=== PATIENT | male | born 1940 | race Caucasian/White ===

== ENCOUNTER 2017-06-11 07:03 | Inpatient (IN) | payer BC ==
[~2017-06-11] VITALS: Ht 175.3 cm; Wt 101.8 kg
[2017-06-11] VITALS (20 sets, daily range): BP systolic 123–190; BP diastolic 66–94; PULSE 62–84; RESP 14–31; Ht 175.3 cm; Wt 101.8 kg
--- NOTE | 2017-06-11 07:51 | RADRPT ---
PROCEDURE: XR Chest. CLINICAL INDICATION: Preoperative cardiovascular screening TECHNIQUE: AP Portable chest. COMPARISON: None available FINDINGS: The soft tissues and bones are normal. No focal infiltrates, masses, or effusions are noted. The m ediastinum and heart are remarkable for mild vascular calcifications of the thoracic aorta and yohannes l size heart.. No pneumothorax is present. IMPRESSION: 1. No radiographic evidence for acute cardiopulmonary disease 2. Mild atherosclerotic vascular disease RPTAT: HDC .Vilma Gregory MD, Date Time Electronically viewed and signed by .Vilma Gregory MD, MD on 06/11/2017 07:51 .C/
[2017-06-11] MEDS ORDERED: SAXA1TBM3 PO (08:11)
[2017-06-11] MEDS ORDERED: DICL50TA11 PO (08:12)
[2017-06-11] MEDS ORDERED: ATOR40TA68 PO (08:12)
[2017-06-11] MEDS ORDERED: ISOS120T15 PO (08:13)
[2017-06-11] MEDS ORDERED: FOLI-49 PO (08:13)
[2017-06-11] MEDS ORDERED: DOXA2TAB PO (08:15)
[2017-06-11] MEDS ORDERED: GLIM4TAB PO (08:16)
[2017-06-11] MEDS ORDERED: ASPI-664 PO (08:17)
[2017-06-11] MEDS ORDERED: CARV6.2579 PO (08:17)
[2017-06-11] MEDS ORDERED: DOCU100C26 PO (08:18)
[2017-06-11 08:27] LABS: BASOPHIL # 0.1 10^3/ul (0.0-0.1); BASOPHILS % 0.8 % (0.0-2.0); EOSINOPHILS # 0.3 10^3/ul (0.0-0.5); EOSINOPHILS % 3.4 % (0.0-7.0); HEMATOCRIT 37.1 % (42.0-52.0); HEMOGLOBIN 11.9 g/dl (14.0-18.0); LYMPHOCYTES # 2.1 10^3/ul (0.8-2.9); LYMPHOCYTES % 28.7 % (15.0-51.0); MEAN CORPUSCULAR HEMOGLOBIN 28.9 pg (29.0-33.0); MEAN CORPUSCULAR HGB CONC 32.1 g/dl (32.0-37.0); MEAN PLATELET VOLUME 11.9 fl (7.4-10.4); MONOCYTE # 0.5 10^3/ul (0.3-0.9); MONOCYTES % 6.6 % (0.0-11.0); NEUTROPHIL # 4.5 10^3/ul (1.6-7.5); NEUTROPHILS % 59.8 % (39.0-77.0); PLATELET COUNT 197 10^3/UL (140-415); RED BLOOD COUNT 4.12 10^6/ul (4.70-6.10); RED CELL DISTRIBUTION WIDTH 13.8 % (11.5-14.5); WHITE BLOOD COUNT 7.4 10^3/ul (4.8-10.8)
[2017-06-11 08:45] LABS: CHOL/HDL RATIO 3.4 RATIO
[2017-06-11 08:47] LABS: INR 0.95; PROTIME 12.7 Sec (12.2-14.2)
[2017-06-11 08:48] LABS: PARTIAL THROMBOPLASTIN TIME 26.3 Sec (25.0-35.0)
[2017-06-11 08:49] LABS: CALCIUM 10.4 mg/dl (8.4-10.2); CREATININE 0.84 mg/dl (0.61-1.24); POTASSIUM 4.6 mmol/L (3.5-5.1)
[2017-06-11] MEDS ORDERED: IODIXANOL LOCM 100 ML BTL ONE (08:57)
[2017-06-11] MEDS ORDERED: LIDOCAINE 1% (MDV) 20 ML INJ ONE (08:57)
[2017-06-11] MEDS ORDERED: HEPARIN 1000 UNITS/ML 10 ML INJ ONE (08:57)
[2017-06-11] MEDS ORDERED: NITROGLYCERIN (IC) 100 MCG/ML INJ ONE (08:58)
[2017-06-11] MEDS ORDERED: FENTAnyl 50 MCG/ML VIAL ONE (08:58)
[2017-06-11] MEDS ORDERED: VERAPAMIL 5 MG INJ ONE (08:58)
[2017-06-11] MEDS ORDERED: MIDAZOLAM 1 MG/ML 2 ML INJ ONE (08:58)
[2017-06-11] MEDS ORDERED: DIPHENHYDRAMINE 50 MG CAP PO PRN (09:00)
[2017-06-11] MEDS ORDERED: FAMOTIDINE 20 MG TAB PO PRN (09:00)
[2017-06-11] MEDS ORDERED: SOD CHLORIDE 0.45% 1,000 ML IV SCH (09:00)
[2017-06-11] MEDS ORDERED: DIAZEPAM 5 MG TAB PO PRN (09:00)
[2017-06-11] MEDS ORDERED: SOD CHLORIDE 0.9% 1,000 ML IV SCH (10:12)
--- NOTE | 2017-06-11 10:16 | SIPON ---
Date/Time of Note Date/Time of Note DATE: 06/11/17 TIME: 10:15 Operative Report Preoperative Diagnosis 1.abnl mpi 2.chest pain Postoperative Diagnosis 1.Obstructive cad Operation/Procedure Performed 1.[facility] Surgeon see signature line librarian assistant Deisy Anesthesia: moderate sedation Estimated blood loss: minimal Transfusion Required none Specimen NA Grafts/Implants none Complications none BETY MEADOWS Jun 11, 2017 10:16
[2017-06-11] MEDS ORDERED: ONDANSETRON 4 MG INJ IV PRN (10:30)
[2017-06-11] MEDS ORDERED: AL HYDROX/MG HYDROX/SIMETH 30 ML CUP PO PRN (10:30)
[2017-06-11] MEDS: HOLD all METFORMIN and METFORMIN CONTAINING medications for 48 hours post procedure. Chec XX SCH (10:30)
[2017-06-11] MEDS ORDERED: morphine 2 MG INJ IV PRN (10:30)
--- NOTE | 2017-06-11 12:13 | CARRPT ---
DATE OF PROCEDURE: 06/11/2017 TYPE OF PROCEDURE: 1. Left heart catheterization. 2. Coronary angiography. 3. Left ventriculogram. ATTENDING PHYSICIAN: Bety Riley MD REFERRING PHYSICIAN: Dr. Hitesh Alcocer. INDICATION: Chest pain, positive stress test findings for ischemia. TYPE OF ANESTHESIA: Conscious and local. BRIEF HISTORY: Mr. Alicea is a 76-year-old male with history of hypertension, dyslipidemia, diab etes mellitus, ongoing tobacco usage, who presented with complaints of substernal chest pain. The p atient subsequently had a cardiac stress test revealing positive ischemia and was referred for left heart catheterization. Patient now presents for left heart catheterization to assess for the possib ility of significant obstructive coronary artery disease lending to symptoms of chest pain and posit brandon stress test findings. PROCEDURE: After informed consent was obtained, the patient was brought to the [facility] cardiac catheterization lab where his right radial area was prepped and draped in usual clayton rile fashion. Lidocaine 2% to the right radial area in order to achieve adequate anesthesia. Using the modified Seldinger technique, the right radial artery was cannulated and a 6-Egyptian JL3.[address] was used to cannulate the left main coronary ostium. With contrast injection, multiple views of the left coronary system were obtained. A JL3.5 ____ over a guidewire and a FR4 was used to cannul ate the right coronary arterial ostium. With contrast injection, multiple views of the right wang ry arterial system obtained. JR4 was removed over a guidewire and a persistent pigtail was passed d own ____ aorta into LV, left end-diastolic pressure was measured. Using a power injector, 20 mL of contrast were injected opacifying the left ventricle and it was pulled back across the aortic valve to assess for significant gradient, which there was not. Subsequently, at this time, the guide cath eter was removed. The patient's sheath was removed. ____ was applied. This completed the procedur e. There were no noted complications. FINDINGS: 1. Coronary angiography: Left main long 4 mm, no significant stenoses. Circumflex proximally is a 2.5 mm vessel and in its midportion has a complex lesion with areas of stenosis up to approximately 90%. There is just a ramus branch ____ 2 mm. No significant focal stenoses. The patient's LAD pr oximally is a 3 mm vessel and in its midportion has an eccentric lesion up to approximately 80-90% _ ___ takeoff of diagonal. Diagonal itself is a 2 mm vessel and has diffuse disease up to approximate ly 60% in the proximal portion. The patient's right coronary artery is 100% occluded in its ostium and can be seen to be recapitulating in its mid to distal portions via left to right collateral circ ulation from the distal circumflex and distal LAD. 2. Left ventriculogram revealed a preserved left ventricular ejection fraction of 55. Left ventric ular end diastolic pressure of 21 pre- and post-LV gram, 1+ mitral regurgitation. No significant ao rtic stenosis by gradient. TOTAL FLUOROSCOPY TIME: 3 minutes. TOTAL CONTRAST: 100 mL. IMPRESSION: 1. Multivessel obstructive coronary artery disease involving high grade stenosis of the circumflex, LAD and 100% occlusion of the patient's right coronary artery with collateral circulation recapitul ating this vessel. 2. Preserved left ventricular systolic function. 3. Mildly elevated left heart filling pressures. 4. No significant aortic stenosis by gradient. 5. One to two plus mitral regurgitation. RECOMMENDATIONS: In light of procedure and findings at this time would: 1. Refer patient for possible coronary artery bypass graft surgery versus multivessel percutaneous coronary intervention. 2. Maximize medical management. 3. Aggressive risk factor reduction. 4. Patient will be admitted to the telemetry floor for post-catheterization observation and evaluat ion for possible coronary bypass graft surgery. Dictated By: BETY GREWAL/SHANKAR Conf#: [id number] DID#: [id number]
--- NOTE | 2017-06-11 13:03 | RADRPT ---
Vent Rate: 61 bpm RR Interval: 0 msec [place] Interval: 206 msec QRS Duration: 96 msec QT Interval: 382 msec QTC Interval: 384 msec P-R-T [place]: 38 - 43 - 70 degrees Normal sinus rhythm Normal ECG Electronically Signed By: Brando Tejada [id number]
[2017-06-11] MEDS ORDERED: DEXTROSE 50% 50 ML SYRINGE IV PRN ×2 (19:30)
[2017-06-11] MEDS ORDERED: GLUCOSE GEL 15 GRAM TUBE PO PRN ×2 (19:30)
[2017-06-11] MEDS ORDERED: GLUCOSE GEL 15 GRAM TUBE BUCCAL PRN (19:30)
[2017-06-11] MEDS ORDERED: GLUCAGON 1 MG INJ IM PRN (19:30)
[2017-06-11] MEDS ORDERED: DOCUSATE SODIUM 100 MG CAP PO PRN (20:30)
[2017-06-11] MEDS ORDERED: hydrALAzine 20 MG INJ IV PRN (20:30)
--- NOTE | 2017-06-11 20:48 | HP ---
Date/Time of Note Date/Time of Note DATE: 06/11/17 TIME: 20:16 Assessment/Plan VTE Prophylaxis VTE Prophylaxis Intervention: other Lines/Catheters IV Catheter Type (from Nrs): Peripheral IV Assessment/Plan Assessment/Plan 1. Chest pain- r/o acs - sp Heart Cath Multivessel obstructive coronary artery disease involving high grade stenosis of the circumflex, LAD and 100% occlusion of the patient's right coronary artery with collateral circulation recapitulating this vessel. - Admit to tele - per cardiology - per vascular- Dr Christensen 2. Preserved left ventricular systolic function. 3. Diabetes Mellitus - Glycemic control 4. Carotid Stenosis 5. Ongoing tobacco usage - Smoking cessation 6. Hyperlipidemia 7. SP DC x 20 yrs ago 8. Hypertension - Hydralazine 10 mg IVP Q6hr prn for SBP >160 9. Anemia- monitor H/H Plan - resume home meds - will hold po anti Diabetic meds - ASA Segundo Mariscal/staff HPI/ROS Admit Date/Time Admit Date/Time Jun 11, 2017 at 10:14 ROS Mr. Alicea is a 76-year-old male with history of hypertension, dyslipidemia, diabetes mellitus, ongoing tobacco usage is admitted with c/o complaints of substernal chest pain. His cardiac stress test was positive ischemia and he underwent left heart catheterization by Dr Riley to assess for the possibility of significant obstructive coronary artery disease lending to symptoms of chest pain and positive stress test findings. Patient is admitted under Dr Mariscal for further evaluation and treatment. Dr Christensen was notified as well. Plan of care dw family/ staff. Segundo Riley. Respiratory: no complaints Cardiovascular: chest pain Gastrointestinal: no complaints Genitourinary: no complaints Musculoskeletal: no complaints PMH/Family/Social Past Medical History As stated in HPI Social History Smoking Status: Former smoker Drug Use: none Exam/Review of Systems Vital Signs Vitals Vital Signs Date Time Temp Pulse Resp B/P Pulse Ox O2 Delivery O2 Flow Rate FiO2 06/11/17 20:11 82 06/11/17 19:56 97.5 18 177/81 99 06/11/17 12:32 Room Air Exam Constitutional: alert, well developed Respiratory: normal air movement Cardiovascular: nl pulses, other (S1S2) Gastrointestinal: non-tender, soft Musculoskeletal: nl extremities to inspection Extremities: normal pulses Neurological: nl mental status, nl speech Labs Result Diagram: 06/11/17 0800 06/11/17 0800 Medications Medications Current Medications Sodium Chloride (1/2 NS) 1,000 ml @ 0 mls/hr Q0M IV ; Start 06/11/17 at 09:00 Diazepam (Valium) 5 mg ONCE PRN PO PASSENGER TIRE INSPECTOR PRE OP; Start 06/11/17 at 09:00; Stop 06/11/17 at 23:00 Diphenhydramine HCl (Benadryl) 50 mg ONCE PRN PO PASSENGER TIRE INSPECTOR PREOP; Start 06/11/17 at 09:00; Stop 06/11/17 at 23:00 Famotidine (Pepcid) 20 mg ONCE PRN PO PASSENGER TIRE INSPECTOR PREOP; Start 06/11/17 at 09:00; Stop 06/11/17 at 23:00 Miscellaneous Information (* Miscellaneous Pharmacy Order) HOLD all METFORMIN ... ONCE XX ; Start 06/11/17 at 10:30; Stop 06/13/17 at 10:29 Acetaminophen (Tylenol Tab) 650 mg Q4H PRN PO NON-CARDIAC PAIN LEVEL (1-3); Start 06/11/17 at 10:30 Morphine Sulfate (morphine) 2 mg Q2H PRN IV FOR NON CARDIAC PAIN (4-10); Start 06/11/17 at 10:30 Al Hydrox/Mg Hydrox/Simethicone (Mag-Al Plus) 30 ml Q4H PRN PO GASTROINTESTINAL UPSET; Start 06/11/17 at 10:30 Ondansetron HCl (Zofran Inj) 4 mg Q4H PRN IV NAUSEA AND/OR VOMITING; Start 06/11/17 at 10:30 Diagnostic Test (Pha) (Accu-Chek) 1 ea 02 XX ; Start 06/12/17 at 02:00 Miscellaneous Information 1 ea NOTE XX ; Start 06/11/17 at 19:30 Glucose (Glutose) 15 gm Q15M PRN PO DECREASED GLUCOSE; Start 06/11/17 at 19:30 Glucose (Glutose) 22.5 gm Q15M PRN PO DECREASED GLUCOSE; Start 06/11/17 at 19: 30 Dextrose (D50w Syringe) 25 ml Q15M PRN IV DECREASED GLUCOSE; Start 06/11/17 at 19:30 Dextrose (D50w Syringe) 50 ml Q15M PRN IV DECREASED GLUCOSE; Start 06/11/17 at 19:30 Glucagon (Glucagen) 1 mg Q15M PRN IM DECREASED GLUCOSE; Start 06/11/17 at 19:30 Glucose (Glutose) 15 gm Q15M PRN BUCCAL DECREASED GLUCOSE; Start 06/11/17 at 19 :30 JJ MYERS Jun 11, 2017 20:26
[2017-06-11] MEDS: DOXAZOSIN 2 MG TAB PO SCH (21:00)
[2017-06-11] MEDS: DICLOFENAC (EC) 25 MG TAB PO SCH (21:00)
[2017-06-11] MEDS: ATORVASTATIN 40 MG TAB PO SCH (21:00)
[2017-06-11] MEDS: INSULIN ASPART [NOVOLOG] 3 ML PEN SC SCH (21:00)
[2017-06-11 21:38] LABS: BASOPHIL # 0.1 10^3/ul (0.0-0.1); BASOPHILS % 0.9 % (0.0-2.0); EOSINOPHILS # 0.2 10^3/ul (0.0-0.5); EOSINOPHILS % 2.8 % (0.0-7.0); HEMOGLOBIN 12.2 g/dl (14.0-18.0); LYMPHOCYTES # 2.7 10^3/ul (0.8-2.9); LYMPHOCYTES % 32.8 % (15.0-51.0); MEAN CORPUSCULAR VOLUME 91.1 fl (82.0-101.0); MEAN PLATELET VOLUME 11.9 fl (7.4-10.4); MONOCYTE # 0.5 10^3/ul (0.3-0.9); MONOCYTES % 6.6 % (0.0-11.0); NEUTROPHIL # 4.6 10^3/ul (1.6-7.5); NEUTROPHILS % 56.3 % (39.0-77.0); PLATELET COUNT 212 10^3/UL (140-415); RED BLOOD COUNT 4.06 10^6/ul (4.70-6.10); RED CELL DISTRIBUTION WIDTH 13.7 % (11.5-14.5); WHITE BLOOD COUNT 8.2 10^3/ul (4.8-10.8)
[2017-06-11 21:57] LABS: CHOL/HDL RATIO 3.5 RATIO
[2017-06-12] VITALS (11 sets, daily range): BP systolic 104–146; BP diastolic 55–68; PULSE 55–70; RESP 16–19
[2017-06-12] MEDS ORDERED: ACCU-CHEK XX SCH (02:00)
[2017-06-12] MEDS: ACCU-CHEK XX SCH (02:00)
[2017-06-12 07:49] LABS: CALCIUM 10.2 mg/dl (8.4-10.2); CREATININE 0.86 mg/dl (0.61-1.24); POTASSIUM 4.8 mmol/L (3.5-5.1)
[2017-06-12] MEDS: DICLOFENAC (EC) 25 MG TAB PO SCH ×3 (08:32→19:56)
[2017-06-12] MEDS: FOLIC ACID 1 MG TAB PO SCH (08:32)
[2017-06-12] MEDS: ISOSORBIDE MONONITRATE(SR)60 MG TAB PO SCH (08:32)
[2017-06-12] MEDS: ASPIRIN (EC) 81 MG TAB PO SCH (08:34)
[2017-06-12] MEDS: INSULIN ASPART [NOVOLOG] 3 ML PEN SC SCH ×4 (08:39→20:05)
[2017-06-12] MEDS: HOLD all METFORMIN and METFORMIN CONTAINING medications for 48 hours post procedure. Chec XX SCH (10:30)
--- NOTE | 2017-06-12 14:31 | PN ---
Date/Time of Note Date/Time of Note DATE: 06/12/17 TIME: 14:25 Assessment/Plan VTE Prophylaxis VTE Prophylaxis Intervention: SCD's Lines/Catheters IV [facility]from [facility]): Peripheral IV Urinary Cath still in place: No Assessment/Plan Chief Complaint/Hosp Course Pt denies SOB, denies chest pain at rest. Problems: Assessment/Plan - Multivessel obstructive coronary artery disease involving high grade stenosis of the circumflex, LAD and 100% occlusion of the patient's right coronary artery with collateral circulation recapitulating this vessel per cardiac cath by Dr. Riley on 06/11. Pending cardiac surgery evaluation for possible CABG. -Hypertension -Hyperlipidemia -Diabetes mellitus with hemoglobin A1c 6.9, start linagliptin, continue NovoLog per mild algorithm sliding scale. Further recommendations based on clinical course. Plan of care discussed with Dr. Mariscal Exam/Review of Systems Vital Signs Vitals Vital Signs Date Time Temp Pulse Resp B/P Pulse Ox O2 Delivery O2 Flow Rate FiO2 06/12/17 12:01 98.0 73 18 116/62 92 06/11/17 12:32 Room Air Intake and Output 06/11/17 06/11/17 06/12/17 15:00 23:00 07:00 Intake Total 250 ml 630 ml 300 ml Output Total 700 ml 550 ml Balance -450 ml 80 ml 300 ml Exam Constitutional: alert, oriented Head: normocephalic Neck: supple Respiratory: normal air movement Cardiovascular: nl pulses, regular rate and rhythm Gastrointestinal: non-tender, soft Extremities: normal pulses Neurological: nl mental status Results Result Diagram: 06/11/17205406/12/17 0644 Results 24 hrs Laboratory Tests Test 06/11/17 20:55 06/11/17 22:03 06/12/17 06:44 06/12/17 08:30 White Blood Count 8.2 Red Blood Count 4.06 L Hemoglobin 12.2 L Hematocrit 37.0 L Mean Corpuscular Volume 91.1 Mean Corpuscular Hemoglobin 30.0 Mean Corpuscular Hemoglobin Concent 33.0 Red Cell Distribution Width 13.7 Platelet Count 212 Mean Platelet Volume 11.9 H Neutrophils % 56.3 Lymphocytes % 32.8 Monocytes % 6.6 Eosinophils % 2.8 Basophils % 0.9 Nucleated Red Blood Cells % 0.0 Neutrophils # 4.6 Lymphocytes # 2.7 Monocytes # 0.5 Eosinophils # 0.2 Basophils # 0.1 Nucleated Red Blood Cells # 0.0 Triglycerides Level 271 H Cholesterol Level 141 LDL Cholesterol, Calculated 47 HDL Cholesterol 40 Cholesterol/HDL Ratio 3.5 Bedside Glucose 196 151 Sodium Level 142 Potassium Level 4.8 Chloride Level 105 Carbon Dioxide Level 28 Anion Gap 14 Blood Urea Nitrogen 19 Creatinine 0.86 Glucose Level 135 Hemoglobin A1c 6.9 H Calcium Level 10.2 Test 06/12/17 12:16 Bedside Glucose 202 Medications Medications Current Medications Sodium Chloride (1/2 NS) 1,000 ml @ 0 mls/hr Q0M IV ; Start 06/11/17 at 09:00 Miscellaneous Information (* Miscellaneous Pharmacy Order) HOLD all METFORMIN ... ONCE XX ; Start 06/11/17 at 10:30; Stop 06/13/17 at 10:29 Acetaminophen (Tylenol Tab) 650 mg Q4H PRN PO NON-CARDIAC PAIN LEVEL (1-3); Start 06/11/17 at 10:30 Morphine Sulfate (morphine) 2 mg Q2H PRN IV FOR NON CARDIAC PAIN (4-10); Start 06/11/17 at 10:30 Al Hydrox/Mg Hydrox/Simethicone (Mag-Al Plus) 30 ml Q4H PRN PO GASTROINTESTINAL UPSET; Start 06/11/17 at 10:30 Ondansetron HCl (Zofran Inj) 4 mg Q4H PRN IV NAUSEA AND/OR VOMITING; Start 06/11/17 at 10:30 Diagnostic Test (Pha) (Accu-Chek) 1 ea 02 XX ; Start 06/12/17 at 02:00 Miscellaneous Information 1 ea NOTE XX ; Start 06/11/17 at 19:30 Glucose (Glutose) 15 gm Q15M PRN PO DECREASED GLUCOSE; Start 06/11/17 at 19:30 Glucose (Glutose) 22.5 gm Q15M PRN PO DECREASED GLUCOSE; Start 06/11/17 at 19: 30 Dextrose (D50w Syringe) 25 ml Q15M PRN IV DECREASED GLUCOSE; Start 06/11/17 at 19:30 Dextrose (D50w Syringe) 50 ml Q15M PRN IV DECREASED GLUCOSE; Start 06/11/17 at 19:30 Glucagon (Glucagen) 1 mg Q15M PRN IM DECREASED GLUCOSE; Start 06/11/17 at 19:30 Glucose (Glutose) 15 gm Q15M PRN BUCCAL DECREASED GLUCOSE; Start 06/11/17 at 19 :30 Hydralazine HCl (Apresoline) 10 mg Q6H PRN IV ELEVATED SYSTOLIC BP; Start 06/11 at 20:30 Aspirin (Halfprin) 81 mg DAILY PO Last administered on 06/12/17 08:34; Admin Dose 81 MG; Start 06/12/17 at 09:00 Atorvastatin Calcium (Lipitor) 40 mg QHS PO ; Start 06/11/17 at 21:00 Carvedilol (Coreg) 6.25 mg BID PO Last administered on 06/12/17 08:32; Admin Dose 6.25 MG; Start 06/11/17 at 21:00 Diclofenac Sodium (Voltaren) 50 mg TID PO Last administered on 06/12/17 12:34 ; Admin Dose 50 MG; Start 06/11/17 at 21:00 Docusate Sodium (Colace) 100 mg DAILY PRN PO CONSTIPATION; Start 06/11/17 at 20 :30 Doxazosin Mesylate (Cardura) 2 mg HS PO ; Start 06/11/17 at 21:00 Folic Acid (Folic Acid) 1 mg DAILY PO Last administered on 06/12/17 08:32; Admin Dose 1 MG; Start 06/12/17 at 09:00 Isosorbide Mononitrate (Imdur) 120 mg DAILY PO Last administered on 06/12/17 08:32; Admin Dose 120 MG; Start 06/12/17 at 09:00 GIOVANNI GARCIA Jun 12, 2017 14:31
--- NOTE | 2017-06-12 15:00 | CONS ---
Date/Time of Note Date/Time of Note DATE: 06/12/17 TIME: 14:58 Assessment/Plan Assessment/Plan Additional Assessment/Plan 1. 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 Riley on 06/11. Pending cardiac surgery evaluation for possible CABG. - will await surgical input. 2. Hypertension - well Rx, con't to adjusts x as needed. 3. Hyperlipidemia - on meds 4. Diabetes mellitus with hemoglobin A1c 6.9, start linagliptin, continue NovoLog per mild algorithm sliding scale Primary team follows. 5. Abn EKG - no CP now, surgical eval pending. Consultation Date/Type/Reason Admit Date/Time Jun 11, 2017 at 10:14 Initial Consult Date 24 HR Interval Summary Free Text/Dictation NO acute events - awaiting surgical input. ROS: No fever, no chills, no nausea, no vomiting, no diarrhea/constipation No recent weight changes No chest pain, no PND, no orthopnea No dizziness, blurred vision No thirst, no heat or cold intolerance Exam/Review of Systems Vital Signs Vitals Vital Signs Date Time Temp Pulse Resp B/P Pulse Ox O2 Delivery O2 Flow Rate FiO2 06/12/17 12:01 98.0 73 18 116/62 92 06/11/17 12:32 Room Air Intake and Output 06/11/17 06/11/17 06/12/17 15:00 23:00 07:00 Intake Total 250 ml 630 ml 300 ml Output Total 700 ml 550 ml Balance -450 ml 80 ml 300 ml Exam General: WN/WD/NAD, AOx 3 HEENT: Unicetric/atraumatic/EOMI (follows commands) NECK: JVD elevated, no thyromegaly Lymph: no lymphadenopathy HEART: regular with no S3, II/ systolic murmur at apex LUNGS: Coarse sounds ABD: soft, NT, ND, +BS : Intact Neuro: non focal SKIN: chronic changes EXT: trace edema Results Result Diagram: 06/11/17205406/12/1744 Results 24 hrs Laboratory Tests Test 06/11/17 20:55 06/11/17 22:03 06/12/17 06:44 06/12/17 08:30 White Blood Count 8.2 Red Blood Count 4.06 L Hemoglobin 12.2 L Hematocrit 37.0 L Mean Corpuscular Volume 91.1 Mean Corpuscular Hemoglobin 30.0 Mean Corpuscular Hemoglobin Concent 33.0 Red Cell Distribution Width 13.7 Platelet Count 212 Mean Platelet Volume 11.9 H Neutrophils % 56.3 Lymphocytes % 32.8 Monocytes % 6.6 Eosinophils % 2.8 Basophils % 0.9 Nucleated Red Blood Cells % 0.0 Neutrophils # 4.6 Lymphocytes # 2.7 Monocytes # 0.5 Eosinophils # 0.2 Basophils # 0.1 Nucleated Red Blood Cells # 0.0 Triglycerides Level 271 H Cholesterol Level 141 LDL Cholesterol, Calculated 47 HDL Cholesterol 40 Cholesterol/HDL Ratio 3.5 Bedside Glucose 196 151 Sodium Level 142 Potassium Level 4.8 Chloride Level 105 Carbon Dioxide Level 28 Anion Gap 14 Blood Urea Nitrogen 19 Creatinine 0.86 Glucose Level 135 Hemoglobin A1c 6.9 H Calcium Level 10.2 Test 06/12/17 12:16 Bedside Glucose 202 Medications Medications Current Medications Sodium Chloride (1/2 NS) 1,000 ml @ 0 mls/hr Q0M IV ; Start 06/11/17 at 09:00 Miscellaneous Information (* Miscellaneous Pharmacy Order) HOLD all METFORMIN ... ONCE XX ; Start 06/11/17 at 10:30; Stop 06/13/17 at 10:29 Acetaminophen (Tylenol Tab) 650 mg Q4H PRN PO NON-CARDIAC PAIN LEVEL (1-3); Start 06/11/17 at 10:30 Morphine Sulfate (morphine) 2 mg Q2H PRN IV FOR NON CARDIAC PAIN (4-10); Start 06/11/17 at 10:30 Al Hydrox/Mg Hydrox/Simethicone (Mag-Al Plus) 30 ml Q4H PRN PO GASTROINTESTINAL UPSET; Start 06/11/17 at 10:30 Ondansetron HCl (Zofran Inj) 4 mg Q4H PRN IV NAUSEA AND/OR VOMITING; Start 06/11/17 at 10:30 Diagnostic Test (Pha) (Accu-Chek) 1 ea 02 XX ; Start 06/12/17 at 02:00 Miscellaneous Information 1 ea NOTE XX ; Start 06/11/17 at 19:30 Glucose (Glutose) 15 gm Q15M PRN PO DECREASED GLUCOSE; Start 06/11/17 at 19:30 Glucose (Glutose) 22.5 gm Q15M PRN PO DECREASED GLUCOSE; Start 06/11/17 at 19: 30 Dextrose (D50w Syringe) 25 ml Q15M PRN IV DECREASED GLUCOSE; Start 06/11/17 at 19:30 Dextrose (D50w Syringe) 50 ml Q15M PRN IV DECREASED GLUCOSE; Start 06/11/17 at 19:30 Glucagon (Glucagen) 1 mg Q15M PRN IM DECREASED GLUCOSE; Start 06/11/17 at 19:30 Glucose (Glutose) 15 gm Q15M PRN BUCCAL DECREASED GLUCOSE; Start 06/11/17 at 19 :30 Hydralazine HCl (Apresoline) 10 mg Q6H PRN IV ELEVATED SYSTOLIC BP; Start 06/11 at 20:30 Aspirin (Halfprin) 81 mg DAILY PO Last administered on 06/12/17 08:34; Admin Dose 81 MG; Start 06/12/17 at 09:00 Atorvastatin Calcium (Lipitor) 40 mg QHS PO ; Start 06/11/17 at 21:00 Carvedilol (Coreg) 6.25 mg BID PO Last administered on 06/12/17 08:32; Admin Dose 6.25 MG; Start 06/11/17 at 21:00 Diclofenac Sodium (Voltaren) 50 mg TID PO Last administered on 06/12/17 12:34 ; Admin Dose 50 MG; Start 06/11/17 at 21:00 Docusate Sodium (Colace) 100 mg DAILY PRN PO CONSTIPATION; Start 06/11/17 at 20 :30 Doxazosin Mesylate (Cardura) 2 mg HS PO ; Start 06/11/17 at 21:00 Folic Acid (Folic Acid) 1 mg DAILY PO Last administered on 06/12/17 08:32; Admin Dose 1 MG; Start 06/12/17 at 09:00 Isosorbide Mononitrate (Imdur) 120 mg DAILY PO Last administered on 06/12/17 08:32; Admin Dose 120 MG; Start 06/12/17 at 09:00 Linagliptin (Tradjenta) 5 mg DAILY PO ; Start 06/12/17 at 14:30 YAZ DA SILVA MD Jun 12, 2017 15:00
[2017-06-12] MEDS: LINAGLIPTIN 5 MG TABLET PO SCH (16:58)
--- NOTE | 2017-06-12 19:29 | CONS ---
DATE OF ADMISSION: 06/11/2017 DATE OF CONSULTATION: REASON FOR CONSULTATION: Evaluation for coronary artery bypass grafting. HISTORY OF PRESENT ILLNESS: This is a 76-year-old male with a history of hypertension, diabetes, ob esity, hyperlipidemia, admitted for coronary angiogram, was found to have 3-vessel coronary artery d isease, high grade stenosis in the circumflex and LAD and 100% stenosis of the right coronary artery . Patient does not have any chest pain at this time. PAST MEDICAL HISTORY: Hypertension, diabetes, hyperlipidemia. PAST SURGICAL HISTORY: None. ALLERGIES: NONE. SOCIAL HISTORY: Positive for smoking. No drinking or drug use. PHYSICAL EXAMINATION: VITAL SIGNS: Blood pressure is 104/55, pulse is 74, respirations 18, saturations 97% on room air, t emperature is 98.2. HEENT: Normocephalic, atraumatic. NECK: Supple. No JVD. CARDIOVASCULAR: Normal S1, S2. LUNGS: Clear. ABDOMEN: Soft. EXTREMITIES: Warm. IMPRESSION: Three-vessel coronary artery disease. RECOMMENDATIONS: This patient would be a candidate for coronary artery bypass grafting. Would try to arrange for elective surgery. Discussed with the referring physicians and the patient. Dictated By: SAJI NOVOA/SHANKAR Conf#: [id number] DID#: [id number]
[2017-06-12] MEDS: ATORVASTATIN 40 MG TAB PO SCH (19:56)
[2017-06-12] MEDS: DOXAZOSIN 2 MG TAB PO SCH (21:00)
[2017-06-13] VITALS (12 sets, daily range): BP systolic 107–157; BP diastolic 52–69; PULSE 54–75; RESP 18–21
[2017-06-13] MEDS: ACCU-CHEK XX SCH (02:00)
[2017-06-13] MEDS: INSULIN ASPART [NOVOLOG] 3 ML PEN SC SCH ×4 (07:56→20:36)
[2017-06-13 08:41] LABS: BASOPHIL # 0.1 10^3/ul (0.0-0.1); BASOPHILS % 0.7 % (0.0-2.0); EOSINOPHILS # 0.3 10^3/ul (0.0-0.5); EOSINOPHILS % 3.8 % (0.0-7.0); HEMATOCRIT 34.1 % (42.0-52.0); HEMOGLOBIN 11.1 g/dl (14.0-18.0); LYMPHOCYTES # 2.3 10^3/ul (0.8-2.9); LYMPHOCYTES % 31.7 % (15.0-51.0); MEAN CORPUSCULAR HEMOGLOBIN 29.4 pg (29.0-33.0); MEAN CORPUSCULAR HGB CONC 32.6 g/dl (32.0-37.0); MEAN CORPUSCULAR VOLUME 90.2 fl (82.0-101.0); MEAN PLATELET VOLUME 12.5 fl (7.4-10.4); MONOCYTE # 0.6 10^3/ul (0.3-0.9); MONOCYTES % 8.2 % (0.0-11.0); PLATELET COUNT 171 10^3/UL (140-415); RED BLOOD COUNT 3.78 10^6/ul (4.70-6.10); RED CELL DISTRIBUTION WIDTH 13.8 % (11.5-14.5); WHITE BLOOD COUNT 7.2 10^3/ul (4.8-10.8)
[2017-06-13 09:00] LABS: CALCIUM 10.4 mg/dl (8.4-10.2); CREATININE 1.14 mg/dl (0.61-1.24); POTASSIUM 4.8 mmol/L (3.5-5.1)
[2017-06-13] MEDS: ASPIRIN (EC) 81 MG TAB PO SCH (09:05)
[2017-06-13] MEDS: LINAGLIPTIN 5 MG TABLET PO SCH (09:05)
[2017-06-13] MEDS: DICLOFENAC (EC) 25 MG TAB PO SCH ×3 (09:05→20:35)
[2017-06-13] MEDS: ISOSORBIDE MONONITRATE(SR)60 MG TAB PO SCH (09:06)
[2017-06-13] MEDS: FOLIC ACID 1 MG TAB PO SCH (09:06)
--- NOTE | 2017-06-13 09:06 | PN ---
Date/Time of Note Date/Time of Note DATE: 06/13/17 TIME: 09:06 Assessment/Plan VTE Prophylaxis VTE Prophylaxis Intervention: other Lines/Catheters IV [facility] Type [facility]from [facility]): Saline Lock Urinary Cath still in place: No Assessment/Plan Chief Complaint/Hosp Course - Multivessel obstructive coronary artery disease involving high grade stenosis of the circumflex, LAD and 100% occlusion of the patient's right coronary artery with collateral circulation recapitulating this vessel per cardiac cath by Dr. Riley on 06/11. Pending cardiac surgery evaluation for possible CABG. -Hypertension -Hyperlipidemia -Diabetes mellitus with hemoglobin A1c 6.9, start linagliptin, continue NovoLog per mild algorithm sliding scale. Problems: Subjective 24 Hr Interval Summary Free Text/Dictation Patient denies any complaints Exam/Review of Systems Vital Signs Vitals Vital Signs Date Time Temp Pulse Resp B/P Pulse Ox O2 Delivery O2 Flow Rate FiO2 06/13/17 08:09 59 06/13/17 07:46 98.0 18 157/68 98 06/11/17 12:32 Room Air Intake and Output 06/12/17 06/12/17 06/13/17 15:00 23:00 07:00 Intake Total 850 ml Balance 850 ml Exam Constitutional: well developed Head: atraumatic, normocephalic Neck: supple Respiratory: diminished breath sounds Cardiovascular: regular rate and rhythm Gastrointestinal: non-tender, soft Extremities: normal pulses Results Result Diagram: 06/13/17 0707 06/13/17 0710 Results 24 hrs Laboratory Tests Test 06/12/17 12:16 06/12/17 16:59 06/12/17 19:51 06/13/17 03:54 Bedside Glucose 202 227 H 237 H 164 Test 06/13/17 07:07 06/13/17 07:10 06/13/17 07:53 White Blood Count 7.2 Red Blood Count 3.78 L Hemoglobin 11.1 L Hematocrit 34.1 L Mean Corpuscular Volume 90.2 Mean Corpuscular Hemoglobin 29.4 Mean Corpuscular Hemoglobin Concent 32.6 Red Cell Distribution Width 13.8 Platelet Count 171 Mean Platelet Volume 12.5 H Neutrophils % 55.0 Lymphocytes % 31.7 Monocytes % 8.2 Eosinophils % 3.8 Basophils % 0.7 Nucleated Red Blood Cells % 0.0 Neutrophils # 4.0 Lymphocytes # 2.3 Monocytes # 0.6 Eosinophils # 0.3 Basophils # 0.1 Nucleated Red Blood Cells # 0.0 Sodium Level 139 Potassium Level 4.8 Chloride Level 103 Carbon Dioxide Level 27 Anion Gap 14 Blood Urea Nitrogen 38 #H Creatinine 1.14 Glucose Level 175 Calcium Level 10.4 H Bedside Glucose 201 Medications Medications Current Medications Sodium Chloride (1/2 NS) 1,000 ml @ 0 mls/hr Q0M IV ; Start 06/11/17 at 09:00 Miscellaneous Information (* Miscellaneous Pharmacy Order) HOLD all METFORMIN ... ONCE XX ; Start 06/11/17 at 10:30; Stop 06/13/17 at 10:29 Acetaminophen (Tylenol Tab) 650 mg Q4H PRN PO NON-CARDIAC PAIN LEVEL (1-3); Start 06/11/17 at 10:30 Morphine Sulfate (morphine) 2 mg Q2H PRN IV FOR NON CARDIAC PAIN (4-10); Start 06/11/17 at 10:30 Al Hydrox/Mg Hydrox/Simethicone (Mag-Al Plus) 30 ml Q4H PRN PO GASTROINTESTINAL UPSET; Start 06/11/17 at 10:30 Ondansetron HCl (Zofran Inj) 4 mg Q4H PRN IV NAUSEA AND/OR VOMITING; Start 06/11/17 at 10:30 Diagnostic Test (Pha) (Accu-Chek) 1 ea 02 XX ; Start 06/12/17 at 02:00 Miscellaneous Information 1 ea NOTE XX ; Start 06/11/17 at 19:30 Glucose (Glutose) 15 gm Q15M PRN PO DECREASED GLUCOSE; Start 06/11/17 at 19:30 Glucose (Glutose) 22.5 gm Q15M PRN PO DECREASED GLUCOSE; Start 06/11/17 at 19: 30 Dextrose (D50w Syringe) 25 ml Q15M PRN IV DECREASED GLUCOSE; Start 06/11/17 at 19:30 Dextrose (D50w Syringe) 50 ml Q15M PRN IV DECREASED GLUCOSE; Start 06/11/17 at 19:30 Glucagon (Glucagen) 1 mg Q15M PRN IM DECREASED GLUCOSE; Start 06/11/17 at 19:30 Glucose (Glutose) 15 gm Q15M PRN BUCCAL DECREASED GLUCOSE; Start 06/11/17 at 19 :30 Hydralazine HCl (Apresoline) 10 mg Q6H PRN IV ELEVATED SYSTOLIC BP; Start 06/11 at 20:30 Aspirin (Halfprin) 81 mg DAILY PO Last administered on 06/12/17 08:34; Admin Dose 81 MG; Start 06/12/17 at 09:00 Atorvastatin Calcium (Lipitor) 40 mg QHS PO Last administered on 06/12/17 19: 56; Admin Dose 40 MG; Start 06/11/17 at 21:00 Carvedilol (Coreg) 6.25 mg BID PO Last administered on 06/12/17 19:56; Admin Dose 6.25 MG; Start 06/11/17 at 21:00 Diclofenac Sodium (Voltaren) 50 mg TID PO Last administered on 06/12/17 19:56 ; Admin Dose 50 MG; Start 06/11/17 at 21:00 Docusate Sodium (Colace) 100 mg DAILY PRN PO CONSTIPATION; Start 06/11/17 at 20 :30 Doxazosin Mesylate (Cardura) 2 mg HS PO ; Start 06/11/17 at 21:00 Folic Acid (Folic Acid) 1 mg DAILY PO Last administered on 06/12/17 08:32; Admin Dose 1 MG; Start 06/12/17 at 09:00 Isosorbide Mononitrate (Imdur) 120 mg DAILY PO Last administered on 06/12/17 08:32; Admin Dose 120 MG; Start 06/12/17 at 09:00 Linagliptin (Tradjenta) 5 mg DAILY PO Last administered on 06/12/17 16:58; Admin Dose 5 MG; Start 06/12/17 at 14:30 LESLEY SPAULDING Jun 13, 2017 09:06
--- NOTE | 2017-06-13 13:58 | CONS ---
Date/Time of Note Date/Time of Note DATE: 06/13/17 TIME: 13:57 Assessment/Plan Assessment/Plan Additional Assessment/Plan 1. 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 Riley on 06/11. s/p cardiac surgery evaluation for possible CABG - acceptable candidate, family agrees - will dispo with CT surgery team . 2. Hypertension - well Rx, con't to adjusts x as needed. WELL RX. 3. Hyperlipidemia - on meds 4. Diabetes mellitus with hemoglobin A1c 6.9, start linagliptin, continue NovoLog per mild algorithm sliding scale Primary team follows. 5. Abn EKG - no CP now, surgical eval pending. Consultation Date/Type/Reason Admit Date/Time Jun 11, 2017 at 10:14 24 HR Interval Summary Free Text/Dictation s/p cardiac surgery evaluation for possible CABG - acceptable candidate, family agrees - will dispo with CT surgery team . ROS: No fever, no chills, no nausea, no vomiting, no diarrhea/constipation No recent weight changes No chest pain, no PND, no orthopnea No dizziness, blurred vision No thirst, no heat or cold intolerance Exam/Review of Systems Vital Signs Vitals Vital Signs Date Time Temp Pulse Resp B/P Pulse Ox O2 Delivery O2 Flow Rate FiO2 06/13/17 12:24 68 06/13/17 11:37 98.7 18 107/52 96 06/11/17 12:32 Room Air Intake and Output 06/12/17 06/12/17 06/13/17 15:00 23:00 07:00 Intake Total 850 ml Balance 850 ml Exam General: WN/WD/NAD, AOx 3 HEENT: Unicetric/atraumatic/EOMI (follows commands) NECK: JVD elevated, no thyromegaly Lymph: no lymphadenopathy HEART: regular with no S3, II/ systolic murmur at apex LUNGS: Coarse sounds ABD: soft, NT, ND, +BS : Intact Neuro: non focal SKIN: chronic changes EXT: trace edema Results Result Diagram: 06/13/17 0707 06/13/17 0710 Results 24 hrs Laboratory Tests Test 06/12/17 16:59 06/12/17 19:51 06/13/17 03:54 06/13/17 07:07 Bedside Glucose 227 H 237 H 164 White Blood Count 7.2 Red Blood Count 3.78 L Hemoglobin 11.1 L Hematocrit 34.1 L Mean Corpuscular Volume 90.2 Mean Corpuscular Hemoglobin 29.4 Mean Corpuscular Hemoglobin Concent 32.6 Red Cell Distribution Width 13.8 Platelet Count 171 Mean Platelet Volume 12.5 H Neutrophils % 55.0 Lymphocytes % 31.7 Monocytes % 8.2 Eosinophils % 3.8 Basophils % 0.7 Nucleated Red Blood Cells % 0.0 Neutrophils # 4.0 Lymphocytes # 2.3 Monocytes # 0.6 Eosinophils # 0.3 Basophils # 0.1 Nucleated Red Blood Cells # 0.0 Test 06/13/17 07:10 06/13/17 07:53 06/13/17 11:57 06/13/17 12:46 Sodium Level 139 Potassium Level 4.8 Chloride Level 103 Carbon Dioxide Level 27 Anion Gap 14 Blood Urea Nitrogen 38 #H Creatinine 1.14 Glucose Level 175 Calcium Level 10.4 H Bedside Glucose 201 242 H 227 H Medications Medications Current Medications Sodium Chloride (1/2 NS) 1,000 ml @ 0 mls/hr Q0M IV ; Start 06/11/17 at 09:00 Acetaminophen (Tylenol Tab) 650 mg Q4H PRN PO NON-CARDIAC PAIN LEVEL (1-3); Start 06/11/17 at 10:30 Morphine Sulfate (morphine) 2 mg Q2H PRN IV FOR NON CARDIAC PAIN (4-10); Start 06/11/17 at 10:30 Al Hydrox/Mg Hydrox/Simethicone (Mag-Al Plus) 30 ml Q4H PRN PO GASTROINTESTINAL UPSET; Start 06/11/17 at 10:30 Ondansetron HCl (Zofran Inj) 4 mg Q4H PRN IV NAUSEA AND/OR VOMITING; Start 06/11/17 at 10:30 Diagnostic Test (Pha) (Accu-Chek) 1 ea 02 XX ; Start 06/12/17 at 02:00 Miscellaneous Information 1 ea NOTE XX ; Start 06/11/17 at 19:30 Glucose (Glutose) 15 gm Q15M PRN PO DECREASED GLUCOSE; Start 06/11/17 at 19:30 Glucose (Glutose) 22.5 gm Q15M PRN PO DECREASED GLUCOSE; Start 06/11/17 at 19: 30 Dextrose (D50w Syringe) 25 ml Q15M PRN IV DECREASED GLUCOSE; Start 06/11/17 at 19:30 Dextrose (D50w Syringe) 50 ml Q15M PRN IV DECREASED GLUCOSE; Start 06/11/17 at 19:30 Glucagon (Glucagen) 1 mg Q15M PRN IM DECREASED GLUCOSE; Start 06/11/17 at 19:30 Glucose (Glutose) 15 gm Q15M PRN BUCCAL DECREASED GLUCOSE; Start 06/11/17 at 19 :30 Hydralazine HCl (Apresoline) 10 mg Q6H PRN IV ELEVATED SYSTOLIC BP; Start 06/11 at 20:30 Aspirin (Halfprin) 81 mg DAILY PO Last administered on 06/13/17 09:05; Admin Dose 81 MG; Start 06/12/17 at 09:00 Atorvastatin Calcium (Lipitor) 40 mg QHS PO Last administered on 06/12/17 19: 56; Admin Dose 40 MG; Start 06/11/17 at 21:00 Carvedilol (Coreg) 6.25 mg BID PO Last administered on 06/13/17 09:51; Admin Dose 6.25 MG; Start 06/11/17 at 21:00 Diclofenac Sodium (Voltaren) 50 mg TID PO Last administered on 06/13/17 12:48 ; Admin Dose 50 MG; Start 06/11/17 at 21:00 Docusate Sodium (Colace) 100 mg DAILY PRN PO CONSTIPATION; Start 06/11/17 at 20 :30 Doxazosin Mesylate (Cardura) 2 mg HS PO ; Start 06/11/17 at 21:00 Folic Acid (Folic Acid) 1 mg DAILY PO Last administered on 06/13/17 09:06; Admin Dose 1 MG; Start 06/12/17 at 09:00 Isosorbide Mononitrate (Imdur) 120 mg DAILY PO Last administered on 06/13/17 09:06; Admin Dose 120 MG; Start 06/12/17 at 09:00 Linagliptin (Tradjenta) 5 mg DAILY PO Last administered on 06/13/17 09:05; Admin Dose 5 MG; Start 06/12/17 at 14:30 YAZ DA SILVA MD Jun 13, 2017 13:58
--- NOTE | 2017-06-13 20:18 | PN ---
Date/Time of Note Date/Time of Note DATE: 06/13/17 TIME: 20:17 Assessment/Plan Lines/Catheters IV Catheter Type (from Nrsg): Saline Lock Marlow in Place (from Nrsg): No Assessment/Plan Chief Complaint/Hosp Course IMPRESSION: Three-vessel coronary artery disease. RECOMMENDATIONS: This patient would be a candidate for coronary artery bypass grafting. Would try to arrange for elective surgery. Discussed with the referring physicians and the patient. Problems: Subjective 24 Hr Interval Summary Constitutional: improved Pain Control: mild Exam/Review of Systems Vital Signs Vitals Vital Signs Date Time Temp Pulse Resp B/P Pulse Ox O2 Delivery O2 Flow Rate FiO2 06/13/17 20:07 75 06/13/17 15:57 97.9 21 134/64 95 06/11/17 12:32 Room Air Intake and Output 06/12/17 06/12/17 06/13/17 15:00 23:00 07:00 Intake Total 850 ml Balance 850 ml Exam Neck: non-tender, supple Respiratory: clear to auscultation, normal air movement Cardiovascular: nl pulses, regular rate and rhythm Results Result Diagram: 06/13/17 0707 06/13/17 0710 SAJI RICH MD Jun 13, 2017 20:18
[2017-06-13] MEDS: ATORVASTATIN 40 MG TAB PO SCH (20:34)
[2017-06-13] MEDS: DOXAZOSIN 2 MG TAB PO SCH (20:34)
[2017-06-14] VITALS (11 sets, daily range): BP systolic 100–160; BP diastolic 49–72; PULSE 55–70; RESP 18–20
[2017-06-14] MEDS: ACCU-CHEK XX SCH (02:00)
[2017-06-14] MEDS: FOLIC ACID 1 MG TAB PO SCH (08:04)
[2017-06-14] MEDS: ISOSORBIDE MONONITRATE(SR)60 MG TAB PO SCH (08:04)
[2017-06-14] MEDS: ASPIRIN (EC) 81 MG TAB PO SCH (08:04)
[2017-06-14] MEDS: LINAGLIPTIN 5 MG TABLET PO SCH (08:04)
[2017-06-14] MEDS: DICLOFENAC (EC) 25 MG TAB PO SCH ×3 (08:04→20:09)
[2017-06-14] MEDS: INSULIN ASPART [NOVOLOG] 3 ML PEN SC SCH ×4 (08:06→20:12)
--- NOTE | 2017-06-14 10:08 | PN ---
Date/Time of Note Date/Time of Note DATE: 06/14/17 TIME: 10:07 Assessment/Plan VTE Prophylaxis VTE Prophylaxis Intervention: other Lines/Catheters IV Catheter Type (from [facility]): Saline Lock Urinary Cath still in place: No Assessment/Plan Chief Complaint/Hosp Course - Multivessel obstructive coronary artery disease involving high grade stenosis of the circumflex, LAD and 100% occlusion of the patient's right coronary artery with collateral circulation recapitulating this vessel per cardiac cath by Dr. Riley on 06/11. Pending cardiac surgery evaluation for possible CABG. -Hypertension -Hyperlipidemia -Diabetes mellitus with hemoglobin A1c 6.9, start linagliptin, continue NovoLog per mild algorithm sliding scale. Patient is to have CABG but because of scheduling it will not happen for 3 or 4 more days. Cardiology deemed the patient to be stable for discharge and to return for the CABG but the family is refusing to take the patient home based on the patient's symptomatology and condition. Problems: Subjective 24 Hr Interval Summary Free Text/Dictation Patient complains of intermittent chest pain, though there is no associated rise in heart rate that can be noted Exam/Review of Systems Vital Signs Vitals Vital Signs Date Time Temp Pulse Resp B/P Pulse Ox O2 Delivery O2 Flow Rate FiO2 06/14/17 08:00 55 06/14/17 07:59 97.9 18 135/62 99 06/11/17 12:32 Room Air Intake and Output 06/13/17 06/13/17 06/14/17 15:00 23:00 07:00 Intake Total 1020 ml 60 ml Output Total 800 ml Balance 220 ml 60 ml Exam Constitutional: well developed Head: atraumatic, normocephalic Neck: supple Respiratory: diminished breath sounds Cardiovascular: regular rate and rhythm Gastrointestinal: non-tender, soft Extremities: normal pulses Results Result Diagram: 06/13/17 0707 06/13/17 0710 Results 24 hrs Laboratory Tests Test 06/13/17 11:57 06/13/17 12:46 06/13/17 17:18 06/13/17 20:31 Bedside Glucose 242 H 227 H 210 193 Test 06/14/17 08:02 Bedside Glucose 205 Medications Medications Current Medications Sodium Chloride (1/2 NS) 1,000 ml @ 0 mls/hr Q0M IV ; Start 06/11/17 at 09:00 Acetaminophen (Tylenol Tab) 650 mg Q4H PRN PO NON-CARDIAC PAIN LEVEL (1-3); Start 06/11/17 at 10:30 Morphine Sulfate (morphine) 2 mg Q2H PRN IV FOR NON CARDIAC PAIN (4-10); Start 06/11/17 at 10:30 Al Hydrox/Mg Hydrox/Simethicone (Mag-Al Plus) 30 ml Q4H PRN PO GASTROINTESTINAL UPSET; Start 06/11/17 at 10:30 Ondansetron HCl (Zofran Inj) 4 mg Q4H PRN IV NAUSEA AND/OR VOMITING; Start 06/11/17 at 10:30 Diagnostic Test (Pha) (Accu-Chek) 1 ea 02 XX ; Start 06/12/17 at 02:00 Miscellaneous Information 1 ea NOTE XX ; Start 06/11/17 at 19:30 Glucose (Glutose) 15 gm Q15M PRN PO DECREASED GLUCOSE; Start 06/11/17 at 19:30 Glucose (Glutose) 22.5 gm Q15M PRN PO DECREASED GLUCOSE; Start 06/11/17 at 19: 30 Dextrose (D50w Syringe) 25 ml Q15M PRN IV DECREASED GLUCOSE; Start 06/11/17 at 19:30 Dextrose (D50w Syringe) 50 ml Q15M PRN IV DECREASED GLUCOSE; Start 06/11/17 at 19:30 Glucagon (Glucagen) 1 mg Q15M PRN IM DECREASED GLUCOSE; Start 06/11/17 at 19:30 Glucose (Glutose) 15 gm Q15M PRN BUCCAL DECREASED GLUCOSE; Start 06/11/17 at 19 :30 Hydralazine HCl (Apresoline) 10 mg Q6H PRN IV ELEVATED SYSTOLIC BP; Start 06/11 at 20:30 Aspirin (Halfprin) 81 mg DAILY PO Last administered on 06/14/17 08:04; Admin Dose 81 MG; Start 06/12/17 at 09:00 Atorvastatin Calcium (Lipitor) 40 mg QHS PO Last administered on 06/13/17 20: 34; Admin Dose 40 MG; Start 06/11/17 at 21:00 Carvedilol (Coreg) 6.25 mg BID PO Last administered on 06/14/17 08:04; Admin Dose 6.25 MG; Start 06/11/17 at 21:00 Diclofenac Sodium (Voltaren) 50 mg TID PO Last administered on 06/14/17 08:04 ; Admin Dose 50 MG; Start 06/11/17 at 21:00 Docusate Sodium (Colace) 100 mg DAILY PRN PO CONSTIPATION; Start 06/11/17 at 20 :30 Doxazosin Mesylate (Cardura) 2 mg HS PO Last administered on 06/13/17 20:34; Admin Dose 2 MG; Start 06/11/17 at 21:00 Folic Acid (Folic Acid) 1 mg DAILY PO Last administered on 06/14/17 08:04; Admin Dose 1 MG; Start 06/12/17 at 09:00 Isosorbide Mononitrate (Imdur) 120 mg DAILY PO Last administered on 06/14/17 08:04; Admin Dose 120 MG; Start 06/12/17 at 09:00 Linagliptin (Tradjenta) 5 mg DAILY PO Last administered on 06/14/17 08:04; Admin Dose 5 MG; Start 06/12/17 at 14:30 LESLEY SPAULDING Jun 14, 2017 10:08
[2017-06-14] MEDS ORDERED: NITROGLYCERIN (SL) 0.4 MG TAB SL ONE (12:00)
--- NOTE | 2017-06-14 12:25 | RADRPT ---
Vent Rate: 58 bpm RR Interval: 0 msec FL Interval: 210 msec QRS Duration: 100 msec QT Interval: 398 msec QTC Interval: 390 msec P-R-T [place]: 63 - 43 - 72 degrees Sinus bradycardia with 1st degree AV block Low voltage QRS Cannot rule out Anterior infarct , age undetermined Abnormal ECG No previous tracing available for comparison Electronically Signed By: Delio Mayer [id number]
--- NOTE | 2017-06-14 15:41 | CONS ---
Date/Time of Note Date/Time of Note DATE: 06/14/17 TIME: 15:30 Assessment/Plan Assessment/Plan Additional Assessment/Plan 1. 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 Riley on 06/11. s/p cardiac surgery evaluation for possible CABG - acceptable candidate, family agrees - will dispo with CT surgery team . 2. Hypertension - well Rx, con't to adjusts x as needed. WELL RX. 3. Hyperlipidemia - on meds 4. Diabetes mellitus with hemoglobin A1c 6.9, start linagliptin, continue NovoLog per mild algorithm sliding scale Primary team follows. 5. Abn EKG - no CP now, surgical eval pending. 6. Pt with episode of CP toady - first trop negative, EKG stable - chilo Rx medically for now - hold d/c till tomorrow. Consultation Date/Type/Reason Admit Date/Time Jun 11, 2017 at 10:14 24 HR Interval Summary Free Text/Dictation CP toady - first trop negative, EKG stable - chilo Rx medically for now - hold d/ c till tomorrow. Exam/Review of Systems Vital Signs Vitals Vital Signs Date Time Temp Pulse Resp B/P Pulse Ox O2 Delivery O2 Flow Rate FiO2 06/14/17 12:00 58 06/14/17 11:45 98.0 18 100/49 97 06/11/17 12:32 Room Air Intake and Output 06/13/17 06/13/17 06/14/17 15:00 23:00 07:00 Intake Total 1020 ml 60 ml Output Total 800 ml Balance 220 ml 60 ml Exam General: WN/WD/NAD, AOx 3 HEENT: Unicetric/atraumatic/EOMI (follow commands) NECK: JVD elevated, no thyromegaly Lymph: no lymphadenopathy HEART: regular with no S3, II/ systolic murmur at apex LUNGS: Coarse sounds ABD: soft, NT, ND, +BS : Intact Neuro: non focal SKIN: chronic changes EXT: trace edema Results Result Diagram: 06/13/17 0707 06/13/17 0710 Results 24 hrs Laboratory Tests Test 06/13/17 17:18 06/13/17 20:31 06/14/17 08:02 06/14/17 12:21 Bedside Glucose 210 193 205 187 Test 06/14/17 13:12 Troponin I < 0.012 Medications Medications Current Medications Sodium Chloride (1/2 NS) 1,000 ml @ 0 mls/hr Q0M IV ; Start 06/11/17 at 09:00 Acetaminophen (Tylenol Tab) 650 mg Q4H PRN PO NON-CARDIAC PAIN LEVEL (1-3); Start 06/11/17 at 10:30 Al Hydrox/Mg Hydrox/Simethicone (Mag-Al Plus) 30 ml Q4H PRN PO GASTROINTESTINAL UPSET; Start 06/11/17 at 10:30 Ondansetron HCl (Zofran Inj) 4 mg Q4H PRN IV NAUSEA AND/OR VOMITING; Start 06/11/17 at 10:30 Diagnostic Test (Pha) (Accu-Chek) 1 ea 02 XX ; Start 06/12/17 at 02:00 Miscellaneous Information 1 ea NOTE XX ; Start 06/11/17 at 19:30 Glucose (Glutose) 15 gm Q15M PRN PO DECREASED GLUCOSE; Start 06/11/17 at 19:30 Glucose (Glutose) 22.5 gm Q15M PRN PO DECREASED GLUCOSE; Start 06/11/17 at 19: 30 Dextrose (D50w Syringe) 25 ml Q15M PRN IV DECREASED GLUCOSE; Start 06/11/17 at 19:30 Dextrose (D50w Syringe) 50 ml Q15M PRN IV DECREASED GLUCOSE; Start 06/11/17 at 19:30 Glucagon (Glucagen) 1 mg Q15M PRN IM DECREASED GLUCOSE; Start 06/11/17 at 19:30 Glucose (Glutose) 15 gm Q15M PRN BUCCAL DECREASED GLUCOSE; Start 06/11/17 at 19 :30 Hydralazine HCl (Apresoline) 10 mg Q6H PRN IV ELEVATED SYSTOLIC BP; Start 06/11 at 20:30 Aspirin (Halfprin) 81 mg DAILY PO Last administered on 06/14/17 08:04; Admin Dose 81 MG; Start 06/12/17 at 09:00 Atorvastatin Calcium (Lipitor) 40 mg QHS PO Last administered on 06/13/17 20: 34; Admin Dose 40 MG; Start 06/11/17 at 21:00 Carvedilol (Coreg) 6.25 mg BID PO Last administered on 06/14/17 08:04; Admin Dose 6.25 MG; Start 06/11/17 at 21:00 Diclofenac Sodium (Voltaren) 50 mg TID PO Last administered on 06/14/17 13:03 ; Admin Dose 50 MG; Start 06/11/17 at 21:00 Docusate Sodium (Colace) 100 mg DAILY PRN PO CONSTIPATION; Start 06/11/17 at 20 :30 Doxazosin Mesylate (Cardura) 2 mg HS PO Last administered on 06/13/17 20:34; Admin Dose 2 MG; Start 06/11/17 at 21:00 Folic Acid (Folic Acid) 1 mg DAILY PO Last administered on 06/14/17 08:04; Admin Dose 1 MG; Start 06/12/17 at 09:00 Isosorbide Mononitrate (Imdur) 120 mg DAILY PO Last administered on 06/14/17 08:04; Admin Dose 120 MG; Start 06/12/17 at 09:00 Linagliptin (Tradjenta) 5 mg DAILY PO Last administered on 06/14/17 08:04; Admin Dose 5 MG; Start 06/12/17 at 14:30 Morphine Sulfate (morphine) 2 mg Q4H PRN IV pain; Start 06/14/17 at 12:00 YAZ DA SILVA MD Jun 14, 2017 15:41
[2017-06-14] MEDS: DOXAZOSIN 2 MG TAB PO SCH (20:10)
[2017-06-14] MEDS: ATORVASTATIN 40 MG TAB PO SCH (20:10)
[2017-06-15] VITALS (13 sets, daily range): BP systolic 105–156; BP diastolic 54–72; PULSE 54–68; RESP 20
[2017-06-15] MEDS: ACCU-CHEK XX SCH (02:00)
[2017-06-15] MEDS: FOLIC ACID 1 MG TAB PO SCH (08:28)
[2017-06-15] MEDS: ASPIRIN (EC) 81 MG TAB PO SCH (08:28)
[2017-06-15] MEDS: LINAGLIPTIN 5 MG TABLET PO SCH (08:29)
[2017-06-15] MEDS: DICLOFENAC (EC) 25 MG TAB PO SCH ×3 (08:29→20:29)
[2017-06-15] MEDS: ISOSORBIDE MONONITRATE(SR)60 MG TAB PO SCH (08:31)
[2017-06-15] MEDS: INSULIN ASPART [NOVOLOG] 3 ML PEN SC SCH ×4 (08:37→20:18)
--- NOTE | 2017-06-15 12:46 | PN ---
Date/Time of Note Date/Time of Note DATE: 06/15/17 TIME: 12:42 Assessment/Plan VTE Prophylaxis VTE Prophylaxis Intervention: SCD's Lines/Catheters [facility] Saline Lock Urinary Cath still in place: No Assessment/Plan Chief Complaint/Hosp Course Assessment/Plan - Multivessel obstructive coronary artery disease involving high grade stenosis of the circumflex, LAD and 100% occlusion of the patient's right coronary artery with collateral circulation recapitulating this vessel per cardiac cath by Dr. Riley on 06/11. Dr Christensen is following in cardiac surgery for possible CABG procedure. -Hypertension -Hyperlipidemia -Diabetes mellitus with hemoglobin A1c 6.9, start linagliptin, continue NovoLog per mild algorithm sliding scale. Further recommendations based on clinical course. Plan of care discussed with Dr. Mariscal Problems: Exam/Review of Systems Vital Signs Vitals Vital Signs Date Time Temp Pulse Resp B/P Pulse Ox O2 Delivery O2 Flow Rate FiO2 06/15/17 12:12 63 06/15/17 11:34 97.8 20 105/55 96 06/11/17 12:32 Room Air Intake and Output 06/14/17 06/14/17 06/15/17 14:59 22:59 06:59 Intake Total 1500 ml 120 ml Balance 1500 ml 120 ml Exam Constitutional: alert, oriented Respiratory: normal air movement Cardiovascular: nl pulses, regular rate and rhythm Gastrointestinal: non-tender, soft Extremities: normal pulses Neurological: nl mental status Results Result Diagram: 06/13/17 0707 06/13/17 0710 Results 24 hrs Laboratory Tests Test 06/14/17 13:12 06/14/17 17:05 06/14/17 18:22 06/14/17 20:01 Troponin I < 0.012 < 0.012 Bedside Glucose 232 H 283 H Test 06/15/17 04:17 06/15/17 08:13 Bedside Glucose 187 191 Medications Medications Current Medications Sodium Chloride (1/2 NS) 1,000 ml @ 0 mls/hr Q0M IV ; Start 06/11/17 at 09:00 Acetaminophen (Tylenol Tab) 650 mg Q4H PRN PO NON-CARDIAC PAIN LEVEL (1-3); Start 06/11/17 at 10:30 Al Hydrox/Mg Hydrox/Simethicone (Mag-Al Plus) 30 ml Q4H PRN PO GASTROINTESTINAL UPSET; Start 06/11/17 at 10:30 Ondansetron HCl (Zofran Inj) 4 mg Q4H PRN IV NAUSEA AND/OR VOMITING; Start 06/11/17 at 10:30 Diagnostic Test (Pha) (Accu-Chek) 1 ea 02 XX ; Start 06/12/17 at 02:00 Miscellaneous Information 1 ea NOTE XX ; Start 06/11/17 at 19:30 Glucose (Glutose) 15 gm Q15M PRN PO DECREASED GLUCOSE; Start 06/11/17 at 19:30 Glucose (Glutose) 22.5 gm Q15M PRN PO DECREASED GLUCOSE; Start 06/11/17 at 19: 30 Dextrose (D50w Syringe) 25 ml Q15M PRN IV DECREASED GLUCOSE; Start 06/11/17 at 19:30 Dextrose (D50w Syringe) 50 ml Q15M PRN IV DECREASED GLUCOSE; Start 06/11/17 at 19:30 Glucagon (Glucagen) 1 mg Q15M PRN IM DECREASED GLUCOSE; Start 06/11/17 at 19:30 Glucose (Glutose) 15 gm Q15M PRN BUCCAL DECREASED GLUCOSE; Start 06/11/17 at 19 :30 Hydralazine HCl (Apresoline) 10 mg Q6H PRN IV ELEVATED SYSTOLIC BP; Start 06/11 at 20:30 Aspirin (Halfprin) 81 mg DAILY PO Last administered on 06/15/17 08:28; Admin Dose 81 MG; Start 06/12/17 at 09:00 Atorvastatin Calcium (Lipitor) 40 mg QHS PO Last administered on 06/14/17 20: 10; Admin Dose 40 MG; Start 06/11/17 at 21:00 Carvedilol (Coreg) 6.25 mg BID PO Last administered on 06/15/17 08:31; Admin Dose 6.25 MG; Start 06/11/17 at 21:00 Diclofenac Sodium (Voltaren) 50 mg TID PO Last administered on 06/15/17 08:29 ; Admin Dose 50 MG; Start 06/11/17 at 21:00 Docusate Sodium (Colace) 100 mg DAILY PRN PO CONSTIPATION; Start 06/11/17 at 20 :30 Doxazosin Mesylate (Cardura) 2 mg HS PO Last administered on 11/12/17at 20:10; Admin Dose 2 MG; Start 06/11/17 at 21:00 Folic Acid (Folic Acid) 1 mg DAILY PO Last administered on 06/15/17 08:28; Admin Dose 1 MG; Start 06/12/17 at 09:00 Isosorbide Mononitrate (Imdur) 120 mg DAILY PO Last administered on 06/15/17 08:31; Admin Dose 120 MG; Start 06/12/17 at 09:00 Linagliptin (Tradjenta) 5 mg DAILY PO Last administered on 06/15/17 08:29; Admin Dose 5 MG; Start 06/12/17 at 14:30 Morphine Sulfate (morphine) 2 mg Q4H PRN IV pain; Start 06/14/17 at 12:00 GIOVANNI GARCIA Jun 15, 2017 12:46
--- NOTE | 2017-06-15 14:08 | CONS ---
Date/Time of Note Date/Time of Note DATE: 06/15/17 TIME: 14:05 Assessment/Plan Assessment/Plan Chief Complaint/Hosp Course IMP: 1.cad-mutivessel obstructive by cath this admission 2.HTN 3.HL 4.DM Recc; -Tele -eval by CT surgery and accepted for surgery, date pnding -Continue asa/stayin -Continue imdur/coreg Problems: Consultation Date/Type/Reason Admit Date/Time Jun 15, 2017 at 12:05 Initial Consult Date 06/11/2017 Type of Consultation: cardiology Reason for Consultation chest pain/cad Referring Provider: SOFIYA ARORA MD Exam/Review of Systems Vital Signs Vitals Vital Signs Date Time Temp Pulse Resp B/P Pulse Ox O2 Delivery O2 Flow Rate FiO2 06/15/17 12:12 63 06/15/17 11:34 97.8 20 105/55 96 06/11/17 12:32 Room Air Intake and Output 06/14/17 06/14/17 06/15/17 15:00 23:00 07:00 Intake Total 1500 ml 120 ml Balance 1500 ml 120 ml Exam Review of Systems: CONSTITUTIONAL: No fevers, chills. PULMONARY: No sob CARDIOVASCULAR: No chest pain/palpitations GASTROINTESTINAL: No nausea/vomiting. GENITOURINARY: No hematuria/dysuria. MUSCULOSKELETAL: No myagias/arthalgias. PSYCHIATRIC: The patient denies depression. NEUROLOGIC: No weakness Constitutional: alert, oriented Psych: no complaints Head: normocephalic ENMT: mucosa pink and moist Neck: jvd (9 cm water), supple Respiratory: clear to auscultation Cardiovascular: regular rate and rhythm Gastrointestinal: non-tender, soft Musculoskeletal: muscle tone (normal) Extremities: edema (none) Neurological: other (NO focal deficits) Results Result Diagram: 06/13/17 0707 06/13/17 0710 Results 24 hrs Laboratory Tests Test 06/14/17 17:05 06/14/17 18:22 06/14/17 20:01 06/15/17 04:17 Bedside Glucose 232 H 283 H 187 Troponin I < 0.012 Test 06/15/17 08:13 06/15/17 12:38 Bedside Glucose 191 216 Medications Medications Current Medications Sodium Chloride (1/2 NS) 1,000 ml @ 0 mls/hr Q0M IV ; Start 06/11/17 at 09:00 Acetaminophen (Tylenol Tab) 650 mg Q4H PRN PO NON-CARDIAC PAIN LEVEL (1-3); Start 06/11/17 at 10:30 Al Hydrox/Mg Hydrox/Simethicone (Mag-Al Plus) 30 ml Q4H PRN PO GASTROINTESTINAL UPSET; Start 06/11/17 at 10:30 Ondansetron HCl (Zofran Inj) 4 mg Q4H PRN IV NAUSEA AND/OR VOMITING; Start 06/11/17 at 10:30 Diagnostic Test (Pha) (Accu-Chek) 1 ea 02 XX ; Start 06/12/17 at 02:00 Miscellaneous Information 1 ea NOTE XX ; Start 06/11/17 at 19:30 Glucose (Glutose) 15 gm Q15M PRN PO DECREASED GLUCOSE; Start 06/11/17 at 19:30 Glucose (Glutose) 22.5 gm Q15M PRN PO DECREASED GLUCOSE; Start 06/11/17 at 19: 30 Dextrose (D50w Syringe) 25 ml Q15M PRN IV DECREASED GLUCOSE; Start 06/11/17 at 19:30 Dextrose (D50w Syringe) 50 ml Q15M PRN IV DECREASED GLUCOSE; Start 06/11/17 at 19:30 Glucagon (Glucagen) 1 mg Q15M PRN IM DECREASED GLUCOSE; Start 06/11/17 at 19:30 Glucose (Glutose) 15 gm Q15M PRN BUCCAL DECREASED GLUCOSE; Start 06/11/17 at 19 :30 Hydralazine HCl (Apresoline) 10 mg Q6H PRN IV ELEVATED SYSTOLIC BP; Start 06/11 at 20:30 Aspirin (Halfprin) 81 mg DAILY PO Last administered on 06/15/17 08:28; Admin Dose 81 MG; Start 06/12/17 at 09:00 Atorvastatin Calcium (Lipitor) 40 mg QHS PO Last administered on 06/14/17 20: 10; Admin Dose 40 MG; Start 06/11/17 at 21:00 Carvedilol (Coreg) 6.25 mg BID PO Last administered on 06/15/17 08:31; Admin Dose 6.25 MG; Start 06/11/17 at 21:00 Diclofenac Sodium (Voltaren) 50 mg TID PO Last administered on 06/15/17 12:46 ; Admin Dose 50 MG; Start 06/11/17 at 21:00 Docusate Sodium (Colace) 100 mg DAILY PRN PO CONSTIPATION; Start 06/11/17 at 20 :30 Doxazosin Mesylate (Cardura) 2 mg HS PO Last administered on 06/14/17 20:10; Admin Dose 2 MG; Start 06/11/17 at 21:00 Folic Acid (Folic Acid) 1 mg DAILY PO Last administered on 06/15/17 08:28; Admin Dose 1 MG; Start 06/12/17 at 09:00 Isosorbide Mononitrate (Imdur) 120 mg DAILY PO Last administered on 06/15/17 08:31; Admin Dose 120 MG; Start 06/12/17 at 09:00 Linagliptin (Tradjenta) 5 mg DAILY PO Last administered on 06/15/17 08:29; Admin Dose 5 MG; Start 06/12/17 at 14:30 Morphine Sulfate (morphine) 2 mg Q4H PRN IV pain; Start 06/14/17 at 12:00 BETY MEADOWS 13, 2017 14:08
[2017-06-15] MEDS: DOXAZOSIN 2 MG TAB PO SCH (20:19)
[2017-06-15] MEDS: ATORVASTATIN 40 MG TAB PO SCH (20:19)
[2017-06-16] VITALS (13 sets, daily range): BP systolic 92–188; BP diastolic 53–86; PULSE 44–66; RESP 18–20
[2017-06-16] MEDS: ACCU-CHEK XX SCH (02:00)
[2017-06-16 08:09] LABS: BASOPHIL # 0.1 10^3/ul (0.0-0.1); BASOPHILS % 0.9 % (0.0-2.0); EOSINOPHILS # 0.2 10^3/ul (0.0-0.5); EOSINOPHILS % 3.7 % (0.0-7.0); HEMATOCRIT 32.9 % (42.0-52.0); HEMOGLOBIN 10.6 g/dl (14.0-18.0); LYMPHOCYTES # 1.9 10^3/ul (0.8-2.9); MEAN CORPUSCULAR HGB CONC 32.2 g/dl (32.0-37.0); MEAN CORPUSCULAR VOLUME 90.1 fl (82.0-101.0); MEAN PLATELET VOLUME 11.8 fl (7.4-10.4); MONOCYTE # 0.5 10^3/ul (0.3-0.9); MONOCYTES % 7.8 % (0.0-11.0); NEUTROPHIL # 3.7 10^3/ul (1.6-7.5); NEUTROPHILS % 57.8 % (39.0-77.0); PLATELET COUNT 164 10^3/UL (140-415); RED BLOOD COUNT 3.65 10^6/ul (4.70-6.10); RED CELL DISTRIBUTION WIDTH 13.5 % (11.5-14.5); WHITE BLOOD COUNT 6.5 10^3/ul (4.8-10.8)
[2017-06-16] MEDS: INSULIN ASPART [NOVOLOG] 3 ML PEN SC SCH ×4 (08:17→20:55)
[2017-06-16 08:29] LABS: CREATININE 0.95 mg/dl (0.61-1.24); POTASSIUM 4.3 mmol/L (3.5-5.1)
[2017-06-16] MEDS: FOLIC ACID 1 MG TAB PO SCH (09:00)
[2017-06-16] MEDS: LINAGLIPTIN 5 MG TABLET PO SCH (09:58)
[2017-06-16] MEDS: DICLOFENAC (EC) 25 MG TAB PO SCH ×3 (09:58→20:44)
[2017-06-16] MEDS: ASPIRIN (EC) 81 MG TAB PO SCH (09:58)
[2017-06-16] MEDS: ISOSORBIDE MONONITRATE(SR)60 MG TAB PO SCH (09:58)
--- NOTE | 2017-06-16 11:47 | CONS ---
Date/Time of Note Date/Time of Note DATE: 06/16/17 TIME: 11:46 Assessment/Plan Assessment/Plan Additional Assessment/Plan 1. 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 Riley on 06/11. s/p cardiac surgery evaluation for possible CABG - acceptable candidate, family agrees - will dispo with CT surgery team . POSSIBLY THURSDAY. 2. Hypertension - well Rx, con't to adjusts x as needed. WELL RX. 3. Hyperlipidemia - on meds 4. Diabetes mellitus with hemoglobin A1c 6.9, start linagliptin, continue NovoLog per mild algorithm sliding scale Primary team follows. RX now. 5. Abn EKG - no CP now, surgical eval pending. 6. Pt with episode of CP toady - first trop negative, EKG stable - chilo Rx medically for now - hold d/c till tomorrow. Consultation Date/Type/Reason Admit Date/Time Jun 15, 2017 at 12:05 Type of Consultation: cardiology Referring Provider: SOFIYA ARORA MD 24 HR Interval Summary Free Text/Dictation NO acute events - awaiting surgery. ROS: No fever, no chills, no nausea, no vomiting, no diarrhea/constipation No recent weight changes No chest pain, no PND, no orthopnea No dizziness, blurred vision No thirst, no heat or cold intolerance Exam/Review of Systems Vital Signs Vitals Vital Signs Date Time Temp Pulse Resp B/P Pulse Ox O2 Delivery O2 Flow Rate FiO2 06/16/17 09:30 146/75 06/16/17 08:01 98.3 56 20 98 Intake and Output 06/15/17 06/15/17 06/16/17 15:00 23:00 07:00 Intake Total 1000 ml Balance 1000 ml Exam General: WN/WD/NAD, AOx 3 HEENT: Unicetric/atraumatic/EOMI (follows commands) NECK: JVD elevated, no thyromegaly Lymph: no lymphadenopathy HEART: regular with no S3, II/ systolic murmur at apex LUNGS: Coarse sounds ABD: soft, NT, ND, +BS : Intact Neuro: non focal SKIN: chronic changes EXT: trace edema Results Result Diagram: 06/16/17 0720 06/16/17 0720 Results 24 hrs Laboratory Tests Test 06/15/17 12:38 06/15/17 17:59 06/15/17 20:15 06/16/17 02:58 Bedside Glucose 216 256 H 292 H 207 Test 06/16/17 07:20 06/16/17 08:04 White Blood Count 6.5 Red Blood Count 3.65 L Hemoglobin 10.6 L Hematocrit 32.9 L Mean Corpuscular Volume 90.1 Mean Corpuscular Hemoglobin 29.0 Mean Corpuscular Hemoglobin Concent 32.2 Red Cell Distribution Width 13.5 Platelet Count 164 Mean Platelet Volume 11.8 H Neutrophils % 57.8 Lymphocytes % 29.0 Monocytes % 7.8 Eosinophils % 3.7 Basophils % 0.9 Nucleated Red Blood Cells % 0.0 Neutrophils # 3.7 Lymphocytes # 1.9 Monocytes # 0.5 Eosinophils # 0.2 Basophils # 0.1 Nucleated Red Blood Cells # 0.0 Sodium Level 139 Potassium Level 4.3 Chloride Level 105 Carbon Dioxide Level 27 Anion Gap 11 Blood Urea Nitrogen 32 H Creatinine 0.95 Glucose Level 207 Calcium Level 10.0 Bedside Glucose 232 H Medications Medications Current Medications Sodium Chloride (1/2 NS) 1,000 ml @ 0 mls/hr Q0M IV ; Start 06/11/17 at 09:00 Acetaminophen (Tylenol Tab) 650 mg Q4H PRN PO NON-CARDIAC PAIN LEVEL (1-3); Start 06/11/17 at 10:30 Al Hydrox/Mg Hydrox/Simethicone (Mag-Al Plus) 30 ml Q4H PRN PO GASTROINTESTINAL UPSET; Start 06/11/17 at 10:30 Ondansetron HCl (Zofran Inj) 4 mg Q4H PRN IV NAUSEA AND/OR VOMITING; Start 06/11/17 at 10:30 Diagnostic Test (Pha) (Accu-Chek) 1 ea 02 XX ; Start 06/12/17 at 02:00 Miscellaneous Information 1 ea NOTE XX ; Start 06/11/17 at 19:30 Glucose (Glutose) 15 gm Q15M PRN PO DECREASED GLUCOSE; Start 06/11/17 at 19:30 Glucose (Glutose) 22.5 gm Q15M PRN PO DECREASED GLUCOSE; Start 06/11/17 at 19: 30 Dextrose (D50w Syringe) 25 ml Q15M PRN IV DECREASED GLUCOSE; Start 06/11/17 at 19:30 Dextrose (D50w Syringe) 50 ml Q15M PRN IV DECREASED GLUCOSE; Start 06/11/17 at 19:30 Glucagon (Glucagen) 1 mg Q15M PRN IM DECREASED GLUCOSE; Start 06/11/17 at 19:30 Glucose (Glutose) 15 gm Q15M PRN BUCCAL DECREASED GLUCOSE; Start 06/11/17 at 19 :30 Hydralazine HCl (Apresoline) 10 mg Q6H PRN IV ELEVATED SYSTOLIC BP; Start 06/11 at 20:30 Aspirin (Halfprin) 81 mg DAILY PO Last administered on 06/16/17 09:58; Admin Dose 81 MG; Start 06/12/17 at 09:00 Atorvastatin Calcium (Lipitor) 40 mg QHS PO Last administered on 06/15/17 20: 19; Admin Dose 40 MG; Start 06/11/17 at 21:00 Carvedilol (Coreg) 6.25 mg BID PO Last administered on 06/16/17 10:00; Admin Dose 6.25 MG; Start 06/11/17 at 21:00 Diclofenac Sodium (Voltaren) 50 mg TID PO Last administered on 06/16/17 09:58 ; Admin Dose 50 MG; Start 06/11/17 at 21:00 Docusate Sodium (Colace) 100 mg DAILY PRN PO CONSTIPATION; Start 06/11/17 at 20 :30 Doxazosin Mesylate (Cardura) 2 mg HS PO Last administered on 06/15/17 20:19; Admin Dose 2 MG; Start 06/11/17 at 21:00 Folic Acid (Folic Acid) 1 mg DAILY PO Last administered on 06/16/17 09:00; Admin Dose 1 MG; Start 06/12/17 at 09:00 Isosorbide Mononitrate (Imdur) 120 mg DAILY PO Last administered on 06/16/17 09:58; Admin Dose 120 MG; Start 06/12/17 at 09:00 Linagliptin (Tradjenta) 5 mg DAILY PO Last administered on 06/16/17 09:58; Admin Dose 5 MG; Start 06/12/17 at 14:30 Morphine Sulfate (morphine) 2 mg Q4H PRN IV pain; Start 06/14/17 at 12:00 YAZ DA SILVA MD Jun 16, 2017 11:47
--- NOTE | 2017-06-16 17:53 | PN ---
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 Riley on 06/11. Dr Christensen is following in cardiac surgery, possible CABG procedure on Thursday. -Hypertension -Hyperlipidemia -Diabetes mellitus with hemoglobin A1c 6.9, start linagliptin, continue NovoLog per mild algorithm sliding scale. Further recommendations based on clinical course. Plan of care discussed with Dr. Mariscal Problems: Exam/Review of Systems Vital Signs Vitals Vital Signs Date Time Temp Pulse Resp B/P Pulse Ox O2 Delivery O2 Flow Rate FiO2 06/16/17 16:07 98.0 61 20 118/56 99 Intake and Output 06/15/17 06/15/17 06/16/17 15:00 23:00 07:00 Intake Total 1000 ml Balance 1000 ml Exam Constitutional: alert, oriented Respiratory: normal air movement Cardiovascular: nl pulses, regular rate and rhythm Gastrointestinal: non-tender, soft Extremities: normal pulses Neurological: nl mental status Results Result Diagram: 06/16/17 0720 06/16/17 0720 Results 24 hrs Laboratory Tests Test 06/15/17 17:59 06/15/17 20:15 06/16/17 02:58 06/16/17 07:20 Bedside Glucose 256 H 292 H 207 White Blood Count 6.5 Red Blood Count 3.65 L Hemoglobin 10.6 L Hematocrit 32.9 L Mean Corpuscular Volume 90.1 Mean Corpuscular Hemoglobin 29.0 Mean Corpuscular Hemoglobin Concent 32.2 Red Cell Distribution Width 13.5 Platelet Count 164 Mean Platelet Volume 11.8 H Neutrophils % 57.8 Lymphocytes % 29.0 Monocytes % 7.8 Eosinophils % 3.7 Basophils % 0.9 Nucleated Red Blood Cells % 0.0 Neutrophils # 3.7 Lymphocytes # 1.9 Monocytes # 0.5 Eosinophils # 0.2 Basophils # 0.1 Nucleated Red Blood Cells # 0.0 Sodium Level 139 Potassium Level 4.3 Chloride Level 105 Carbon Dioxide Level 27 Anion Gap 11 Blood Urea Nitrogen 32 H Creatinine 0.95 Glucose Level 207 Calcium Level 10.0 Test 06/16/17 08:04 06/16/17 12:39 06/16/17 17:42 Bedside Glucose 232 H 264 H 235 H Medications Medications Current Medications Sodium Chloride (1/2 NS) 1,000 ml @ 0 mls/hr Q0M IV ; Start 06/11/17 at 09:00 Acetaminophen (Tylenol Tab) 650 mg Q4H PRN PO NON-CARDIAC PAIN LEVEL (1-3); Start 06/11/17 at 10:30 Al Hydrox/Mg Hydrox/Simethicone (Mag-Al Plus) 30 ml Q4H PRN PO GASTROINTESTINAL UPSET; Start 06/11/17 at 10:30 Ondansetron HCl (Zofran Inj) 4 mg Q4H PRN IV NAUSEA AND/OR VOMITING; Start 06/11/17 at 10:30 Diagnostic Test (Pha) (Accu-Chek) 1 ea 02 XX ; Start 06/12/17 at 02:00 Miscellaneous Information 1 ea NOTE XX ; Start 06/11/17 at 19:30 Glucose (Glutose) 15 gm Q15M PRN PO DECREASED GLUCOSE; Start 06/11/17 at 19:30 Glucose (Glutose) 22.5 gm Q15M PRN PO DECREASED GLUCOSE; Start 06/11/17 at 19: 30 Dextrose (D50w Syringe) 25 ml Q15M PRN IV DECREASED GLUCOSE; Start 06/11/17 at 19:30 Dextrose (D50w Syringe) 50 ml Q15M PRN IV DECREASED GLUCOSE; Start 06/11/17 at 19:30 Glucagon (Glucagen) 1 mg Q15M PRN IM DECREASED GLUCOSE; Start 06/11/17 at 19:30 Glucose (Glutose) 15 gm Q15M PRN BUCCAL DECREASED GLUCOSE; Start 06/11/17 at 19 :30 Hydralazine HCl (Apresoline) 10 mg Q6H PRN IV ELEVATED SYSTOLIC BP; Start 06/11 at 20:30 Aspirin (Halfprin) 81 mg DAILY PO Last administered on 06/16/17t 09:58; Admin Dose 81 MG; Start 06/12/17 at 09:00 Atorvastatin Calcium (Lipitor) 40 mg QHS PO Last administered on 06/15/17 20: 19; Admin Dose 40 MG; Start 06/11/17 at 21:00 Carvedilol (Coreg) 6.25 mg BID PO Last administered on 06/16/17 10:00; Admin Dose 6.25 MG; Start 06/11/17 at 21:00 Diclofenac Sodium (Voltaren) 50 mg TID PO Last administered on 06/16/17 15:14 ; Admin Dose 50 MG; Start 06/11/17 at 21:00 Docusate Sodium (Colace) 100 mg DAILY PRN PO CONSTIPATION; Start 06/11/17 at 20 :30 Doxazosin Mesylate (Cardura) 2 mg HS PO Last administered on 06/15/17 20:19; Admin Dose 2 MG; Start 06/11/17 at 21:00 Folic Acid (Folic Acid) 1 mg DAILY PO Last administered on 06/16/17 09:00; Admin Dose 1 MG; Start 06/12/17 at 09:00 Isosorbide Mononitrate (Imdur) 120 mg DAILY PO Last administered on 06/16/17 09:58; Admin Dose 120 MG; Start 06/12/17 at 09:00 Linagliptin (Tradjenta) 5 mg DAILY PO Last administered on 06/16/17 09:58; Admin Dose 5 MG; Start 06/12/17 at 14:30 Morphine Sulfate (morphine) 2 mg Q4H PRN IV pain; Start 06/14/17 at 12:00 GIOVANNI GARCIA Jun 16, 2017 17:53
--- NOTE | 2017-06-16 20:10 | PN ---
Date/Time of Note Date/Time of Note DATE: 06/16/17 TIME: 20:09 Assessment/Plan Lines/Catheters IV Catheter Type (from Nrsg): Saline Lock Marlow in Place (from Nrsg): No Assessment/Plan Chief Complaint/Hosp Course IMPRESSION: Three-vessel coronary artery disease. Plan for coronary artery bypass grafting. on Discussed with the referring physicians and the patient. Problems: Subjective 24 Hr Interval Summary Constitutional: improved Pain Control: mild Exam/Review of Systems Vital Signs Vitals Vital Signs Date Time Temp Pulse Resp B/P Pulse Ox O2 Delivery O2 Flow Rate FiO2 06/16/17 20:06 98.7 62 20 100/53 97 Intake and Output 06/15/17 06/15/17 06/16/17 15:00 23:00 07:00 Intake Total 1000 ml Balance 1000 ml Exam Neck: non-tender, supple Respiratory: clear to auscultation, normal air movement Cardiovascular: nl pulses, regular rate and rhythm Gastrointestinal: nl liver, spleen, non-tender, soft Results Result Diagram: 06/16/17 0720 06/16/17 0720 SAJI RICH MD Jun 16, 2017 20:10
[2017-06-16] MEDS: ATORVASTATIN 40 MG TAB PO SCH (20:44)
[2017-06-16] MEDS: DOXAZOSIN 2 MG TAB PO SCH (20:59)
[2017-06-17] VITALS (12 sets, daily range): BP systolic 107–154; BP diastolic 51–88; PULSE 52–72; RESP 18–20
[2017-06-17] MEDS: ACCU-CHEK XX SCH (02:00)
[2017-06-17 08:16] LABS: BASOPHIL # 0.1 10^3/ul (0.0-0.1); BASOPHILS % 0.7 % (0.0-2.0); EOSINOPHILS # 0.2 10^3/ul (0.0-0.5); EOSINOPHILS % 3.5 % (0.0-7.0); HEMATOCRIT 34.2 % (42.0-52.0); HEMOGLOBIN 11.4 g/dl (14.0-18.0); LYMPHOCYTES # 1.9 10^3/ul (0.8-2.9); LYMPHOCYTES % 27.8 % (15.0-51.0); MEAN CORPUSCULAR HGB CONC 33.3 g/dl (32.0-37.0); MEAN PLATELET VOLUME 11.7 fl (7.4-10.4); MONOCYTE # 0.5 10^3/ul (0.3-0.9); MONOCYTES % 7.5 % (0.0-11.0); NEUTROPHIL # 4.1 10^3/ul (1.6-7.5); NEUTROPHILS % 59.8 % (39.0-77.0); PLATELET COUNT 186 10^3/UL (140-415); RED CELL DISTRIBUTION WIDTH 13.4 % (11.5-14.5); WHITE BLOOD COUNT 6.8 10^3/ul (4.8-10.8)
[2017-06-17] MEDS: INSULIN ASPART [NOVOLOG] 3 ML PEN SC SCH ×4 (08:34→21:32)
[2017-06-17] MEDS: LINAGLIPTIN 5 MG TABLET PO SCH (08:35)
[2017-06-17 08:36] LABS: CALCIUM 10.4 mg/dl (8.4-10.2); CREATININE 1.07 mg/dl (0.61-1.24); POTASSIUM 4.8 mmol/L (3.5-5.1)
[2017-06-17] MEDS: FOLIC ACID 1 MG TAB PO SCH (08:36)
[2017-06-17] MEDS: ISOSORBIDE MONONITRATE(SR)60 MG TAB PO SCH (08:37)
[2017-06-17] MEDS: ASPIRIN (EC) 81 MG TAB PO SCH (08:37)
[2017-06-17] MEDS: DICLOFENAC (EC) 25 MG TAB PO SCH ×3 (08:41→21:00)
--- NOTE | 2017-06-17 13:54 | PN ---
Date/Time of Note Date/Time of Note DATE: 06/17/17 TIME: 13:54 Assessment/Plan VTE Prophylaxis VTE Prophylaxis Intervention: other Lines/Catheters [facility] Urinary Cath still in place: No Assessment/Plan Chief Complaint/Hosp Course IMPRESSION: Three-vessel coronary artery disease. Plan for coronary artery bypass grafting. on Tomorrow Discussed with the referring physicians and the patient. Problems: Subjective 24 Hr Interval Summary Cardiovascular: no complaints Gastrointestinal: no complaints Genitourinary: no complaints Musculoskeletal: no complaints Skin: no complaints Exam/Review of Systems Vital Signs Vitals Vital Signs Date Time Temp Pulse Resp B/P Pulse Ox O2 Delivery O2 Flow Rate FiO2 06/17/17 12:08 64 06/17/17 12:06 97.0 20 147/67 98 Intake and Output 06/16/17 06/16/17 06/17/17 14:59 22:59 06:59 Intake Total 1400 ml 700 ml Balance 1400 ml 700 ml Exam ENMT: nl external ears & nose, nl lips & teeth, nl nasal mucosa & septum Neck: non-tender, supple Respiratory: clear to auscultation, normal air movement Cardiovascular: nl pulses, regular rate and rhythm Results Result Diagram: 06/17/17 0746 06/17/17 0746 Results 24 hrs Laboratory Tests Test 06/16/17 17:42 06/16/17 20:38 06/17/17 02:15 06/17/17 07:46 Bedside Glucose 235 H 282 H 200 White Blood Count 6.8 Red Blood Count 3.80 L Hemoglobin 11.4 L Hematocrit 34.2 L Mean Corpuscular Volume 90.0 Mean Corpuscular Hemoglobin 30.0 Mean Corpuscular Hemoglobin Concent 33.3 Red Cell Distribution Width 13.4 Platelet Count 186 Mean Platelet Volume 11.7 H Neutrophils % 59.8 Lymphocytes % 27.8 Monocytes % 7.5 Eosinophils % 3.5 Basophils % 0.7 Nucleated Red Blood Cells % 0.0 Neutrophils # 4.1 Lymphocytes # 1.9 Monocytes # 0.5 Eosinophils # 0.2 Basophils # 0.1 Nucleated Red Blood Cells # 0.0 Sodium Level 140 Potassium Level 4.8 Chloride Level 104 Carbon Dioxide Level 29 Anion Gap 12 Blood Urea Nitrogen 36 H Creatinine 1.07 Glucose Level 215 Calcium Level 10.4 H Test 06/17/17 08:07 06/17/17 12:10 Bedside Glucose 250 H 326 H Medications Medications Current Medications Sodium Chloride (1/2 NS) 1,000 ml @ 0 mls/hr Q0M IV ; Start 06/11/17 at 09:00 Acetaminophen (Tylenol Tab) 650 mg Q4H PRN PO NON-CARDIAC PAIN LEVEL (1-3); Start 06/11/17 at 10:30 Al Hydrox/Mg Hydrox/Simethicone (Mag-Al Plus) 30 ml Q4H PRN PO GASTROINTESTINAL UPSET; Start 06/11/17 at 10:30 Ondansetron HCl (Zofran Inj) 4 mg Q4H PRN IV NAUSEA AND/OR VOMITING; Start 06/11/17 at 10:30 Diagnostic Test (Pha) (Accu-Chek) 1 ea 02 XX ; Start 06/12/17 at 02:00 Miscellaneous Information 1 ea NOTE XX ; Start 06/11/17 at 19:30 Glucose (Glutose) 15 gm Q15M PRN PO DECREASED GLUCOSE; Start 06/11/17 at 19:30 Glucose (Glutose) 22.5 gm Q15M PRN PO DECREASED GLUCOSE; Start 06/11/17 at 19: 30 Dextrose (D50w Syringe) 25 ml Q15M PRN IV DECREASED GLUCOSE; Start 06/11/17 at 19:30 Dextrose (D50w Syringe) 50 ml Q15M PRN IV DECREASED GLUCOSE; Start 06/11/17 at 19:30 Glucagon (Glucagen) 1 mg Q15M PRN IM DECREASED GLUCOSE; Start 06/11/17 at 19:30 Glucose (Glutose) 15 gm Q15M PRN BUCCAL DECREASED GLUCOSE; Start 06/11/17 at 19 :30 Hydralazine HCl (Apresoline) 10 mg Q6H PRN IV ELEVATED SYSTOLIC BP; Start 06/11 at 20:30 Aspirin (Halfprin) 81 mg DAILY PO Last administered on 06/17/17 08:37; Admin Dose 81 MG; Start 06/12/17 at 09:00 Atorvastatin Calcium (Lipitor) 40 mg QHS PO Last administered on 06/16/17 20: 44; Admin Dose 40 MG; Start 06/11/17 at 21:00 Carvedilol (Coreg) 6.25 mg BID PO Last administered on 06/17/17 08:36; Admin Dose 6.25 MG; Start 06/11/17 at 21:00 Diclofenac Sodium (Voltaren) 50 mg TID PO Last administered on 06/16/17 20:44 ; Admin Dose 50 MG; Start 06/11/17 at 21:00 Docusate Sodium (Colace) 100 mg DAILY PRN PO CONSTIPATION; Start 06/11/17 at 20 :30 Doxazosin Mesylate (Cardura) 2 mg HS PO Last administered on 06/16/17 20:59; Admin Dose 2 MG; Start 06/11/17 at 21:00 Folic Acid (Folic Acid) 1 mg DAILY PO Last administered on 06/17/17 08:36; Admin Dose 1 MG; Start 06/12/17 at 09:00 Isosorbide Mononitrate (Imdur) 120 mg DAILY PO Last administered on 06/17/17 08:37; Admin Dose 120 MG; Start 06/12/17 at 09:00 Linagliptin (Tradjenta) 5 mg DAILY PO Last administered on 06/17/17 08:35; Admin Dose 5 MG; Start 06/12/17 at 14:30 Morphine Sulfate (morphine) 2 mg Q4H PRN IV pain; Start 06/14/17 at 12:00 SAJI RICH MD Jun 17, 2017 13:54
--- NOTE | 2017-06-17 15:38 | CONS ---
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 this admission 2.HTN 3.HL 4.DM Recc; -Tele -eval by CT surgery and accepted for surgery, scheduled for tomorrow -Continue asa/stayin -Continue imdur/coreg Problems: Consultation Date/Type/Reason Admit Date/Time Jun 15, 2017 at 12:05 Initial Consult Date 06/11/2017 Type of Consultation: cardiology Reason for Consultation CHEST PAIN/CAD Referring Provider: SOFIYA ARORA MD Exam/Review of Systems Vital Signs Vitals Vital Signs Date Time Temp Pulse Resp B/P Pulse Ox O2 Delivery O2 Flow Rate FiO2 06/17/17 12:08 64 06/17/17 12:06 97.0 20 147/67 98 Intake and Output 06/16/17 06/16/17 06/17/17 15:00 23:00 07:00 Intake Total 1400 ml 700 ml Balance 1400 ml 700 ml Exam Review of Systems: CONSTITUTIONAL: No fevers, chills. PULMONARY: No sob CARDIOVASCULAR: intermittent chest pain GASTROINTESTINAL: No nausea/vomiting. GENITOURINARY: No hematuria/dysuria. MUSCULOSKELETAL: No myagias/arthalgias. PSYCHIATRIC: The patient denies depression. NEUROLOGIC: No weakness Constitutional: alert Psych: no complaints Head: normocephalic ENMT: mucosa pink and moist Neck: jvd (9 cm water), supple Respiratory: diminished breath sounds Cardiovascular: regular rate and rhythm Gastrointestinal: non-tender, soft Musculoskeletal: muscle tone (normal) Extremities: edema (none) Neurological: other (No focal deficits) Results Result Diagram: 06/17/17 0746 06/17/17 0746 Results 24 hrs Laboratory Tests Test 06/16/17 17:42 06/16/17 20:38 06/17/17 02:15 06/17/17 07:46 Bedside Glucose 235 H 282 H 200 White Blood Count 6.8 Red Blood Count 3.80 L Hemoglobin 11.4 L Hematocrit 34.2 L Mean Corpuscular Volume 90.0 Mean Corpuscular Hemoglobin 30.0 Mean Corpuscular Hemoglobin Concent 33.3 Red Cell Distribution Width 13.4 Platelet Count 186 Mean Platelet Volume 11.7 H Neutrophils % 59.8 Lymphocytes % 27.8 Monocytes % 7.5 Eosinophils % 3.5 Basophils % 0.7 Nucleated Red Blood Cells % 0.0 Neutrophils # 4.1 Lymphocytes # 1.9 Monocytes # 0.5 Eosinophils # 0.2 Basophils # 0.1 Nucleated Red Blood Cells # 0.0 Sodium Level 140 Potassium Level 4.8 Chloride Level 104 Carbon Dioxide Level 29 Anion Gap 12 Blood Urea Nitrogen 36 H Creatinine 1.07 Glucose Level 215 Calcium Level 10.4 H Test 06/17/17 08:07 06/17/17 12:10 Bedside Glucose 250 H 326 H Medications Medications Current Medications Sodium Chloride (1/2 NS) 1,000 ml @ 0 mls/hr Q0M IV ; Start 06/11/17 at 09:00 Acetaminophen (Tylenol Tab) 650 mg Q4H PRN PO NON-CARDIAC PAIN LEVEL (1-3); Start 06/11/17 at 10:30 Al Hydrox/Mg Hydrox/Simethicone (Mag-Al Plus) 30 ml Q4H PRN PO GASTROINTESTINAL UPSET; Start 06/11/17 at 10:30 Ondansetron HCl (Zofran Inj) 4 mg Q4H PRN IV NAUSEA AND/OR VOMITING; Start 06/11/17 at 10:30 Diagnostic Test (Pha) (Accu-Chek) 1 ea 02 XX ; Start 06/12/17 at 02:00 Miscellaneous Information 1 ea NOTE XX ; Start 06/11/17 at 19:30 Glucose (Glutose) 15 gm Q15M PRN PO DECREASED GLUCOSE; Start 06/11/17 at 19:30 Glucose (Glutose) 22.5 gm Q15M PRN PO DECREASED GLUCOSE; Start 06/11/17 at 19: 30 Dextrose (D50w Syringe) 25 ml Q15M PRN IV DECREASED GLUCOSE; Start 06/11/17 at 19:30 Dextrose (D50w Syringe) 50 ml Q15M PRN IV DECREASED GLUCOSE; Start 06/11/17 at 19:30 Glucagon (Glucagen) 1 mg Q15M PRN IM DECREASED GLUCOSE; Start 06/11/17 at 19:30 Glucose (Glutose) 15 gm Q15M PRN BUCCAL DECREASED GLUCOSE; Start 06/11/17 at 19 :30 Hydralazine HCl (Apresoline) 10 mg Q6H PRN IV ELEVATED SYSTOLIC BP; Start 06/11 at 20:30 Aspirin (Halfprin) 81 mg DAILY PO Last administered on 06/17/17 08:37; Admin Dose 81 MG; Start 06/12/17 at 09:00 Atorvastatin Calcium (Lipitor) 40 mg QHS PO Last administered on 06/16/17 20: 44; Admin Dose 40 MG; Start 06/11/17 at 21:00 Carvedilol (Coreg) 6.25 mg BID PO Last administered on 06/17/17 08:36; Admin Dose 6.25 MG; Start 06/11/17 at 21:00 Diclofenac Sodium (Voltaren) 50 mg TID PO Last administered on 06/16/17 20:44 ; Admin Dose 50 MG; Start 06/11/17 at 21:00 Docusate Sodium (Colace) 100 mg DAILY PRN PO CONSTIPATION; Start 06/11/17 at 20 :30 Doxazosin Mesylate (Cardura) 2 mg HS PO Last administered on 06/16/17 20:59; Admin Dose 2 MG; Start 06/11/17 at 21:00 Folic Acid (Folic Acid) 1 mg DAILY PO Last administered on 06/17/17 08:36; Admin Dose 1 MG; Start 06/12/17 at 09:00 Isosorbide Mononitrate (Imdur) 120 mg DAILY PO Last administered on 06/17/17 08:37; Admin Dose 120 MG; Start 06/12/17 at 09:00 Linagliptin (Tradjenta) 5 mg DAILY PO Last administered on 06/17/17 08:35; Admin Dose 5 MG; Start 06/12/17 at 14:30 Morphine Sulfate 2 mg 2 mg Q4H PRN IV pain; Start 06/14/17 at 12:00 Epinephrine 4 mg/ Dextrose 250 ml @ 0 mls/hr INTRA-OP ONCE IV ; Start 06/18/17 at 07:00; Stop 06/18/17 at 07:01 Phenylephrine HCl 250 ml @ 0 mls/hr INTRA-OP ONCE IV ; Start 06/18/17 at 07:00 ; Stop 06/18/17 at 07:01 Insulin Human Regular/Sodium Chloride (Novolin-R/NS) 100 ml @ 0 mls/hr INTRA-OP ONCE IV ; Start 06/18/17 at 07:00; Stop 06/18/17 at 07:01 BETY MEADOWS Jun 17, 2017 15:38
--- NOTE | 2017-06-17 16:20 | RADRPT ---
PROCEDURE: US Carotids. CLINICAL INDICATION: bruit , preoperative TECHNIQUE: Multiple sonographic of the carotid bifurcation region and vertebral arteries were obta ined utilizing trimble scale, duplex and color-flow imaging. The images were reviewed on a PACS worksta tion. COMPARISON: No prior studies are available for comparison. FINDINGS: Evaluation of the right carotid bifurcation region reveals moderate calcific atherosclerotic disease . There is a 40% stenosis in the right bulb. Evaluation of the left carotid bifurcation region reveals moderate calcific atherosclerotic disease . There is a 42% stenosis in the left bulb. There is antegrade flow within the vertebral arteries bilaterally. RIGHT CAROTID MEASUREMENTS: Common Carotid [id number] (cm/sec) Internal Carotid Artery - [id number] (cm/sec) Internal Carotid Artery - [id number] (cm/sec) Internal Carotid Artery - [id number] (cm/sec) Internal Carotid/Common Carotid2.8 LEFT CAROTID MEASUREMENTS: Common Carotid Lamwma56 (cm/sec) Internal Carotid Artery - [id number] (cm/sec) Internal Carotid Artery - [id number] (cm/sec) Internal Carotid Artery - [id number] (cm/sec) Internal Carotid/Common Carotid1.8 RPTAT: AA IMPRESSION: Bilateral 50-69% stenosis in the ICAs with moderate calcific plaque. - validated velocity measuremen ts with angiographic measurements, velocity criteria are extrapolated from diameter data as defined by the Society of Radiologists in Ultrasound Consensus Conference Radiology 2003; 229;340-346. This study does indirectly reference the measurement of the distal ICA diameter as the denominator for s tenosis measurement. Normal antegrade flow in the vertebral arteries bilaterally. .Colin Paul MD, Date Time Electronically viewed and signed by .Colin Paul MD, MD on 06/17/2017 16:20 .S/
--- NOTE | 2017-06-17 17:22 | PN ---
Date/Time of Note Date/Time of Note DATE: 06/17/17 TIME: 17:17 Assessment/Plan VTE Prophylaxis VTE Prophylaxis Intervention: SCD's Lines/Catheters 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 Riley on 06/11. Dr Christensen is following in cardiac surgery, plan for CABG procedure. -Hypertension -Hyperlipidemia -Diabetes mellitus with hemoglobin A1c 6.9, continue linagliptin, continue NovoLog per mild algorithm sliding scale. Further recommendations based on clinical course. Plan of care discussed with Dr. Mariscal Problems: Exam/Review of Systems Vital Signs Vitals Vital Signs Date Time Temp Pulse Resp B/P Pulse Ox O2 Delivery O2 Flow Rate FiO2 06/17/17 16:09 63 06/17/17 16:00 98.0 20 154/88 98 Intake and Output 06/16/17 06/16/17 06/17/17 15:00 23:00 07:00 Intake Total 1400 ml 700 ml Balance 1400 ml 700 ml Exam Constitutional: alert, oriented Respiratory: normal air movement Cardiovascular: nl pulses, regular rate and rhythm Gastrointestinal: non-tender, soft Extremities: normal pulses Neurological: nl mental status Results Result Diagram: 06/17/17 0746 06/17/17 0746 Results 24 hrs Laboratory Tests Test 06/16/17 17:42 06/16/17 20:38 06/17/17 02:15 06/17/17 07:46 Bedside Glucose 235 H 282 H 200 White Blood Count 6.8 Red Blood Count 3.80 L Hemoglobin 11.4 L Hematocrit 34.2 L Mean Corpuscular Volume 90.0 Mean Corpuscular Hemoglobin 30.0 Mean Corpuscular Hemoglobin Concent 33.3 Red Cell Distribution Width 13.4 Platelet Count 186 Mean Platelet Volume 11.7 H Neutrophils % 59.8 Lymphocytes % 27.8 Monocytes % 7.5 Eosinophils % 3.5 Basophils % 0.7 Nucleated Red Blood Cells % 0.0 Neutrophils # 4.1 Lymphocytes # 1.9 Monocytes # 0.5 Eosinophils # 0.2 Basophils # 0.1 Nucleated Red Blood Cells # 0.0 Sodium Level 140 Potassium Level 4.8 Chloride Level 104 Carbon Dioxide Level 29 Anion Gap 12 Blood Urea Nitrogen 36 H Creatinine 1.07 Glucose Level 215 Calcium Level 10.4 H Test 06/17/17 08:07 06/17/17 12:10 Bedside Glucose 250 H 326 H Medications Medications Current Medications Sodium Chloride (1/2 NS) 1,000 ml @ 0 mls/hr Q0M IV ; Start 06/11/17 at 09:00 Acetaminophen (Tylenol Tab) 650 mg Q4H PRN PO NON-CARDIAC PAIN LEVEL (1-3); Start 06/11/17 at 10:30 Al Hydrox/Mg Hydrox/Simethicone (Mag-Al Plus) 30 ml Q4H PRN PO GASTROINTESTINAL UPSET; Start 06/11/17 at 10:30 Ondansetron HCl (Zofran Inj) 4 mg Q4H PRN IV NAUSEA AND/OR VOMITING; Start 06/11/17 at 10:30 Diagnostic Test (Pha) (Accu-Chek) 1 ea 02 XX ; Start 06/12/17 at 02:00 Miscellaneous Information 1 ea NOTE XX ; Start 06/11/17 at 19:30 Glucose (Glutose) 15 gm Q15M PRN PO DECREASED GLUCOSE; Start 06/11/17 at 19:30 Glucose (Glutose) 22.5 gm Q15M PRN PO DECREASED GLUCOSE; Start 06/11/17 at 19: 30 Dextrose (D50w Syringe) 25 ml Q15M PRN IV DECREASED GLUCOSE; Start 06/11/17 at 19:30 Dextrose (D50w Syringe) 50 ml Q15M PRN IV DECREASED GLUCOSE; Start 06/11/17 at 19:30 Glucagon (Glucagen) 1 mg Q15M PRN IM DECREASED GLUCOSE; Start 06/11/17 at 19:30 Glucose (Glutose) 15 gm Q15M PRN BUCCAL DECREASED GLUCOSE; Start 06/11/17 at 19 :30 Hydralazine HCl (Apresoline) 10 mg Q6H PRN IV ELEVATED SYSTOLIC BP; Start 06/11 at 20:30 Aspirin (Halfprin) 81 mg DAILY PO Last administered on 06/17/17 08:37; Admin Dose 81 MG; Start 06/12/17 at 09:00 Atorvastatin Calcium (Lipitor) 40 mg QHS PO Last administered on 06/16/17 20: 44; Admin Dose 40 MG; Start 06/11/17 at 21:00 Carvedilol (Coreg) 6.25 mg BID PO Last administered on 06/17/17 08:36; Admin Dose 6.25 MG; Start 06/11/17 at 21:00 Diclofenac Sodium (Voltaren) 50 mg TID PO Last administered on 06/16/17 20:44 ; Admin Dose 50 MG; Start 06/11/17 at 21:00 Docusate Sodium (Colace) 100 mg DAILY PRN PO CONSTIPATION; Start 06/11/17 at 20 :30 Doxazosin Mesylate (Cardura) 2 mg HS PO Last administered on 06/16/17 20:59; Admin Dose 2 MG; Start 06/11/17 at 21:00 Folic Acid (Folic Acid) 1 mg DAILY PO Last administered on 06/17/17 08:36; Admin Dose 1 MG; Start 06/12/17 at 09:00 Isosorbide Mononitrate (Imdur) 120 mg DAILY PO Last administered on 06/17/17 08:37; Admin Dose 120 MG; Start 06/12/17 at 09:00 Linagliptin (Tradjenta) 5 mg DAILY PO Last administered on 06/17/17 08:35; Admin Dose 5 MG; Start 06/12/17 at 14:30 Morphine Sulfate 2 mg 2 mg Q4H PRN IV pain; Start 06/14/17 at 12:00 Epinephrine 4 mg/ Dextrose 250 ml @ 0 mls/hr INTRA-OP ONCE IV ; Start 06/18/17 at 07:00; Stop 06/18/17 at 07:01 Phenylephrine HCl 250 ml @ 0 mls/hr INTRA-OP ONCE IV ; Start 06/18/17 at 07:00 ; Stop 06/18/17 at 07:01 Insulin Human Regular/Sodium Chloride (Novolin-R/NS) 100 ml @ 0 mls/hr INTRA-OP ONCE IV ; Start 06/18/17 at 07:00; Stop 06/18/17 at 07:01 GIOVANNI GARCIA Jun 17, 2017 17:22
[2017-06-17] MEDS: DOXAZOSIN 2 MG TAB PO SCH (21:28)
[2017-06-17] MEDS: ATORVASTATIN 40 MG TAB PO SCH (21:29)
[2017-06-17] MEDS ORDERED: PHENYLephrine 20MG IN 250 ML 250 ML IV SCH (23:00)
[2017-06-18] VITALS (48 sets, daily range): BP systolic 91–136; BP diastolic 52–69; PULSE 72–129; RESP 12–20; TEMP 97.8–101.3
[2017-06-18] MEDS ORDERED: INSULIN ASPART [NOVOLOG] 3 ML PEN SC SCH (04:00)
[2017-06-18] MEDS: Insulin NOVOLOG SS MILD Algorithm (NPO/TPN/ENTERAL FEEDS) SC SCH ×4 (05:00→21:00)
[2017-06-18] MEDS ORDERED: THROMBIN 5000 UNIT VIAL ONE ×2 (06:06→06:08)
[2017-06-18] MEDS ORDERED: VANCOMYCIN 1 GM INJ ONE (06:08)
[2017-06-18] MEDS ORDERED: PAPAVERINE 60 MG INJ ONE (06:08)
[2017-06-18] MEDS ORDERED: GELATIN SIZE 100 SPONGE ONE (06:08)
[2017-06-18] MEDS ORDERED: HEPARIN 1000 UNITS/ML 10 ML INJ ONE ×3 (06:09→09:35)
[2017-06-18] MEDS ORDERED: VANCOMYCIN 1 GM INJ IRR ONE (07:00)
[2017-06-18] MEDS ORDERED: DOPamine-D5W 1.6 MG/ML 250 ML ONE (07:00)
[2017-06-18] MEDS ORDERED: EPINEPHrine 4 MG in DEXTROSE 5% 246 ML IV ONE (07:00)
[2017-06-18] MEDS ORDERED: HEPARIN 1000 UNITS/ML 10 ML INJ IRR ONE (07:00)
[2017-06-18] MEDS ORDERED: NITROGLYCERIN 50 MG/D5W 250 ML BTL ONE (07:00)
[2017-06-18] MEDS ORDERED: PAPAVERINE 60 MG INJ IRR ONE (07:00)
[2017-06-18] MEDS ORDERED: INSULIN REGULAR, HUMAN 100 UNIT/1 ML 3ML VIAL ONE (07:00)
[2017-06-18] MEDS ORDERED: INSULIN HUMAN REGULAR 100 UNIT in SOD CHLORIDE 0.9% 99 ML IV ONE (07:00)
[2017-06-18] MEDS ORDERED: PHENYLephrine 20MG IN 250 ML 250 ML IV ONE (07:00)
[2017-06-18] MEDS ORDERED: MIDAZOLAM 5 ML ONE ×2 (07:37→09:35)
[2017-06-18] MEDS ORDERED: PHENYLephrine (100 MCG/ML) 5ML SYG ONE ×2 (07:41→11:45)
[2017-06-18] MEDS ORDERED: PHENYLephrine 10 MG INJ ONE ×3 (07:41→09:32)
--- NOTE | 2017-06-18 07:53 | HPN ---
Date/Time of Note Date/Time of Note DATE: 06/18/17 TIME: 07:53 Interval H&P Admission Note Pt. seen H&P reviewed: No system changes SAJI RICH MD Jun 18, 2017 07:53
[2017-06-18] MEDS ORDERED: NA BICARBONATE 8.4% 50 ML SYG ONE (08:12)
[2017-06-18] MEDS ORDERED: LIDOCAINE 100 MG SYRINGE ONE (08:12)
[2017-06-18] MEDS ORDERED: MANNITOL 20% 250 ML IV ONE (08:13)
[2017-06-18] MEDS ORDERED: POTASSIUM CHLORIDE 40 MEQ INJ ONE (08:15)
[2017-06-18] MEDS ORDERED: MAGNESIUM SULFATE (MG) 50% 10 ML INJ ONE (08:16)
[2017-06-18] MEDS ORDERED: ALBUMIN HUMAN 25% 200 ML ONE (08:28)
[2017-06-18] MEDS ORDERED: AMINOCAPROIC ACID 5 GM INJ ONE ×4 (08:28→11:32)
[2017-06-18] MEDS ORDERED: CEFAZOLIN 1 GM INJ ONE ×2 (08:42→11:32)
[2017-06-18] MEDS: ASPIRIN (EC) 81 MG TAB PO SCH (09:00)
[2017-06-18] MEDS ORDERED: CA CHLORIDE 10% 10 ML SYRINGE ONE (09:30)
[2017-06-18] MEDS ORDERED: PROTAMINE 250 MG INJ ONE (11:36)
[2017-06-18] MEDS ORDERED: FUROSEMIDE 20 MG INJ ONE (11:45)
[2017-06-18] MEDS ORDERED: VERAPAMIL 5 MG INJ ONE (12:01)
[2017-06-18] MEDS ORDERED: LIDOCAINE 2% (SDV) 5 ML INJ ONE (12:54)
[2017-06-18] MEDS ORDERED: ETOMIDATE 20 MG INJ ONE (12:54)
[2017-06-18] MEDS ORDERED: ROCURONIUM 50 MG INJ ONE (12:54)
--- NOTE | 2017-06-18 13:29 | OPR ---
Date/Time of Note Date/Time of Note DATE: 06/18/17 TIME: 13:27 Operative Report Procedure Date: Jun 18, 2017 Preoperative Diagnosis CAD Postoperative Diagnosis CAD Operation/Procedure Performed CABG OLIVARES to LAD SVG to R1 SVG to PDA Surgeon see signature line [employer] Bar Attendant DR Nicolas Bunch Anesthesia Type: general Estimated Blood Loss: none Transfusion FFP Specimen no Grafts/Implants none Tubes/Drains CT Complications none Pt Condition Post Procedure: critical Procedure Description Dictated SAJI RICH MD Jun 18, 2017 13:29
--- NOTE | 2017-06-18 13:44 | RADRPT ---
PROCEDURE: XR Chest. CLINICAL INDICATION: Shortness of breath. Postop CABG. TECHNIQUE: Single frontal view. COMPARISON: 06/11/2017. FINDINGS: There has been interval surgery with sternal wires, mediastinal clips, mediastinal drains in satisfa ctory position. The endotracheal tube tip is 5.8 cm above the jose raul. The right internal jugular vei n [place] catheter tip is in the main pulmonary artery. There is mild left basilar atelectasis. Th e lungs are otherwise clear. The heart size is normal. There is calcification in the aorta consistent with atherosclerosis. There is no pleural effusion. There is no pneumothorax. IMPRESSION: 1. Satisfactory postoperative appearance of the chest. 2. Mild left basilar atelectasis. 3. Tubes and lines in satisfactory position area RPTAT: QQ .Jeffrey Dorantes MD, MD Date Time Electronically viewed and signed by .Jeffrey Dorantes MD, MD on 06/18/2017 13:44 .R/
[2017-06-18] MEDS: DOPamine-D5W 1.6 MG/ML 250 ML IV SCH (13:55)
[2017-06-18] MEDS ORDERED: MEPERIDINE 25 MG INJ IV PRN (14:00)
[2017-06-18] MEDS ORDERED: DIPHENHYDRAMINE 50 MG INJ IV PRN (14:00)
[2017-06-18] MEDS ORDERED: morphine (1 MG/ML) 10ML SYRINGE IV PRN ×3 (14:00)
[2017-06-18] MEDS ORDERED: ONDANSETRON 4 MG INJ IV PRN (14:00)
[2017-06-18] MEDS ORDERED: NITROGLYCERIN 50 MG/D5W (PMX) 250 ML IV SCH (14:00)
[2017-06-18 14:17] LABS: BASOPHILS % 0.3 % (0.0-2.0); EOSINOPHILS # 0.1 10^3/ul (0.0-0.5); EOSINOPHILS % 1.1 % (0.0-7.0); HEMATOCRIT 27.4 % (42.0-52.0); HEMOGLOBIN 9.2 g/dl (14.0-18.0); LYMPHOCYTES # 1.2 10^3/ul (0.8-2.9); LYMPHOCYTES % 14.6 % (15.0-51.0); MEAN CORPUSCULAR HEMOGLOBIN 29.7 pg (29.0-33.0); MEAN CORPUSCULAR HGB CONC 33.6 g/dl (32.0-37.0); MEAN CORPUSCULAR VOLUME 88.4 fl (82.0-101.0); MEAN PLATELET VOLUME 11.2 fl (7.4-10.4); MONOCYTE # 0.3 10^3/ul (0.3-0.9); MONOCYTES % 3.9 % (0.0-11.0); NEUTROPHIL # 6.3 10^3/ul (1.6-7.5); NEUTROPHILS % 79.1 % (39.0-77.0); PLATELET COUNT 143 10^3/UL (140-415)
[2017-06-18 14:18] LABS: AADO2 Arterial 295.9 mmHg (7.0-24.0); Arterial Base Excess 1.6 mmol/L (-3.0-3); Arterial COHb 0.3 % (0.0-3.0); Arterial Fraction of Oxyhgb 93.4 % (93.0-99.0); Arterial HCO3 27.5 mmol/L (22.0-26.0); Arterial MetHb 0.3 % (0.0-1.5); Arterial Total Hemglobin 10.2 g/dl (12.0-18.0); MODE VENT - AC
[2017-06-18 14:21] LABS: MODE VENT - AC; MetHgb Mixed Venous 0.5 %; Mixed Venous Base Excess -0.9 mmol/L; Mixed Venous COHb 0.3 %; Mixed Venous Fraction OxyHgb 64.5 %; Mixed Venous Total Hemglobin 9.5 g/dl; Sample Type BLMV
[2017-06-18 14:30] LABS: INR 1.26; PROTIME 15.9 Sec (12.2-14.2); PT RATIO 1.2
[2017-06-18 14:31] LABS: INR 1.3; PARTIAL THROMBOPLASTIN TIME 29.1 Sec (25.0-35.0); PROTIME 16.3 Sec (12.2-14.2); PT RATIO 1.3
[2017-06-18 14:32] LABS: ALBUMIN 3.7 g/dl (3.3-4.9); ALBUMIN/GLOBULIN RATIO 1.32; BILIRUBIN,INDIRECT 0.6 mg/dl (0-1.1); BILIRUBIN,TOTAL 0.6 mg/dl (0.2-1.3); CALCIUM 10.1 mg/dl (8.4-10.2); CREATININE 0.91 mg/dl (0.61-1.24); MAGNESIUM 2.7 mg/dl (1.7-2.5); PARTIAL THROMBOPLASTIN TIME 28.6 Sec (25.0-35.0); POTASSIUM 3.5 mmol/L (3.5-5.1); THROMBIN TIME 14.3 SEC (13.8-19.1); TOTAL PROTEIN 6.5 g/dl (6.1-8.1)
--- NOTE | 2017-06-18 15:01 | PN ---
Date/Time of Note Date/Time of Note DATE: 06/18/17 TIME: 14:49 Assessment/Plan VTE Prophylaxis VTE Prophylaxis Intervention: SCD's Lines/Catheters IV [facility]from [facility] [place] Urinary Cath still in place: No Assessment/Plan Chief Complaint/Hosp Course S/p CABG, on dopamine drip, orally intubated, sedated after surgery, with adequate urine output. 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 Riley on 06/11. Dr Christensen is following in cardiac surgery, S/p CABG with OLIVARES to LAD, SVG to R1, SVG to PDA. Continue ICU care. -Hypertension -Hyperlipidemia -Diabetes mellitus with hemoglobin A1c 6.9, continue linagliptin, continue NovoLog per mild algorithm sliding scale. Further recommendations based on clinical course. Plan of care discussed with Dr. Mariscal Problems: Exam/Review of Systems Vital Signs Vitals Vital Signs Date Time Temp Pulse Resp B/P Pulse Ox O2 Delivery O2 Flow Rate FiO2 06/18/17 14:30 94 16 120/60 100 06/18/17 14:02 98.4 06/18/17 13:45 60 Intake and Output 06/17/17 06/17/17 06/18/17 15:00 23:00 07:00 Intake Total 1400 ml 240 ml Balance 1400 ml 240 ml Exam Constitutional: other (Sedated) Head: normocephalic Neck: supple Cardiovascular: nl pulses, other (s/p surgery), regular rate and rhythm Gastrointestinal: non-tender, soft Extremities: normal pulses, other (Left lower extremity status post surgery) Results Result Diagram: 06/18/17 1355 06/18/17 1355 Results 24 hrs Laboratory Tests Test 06/17/17 17:31 06/17/17 21:27 06/18/17 04:53 06/18/17 06:21 Bedside Glucose 240 H 226 H 226 H 194 Test 06/18/17 13:49 06/18/17 13:55 06/18/17 14:10 06/18/17 14:15 Bedside Glucose 101 White Blood Count 8.0 Red Blood Count 3.10 L Hemoglobin 9.2 L Hematocrit 27.4 L Mean Corpuscular Volume 88.4 Mean Corpuscular Hemoglobin 29.7 Mean Corpuscular Hemoglobin Concent 33.6 Red Cell Distribution Width 14.0 Platelet Count 141 Mean Platelet Volume 11.2 H Neutrophils % 79.1 H Lymphocytes % 14.6 L Monocytes % 3.9 Eosinophils % 1.1 Basophils % 0.3 Nucleated Red Blood Cells % 0.0 Neutrophils # 6.3 Lymphocytes # 1.2 Monocytes # 0.3 Eosinophils # 0.1 Basophils # 0.0 Nucleated Red Blood Cells # 0.0 Prothrombin Time 15.9 H Prothrombin Time Ratio 1.2 INR International Normalized Ratio 1.26 Activated Partial Thromboplast Time 29.1 Thrombin Time 14.3 Sodium Level 144 Potassium Level 3.5 Chloride Level 107 Carbon Dioxide Level 28 Anion Gap 13 Blood Urea Nitrogen 23 #H Creatinine 0.91 Glucose Level 87 # Calcium Level 10.1 Magnesium Level 2.7 H Total Bilirubin 0.6 Direct Bilirubin 0.00 Indirect Bilirubin 0.6 Aspartate Amino Transf (AST/SGOT) 35 Alanine Aminotransferase (ALT/SGPT) 31 Alkaline Phosphatase 50 Total Protein 6.5 Albumin 3.7 Globulin 2.80 Albumin/Globulin Ratio 1.32 Blood Gas Specimen Source Blood arterial BLMV Arterial Blood Date Drawn 06/18/2017 2:00:11 PM 06/18/2017 2:05:29 PM Arterial Blood pH (Temp corrected) 7.359 Arterial Blood pCO2 (Temp correct) 50.0 H Arterial Blood pO2 (Temp corrected) 76.9 L Arterial Blood HCO3 27.5 H Arterial Blood Base Excess 1.6 Arterial Blood Oxygen Saturation 94.0 L Edward Test N/A N/A Arterial Blood Gas Puncture Site A-Line PUL ART LINE Arterial Blood Carboxyhemoglobin 0.3 Arterial Blood Methemoglobin 0.3 Blood Gas A-a O2 Differential 295.9 H 335.9 Oxyhemoglobin Percent 93.4 Total Hemoglobin 10.2 L Blood Gas Temperature 37.0 37.0 Blood Gas Respiration Rate 14.0 14.0 Blood Gas Actual Respiration Rate 14 14 Blood Gas Modality VENT - AC VENT - AC FiO2 60.0 60.0 Blood Gas Tidal Volume 550.0 550.0 Blood Gas Low PEEP Setting 5.0 5.0 Blood Gas Notified Whom KATTY ALANIZ Blood Gas Notified Time 06/18/2017 2:18:23 PM 06/18/2017 2:21:20 PM Mixed Venous Blood pH 7.318 L Mixed Venous Blood PCO2 50.8 Mixed Venous Blood PO2 36.0 Mixed Venous Blood HCO3 25.5 Mixed Venous Blood Base Excess -0.9 Mixed Venous Blood O2 Saturation 65.0 Mixed Venous Blood Total Hemoglobin 9.5 Mixed Venous Blood Oxyhemoglobin 64.5 Mixed Venous Bld Carboxyhemoglobin 0.3 Mixed Venous Blood Methemoglobin 0.5 Medications Medications Current Medications Sodium Chloride (1/2 NS) 1,000 ml @ 0 mls/hr Q0M IV ; Start 06/11/17 at 09:00 Acetaminophen (Tylenol Tab) 650 mg Q4H PRN PO NON-CARDIAC PAIN LEVEL (1-3); Start 06/11/17 at 10:30 Al Hydrox/Mg Hydrox/Simethicone (Mag-Al Plus) 30 ml Q4H PRN PO GASTROINTESTINAL UPSET; Start 06/11/17 at 10:30 Ondansetron HCl (Zofran Inj) 4 mg Q4H PRN IV NAUSEA AND/OR VOMITING; Start 06/11/17 at 10:30 Miscellaneous Information 1 ea NOTE XX ; Start 06/11/17 at 19:30 Glucose (Glutose) 15 gm Q15M PRN PO DECREASED GLUCOSE; Start 06/11/17 at 19:30 Glucose (Glutose) 22.5 gm Q15M PRN PO DECREASED GLUCOSE; Start 06/11/17 at 19: 30 Dextrose (D50w Syringe) 25 ml Q15M PRN IV DECREASED GLUCOSE; Start 06/11/17 at 19:30 Dextrose (D50w Syringe) 50 ml Q15M PRN IV DECREASED GLUCOSE; Start 06/11/17 at 19:30 Glucagon (Glucagen) 1 mg Q15M PRN IM DECREASED GLUCOSE; Start 06/11/17 at 19:30 Glucose (Glutose) 15 gm Q15M PRN BUCCAL DECREASED GLUCOSE; Start 06/11/17 at 19 :30 Hydralazine HCl (Apresoline) 10 mg Q6H PRN IV ELEVATED SYSTOLIC BP; Start 06/11 at 20:30 Aspirin (Halfprin) 81 mg DAILY PO Last administered on 06/17/17 08:37; Admin Dose 81 MG; Start 06/12/17 at 09:00 Atorvastatin Calcium (Lipitor) 40 mg QHS PO Last administered on 06/17/17 21: 29; Admin Dose 40 MG; Start 06/11/17 at 21:00 Carvedilol (Coreg) 6.25 mg BID PO Last administered on 06/17/17 21:29; Admin Dose 6.25 MG; Start 06/11/17 at 21:00 Diclofenac Sodium (Voltaren) 50 mg TID PO Last administered on 06/16/17 20:44 ; Admin Dose 50 MG; Start 06/11/17 at 21:00 Docusate Sodium (Colace) 100 mg DAILY PRN PO CONSTIPATION; Start 06/11/17 at 20 :30 Doxazosin Mesylate (Cardura) 2 mg HS PO Last administered on 06/17/17 21:28; Admin Dose 2 MG; Start 06/11/17 at 21:00 Folic Acid (Folic Acid) 1 mg DAILY PO Last administered on 06/17/17 08:36; Admin Dose 1 MG; Start 06/12/17 at 09:00 Isosorbide Mononitrate (Imdur) 120 mg DAILY PO Last administered on 06/17/17 08:37; Admin Dose 120 MG; Start 06/12/17 at 09:00 Linagliptin (Tradjenta) 5 mg DAILY PO Last administered on 06/17/17 08:35; Admin Dose 5 MG; Start 06/12/17 at 14:30 Morphine Sulfate 2 mg 2 mg Q4H PRN IV pain; Start 06/14/17 at 12:00 Phenylephrine HCl (Christopher-Syneph) 250 ml @ 0 mls/hr INTRA-OP IV ; Start 06/17/17 at 23:00 Insulin Aspart (Novolog Insulin Pen) (Adult SC Insulin - Mild Algorithm)... Q4 SC Last administered on 06/18/17 05:00; Admin Dose 3 UNIT; Start 06/18/17 at 05:00 GIOVANNI GARCIA Jun 18, 2017 15:00
[2017-06-18] MEDS ORDERED: MAGNESIUM SULFATE 1 GM/D5W 100 ML IVPB PRN (15:30)
[2017-06-18] MEDS ORDERED: SOD CHLORIDE 0.9% 500 ML IV ONE (16:00)
[2017-06-18] MEDS: morphine 2 MG INJ IV PRN (16:04)
[2017-06-18] MEDS: POTASSIUM CHLORIDE 50 ML IVPB PRN ×2 (16:23→17:32)
[2017-06-18 16:34] LABS: CALCIUM 9.8 mg/dl (8.4-10.2); CREATININE 0.97 mg/dl (0.61-1.24); POTASSIUM 3.7 mmol/L (3.5-5.1)
[2017-06-18] MEDS ORDERED: PHENYLephrine 20MG IN 250 ML 250 ML IV SCH (17:30)
[2017-06-18] MEDS: POTASSIUM CHLORIDE 40 MEQ, CALCIUM CHLORIDE 10% 1 GM in DEXTROSE 5%-0.225% NACL 1,000 ML IV SCH (17:58)
[2017-06-18] MEDS: PHENYLephrine 20MG IN 250 ML 250 ML IV SCH (18:29)
[2017-06-18] MEDS ORDERED: DEXTROSE 50% 50 ML SYRINGE IV PRN ×2 (19:00)
[2017-06-18] MEDS: ACCU-CHEK XX SCH (19:00)
[2017-06-18] MEDS ORDERED: ALBUMIN HUMAN 5% 250 ML IV PRN (20:00)
--- NOTE | 2017-06-18 20:20 | CONS ---
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 anemie 6.Hypernatremia Recc; -ICU mointoring -follow drain output -Follow volume status closely -Wean dopmaine as tolerated -Wean vent as possible Problems: Consultation Date/Type/Reason Admit Date/Time Jun 15, 2017 at 12:05 Initial Consult Date 06/11/2017 Type of Consultation: cardiology Reason for Consultation cad Referring Provider: SOFIYA ARORA MD Exam/Review of Systems Vital Signs Vitals Vital Signs Date Time Temp Pulse Resp B/P Pulse Ox O2 Delivery O2 Flow Rate FiO2 06/18/17 19:00 100 16 121/64 100 06/18/17 17:11 60 06/18/17 16:00 99.0 Intake and Output 06/17/17 06/17/17 06/18/17 15:00 23:00 07:00 Intake Total 1400 ml 240 ml Balance 1400 ml 240 ml Exam Review of Systems: CONSTITUTIONAL: No fevers, chills. PULMONARY: intubated CARDIOVASCULAR: s/p sternotomy GASTROINTESTINAL: No nausea/vomiting. GENITOURINARY: No hematuria/dysuria. MUSCULOSKELETAL: No myagias/arthalgias. PSYCHIATRIC: The patient denies depression. NEUROLOGIC: No weakness Constitutional: other (mildly sedated) Psych: no complaints Head: normocephalic ENMT: mucosa pink and moist Neck: jvd (9 cm water), supple Respiratory: other (intubated) Cardiovascular: other (tachycardic, regular rhythm) Gastrointestinal: non-tender, soft Musculoskeletal: muscle tone (normal) Extremities: other (legs wrapped) Neurological: other (No focal deficits) Results Result Diagram: 06/18/17 1355 06/18/17 1555 Results 24 hrs Laboratory Tests Test 06/17/17 21:27 06/18/17 04:53 06/18/17 06:21 06/18/17 13:49 Bedside Glucose 226 H 226 H 194 101 Test 06/18/17 13:55 06/18/17 14:10 06/18/17 14:15 06/18/17 15:55 White Blood Count 8.0 Red Blood Count 3.10 L Hemoglobin 9.2 L Hematocrit 27.4 L Mean Corpuscular Volume 88.4 Mean Corpuscular Hemoglobin 29.7 Mean Corpuscular Hemoglobin Concent 33.6 Red Cell Distribution Width 14.0 Platelet Count 141 Mean Platelet Volume 11.2 H Neutrophils % 79.1 H Lymphocytes % 14.6 L Monocytes % 3.9 Eosinophils % 1.1 Basophils % 0.3 Nucleated Red Blood Cells % 0.0 Neutrophils # 6.3 Lymphocytes # 1.2 Monocytes # 0.3 Eosinophils # 0.1 Basophils # 0.0 Nucleated Red Blood Cells # 0.0 Prothrombin Time 15.9 H Prothrombin Time Ratio 1.2 INR International Normalized Ratio 1.26 Activated Partial Thromboplast Time 29.1 Thrombin Time 14.3 Sodium Level 144 145 H Potassium Level 3.5 3.7 Chloride Level 107 107 Carbon Dioxide Level 28 30 Anion Gap 13 12 Blood Urea Nitrogen 23 #H 23 H Creatinine 0.91 0.97 Glucose Level 87 # 113 Calcium Level 10.1 9.8 Magnesium Level 2.7 H Total Bilirubin 0.6 Direct Bilirubin 0.00 Indirect Bilirubin 0.6 Aspartate Amino Transf (AST/SGOT) 35 Alanine Aminotransferase (ALT/SGPT) 31 Alkaline Phosphatase 50 Total Protein 6.5 Albumin 3.7 Globulin 2.80 Albumin/Globulin Ratio 1.32 Blood Gas Specimen Source Blood arterial BLMV Arterial Blood Date Drawn 06/18/2017 2:00:11 PM 06/18/2017 2:05:29 PM Arterial Blood pH (Temp corrected) 7.359 Arterial Blood pCO2 (Temp correct) 50.0 H Arterial Blood pO2 (Temp corrected) 76.9 L Arterial Blood HCO3 27.5 H Arterial Blood Base Excess 1.6 Arterial Blood Oxygen Saturation 94.0 L Edward Test N/A N/A Arterial Blood Gas Puncture Site A-Line PUL ART LINE Arterial Blood Carboxyhemoglobin 0.3 Arterial Blood Methemoglobin 0.3 Blood Gas A-a O2 Differential 295.9 H 335.9 Oxyhemoglobin Percent 93.4 Total Hemoglobin 10.2 L Blood Gas Temperature 37.0 37.0 Blood Gas Respiration Rate 14.0 14.0 Blood Gas Actual Respiration Rate 14 14 Blood Gas Modality VENT - AC VENT - AC FiO2 60.0 60.0 Blood Gas Tidal Volume 550.0 550.0 Blood Gas Low PEEP Setting 5.0 5.0 Blood Gas Notified Whom JLD JLD Blood Gas Notified Time 06/18/2017 2:18:23 PM 06/18/2017 2:21:20 PM Mixed Venous Blood pH 7.318 L Mixed Venous Blood PCO2 50.8 Mixed Venous Blood PO2 36.0 Mixed Venous Blood HCO3 25.5 Mixed Venous Blood Base Excess -0.9 Mixed Venous Blood O2 Saturation 65.0 Mixed Venous Blood Total Hemoglobin 9.5 Mixed Venous Blood Oxyhemoglobin 64.5 Mixed Venous Bld Carboxyhemoglobin 0.3 Mixed Venous Blood Methemoglobin 0.5 Test 06/18/17 15:59 06/18/17 18:51 Bedside Glucose 106 227 H Medications Medications Current Medications Sodium Chloride (1/2 NS) 1,000 ml @ 0 mls/hr Q0M IV ; Start 06/11/17 at 09:00 Acetaminophen (Tylenol Tab) 650 mg Q4H PRN PO NON-CARDIAC PAIN LEVEL (1-3); Start 06/11/17 at 10:30 Al Hydrox/Mg Hydrox/Simethicone (Mag-Al Plus) 30 ml Q4H PRN PO GASTROINTESTINAL UPSET; Start 06/11/17 at 10:30 Ondansetron HCl (Zofran Inj) 4 mg Q4H PRN IV NAUSEA AND/OR VOMITING; Start 06/11/17 at 10:30 Miscellaneous Information 1 ea NOTE XX ; Start 06/11/17 at 19:30 Glucose (Glutose) 15 gm Q15M PRN PO DECREASED GLUCOSE; Start 06/11/17 at 19:30 Glucose (Glutose) 22.5 gm Q15M PRN PO DECREASED GLUCOSE; Start 06/11/17 at 19: 30 Dextrose (D50w Syringe) 25 ml Q15M PRN IV DECREASED GLUCOSE; Start 06/11/17 at 19:30 Dextrose (D50w Syringe) 50 ml Q15M PRN IV DECREASED GLUCOSE; Start 06/11/17 at 19:30 Glucagon (Glucagen) 1 mg Q15M PRN IM DECREASED GLUCOSE; Start 06/11/17 at 19:30 Glucose (Glutose) 15 gm Q15M PRN BUCCAL DECREASED GLUCOSE; Start 06/11/17 at 19 :30 Hydralazine HCl (Apresoline) 10 mg Q6H PRN IV ELEVATED SYSTOLIC BP; Start 06/11 at 20:30 Aspirin (Halfprin) 81 mg DAILY PO Last administered on 06/17/17 08:37; Admin Dose 81 MG; Start 06/12/17 at 09:00 Atorvastatin Calcium (Lipitor) 40 mg QHS PO Last administered on 06/17/17 21: 29; Admin Dose 40 MG; Start 06/11/17 at 21:00; Status Future Hold Carvedilol (Coreg) 6.25 mg BID PO Last administered on 06/17/17 21:29; Admin Dose 6.25 MG; Start 06/11/17 at 21:00; Status Future Hold Diclofenac Sodium (Voltaren) 50 mg TID PO Last administered on 06/16/17 20:44 ; Admin Dose 50 MG; Start 06/11/17 at 21:00; Status Future Hold Docusate Sodium (Colace) 100 mg DAILY PRN PO CONSTIPATION; Start 06/11/17 at 20 :30 Doxazosin Mesylate (Cardura) 2 mg HS PO Last administered on 06/17/17 21:28; Admin Dose 2 MG; Start 06/11/17 at 21:00; Status Future Hold Folic Acid (Folic Acid) 1 mg DAILY PO Last administered on 06/17/17 08:36; Admin Dose 1 MG; Start 06/12/17 at 09:00; Status Future Hold Isosorbide Mononitrate (Imdur) 120 mg DAILY PO Last administered on 06/17/17 08:37; Admin Dose 120 MG; Start 06/12/17 at 09:00; Status Future Hold Linagliptin (Tradjenta) 5 mg DAILY PO Last administered on 06/17/17 08:35; Admin Dose 5 MG; Start 06/12/17 at 14:30; Status Future Hold Morphine Sulfate (morphine) 2 mg Q4H PRN IV pain Last administered on 16:04; Admin Dose 2 MG; Start 06/14/17 at 12:00 Insulin Aspart (Adult SC Insulin - Mild Algorithm)... Q4 SC Last administered on 06/18/17 05:00; Admin Dose 3 UNIT; Start 06/18/17 at 05:00 Potassium Chloride 40 meq/ Calcium Chloride 1 gm/Dextrose/ Sodium Chloride 1, 030 ml @ 60 mls/hr [id number] IV Last administered on 06/18/17 17:58; Admin Dose 60 MLS/HR; Start 06/18/17 at 15:09 Magnesium Sulfate/ Dextrose 100 ml @ 100 mls/hr PRN PRN IVPB PENDING LAB VALUE ; Start 06/18/17 at 15:30 Phenylephrine HCl (Christopher-Syneph) 250 ml @ 75 mls/hr TITRATE IV Last administered on 06/18/17 18:29; Admin Dose 15 MLS/HR; Start 06/18/17 at 18:00 Diagnostic Test (Pha) (Accu-Chek) 1 ea Q1H XX ; Start 06/18/17 at 19:00 Dextrose (D50w Syringe) 25 ml Q15M PRN IV Till BS 80 mg/dL or above x2; Start 06/18/17 at 19:00 Dextrose (D50w Syringe) 50 ml Q15M PRN IV Till BS 80 mg/dL or above x2; Start 06/18/17 at 19:00 Hydromorphone HCl (Dilaudid) 0.5 mg Q1HWA PRN IV PAIN; Start 06/18/17 at 20:00 ; Status UNV Hydromorphone HCl 1 mg 1 mg Q4H PRN IV PAIN LEVEL 6-10; Start 06/18/17 at 20: 00; Status UNV Albumin Human 250 ml @ 250 mls/hr ONCE PRN IV IV PROTOCOL; Start 06/18/17 at 20:00; Status UNV BTEY MEADOWS Jun 18, 2017 20:20
[2017-06-18] MEDS: INSULIN HUMAN REGULAR 100 UNIT in SOD CHLORIDE 0.9% 99 ML IV SCH ×3 (20:27→22:13)
[2017-06-18 20:52] LABS: BASOPHILS % 0.3 % (0.0-2.0); EOSINOPHILS % 0.1 % (0.0-7.0); HEMATOCRIT 27.2 % (42.0-52.0); HEMOGLOBIN 8.8 g/dl (14.0-18.0); LYMPHOCYTES # 0.7 10^3/ul (0.8-2.9); LYMPHOCYTES % 7.4 % (15.0-51.0); MEAN CORPUSCULAR HGB CONC 32.4 g/dl (32.0-37.0); MEAN CORPUSCULAR VOLUME 89.8 fl (82.0-101.0); MEAN PLATELET VOLUME 12.2 fl (7.4-10.4); MONOCYTE # 0.8 10^3/ul (0.3-0.9); MONOCYTES % 8.6 % (0.0-11.0); NEUTROPHIL # 7.7 10^3/ul (1.6-7.5); PLATELET COUNT 163 10^3/UL (140-415); RED BLOOD COUNT 3.03 10^6/ul (4.70-6.10); RED CELL DISTRIBUTION WIDTH 14.5 % (11.5-14.5); WHITE BLOOD COUNT 9.3 10^3/ul (4.8-10.8)
[2017-06-18 21:07] LABS: CALCIUM 9.2 mg/dl (8.4-10.2); CREATININE 0.96 mg/dl (0.61-1.24); MAGNESIUM 2.1 mg/dl (1.7-2.5)
[2017-06-18 21:12] LABS: INR 1.14; PROTIME 14.6 Sec (12.2-14.2); PT RATIO 1.1
[2017-06-18 21:13] LABS: PARTIAL THROMBOPLASTIN TIME 28.9 Sec (25.0-35.0)
[2017-06-18] MEDS ORDERED: CEFAZOLIN 1 GM/50 ML (PMX) 50 ML IVPB ONE (21:56)
[2017-06-18] MEDS: CEFAZOLIN 1 GM/50 ML (PMX) 50 ML IVPB SCH (23:10)
[2017-06-19] VITALS (96 sets, daily range): BP systolic 88–151; BP diastolic 48–69; PULSE 84–113; RESP 6–25; TEMP 99.9–101.3
[2017-06-19] MEDS: INSULIN HUMAN REGULAR 100 UNIT in SOD CHLORIDE 0.9% 99 ML IV SCH ×6 (00:09→07:07)
[2017-06-19] MEDS: HYDROmorphONE 0.5 MG/0.5 ML SYG IV PRN ×4 (00:14→21:53)
[2017-06-19] MEDS: DOPamine-D5W 1.6 MG/ML 250 ML IV SCH (01:09)
[2017-06-19] MEDS: ALBUTEROL/IPRATROPIUM (NEB) 3 ML AMP HHN SCH ×4 (01:53→19:56)
[2017-06-19 03:29] LABS: BASOPHILS % 0.4 % (0.0-2.0); HEMATOCRIT 24.4 % (42.0-52.0); LYMPHOCYTES # 0.8 10^3/ul (0.8-2.9); LYMPHOCYTES % 9.3 % (15.0-51.0); MEAN CORPUSCULAR HEMOGLOBIN 29.6 pg (29.0-33.0); MEAN CORPUSCULAR HGB CONC 32.8 g/dl (32.0-37.0); MEAN CORPUSCULAR VOLUME 90.4 fl (82.0-101.0); MEAN PLATELET VOLUME 11.9 fl (7.4-10.4); MONOCYTE # 0.7 10^3/ul (0.3-0.9); MONOCYTES % 8.6 % (0.0-11.0); NEUTROPHIL # 6.8 10^3/ul (1.6-7.5); PLATELET COUNT 150 10^3/UL (140-415); RED CELL DISTRIBUTION WIDTH 14.6 % (11.5-14.5); WHITE BLOOD COUNT 8.4 10^3/ul (4.8-10.8)
[2017-06-19 03:37] LABS: AADO2 Arterial 137.3 mmHg (7.0-24.0); Arterial Base Excess -1.7 mmol/L (-3.0-3); Arterial COHb 0.3 % (0.0-3.0); Arterial Fraction of Oxyhgb 96.7 % (93.0-99.0); Arterial HCO3 22.7 mmol/L (22.0-26.0); Arterial MetHb 0.2 % (0.0-1.5); Arterial Total Hemglobin 9.4 g/dl (12.0-18.0); MODE VENT - CPAP
[2017-06-19 03:47] LABS: INR 1.16; PROTIME 14.8 Sec (12.2-14.2); PT RATIO 1.2
[2017-06-19 03:48] LABS: CALCIUM 9.2 mg/dl (8.4-10.2); CREATININE 0.93 mg/dl (0.61-1.24); POTASSIUM 4.7 mmol/L (3.5-5.1)
[2017-06-19 04:01] LABS: PARTIAL THROMBOPLASTIN TIME 31.3 Sec (25.0-35.0)
[2017-06-19] MEDS: PHENYLephrine 20MG IN 250 ML 250 ML IV SCH ×3 (04:33→13:58)
[2017-06-19] MEDS ORDERED: PANTOPRAZOLE 40 MG INJ IV SCH (06:00)
[2017-06-19] MEDS: CEFAZOLIN 1 GM/50 ML (PMX) 50 ML IVPB SCH ×2 (06:15→14:12)
[2017-06-19] MEDS: ACCU-CHEK XX SCH ×18 (07:00→23:45)
[2017-06-19] MEDS: morphine 2 MG INJ IV PRN ×2 (08:02→19:13)
--- NOTE | 2017-06-19 08:12 | RADRPT ---
PROCEDURE: XR Chest. CLINICAL INDICATION: Postop CABG TECHNIQUE: Single frontal view of the chest. COMPARISON: 06/18/2017 and 06/11/2017 FINDINGS: Support lines and tubes: Interval extubation. Stable position of right IJ [place] catheter tip ov er the main pulmonary artery. Stable position of mediastinal drains. Cardiac/vascular structures: Stable enlarged cardiomediastinal silhouette. Aortic calcifications. Pulmonary: Similar bilateral perihilar interstitial opacities and left basilar airspace opacity. Sm all left pleural effusion. No evidence of pneumothorax. Osseous structures: Sternotomy wires. Soft tissues: Normal IMPRESSION: 1. Stable position of [place] catheter and mediastinal drains. 2. Similar bilateral interstitial opacities likely representing pulmonary edema. 3. Left basilar airspace opacity representing combination of small pleural effusion with underlying atelectasis or pneumonia. RPTAT:AAJJ Physician Tiffanie Date Time Electronically viewed and signed by Physician Tiffanie on 06/19/2017 08:11 /
[2017-06-19] MEDS: ASPIRIN (EC) 81 MG TAB PO SCH (09:00)
--- NOTE | 2017-06-19 09:07 | CONS ---
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 anemia 6.Hypernatremia Recc; -ICU mointoring -follow drain output -Follow volume status closely -Wean dopamine/christopher as tolerated -OOB to chair Problems: Consultation Date/Type/Reason Admit Date/Time Jun 15, 2017 at 12:05 Initial Consult Date 06/11/2017 Type of Consultation: cardiology Reason for Consultation cad Referring Provider: SOFIYA ARORA MD Exam/Review of Systems Vital Signs Vitals Vital Signs Date Time Temp Pulse Resp B/P Pulse Ox O2 Delivery O2 Flow Rate FiO2 06/19/17 08:41 93 16 98 Nasal Cannula 4.0 06/19/17 08:00 100.4 131/59 06/19/17 02:05 27 Intake and Output 06/18/17 06/18/17 06/19/17 14:59 22:59 06:59 Intake Total 2774.5 ml 926.3 ml 881.0 ml Output Total 2170 ml 2234 ml 823 ml Balance 604.5 ml -1307.7 ml 58.0 ml Exam Review of Systems: CONSTITUTIONAL: No fevers, chills. PULMONARY: No sob CARDIOVASCULAR: No chest pain/palpitations GASTROINTESTINAL: No nausea/vomiting. GENITOURINARY: No hematuria/dysuria. MUSCULOSKELETAL: No myagias/arthalgias. PSYCHIATRIC: The patient denies depression. NEUROLOGIC: No weakness Constitutional: alert Psych: no complaints ENMT: other (s/p extubation) Neck: jvd, supple Respiratory: diminished breath sounds Cardiovascular: regular rate and rhythm Gastrointestinal: non-tender, soft Musculoskeletal: muscle tone Extremities: edema Neurological: other (No focal deficits) Results Result Diagram: 06/19/17 0320 06/19/17 0320 Results 24 hrs Laboratory Tests Test 06/18/17 13:49 06/18/17 13:55 06/18/17 14:10 06/18/17 14:15 Bedside Glucose 101 White Blood Count 8.0 Red Blood Count 3.10 L Hemoglobin 9.2 L Hematocrit 27.4 L Mean Corpuscular Volume 88.4 Mean Corpuscular Hemoglobin 29.7 Mean Corpuscular Hemoglobin Concent 33.6 Red Cell Distribution Width 14.0 Platelet Count 141 Mean Platelet Volume 11.2 H Neutrophils % 79.1 H Lymphocytes % 14.6 L Monocytes % 3.9 Eosinophils % 1.1 Basophils % 0.3 Nucleated Red Blood Cells % 0.0 Neutrophils # 6.3 Lymphocytes # 1.2 Monocytes # 0.3 Eosinophils # 0.1 Basophils # 0.0 Nucleated Red Blood Cells # 0.0 Prothrombin Time 15.9 H Prothrombin Time Ratio 1.2 INR International Normalized Ratio 1.26 Activated Partial Thromboplast Time 29.1 Thrombin Time 14.3 Sodium Level 144 Potassium Level 3.5 Chloride Level 107 Carbon Dioxide Level 28 Anion Gap 13 Blood Urea Nitrogen 23 #H Creatinine 0.91 Glucose Level 87 # Calcium Level 10.1 Magnesium Level 2.7 H Total Bilirubin 0.6 Direct Bilirubin 0.00 Indirect Bilirubin 0.6 Aspartate Amino Transf (AST/SGOT) 35 Alanine Aminotransferase (ALT/SGPT) 31 Alkaline Phosphatase 50 Total Protein 6.5 Albumin 3.7 Globulin 2.80 Albumin/Globulin Ratio 1.32 Blood Gas Specimen Source Blood arterial BLMV Arterial Blood Date Drawn 06/18/2017 2:00:11 PM 06/18/2017 2:05:29 PM Arterial Blood pH (Temp corrected) 7.359 Arterial Blood pCO2 (Temp correct) 50.0 H Arterial Blood pO2 (Temp corrected) 76.9 L Arterial Blood HCO3 27.5 H Arterial Blood Base Excess 1.6 Arterial Blood Oxygen Saturation 94.0 L Edward Test N/A N/A Arterial Blood Gas Puncture Site A-Line PUL ART LINE Arterial Blood Carboxyhemoglobin 0.3 Arterial Blood Methemoglobin 0.3 Blood Gas A-a O2 Differential 295.9 H 335.9 Oxyhemoglobin Percent 93.4 Total Hemoglobin 10.2 L Blood Gas Temperature 37.0 37.0 Blood Gas Respiration Rate 14.0 14.0 Blood Gas Actual Respiration Rate 14 14 Blood Gas Modality VENT - AC VENT - AC FiO2 60.0 60.0 Blood Gas Tidal Volume 550.0 550.0 Blood Gas Low PEEP Setting 5.0 5.0 Blood Gas Notified Whom KATTY ALANIZ Blood Gas Notified Time 06/18/2017 2:18:23 PM 06/18/2017 2:21:20 PM Mixed Venous Blood pH 7.318 L Mixed Venous Blood PCO2 50.8 Mixed Venous Blood PO2 36.0 Mixed Venous Blood HCO3 25.5 Mixed Venous Blood Base Excess -0.9 Mixed Venous Blood O2 Saturation 65.0 Mixed Venous Blood Total Hemoglobin 9.5 Mixed Venous Blood Oxyhemoglobin 64.5 Mixed Venous Bld Carboxyhemoglobin 0.3 Mixed Venous Blood Methemoglobin 0.5 Test 06/18/17 15:55 06/18/17 15:59 06/18/17 18:51 06/18/17 20:05 Sodium Level 145 H Potassium Level 3.7 Chloride Level 107 Carbon Dioxide Level 30 Anion Gap 12 Blood Urea Nitrogen 23 H Creatinine 0.97 Glucose Level 113 Calcium Level 9.8 Bedside Glucose 106 227 H 247 H Test 06/18/17 20:19 06/18/17 21:05 06/18/17 22:01 06/18/17 23:13 White Blood Count 9.3 Red Blood Count 3.03 L Hemoglobin 8.8 L Hematocrit 27.2 L Mean Corpuscular Volume 89.8 Mean Corpuscular Hemoglobin 29.0 Mean Corpuscular Hemoglobin Concent 32.4 Red Cell Distribution Width 14.5 Platelet Count 163 Mean Platelet Volume 12.2 H Neutrophils % 83.0 H Lymphocytes % 7.4 L Monocytes % 8.6 Eosinophils % 0.1 Basophils % 0.3 Nucleated Red Blood Cells % 0.0 Neutrophils # 7.7 H Lymphocytes # 0.7 L Monocytes # 0.8 Eosinophils # 0.0 Basophils # 0.0 Nucleated Red Blood Cells # 0.0 Prothrombin Time 14.6 H Prothrombin Time Ratio 1.1 INR International Normalized Ratio 1.14 Activated Partial Thromboplast Time 28.9 Sodium Level 141 Potassium Level 5.0 Chloride Level 108 Carbon Dioxide Level 24 Anion Gap 14 Blood Urea Nitrogen 24 H Creatinine 0.96 Glucose Level 253 #H Calcium Level 9.2 Magnesium Level 2.1 Bedside Glucose 256 H 231 H 224 H Test 06/18/17 23:45 06/19/17 00:00 06/19/17 01:18 06/19/17 02:32 Blood Gas Specimen Source Blood arterial Arterial Blood Date Drawn 06/19/2017 12:06:06 AM Arterial Blood pH (Temp corrected) 7.410 Arterial Blood pCO2 (Temp correct) 36.6 Arterial Blood pO2 (Temp corrected) 105.8 H Arterial Blood HCO3 22.7 Arterial Blood Base Excess -1.7 Arterial Blood Oxygen Saturation 97.2 Edward Test N/A Arterial Blood Gas Puncture Site A-Line Arterial Blood Carboxyhemoglobin 0.3 Arterial Blood Methemoglobin 0.2 Blood Gas A-a O2 Differential 137.3 H Oxyhemoglobin Percent 96.7 Total Hemoglobin 9.4 L Blood Gas Temperature 37.0 Blood Gas Actual Respiration Rate 20 Blood Gas Modality VENT - CPAP FiO2 40.0 Blood Gas Low PEEP Setting 3.0 Blood Gas Notified Whom [facility] Blood Gas Notified Time 06/19/2017 12:16:01 AM Bedside Glucose 211 142 128 Test 06/19/17 03:20 06/19/17 03:56 06/19/17 04:43 06/19/17 05:50 White Blood Count 8.4 Red Blood Count 2.70 L Hemoglobin 8.0 L Hematocrit 24.4 L Mean Corpuscular Volume 90.4 Mean Corpuscular Hemoglobin 29.6 Mean Corpuscular Hemoglobin Concent 32.8 Red Cell Distribution Width 14.6 H Platelet Count 150 Mean Platelet Volume 11.9 H Neutrophils % 81.0 H Lymphocytes % 9.3 L Monocytes % 8.6 Eosinophils % 0.0 Basophils % 0.4 Nucleated Red Blood Cells % 0.0 Neutrophils # 6.8 Lymphocytes # 0.8 Monocytes # 0.7 Eosinophils # 0.0 Basophils # 0.0 Nucleated Red Blood Cells # 0.0 Prothrombin Time 14.8 H Prothrombin Time Ratio 1.2 INR International Normalized Ratio 1.16 Activated Partial Thromboplast Time 31.3 Sodium Level 144 Potassium Level 4.7 Chloride Level 112 H Carbon Dioxide Level 24 Anion Gap 13 Blood Urea Nitrogen 20 Creatinine 0.93 Glucose Level 149 # Calcium Level 9.2 Magnesium Level 2.0 Bedside Glucose 166 203 Lab Scanned Report BLOOD TRANSFUSION Test 06/19/17 07:04 06/19/17 07:15 06/19/17 08:05 Bedside Glucose 174 171 176 Medications Medications Current Medications Acetaminophen (Tylenol Tab) 650 mg Q4H PRN PO NON-CARDIAC PAIN LEVEL (1-3); Start 06/11/17 at 10:30 Al Hydrox/Mg Hydrox/Simethicone (Mag-Al Plus) 30 ml Q4H PRN PO GASTROINTESTINAL UPSET; Start 06/11/17 at 10:30 Ondansetron HCl (Zofran Inj) 4 mg Q4H PRN IV NAUSEA AND/OR VOMITING; Start 06/11/17 at 10:30 Miscellaneous Information 1 ea NOTE XX ; Start 06/11/17 at 19:30 Glucose (Glutose) 15 gm Q15M PRN PO DECREASED GLUCOSE; Start 06/11/17 at 19:30 Glucose (Glutose) 22.5 gm Q15M PRN PO DECREASED GLUCOSE; Start 06/11/17 at 19: 30 Dextrose (D50w Syringe) 25 ml Q15M PRN IV DECREASED GLUCOSE; Start 06/11/17 at 19:30 Dextrose (D50w Syringe) 50 ml Q15M PRN IV DECREASED GLUCOSE; Start 06/11/17 at 19:30 Glucagon (Glucagen) 1 mg Q15M PRN IM DECREASED GLUCOSE; Start 06/11/17 at 19:30 Glucose (Glutose) 15 gm Q15M PRN BUCCAL DECREASED GLUCOSE; Start 06/11/17 at 19 :30 Hydralazine HCl (Apresoline) 10 mg Q6H PRN IV ELEVATED SYSTOLIC BP; Start 06/11 at 20:30 Aspirin (Halfprin) 81 mg DAILY PO Last administered on 06/17/17 08:37; Admin Dose 81 MG; Start 06/12/17 at 09:00 Atorvastatin Calcium (Lipitor) 40 mg QHS PO Last administered on 06/17/17 21: 29; Admin Dose 40 MG; Start 06/11/17 at 21:00; Status Future Hold Carvedilol (Coreg) 6.25 mg BID PO Last administered on 06/17/17 21:29; Admin Dose 6.25 MG; Start 06/11/17 at 21:00; Status Future Hold Diclofenac Sodium (Voltaren) 50 mg TID PO Last administered on 06/16/17 20:44 ; Admin Dose 50 MG; Start 06/11/17 at 21:00; Status Future Hold Docusate Sodium (Colace) 100 mg DAILY PRN PO CONSTIPATION; Start 06/11/17 at 20 :30 Doxazosin Mesylate (Cardura) 2 mg HS PO Last administered on 06/17/17 21:28; Admin Dose 2 MG; Start 06/11/17 at 21:00; Status Future Hold Folic Acid (Folic Acid) 1 mg DAILY PO Last administered on 06/17/17 08:36; Admin Dose 1 MG; Start 06/12/17 at 09:00; Status Future Hold Isosorbide Mononitrate (Imdur) 120 mg DAILY PO Last administered on 06/17/17 08:37; Admin Dose 120 MG; Start 06/12/17 at 09:00; Status Future Hold Linagliptin (Tradjenta) 5 mg DAILY PO Last administered on 06/17/17 08:35; Admin Dose 5 MG; Start 06/12/17 at 14:30; Status Future Hold Morphine Sulfate 2 mg 2 mg Q4H PRN IV pain Last administered on 06/19/17 08: 02; Admin Dose 2 MG; Start 06/14/17 at 12:00 Potassium Chloride 40 meq/ Calcium Chloride 1 gm/Dextrose/ Sodium Chloride 1, 030 ml @ 60 mls/hr [id number] IV Last administered on 06/18/17 17:58; Admin Dose 60 MLS/HR; Start 06/18/17 at 15:09 Magnesium Sulfate/ Dextrose 100 ml @ 100 mls/hr PRN PRN IVPB PENDING LAB VALUE ; Start 06/18/17 at 15:30 Phenylephrine HCl (Christopher-Syneph) 250 ml @ 75 mls/hr TITRATE IV Last administered on 06/19/17 04:33; Admin Dose 40 MLS/HR; Start 06/18/17 at 18:00 Diagnostic Test (Pha) (Accu-Chek) 1 ea Q1H XX Last administered on 06/19/17 09:00; Admin Dose 1 EA; Start 06/18/17 at 19:00 Dextrose (D50w Syringe) 25 ml Q15M PRN IV Till BS 80 mg/dL or above x2; Start 06/18/17 at 19:00 Dextrose (D50w Syringe) 50 ml Q15M PRN IV Till BS 80 mg/dL or above x2; Start 06/18/17 at 19:00 Hydromorphone HCl (Dilaudid) 0.5 mg Q1HWA PRN IV PAIN Last administered on 00:14; Admin Dose 0.5 MG; Start 06/18/17 at 20:00 Hydromorphone HCl 1 mg 1 mg Q4H PRN IV PAIN LEVEL 6-10; Start 06/18/17 at 20: 00 Albumin Human 250 ml @ 250 mls/hr ONCE PRN IV IV PROTOCOL Last administered on 06/18/17 21:46; Admin Dose 250 MLS/HR; Start 06/18/17 at 20:00; Stop at 19:59 Cefazolin Sodium (Ancef 1 Gm/50 ml (Pmx)) 50 ml @ 100 mls/hr Q8 IVPB Last administered on 06/19/17 06:15; Admin Dose 100 MLS/HR; Start 06/18/17 at 22: 00; Stop 06/19/17 at 14:00 Pantoprazole (Protonix Iv) 40 mg DAILY@06 IV Last administered on 06/19/17 06 :14; Admin Dose 40 MG; Start 06/19/17 at 06:00 BETY MEADOWS Jun 19, 2017 09:07
[2017-06-19] MEDS: HYDROmorphONE 1 MG/ML SYG IV PRN ×2 (10:06→17:11)
[2017-06-19] MEDS: POTASSIUM CHLORIDE 40 MEQ, CALCIUM CHLORIDE 10% 1 GM in DEXTROSE 5%-0.225% NACL 1,000 ML IV SCH (11:42)
--- NOTE | 2017-06-19 13:15 | RADRPT ---
Vent Rate: 94 bpm RR Interval: 0 msec [place] Interval: 120 msec QRS Duration: 90 msec QT Interval: 372 msec QTC Interval: 465 msec P-R-T [place]: 0 - 56 - 43 degrees Normal sinus rhythm Low voltage QRS Borderline ECG Electronically Signed By: Padilla Bermeo [id number]
--- NOTE | 2017-06-19 13:15 | RADRPT ---
Vent Rate: 104 bpm RR Interval: 0 msec MA Interval: 144 msec QRS Duration: 88 msec QT Interval: 358 msec QTC Interval: 470 msec P-R-T [place]: -40 - 97 - 39 degrees Unusual P axis, possible ectopic atrial tachycardia with occasional premature ventricular complexes Rightward axis Low voltage QRS Nonspecific ST and T wave abnormality Abnormal ECG Electronically Signed By: Padilla Bermeo [id number]
--- NOTE | 2017-06-19 13:26 | PN ---
Date/Time of Note Date/Time of Note DATE: 06/19/17 TIME: 13:21 Assessment/Plan VTE Prophylaxis VTE Prophylaxis Intervention: SCD's Lines/Catheters IV Catheter Type (from [facility]): Central Line Central line still needed: Yes Urinary Cath still in place: Yes Reason Cath still needed: urinary retention Assessment/Plan Chief Complaint/Hosp Course Patient is extubated, awake alert, continues on dopamine Christopher-Synephrine and insulin drip. Undergoing blood transfusion. 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 Riley on 06/11. Dr Christensen is following in cardiac surgery, S/p CABG with OLIVARES to LAD, SVG to R1, SVG to PDA. Continue ICU care, thoracic surgery recommendations. -Hypertension -Hyperlipidemia -Diabetes mellitus with hemoglobin A1c 6.9, continue insulin drip. -Bilateral carotid stenosis 50-69% Further recommendations based on clinical course. Plan of care discussed with Dr. Mariscal Problems: Exam/Review of Systems Vital Signs Vitals Vital Signs Date Time Temp Pulse Resp B/P Pulse Ox O2 Delivery O2 Flow Rate FiO2 06/19/17 12:30 86 14 118/55 97 06/19/17 12:00 99.9 06/19/17 08:41 Nasal Cannula 4.0 06/19/17 02:05 27 Intake and Output 06/18/17 06/18/17 06/19/17 14:59 22:59 06:59 Intake Total 2774.5 ml 926.3 ml 881.0 ml Output Total 2170 ml 2234 ml 823 ml Balance 604.5 ml -1307.7 ml 58.0 ml Exam Constitutional: alert, oriented Head: normocephalic Neck: supple Respiratory: diminished breath sounds Cardiovascular: nl pulses, other (Status post CABG, chest tubes), regular rate and rhythm Gastrointestinal: non-tender, soft Genitourinary - Male: other (Marlow) Extremities: normal pulses, other (Left lower extremity status post surgery) Neurological: nl mental status Results Result Diagram: 06/19/17 0320 06/19/17 0320 Results 24 hrs Laboratory Tests Test 06/18/17 13:49 06/18/17 13:55 06/18/17 14:10 06/18/17 14:15 Bedside Glucose 101 White Blood Count 8.0 Red Blood Count 3.10 L Hemoglobin 9.2 L Hematocrit 27.4 L Mean Corpuscular Volume 88.4 Mean Corpuscular Hemoglobin 29.7 Mean Corpuscular Hemoglobin Concent 33.6 Red Cell Distribution Width 14.0 Platelet Count 141 Mean Platelet Volume 11.2 H Neutrophils % 79.1 H Lymphocytes % 14.6 L Monocytes % 3.9 Eosinophils % 1.1 Basophils % 0.3 Nucleated Red Blood Cells % 0.0 Neutrophils # 6.3 Lymphocytes # 1.2 Monocytes # 0.3 Eosinophils # 0.1 Basophils # 0.0 Nucleated Red Blood Cells # 0.0 Prothrombin Time 15.9 H Prothrombin Time Ratio 1.2 INR International Normalized Ratio 1.26 Activated Partial Thromboplast Time 29.1 Thrombin Time 14.3 Sodium Level 144 Potassium Level 3.5 Chloride Level 107 Carbon Dioxide Level 28 Anion Gap 13 Blood Urea Nitrogen 23 #H Creatinine 0.91 Glucose Level 87 # Calcium Level 10.1 Magnesium Level 2.7 H Total Bilirubin 0.6 Direct Bilirubin 0.00 Indirect Bilirubin 0.6 Aspartate Amino Transf (AST/SGOT) 35 Alanine Aminotransferase (ALT/SGPT) 31 Alkaline Phosphatase 50 Total Protein 6.5 Albumin 3.7 Globulin 2.80 Albumin/Globulin Ratio 1.32 Blood Gas Specimen Source Blood arterial BLMV Arterial Blood Date Drawn 06/18/2017 2:00:11 PM 06/18/2017 2:05:29 PM Arterial Blood pH (Temp corrected) 7.359 Arterial Blood pCO2 (Temp correct) 50.0 H Arterial Blood pO2 (Temp corrected) 76.9 L Arterial Blood HCO3 27.5 H Arterial Blood Base Excess 1.6 Arterial Blood Oxygen Saturation 94.0 L Edward Test N/A N/A Arterial Blood Gas Puncture Site A-Line PUL ART LINE Arterial Blood Carboxyhemoglobin 0.3 Arterial Blood Methemoglobin 0.3 Blood Gas A-a O2 Differential 295.9 H 335.9 Oxyhemoglobin Percent 93.4 Total Hemoglobin 10.2 L Blood Gas Temperature 37.0 37.0 Blood Gas Respiration Rate 14.0 14.0 Blood Gas Actual Respiration Rate 14 14 Blood Gas Modality VENT - AC VENT - AC FiO2 60.0 60.0 Blood Gas Tidal Volume 550.0 550.0 Blood Gas Low PEEP Setting 5.0 5.0 Blood Gas Notified Whom JLD JLD Blood Gas Notified Time 06/18/2017 2:18:23 PM 06/18/2017 2:21:20 PM Mixed Venous Blood pH 7.318 L Mixed Venous Blood PCO2 50.8 Mixed Venous Blood PO2 36.0 Mixed Venous Blood HCO3 25.5 Mixed Venous Blood Base Excess -0.9 Mixed Venous Blood O2 Saturation 65.0 Mixed Venous Blood Total Hemoglobin 9.5 Mixed Venous Blood Oxyhemoglobin 64.5 Mixed Venous Bld Carboxyhemoglobin 0.3 Mixed Venous Blood Methemoglobin 0.5 Test 06/18/17 15:55 06/18/17 15:59 06/18/17 18:51 06/18/17 20:05 Sodium Level 145 H Potassium Level 3.7 Chloride Level 107 Carbon Dioxide Level 30 Anion Gap 12 Blood Urea Nitrogen 23 H Creatinine 0.97 Glucose Level 113 Calcium Level 9.8 Bedside Glucose 106 227 H 247 H Test 06/18/17 20:19 06/18/17 21:05 06/18/17 22:01 06/18/17 23:13 White Blood Count 9.3 Red Blood Count 3.03 L Hemoglobin 8.8 L Hematocrit 27.2 L Mean Corpuscular Volume 89.8 Mean Corpuscular Hemoglobin 29.0 Mean Corpuscular Hemoglobin Concent 32.4 Red Cell Distribution Width 14.5 Platelet Count 163 Mean Platelet Volume 12.2 H Neutrophils % 83.0 H Lymphocytes % 7.4 L Monocytes % 8.6 Eosinophils % 0.1 Basophils % 0.3 Nucleated Red Blood Cells % 0.0 Neutrophils # 7.7 H Lymphocytes # 0.7 L Monocytes # 0.8 Eosinophils # 0.0 Basophils # 0.0 Nucleated Red Blood Cells # 0.0 Prothrombin Time 14.6 H Prothrombin Time Ratio 1.1 INR International Normalized Ratio 1.14 Activated Partial Thromboplast Time 28.9 Sodium Level 141 Potassium Level 5.0 Chloride Level 108 Carbon Dioxide Level 24 Anion Gap 14 Blood Urea Nitrogen 24 H Creatinine 0.96 Glucose Level 253 #H Calcium Level 9.2 Magnesium Level 2.1 Bedside Glucose 256 H 231 H 224 H Test 06/18/17 23:45 06/19/17 00:00 06/19/17 01:18 06/19/17 02:32 Blood Gas Specimen Source Blood arterial Arterial Blood Date Drawn 06/19/2017 12:06:06 AM Arterial Blood pH (Temp corrected) 7.410 Arterial Blood pCO2 (Temp correct) 36.6 Arterial Blood pO2 (Temp corrected) 105.8 H Arterial Blood HCO3 22.7 Arterial Blood Base Excess -1.7 Arterial Blood Oxygen Saturation 97.2 Edward Test N/A Arterial Blood Gas Puncture Site A-Line Arterial Blood Carboxyhemoglobin 0.3 Arterial Blood Methemoglobin 0.2 Blood Gas A-a O2 Differential 137.3 H Oxyhemoglobin Percent 96.7 Total Hemoglobin 9.4 L Blood Gas Temperature 37.0 Blood Gas Actual Respiration Rate 20 Blood Gas Modality VENT - CPAP FiO2 40.0 Blood Gas Low PEEP Setting 3.0 Blood Gas Notified Whom [facility] Blood Gas Notified Time 06/19/2017 12:16:01 AM Bedside Glucose 211 142 128 Test 06/19/17 03:20 06/19/17 03:56 06/19/17 04:43 06/19/17 05:50 White Blood Count 8.4 Red Blood Count 2.70 L Hemoglobin 8.0 L Hematocrit 24.4 L Mean Corpuscular Volume 90.4 Mean Corpuscular Hemoglobin 29.6 Mean Corpuscular Hemoglobin Concent 32.8 Red Cell Distribution Width 14.6 H Platelet Count 150 Mean Platelet Volume 11.9 H Neutrophils % 81.0 H Lymphocytes % 9.3 L Monocytes % 8.6 Eosinophils % 0.0 Basophils % 0.4 Nucleated Red Blood Cells % 0.0 Neutrophils # 6.8 Lymphocytes # 0.8 Monocytes # 0.7 Eosinophils # 0.0 Basophils # 0.0 Nucleated Red Blood Cells # 0.0 Prothrombin Time 14.8 H Prothrombin Time Ratio 1.2 INR International Normalized Ratio 1.16 Activated Partial Thromboplast Time 31.3 Sodium Level 144 Potassium Level 4.7 Chloride Level 112 H Carbon Dioxide Level 24 Anion Gap 13 Blood Urea Nitrogen 20 Creatinine 0.93 Glucose Level 149 # Calcium Level 9.2 Magnesium Level 2.0 Bedside Glucose 166 203 Lab Scanned Report BLOOD TRANSFUSION Test 06/19/17 07:04 06/19/17 07:15 06/19/17 08:05 06/19/17 09:00 Bedside Glucose 174 171 176 159 Test 06/19/17 10:11 06/19/17 11:01 06/19/17 12:23 Bedside Glucose 150 138 136 Medications Medications Current Medications Acetaminophen (Tylenol Tab) 650 mg Q4H PRN PO NON-CARDIAC PAIN LEVEL (1-3); Start 06/11/17 at 10:30 Al Hydrox/Mg Hydrox/Simethicone (Mag-Al Plus) 30 ml Q4H PRN PO GASTROINTESTINAL UPSET; Start 06/11/17 at 10:30 Ondansetron HCl (Zofran Inj) 4 mg Q4H PRN IV NAUSEA AND/OR VOMITING; Start 06/11/17 at 10:30 Miscellaneous Information 1 ea NOTE XX ; Start 06/11/17 at 19:30 Glucose (Glutose) 15 gm Q15M PRN PO DECREASED GLUCOSE; Start 06/11/17 at 19:30 Glucose (Glutose) 22.5 gm Q15M PRN PO DECREASED GLUCOSE; Start 06/11/17 at 19: 30 Dextrose (D50w Syringe) 25 ml Q15M PRN IV DECREASED GLUCOSE; Start 06/11/17 at 19:30 Dextrose (D50w Syringe) 50 ml Q15M PRN IV DECREASED GLUCOSE; Start 06/11/17 at 19:30 Glucagon (Glucagen) 1 mg Q15M PRN IM DECREASED GLUCOSE; Start 06/11/17 at 19:30 Glucose (Glutose) 15 gm Q15M PRN BUCCAL DECREASED GLUCOSE; Start 06/11/17 at 19 :30 Hydralazine HCl (Apresoline) 10 mg Q6H PRN IV ELEVATED SYSTOLIC BP; Start 06/11 at 20:30 Aspirin (Halfprin) 81 mg DAILY PO Last administered on 06/17/17 08:37; Admin Dose 81 MG; Start 06/12/17 at 09:00 Atorvastatin Calcium (Lipitor) 40 mg QHS PO Last administered on 06/17/17 21: 29; Admin Dose 40 MG; Start 06/11/17 at 21:00; Status Future Hold Carvedilol (Coreg) 6.25 mg BID PO Last administered on 06/17/17 21:29; Admin Dose 6.25 MG; Start 06/11/17 at 21:00; Status Future Hold Diclofenac Sodium (Voltaren) 50 mg TID PO Last administered on 06/16/17 20:44 ; Admin Dose 50 MG; Start 06/11/17 at 21:00; Status Future Hold Docusate Sodium (Colace) 100 mg DAILY PRN PO CONSTIPATION; Start 06/11/17 at 20 :30 Doxazosin Mesylate (Cardura) 2 mg HS PO Last administered on 06/17/17 21:28; Admin Dose 2 MG; Start 06/11/17 at 21:00; Status Future Hold Folic Acid (Folic Acid) 1 mg DAILY PO Last administered on 06/17/17 08:36; Admin Dose 1 MG; Start 06/12/17 at 09:00; Status Future Hold Isosorbide Mononitrate (Imdur) 120 mg DAILY PO Last administered on 06/17/17 08:37; Admin Dose 120 MG; Start 06/12/17 at 09:00; Status Future Hold Linagliptin (Tradjenta) 5 mg DAILY PO Last administered on 06/17/17 08:35; Admin Dose 5 MG; Start 06/12/17 at 14:30; Status Future Hold Morphine Sulfate 2 mg 2 mg Q4H PRN IV pain Last administered on 06/19/17 08: 02; Admin Dose 2 MG; Start 06/14/17 at 12:00 Potassium Chloride 40 meq/ Calcium Chloride 1 gm/Dextrose/ Sodium Chloride 1, 030 ml @ 60 mls/hr [id number] IV Last administered on 06/19/17 11:42; Admin Dose 60 MLS/HR; Start 06/18/17 at 15:09 Magnesium Sulfate/ Dextrose 100 ml @ 100 mls/hr PRN PRN IVPB PENDING LAB VALUE ; Start 06/18/17 at 15:30 Phenylephrine HCl (Christopher-Syneph) 250 ml @ 75 mls/hr TITRATE IV Last administered on 06/19/17 10:40; Admin Dose 52.5 MLS/HR; Start 06/18/17 at 18: 00 Diagnostic Test (Pha) (Accu-Chek) 1 ea Q1H XX Last administered on 06/19/17 12:26; Admin Dose 1 EA; Start 06/18/17 at 19:00 Dextrose (D50w Syringe) 25 ml Q15M PRN IV Till BS 80 mg/dL or above x2; Start 06/18/17 at 19:00 Dextrose (D50w Syringe) 50 ml Q15M PRN IV Till BS 80 mg/dL or above x2; Start 06/18/17 at 19:00 Hydromorphone HCl (Dilaudid) 0.5 mg Q1HWA PRN IV PAIN Last administered on 09:21; Admin Dose 0.5 MG; Start 06/18/17 at 20:00 Hydromorphone HCl 1 mg 1 mg Q4H PRN IV PAIN LEVEL 6-10 Last administered on 10:06; Admin Dose 1 MG; Start 06/18/17 at 20:00 Albumin Human 250 ml @ 250 mls/hr ONCE PRN IV IV PROTOCOL Last administered on 06/18/17 21:46; Admin Dose 250 MLS/HR; Start 06/18/17 at 20:00; Stop at 19:59 Cefazolin Sodium (Ancef 1 Gm/50 ml (Pmx)) 50 ml @ 100 mls/hr Q8 IVPB Last administered on 06/19/17 06:15; Admin Dose 100 MLS/HR; Start 06/18/17 at 22: 00; Stop 06/19/17 at 14:00 Pantoprazole (Protonix Iv) 40 mg DAILY@06 IV Last administered on 06/19/17 06 :14; Admin Dose 40 MG; Start 06/19/17 at 06:00 GIOVANNI GARCIA Jun 19, 2017 13:25
[2017-06-19] MEDS ORDERED: PHENYLEPHRINE IV SCH (17:00)
[2017-06-19] MEDS ORDERED: DEXTROSE 5% IV SCH (17:00)
[2017-06-19] MEDS: PHENYLephrine 40 MG in DEXTROSE 5% 496 ML IV SCH (19:22)
--- NOTE | 2017-06-19 19:55 | PN ---
Date/Time of Note Date/Time of Note DATE: 06/19/17 TIME: 19:54 Assessment/Plan Lines/Catheters IV Catheter Type (from Nrsg): Central Line Mar[place] in Place (from Nrsg): Yes Assessment/Plan Chief Complaint/Hosp Course IMPRESSION: Three-vessel coronary artery disease. SP coronary artery bypass grafting. on Tomorrow Stable post OP Extubated will continue CT sxn Discussed with the referring physicians and the patient. Problems: Subjective 24 Hr Interval Summary Constitutional: improved Pain Control: mild Exam/Review of Systems Vital Signs Vitals Vital Signs Date Time Temp Pulse Resp B/P Pulse Ox O2 Delivery O2 Flow Rate FiO2 06/19/17 18:45 93 21 144/66 98 06/19/17 18:00 Nasal Cannula 2.0 06/19/17 16:00 100.5 06/19/17 02:05 27 Intake and Output 06/18/17 06/18/17 06/19/17 15:00 23:00 07:00 Intake Total 2775.5 ml 1235.3 ml 683.8 ml Output Total 3110 ml 1395 ml 863 ml Balance -334.5 ml -159.7 ml -179.2 ml Exam Neck: non-tender, supple Respiratory: clear to auscultation, normal air movement Cardiovascular: nl pulses, regular rate and rhythm Gastrointestinal: nl liver, spleen, non-tender, soft Results Result Diagram: 06/19/17 0320 06/19/17319 SAJI RICH MD Jun 19, 2017 19:55
[2017-06-19 20:08] LABS: BASOPHIL # 0.1 10^3/ul (0.0-0.1); BASOPHILS % 0.5 % (0.0-2.0); EOSINOPHILS % 0.3 % (0.0-7.0); HEMATOCRIT 27.3 % (42.0-52.0); LYMPHOCYTES # 1.5 10^3/ul (0.8-2.9); LYMPHOCYTES % 15.4 % (15.0-51.0); MEAN PLATELET VOLUME 12.1 fl (7.4-10.4); MONOCYTE # 0.9 10^3/ul (0.3-0.9); MONOCYTES % 8.8 % (0.0-11.0); NEUTROPHIL # 7.3 10^3/ul (1.6-7.5); NEUTROPHILS % 74.5 % (39.0-77.0); PLATELET COUNT 153 10^3/UL (140-415); RED CELL DISTRIBUTION WIDTH 14.7 % (11.5-14.5); WHITE BLOOD COUNT 9.9 10^3/ul (4.8-10.8)
[2017-06-19 20:29] LABS: ALBUMIN 3.5 g/dl (3.3-4.9); ALBUMIN/GLOBULIN RATIO 1.34; BILIRUBIN,DIRECT 0.2 mg/dl (0.00-0.20); BILIRUBIN,INDIRECT 1.2 mg/dl (0-1.1); BILIRUBIN,TOTAL 1.4 mg/dl (0.2-1.3); CALCIUM 9.4 mg/dl (8.4-10.2); CREATININE 0.8 mg/dl (0.61-1.24); PHOSPHORUS 2.5 mg/dl (2.5-4.9); POTASSIUM 4.3 mmol/L (3.5-5.1); TOTAL PROTEIN 6.1 g/dl (6.1-8.1)
--- NOTE | 2017-06-19 20:56 | OPR ---
DATE OF OPERATION: 06/18/2017 PREOPERATIVE DIAGNOSIS: Coronary artery disease. POSTOPERATIVE DIAGNOSIS: Coronary artery disease. OPERATION PERFORMED: 1. Coronary artery bypass grafting, left internal mammary artery to LAD. 2. Saphenous vein graft to heart R1. 3. Saphenous vein graft to the PDA. 4. Endoscopic saphenous harvest from the left lower extremity. SURGEON: Saji Christensen MD [employer]: Joe Rothman MD ANESTHESIA: General. INFORMED CONSENT: Risks, benefits, complications, alternative therapies, high-risk nature of the op eration fully explained to the patient and the family, consent obtained. OPERATIVE TECHNIQUE: The patient was placed in supine position, prepped and draped in usual sterile fashion. Time-out was called, antibiotics were given. Sternotomy incision was made from the guzman al notch down to the xiphoid process. Sternum was opened. Left internal mammary artery was harvest ed using electrocautery and titanium clips. Saphenous vein was harvested from the left thigh using endoscopic technique. to 4 endoscopic saphenous harvest from the left lower extremity. The sternum was opened, pericardium opened. Cannulation sutures of 3-0 Prolene with pledgets were a pplied to the distal ascending aorta and mid ascending aorta, body of the right atrium, and right at rial appendage. After adequate documentation of ACT, the aorta was cannulated followed by 2-stage v enous cannula, anterior and retrograde cardioplegia cannula. Heart was placed on cardiopulmonary by pass after adequate documentation of bypass, crossclamp applied. Heart was arrested using antegrade and retrograde cardioplegia given every 15 to 20 minutes, supplemented by topical slush to the surf jacqueline of the heart. We proceeded with the above bypasses, saphenous vein was used to bypass the PDA a nd ramus intermedius and mammary was anastomosed to the LAD. All distal anastomoses were done to th e 8 mm longitudinal arteriotomies, 7-0 Prolene in continuous suture technique. The proximal anastom osis cross clamp 4.5 mm punch, 6-0 Prolene in continuous suture technique, end-to-side manner. The cross clamp removed, grafts deaired. Heart was weaned off cardiopulmonary bypass. Protamine given, cannulas removed, sutures tied. Two ventricular pacing wires, 2 mediastinal chest tubes were placed, brought out through a lower stab wound, secured to skin using 2-0 silk sutures. No evidenc e of any bleeding was noted. The sternum was closed using a cable system x4. The linea alba and th e deep tissues were irrigated and closed in 2 layers of #1 Vicryl suture for linea alba, 2-0 Vicryl suture for the deep, 4-0 Monocryl suture for running subcuticular skin closure. Patient tolerated p rocedure well. Dictated By: SAJI CHRISTENSEN MD FM/NTS Conf#: [id number] DID#: [id number] CC: JOE ROTHMAN MD; BETY MEADOWS MD; SOFIYA ARORA MD;*EndCC*
[2017-06-19] MEDS: FAMOTIDINE 20 MG INJ IV SCH (21:08)
[2017-06-19] MEDS: ACETAMINOPHEN 325 MG TAB PO PRN (21:08)
[2017-06-20] VITALS (63 sets, daily range): BP systolic 98–180; BP diastolic 57–133; PULSE 70–152; RESP 11–26
[2017-06-20] MEDS: HYDROmorphONE 0.5 MG/0.5 ML SYG IV PRN (00:35)
[2017-06-20] MEDS: ACCU-CHEK XX SCH ×14 (01:00→14:00)
[2017-06-20] MEDS: PHENYLephrine 40 MG in DEXTROSE 5% 496 ML IV SCH ×2 (01:07→13:13)
[2017-06-20] MEDS: INSULIN HUMAN REGULAR 100 UNIT in SOD CHLORIDE 0.9% 99 ML IV SCH (01:07)
[2017-06-20] MEDS: ALBUTEROL/IPRATROPIUM (NEB) 3 ML AMP HHN SCH ×2 (02:10→19:57)
[2017-06-20] MEDS: morphine 2 MG INJ IV PRN (03:09)
[2017-06-20] MEDS ORDERED: VERAPAMIL 5 MG INJ ONE (03:14)
[2017-06-20] MEDS ORDERED: MAGNESIUM SULFATE 2 GM/50 ML 50 ML ONE (03:15)
[2017-06-20] MEDS ORDERED: AMIODARONE 150MG/D5W BOLUS 100 ML IV ONE (03:30)
[2017-06-20] MEDS ORDERED: MAGNESIUM SULFATE 2 GM/50 ML 50 ML IVPB ONE (03:30)
[2017-06-20] MEDS ORDERED: VERAPAMIL 5 MG INJ IV ONE (03:30)
[2017-06-20] MEDS ORDERED: AMIODARONE 900 MG in DEXTROSE 5% 482 ML IV SCH (03:40)
[2017-06-20] MEDS: POTASSIUM CHLORIDE 40 MEQ, CALCIUM CHLORIDE 10% 1 GM in DEXTROSE 5%-0.225% NACL 1,000 ML IV SCH (03:41)
[2017-06-20] MEDS: ACETAMINOPHEN 325 MG TAB PO PRN ×2 (04:24→04:25)
[2017-06-20 06:25] LABS: BASOPHIL # 0.1 10^3/ul (0.0-0.1); BASOPHILS % 0.4 % (0.0-2.0); EOSINOPHILS % 0.3 % (0.0-7.0); HEMATOCRIT 27.5 % (42.0-52.0); LYMPHOCYTES # 1.5 10^3/ul (0.8-2.9); LYMPHOCYTES % 13.8 % (15.0-51.0); MEAN CORPUSCULAR HEMOGLOBIN 30.1 pg (29.0-33.0); MEAN CORPUSCULAR HGB CONC 32.7 g/dl (32.0-37.0); MEAN PLATELET VOLUME 12.4 fl (7.4-10.4); MONOCYTES % 8.5 % (0.0-11.0); NEUTROPHIL # 8.5 10^3/ul (1.6-7.5); NEUTROPHILS % 76.2 % (39.0-77.0); PLATELET COUNT 154 10^3/UL (140-415); RED BLOOD COUNT 2.99 10^6/ul (4.70-6.10); RED CELL DISTRIBUTION WIDTH 14.8 % (11.5-14.5); WHITE BLOOD COUNT 11.1 10^3/ul (4.8-10.8)
[2017-06-20 07:42] LABS: CALCIUM 9.5 mg/dl (8.4-10.2); CREATININE 0.77 mg/dl (0.61-1.24); POTASSIUM 4.5 mmol/L (3.5-5.1)
[2017-06-20] MEDS: FAMOTIDINE 20 MG INJ IV SCH (08:00)
[2017-06-20] MEDS: ASPIRIN (EC) 81 MG TAB PO SCH (08:00)
[2017-06-20] MEDS: HYDROmorphONE 1 MG/ML SYG IV PRN (08:09)
[2017-06-20] MEDS ORDERED: Discontinue current oral sulfonylureas (glyburide, glipizide, and/or glimepiride) prior to XX ONE (11:00)
[2017-06-20] MEDS ORDERED: HYPOGLYCEMIA PROTOCOL when Glucose is <70 mg/dL or symptomatic <90 mg/dL. XX ONE (11:00)
--- NOTE | 2017-06-20 11:31 | PN ---
DATE: 06/20/2017 LOCATION: ICU. SUBJECTIVE: The patient is status post CABG. Also history of diabetes, hypertension. The patient is breathing comfortably after extubation, still requiring supplemental oxygen via nasal cannula to maintain adequate oxygenation. The patient has a low-grade fever of 99.4. No reported vomiting, no reported hematuria. The patient does not appear to be in any distress and is awake and responsive. PHYSICAL EXAMINATION: GENERAL: The patient is conscious, awake, alert. VITAL SIGNS: Temperature 99.4, pulse 72, respirations 14, blood pressure 131/73, O2 saturation 99% on 4 liters. HEENT: No eye discharge or redness. Nose and ears normal. Oropharynx grossly negative. NECK: Central line in place. CHEST: Diminished air entry at bases. CARDIOVASCULAR: Regular rate and rhythm. S1, S2 normal. ABDOMEN: Soft, nondistended. EXTREMITIES: Trace edema. NEUROLOGIC: The patient is awake, alert, and follows simple commands. LABORATORY DATA: Sodium 139, potassium 4.5, BUN 15, creatinine 0.7, glucose 169, calcium 9.5, magne sium 1.9. IMPRESSION: 1. Coronary artery disease, status post coronary artery bypass graft. 2. Hypertension. 3. Diabetes mellitus. 4. Dyslipidemia. PLAN: Continue IV amiodarone, IV Pepcid and . Continue DuoNeb. The patient will be started on p.o. diet. We will switch him to sliding scale and long-acting insulin in addition to premeal. We will continue to monitor him in ICU. Total critical care time spent 30 minutes. Dictated By: SOFIYA CASTANEDA/SHANKAR Conf#: [id number] DID#: [id number]
[2017-06-20] MEDS: HYDROCODONE/APAP (5/325) TAB PO PRN ×4 (12:02→20:39)
[2017-06-20] MEDS: INSULIN ASPART [NOVOLOG] 3 ML PEN SC SCH ×5 (13:16→20:38)
[2017-06-20] MEDS: INSULIN GLARGINE [LANtus] 3 ML PEN SC SCH (13:16)
--- NOTE | 2017-06-20 13:24 | PN ---
Date/Time of Note Date/Time of Note DATE: 06/20/17 TIME: 13:21 Assessment/Plan Lines/Catheters IV Catheter Type (from Nrs): Peripheral IV [place] in Place (from Nrs): Yes Assessment/Plan Chief Complaint/Hosp Course IMPRESSION: Three-vessel coronary artery disease. SP coronary artery bypass grafting. on Tomorrow Stable post OP Extubated CT [address] sxn Discussed with the referring physicians and the patient. Problems: Subjective 24 Hr Interval Summary Constitutional: improved Pain Control: mild Exam/Review of Systems Vital Signs Vitals Vital Signs Date Time Temp Pulse Resp B/P Pulse Ox O2 Delivery O2 Flow Rate FiO2 06/20/17 12:00 78 06/20/17 11:00 14 99/76 95 Nasal Cannula 06/20/17 08:30 4.0 06/20/17 08:00 99.4 06/19/17 02:05 27 Intake and Output 06/19/17 06/19/17 06/20/17 15:00 23:00 07:00 Intake Total 1113.676 ml 1005.474 ml 1202.490 ml Output Total 817 ml 562 ml 395 ml Balance 296.676 ml 443.474 ml 807.490 ml Exam Eyes: EOMI, nl conjunctiva, nl lids, nl sclera ENMT: mucosa pink and moist, nl external ears & nose, nl lips & teeth, nl nasal mucosa & septum Neck: non-tender, supple Results Result Diagram: 06/20/17 0600 06/20/17 0600 MALESAJI HOANG MD Jun 20, 2017 13:24
--- NOTE | 2017-06-20 13:47 | CONS ---
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 POD#2 s/p cabg x 3 2.otn-on dopamine 3.HL 4.DM 5. anemia 6.Hypernatremia 7. PAF with RVR overnight now in SR on IV amiodarone Recc; -ICU mointoring -follow drain output -Follow volume status closely -OOB to chair -Follow volume status closely -continue asa -low dose BB Problems: Consultation Date/Type/Reason Admit Date/Time Jun 15, 2017 at 12:05 Initial Consult Date 06/11/2017 Type of Consultation: cardiology Reason for Consultation cad Referring Provider: SOFIYA ARORA MD Exam/Review of Systems Vital Signs Vitals Vital Signs Date Time Temp Pulse Resp B/P Pulse Ox O2 Delivery O2 Flow Rate FiO2 06/20/17 12:00 78 06/20/17 11:00 14 99/76 95 Nasal Cannula 06/20/17 08:30 4.0 06/20/17 08:00 99.4 06/19/17 02:05 27 Intake and Output 06/19/17 06/19/17 06/20/17 15:00 23:00 07:00 Intake Total 1113.676 ml 1005.474 ml 1202.490 ml Output Total 817 ml 562 ml 395 ml Balance 296.676 ml 443.474 ml 807.490 ml Exam Review of Systems: CONSTITUTIONAL: No fevers, chills. PULMONARY: No sob CARDIOVASCULAR: No chest pain/palpitations GASTROINTESTINAL: No nausea/vomiting. GENITOURINARY: No hematuria/dysuria. MUSCULOSKELETAL: No myagias/arthalgias. PSYCHIATRIC: The patient denies depression. NEUROLOGIC: No weakness Constitutional: alert, oriented Psych: no complaints Head: normocephalic ENMT: mucosa pink and moist Neck: jvd (9 cm water), supple Respiratory: diminished breath sounds (at bases/B) Cardiovascular: regular rate and rhythm Gastrointestinal: non-tender, soft Musculoskeletal: muscle tone (normal;) Extremities: pitting pedal edema (LLE) Neurological: other Results Result Diagram: 06/20/17 0600 06/20/17 0600 Results 24 hrs Laboratory Tests Test 06/19/17 14:46 06/19/17 15:39 06/19/17 16:35 06/19/17 17:15 Bedside Glucose 137 119 110 129 Test 06/19/17 18:06 06/19/17 19:09 06/19/17 19:38 06/19/17 20:18 Bedside Glucose 141 130 140 White Blood Count 9.9 Red Blood Count 3.00 L Hemoglobin 9.0 L Hematocrit 27.3 L Mean Corpuscular Volume 91.0 Mean Corpuscular Hemoglobin 30.0 Mean Corpuscular Hemoglobin Concent 33.0 Red Cell Distribution Width 14.7 H Platelet Count 153 Mean Platelet Volume 12.1 H Neutrophils % 74.5 Lymphocytes % 15.4 Monocytes % 8.8 Eosinophils % 0.3 Basophils % 0.5 Nucleated Red Blood Cells % 0.0 Neutrophils # 7.3 Lymphocytes # 1.5 Monocytes # 0.9 Eosinophils # 0.0 Basophils # 0.1 Nucleated Red Blood Cells # 0.0 Sodium Level 143 Potassium Level 4.3 Chloride Level 108 Carbon Dioxide Level 24 Anion Gap 15 Blood Urea Nitrogen 16 Creatinine 0.80 Glucose Level 125 Calcium Level 9.4 Phosphorus Level 2.5 Magnesium Level 1.9 Total Bilirubin 1.4 H Direct Bilirubin 0.20 # Indirect Bilirubin 1.2 H Aspartate Amino Transf (AST/SGOT) 30 Alanine Aminotransferase (ALT/SGPT) 26 Alkaline Phosphatase 42 Total Protein 6.1 Albumin 3.5 Globulin 2.60 Albumin/Globulin Ratio 1.34 Test 06/19/17 21:19 06/19/17 22:27 06/19/17 23:45 06/20/17 02:35 Bedside Glucose 131 139 151 147 Test 06/20/17 04:06 06/20/17 04:53 06/20/17 06:00 06/20/17 06:30 Bedside Glucose 169 170 Lab Scanned Report BLOOD TRANSFUSION White Blood Count 11.1 H Red Blood Count 2.99 L Hemoglobin 9.0 L Hematocrit 27.5 L Mean Corpuscular Volume 92.0 Mean Corpuscular Hemoglobin 30.1 Mean Corpuscular Hemoglobin Concent 32.7 Red Cell Distribution Width 14.8 H Platelet Count 154 Mean Platelet Volume 12.4 H Neutrophils % 76.2 Lymphocytes % 13.8 L Monocytes % 8.5 Eosinophils % 0.3 Basophils % 0.4 Nucleated Red Blood Cells % 0.0 Neutrophils # 8.5 H Lymphocytes # 1.5 Monocytes # 1.0 H Eosinophils # 0.0 Basophils # 0.1 Nucleated Red Blood Cells # 0.0 Sodium Level 139 Potassium Level 4.5 Chloride Level 106 Carbon Dioxide Level 22 Anion Gap 16 Blood Urea Nitrogen 15 Creatinine 0.77 Glucose Level 169 Calcium Level 9.5 Test 06/20/17 07:59 06/20/17 10:51 06/20/17 13:10 Bedside Glucose 169 154 129 Medications Medications Current Medications Acetaminophen (Tylenol Tab) 650 mg Q4H PRN PO NON-CARDIAC PAIN LEVEL (1-3) Last administered on 06/20/17 04:24; Admin Dose 650 MG; Start 06/11/17 at 10: 30 Al Hydrox/Mg Hydrox/Simethicone (Mag-Al Plus) 30 ml Q4H PRN PO GASTROINTESTINAL UPSET; Start 06/11/17 at 10:30 Ondansetron HCl (Zofran Inj) 4 mg Q4H PRN IV NAUSEA AND/OR VOMITING; Start 06/11/17 at 10:30 Miscellaneous Information 1 ea NOTE XX ; Start 06/11/17 at 19:30 Glucose (Glutose) 15 gm Q15M PRN PO DECREASED GLUCOSE; Start 06/11/17 at 19:30 Glucose (Glutose) 22.5 gm Q15M PRN PO DECREASED GLUCOSE; Start 06/11/17 at 19: 30 Dextrose (D50w Syringe) 25 ml Q15M PRN IV DECREASED GLUCOSE; Start 06/11/17 at 19:30 Dextrose (D50w Syringe) 50 ml Q15M PRN IV DECREASED GLUCOSE; Start 06/11/17 at 19:30 Glucagon (Glucagen) 1 mg Q15M PRN IM DECREASED GLUCOSE; Start 06/11/17 at 19:30 Glucose (Glutose) 15 gm Q15M PRN BUCCAL DECREASED GLUCOSE; Start 06/11/17 at 19 :30 Hydralazine HCl (Apresoline) 10 mg Q6H PRN IV ELEVATED SYSTOLIC BP; Start 06/11 at 20:30 Aspirin (Halfprin) 81 mg DAILY PO Last administered on 06/20/17 08:00; Admin Dose 81 MG; Start 06/12/17 at 09:00 Atorvastatin Calcium (Lipitor) 40 mg QHS PO Last administered on 06/17/17 21: 29; Admin Dose 40 MG; Start 06/11/17 at 21:00; Status Future Hold Carvedilol (Coreg) 6.25 mg BID PO Last administered on 06/17/17 21:29; Admin Dose 6.25 MG; Start 06/11/17 at 21:00; Status Future Hold Diclofenac Sodium (Voltaren) 50 mg TID PO Last administered on 06/16/17 20:44 ; Admin Dose 50 MG; Start 06/11/17 at 21:00; Status Future Hold Docusate Sodium (Colace) 100 mg DAILY PRN PO CONSTIPATION Last administered on 06/20/17 08:00; Admin Dose 100 MG; Start 06/11/17 at 20:30 Doxazosin Mesylate (Cardura) 2 mg HS PO Last administered on 06/17/17 21:28; Admin Dose 2 MG; Start 06/11/17 at 21:00; Status Future Hold Folic Acid (Folic Acid) 1 mg DAILY PO Last administered on 06/17/17 08:36; Admin Dose 1 MG; Start 06/12/17 at 09:00; Status Future Hold Isosorbide Mononitrate (Imdur) 120 mg DAILY PO Last administered on 06/17/17 08:37; Admin Dose 120 MG; Start 06/12/17 at 09:00; Status Future Hold Linagliptin (Tradjenta) 5 mg DAILY PO Last administered on 06/17/17 08:35; Admin Dose 5 MG; Start 06/12/17 at 14:30; Status Future Hold Morphine Sulfate 2 mg 2 mg Q4H PRN IV pain Last administered on 06/20/17 03: 09; Admin Dose 2 MG; Start 06/14/17 at 12:00 Potassium Chloride 40 meq/ Calcium Chloride 1 gm/Dextrose/ Sodium Chloride 1, 030 ml @ 60 mls/hr [id number] IV Last administered on 06/20/17 03:41; Admin Dose 60 MLS/HR; Start 06/18/17 at 15:09 Magnesium Sulfate/ Dextrose (Magnesium Sulfate 1 Gm/D5W) 100 ml @ 100 mls/hr PRN PRN IVPB PENDING LAB VALUE; Start 06/18/17 at 15:30 Diagnostic Test (Pha) (Accu-Chek) 1 ea Q1H XX Last administered on 06/20/17 13:13; Admin Dose 1 EA; Start 06/18/17 at 19:00 Dextrose (D50w Syringe) 25 ml Q15M PRN IV Till BS 80 mg/dL or above x2; Start 06/18/17 at 19:00 Dextrose (D50w Syringe) 50 ml Q15M PRN IV Till BS 80 mg/dL or above x2; Start 06/18/17 at 19:00 Hydromorphone HCl (Dilaudid) 0.5 mg Q1HWA PRN IV PAIN Last administered on 00:35; Admin Dose 0.5 MG; Start 06/18/17 at 20:00 Hydromorphone HCl (Dilaudid) 1 mg Q4H PRN IV PAIN LEVEL 6-10 Last administered on 06/20/17 08:09; Admin Dose 1 MG; Start 06/18/17 at 20:00 Famotidine 20 mg 20 mg BID IV Last administered on 06/20/17 08:00; Admin Dose 20 MG; Start 06/19/17 at 21:00 Phenylephrine HCl 40 mg/Dextrose 500 ml @ 75 mls/hr TITRATE IV Last administered on 06/20/17 13:13; Admin Dose 18.75 MLS/HR; Start 06/19/17 at 17 :48 Amiodarone HCl/ Dextrose (Cordarone Iv/ D5W) 500 ml @ 0 mls/hr Q0M IV Last administered on 06/20/17 03:37; Admin Dose 1 MLS/HR; Start 06/20/17 at 03:40 Diagnostic Test (Pha) (Accu-Chek) 1 ea 02 XX ; Start 06/21/17 at 02:00 Diagnostic Test (Pha) (Accu-Chek) 1 ea 02 XX ; Start 06/21/17 at 02:00 Acetaminophen/ Hydrocodone Bitart ([place] (5/325)) 1 tab Q4H PRN PO PAIN LEVEL 4 -6 Last administered on 06/20/17 12:02; Admin Dose 1 TAB; Start 06/20/17 at 11:30 Insulin Glargine (Lantus) 15 unit DAILY@08 SC Last administered on 06/20/17 13:16; Admin Dose 15 UNIT; Start 06/20/17 at 11:30 BETY MEADOWS Jun 20, 2017 13:47
[2017-06-20] MEDS ORDERED: FUROSEMIDE 20 MG INJ IV ONE (14:00)
[2017-06-20] MEDS ORDERED: METOPROLOL 5 MG INJ IV PRN (14:00)
[2017-06-20] MEDS ORDERED: PHENYLephrine 40 MG in DEXTROSE 5% 496 ML IV SCH (14:30)
[2017-06-20] MEDS: AMIODARONE 200 MG TAB PO SCH ×2 (16:30→20:40)
[2017-06-20] MEDS ORDERED: INSULIN GLARGINE [LANtus] 3 ML PEN SC ONE (19:00)
[2017-06-20] MEDS: FAMOTIDINE 20 MG TAB PO SCH (20:39)
[2017-06-20] MEDS: METOPROLOL 25 MG TAB PO SCH (20:39)
[2017-06-21] VITALS (19 sets, daily range): BP systolic 83–163; BP diastolic 53–91; PULSE 70–119; RESP 14–25
[2017-06-21] MEDS: morphine 2 MG INJ IV PRN (00:58)
[2017-06-21] MEDS ORDERED: CIPROFLOXACIN 0.3% 2.5 ML OPH BOTH EYES SCH (02:00)
[2017-06-21] MEDS: ACCU-CHEK XX SCH ×2 (02:02→02:03)
[2017-06-21] MEDS: ALBUTEROL/IPRATROPIUM (NEB) 3 ML AMP HHN SCH ×4 (02:03→19:39)
[2017-06-21 06:51] LABS: BASOPHIL # 0.1 10^3/ul (0.0-0.1); BASOPHILS % 0.5 % (0.0-2.0); EOSINOPHILS % 0.1 % (0.0-7.0); HEMATOCRIT 29.1 % (42.0-52.0); HEMOGLOBIN 9.6 g/dl (14.0-18.0); LYMPHOCYTES # 1.1 10^3/ul (0.8-2.9); LYMPHOCYTES % 11.2 % (15.0-51.0); MEAN CORPUSCULAR HEMOGLOBIN 29.9 pg (29.0-33.0); MEAN CORPUSCULAR VOLUME 90.7 fl (82.0-101.0); MEAN PLATELET VOLUME 12.4 fl (7.4-10.4); MONOCYTE # 0.8 10^3/ul (0.3-0.9); MONOCYTES % 8.1 % (0.0-11.0); NEUTROPHIL # 7.8 10^3/ul (1.6-7.5); NEUTROPHILS % 79.4 % (39.0-77.0); PLATELET COUNT 138 10^3/UL (140-415); RED BLOOD COUNT 3.21 10^6/ul (4.70-6.10); RED CELL DISTRIBUTION WIDTH 14.2 % (11.5-14.5); WHITE BLOOD COUNT 9.9 10^3/ul (4.8-10.8)
[2017-06-21 07:18] LABS: CALCIUM 9.8 mg/dl (8.4-10.2); CREATININE 0.86 mg/dl (0.61-1.24); POTASSIUM 4.1 mmol/L (3.5-5.1)
[2017-06-21] MEDS ORDERED: INSULIN GLARGINE [LANtus] 3 ML PEN SC SCH (08:00)
[2017-06-21] MEDS: AMIODARONE 200 MG TAB PO SCH ×3 (08:36→21:23)
[2017-06-21] MEDS: METOPROLOL 25 MG TAB PO SCH ×2 (08:36→21:23)
[2017-06-21] MEDS: ASPIRIN (EC) 81 MG TAB PO SCH (08:36)
[2017-06-21] MEDS: FAMOTIDINE 20 MG TAB PO SCH ×2 (08:36→21:24)
[2017-06-21] MEDS: INSULIN GLARGINE [LANtus] 3 ML PEN SC SCH (08:39)
[2017-06-21] MEDS: INSULIN ASPART [NOVOLOG] 3 ML PEN SC SCH ×7 (08:40→21:33)
[2017-06-21] MEDS: HYDROCODONE/APAP (5/325) TAB PO PRN ×2 (08:55→19:44)
--- NOTE | 2017-06-21 12:16 | CONS ---
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 POD#3 s/p cabg x 3 2.Hypotension-borderline 3.HL 4.DM 5. anemia 6.Hypernatremia 7. PAF with RVR-recurrent this am Recc; -ICU mointoring -follow drain output -Follow volume status closely but will hold on lasix currently given marginal BP -continue asa -Continue low dose BB as tolerated -Continue po amiodarone and will give additional IVP bolus now Problems: Consultation Date/Type/Reason Admit Date/Time Jun 15, 2017 at 12:05 Initial Consult Date 06/11/2017 Type of Consultation: cardiology Reason for Consultation cad Referring Provider: SOFIYA ARORA MD Exam/Review of Systems Vital Signs Vitals Vital Signs Date Time Temp Pulse Resp B/P Pulse Ox O2 Delivery O2 Flow Rate FiO2 06/21/17 10:00 110 25 06/21/17 09:49 121/80 99 06/21/17 09:05 Nasal Cannula 3.0 06/21/17 04:00 98.4 06/19/17 02:05 27 Intake and Output 06/20/17 06/20/17 06/21/17 15:00 23:00 07:00 Intake Total 472.22 ml 523.28 ml 399.98 ml Output Total 305 ml 770 ml 250 ml Balance 167.22 ml -246.72 ml 149.98 ml Exam Review of Systems: CONSTITUTIONAL: No fevers, chills. PULMONARY: No sob CARDIOVASCULAR: No chest pain/palpitations GASTROINTESTINAL: No nausea/vomiting. GENITOURINARY: No hematuria/dysuria. MUSCULOSKELETAL: No myagias/arthalgias. PSYCHIATRIC: The patient denies depression. NEUROLOGIC: No weakness Constitutional: alert, oriented Psych: no complaints Head: normocephalic ENMT: mucosa pink and moist Neck: jvd (9 cm water), supple Respiratory: diminished breath sounds (at bases/B) Cardiovascular: irregular rhythm (tachycardic) Gastrointestinal: non-tender, soft Musculoskeletal: muscle tone (normal) Extremities: pitting pedal edema (trace/B) Neurological: other (No focal deficits) Results Result Diagram: 06/21/17 0635 06/21/17 0635 Results 24 hrs Laboratory Tests Test 06/20/17 13:10 06/20/17 17:56 06/20/17 20:34 06/21/17 01:03 Bedside Glucose 129 220 295 H 291 H Test 06/21/17 05:22 06/21/17 06:35 06/21/17 08:26 Lab Scanned Report BLOOD TRANSFUSION White Blood Count 9.9 Red Blood Count 3.21 L Hemoglobin 9.6 L Hematocrit 29.1 L Mean Corpuscular Volume 90.7 Mean Corpuscular Hemoglobin 29.9 Mean Corpuscular Hemoglobin Concent 33.0 Red Cell Distribution Width 14.2 Platelet Count 138 L Mean Platelet Volume 12.4 H Neutrophils % 79.4 H Lymphocytes % 11.2 L Monocytes % 8.1 Eosinophils % 0.1 Basophils % 0.5 Nucleated Red Blood Cells % 0.0 Neutrophils # 7.8 H Lymphocytes # 1.1 Monocytes # 0.8 Eosinophils # 0.0 Basophils # 0.1 Nucleated Red Blood Cells # 0.0 Sodium Level 136 Potassium Level 4.1 Chloride Level 100 Carbon Dioxide Level 27 Anion Gap 13 Blood Urea Nitrogen 18 Creatinine 0.86 Glucose Level 272 #H Calcium Level 9.8 Bedside Glucose 286 H Medications Medications Current Medications Acetaminophen (Tylenol Tab) 650 mg Q4H PRN PO NON-CARDIAC PAIN LEVEL (1-3) Last administered on 06/20/17t 04:24; Admin Dose 650 MG; Start 06/11/17 at 10: 30 Al Hydrox/Mg Hydrox/Simethicone (Mag-Al Plus) 30 ml Q4H PRN PO GASTROINTESTINAL UPSET; Start 06/11/17 at 10:30 Ondansetron HCl (Zofran Inj) 4 mg Q4H PRN IV NAUSEA AND/OR VOMITING; Start 06/11/17 at 10:30 Miscellaneous Information 1 ea NOTE XX ; Start 06/11/17 at 19:30 Glucose (Glutose) 15 gm Q15M PRN PO DECREASED GLUCOSE; Start 06/11/17 at 19:30 Glucose (Glutose) 22.5 gm Q15M PRN PO DECREASED GLUCOSE; Start 06/11/17 at 19: 30 Dextrose (D50w Syringe) 25 ml Q15M PRN IV DECREASED GLUCOSE; Start 06/11/17 at 19:30 Dextrose (D50w Syringe) 50 ml Q15M PRN IV DECREASED GLUCOSE; Start 06/11/17 at 19:30 Glucagon (Glucagen) 1 mg Q15M PRN IM DECREASED GLUCOSE; Start 06/11/17 at 19:30 Glucose (Glutose) 15 gm Q15M PRN BUCCAL DECREASED GLUCOSE; Start 06/11/17 at 19 :30 Hydralazine HCl (Apresoline) 10 mg Q6H PRN IV ELEVATED SYSTOLIC BP; Start 06/11 at 20:30 Aspirin (Halfprin) 81 mg DAILY PO Last administered on 06/21/17 08:36; Admin Dose 81 MG; Start 06/12/17 at 09:00 Atorvastatin Calcium (Lipitor) 40 mg QHS PO Last administered on 06/17/17 21: 29; Admin Dose 40 MG; Start 06/11/17 at 21:00; Status Future Hold Carvedilol (Coreg) 6.25 mg BID PO Last administered on 06/17/17 21:29; Admin Dose 6.25 MG; Start 06/11/17 at 21:00; Status Future Hold Diclofenac Sodium (Voltaren) 50 mg TID PO Last administered on 06/16/17 20:44 ; Admin Dose 50 MG; Start 06/11/17 at 21:00; Status Future Hold Docusate Sodium (Colace) 100 mg DAILY PRN PO CONSTIPATION Last administered on 06/20/17 08:00; Admin Dose 100 MG; Start 06/11/17 at 20:30 Doxazosin Mesylate (Cardura) 2 mg HS PO Last administered on 06/17/17 21:28; Admin Dose 2 MG; Start 06/11/17 at 21:00; Status Future Hold Folic Acid (Folic Acid) 1 mg DAILY PO Last administered on 06/17/17 08:36; Admin Dose 1 MG; Start 06/12/17 at 09:00; Status Future Hold Isosorbide Mononitrate (Imdur) 120 mg DAILY PO Last administered on 06/17/17 08:37; Admin Dose 120 MG; Start 06/12/17 at 09:00; Status Future Hold Linagliptin (Tradjenta) 5 mg DAILY PO Last administered on 06/17/17 08:35; Admin Dose 5 MG; Start 06/12/17 at 14:30; Status Future Hold Morphine Sulfate 2 mg 2 mg Q4H PRN IV pain Last administered on 06/21/17 00: 58; Admin Dose 2 MG; Start 06/14/17 at 12:00 Magnesium Sulfate/ Dextrose (Magnesium Sulfate 1 Gm/D5W) 100 ml @ 100 mls/hr PRN PRN IVPB PENDING LAB VALUE; Start 06/18/17 at 15:30 Dextrose (D50w Syringe) 25 ml Q15M PRN IV Till BS 80 mg/dL or above x2; Start 06/18/17 at 19:00 Dextrose (D50w Syringe) 50 ml Q15M PRN IV Till BS 80 mg/dL or above x2; Start 06/18/17 at 19:00 Hydromorphone HCl (Dilaudid) 0.5 mg Q1HWA PRN IV PAIN Last administered on 00:35; Admin Dose 0.5 MG; Start 06/18/17 at 20:00 Hydromorphone HCl (Dilaudid) 1 mg Q4H PRN IV PAIN LEVEL 6-10 Last administered on 06/20/17 08:09; Admin Dose 1 MG; Start 06/18/17 at 20:00 Diagnostic Test (Pha) (Accu-Chek) 1 ea 02 XX Last administered on 06/21/17 02 :02; Admin Dose 1 EA; Start 06/21/17 at 02:00 Diagnostic Test (Pha) (Accu-Chek) 1 ea 02 XX Last administered on 06/21/17 02 :03; Admin Dose 1 EA; Start 06/21/17 at 02:00 Acetaminophen/ Hydrocodone Bitart ([place] (5/325)) 1 tab Q4H PRN PO PAIN LEVEL 4 -6 Last administered on 06/21/17 08:55; Admin Dose 1 TAB; Start 06/20/17 at 11:30 Insulin Glargine (Lantus) 15 unit DAILY@08 SC Last administered on 06/21/17 08:39; Admin Dose 15 UNIT; Start 06/20/17 at 11:30 Metoprolol Tartrate (Lopressor) 25 mg BID PO Last administered on 06/21/17 08 :36; Admin Dose 25 MG; Start 06/20/17 at 21:00 Amiodarone HCl (Cordarone) 200 mg BID PO Last administered on 06/21/17 08:36 ; Admin Dose 200 MG; Start 06/20/17 at 09:00 Metoprolol Tartrate (Lopressor) 5 mg Q4H PRN IV HR>110 Hold SBP<100; Start at 14:00 Famotidine (Pepcid) 20 mg BID PO Last administered on 06/21/17 08:36; Admin Dose 20 MG; Start 06/20/17 at 21:00 BETY MEADOWS Jun 21, 2017 12:16
[2017-06-21] MEDS ORDERED: AMIODARONE 150MG/D5W BOLUS 100 ML IV ONE (12:30)
--- NOTE | 2017-06-21 13:03 | PN ---
Date/Time of Note Date/Time of Note DATE: 06/21/17 TIME: 13:02 Assessment/Plan Lines/Catheters IV Catheter Type (from Nrsg): Peripheral IV Mar[place] in Place (from Nrsg): Yes Assessment/Plan Chief Complaint/Hosp Course IMPRESSION: Three-vessel coronary artery disease. SP coronary artery bypass grafting. on Tomorrow Stable post OP Extubated CT [address] sxn Discussed with the referring physicians and the patient. Problems: Subjective 24 Hr Interval Summary Constitutional: improved Pain Control: mild Exam/Review of Systems Vital Signs Vitals Vital Signs Date Time Temp Pulse Resp B/P Pulse Ox O2 Delivery O2 Flow Rate FiO2 06/21/17 12:00 108 06/21/17 10:00 25 06/21/17 09:49 121/80 99 06/21/17 09:05 Nasal Cannula 3.0 06/21/17 04:00 98.4 06/19/17 02:05 27 Intake and Output 06/20/17 06/20/17 06/21/17 15:00 23:00 07:00 Intake Total 472.22 ml 523.28 ml 399.98 ml Output Total 305 ml 770 ml 250 ml Balance 167.22 ml -246.72 ml 149.98 ml Exam ENMT: mucosa pink and moist, nl external ears & nose, nl lips & teeth, nl nasal mucosa & septum Neck: non-tender, supple Respiratory: clear to auscultation, normal air movement Cardiovascular: nl pulses, regular rate and rhythm Gastrointestinal: nl liver, spleen, non-tender, soft Results Result Diagram: 06/21/17 0635 06/21/17 0635 SAJI RICH MD Jun 21, 2017 13:03
[2017-06-21] MEDS: HYDROmorphONE 1 MG/ML SYG IV PRN (13:11)
--- NOTE | 2017-06-21 14:53 | RADRPT ---
PROCEDURE: XR, Chest. CLINICAL INDICATION: Follow up for respiratory distress/postop follow-up for CABG. TECHNIQUE: AP chest. COMPARISON: Chest, 06/19/2017. FINDINGS: The heart remains enlarged. There is atelectasis of the left lower lobe, unchanged. There is mild le ft pleural effusion. There is no acute infiltrate in the lungs. There has been interval removal of the right [place] catheter. The mediastinal drain remains in go od position. IMPRESSION: 1. Cardiomegaly. 2. Collapse of left lower lobe, unchanged. 3. Mild left pleural effusion. RPTAT: GG .Thad Hauser MD, MD Date Time Electronically viewed and signed by .Thad Hauser MD, MD on 06/21/2017 14:53 .Y/
--- NOTE | 2017-06-21 18:42 | PN ---
Date/Time of Note Date/Time of Note DATE: 06/21/17 TIME: 18:39 Assessment/Plan VTE Prophylaxis VTE Prophylaxis Intervention: other Lines/Catheters IV [facility] (from [facility]): Peripheral IV Urinary Cath still in place: Yes Reason Cath still needed: urinary retention Assessment/Plan Assessment/Plan - Multivessel obstructive coronary artery disease involving high grade stenosis of the circumflex, LAD and 100% occlusion of the patient's right coronary artery with collateral circulation recapitulating this vessel per cardiac cath by Dr. Riley on 06/11. - per Dr Christensen in cardiac surgery, S/p CABG with OLIVARES to LAD, SVG to R1, SVG to PDA. - Continue ICU care, thoracic surgery recommendations. - Anemia- patient looks pale and yellowish- will do stat CBC/ LFT- fu -Hypertension -Hyperlipidemia -Diabetes mellitus with hemoglobin A1c 6.9 - glycemic control -Bilateral carotid stenosis 50-69% Further recommendations based on clinical course. Total critical care time spent 45 mins. Plan of care discussed with Dr. Mariscal Subjective 24 Hr Interval Summary Free Text/Dictation nad, resting, afebrile - LLE- swollen, inscion dry, intact, diminshed pulses d/t swelling - BS elevated- will change Lantus, with meals insulin -had BM X1 - family at bed side- all qs answered- dw staff Constitutional: requiring IVF, requiring O2 Respiratory: no complaints Cardiovascular: no complaints Gastrointestinal: no complaints Genitourinary: no complaints Exam/Review of Systems Vital Signs Vitals Vital Signs Date Time Temp Pulse Resp B/P Pulse Ox O2 Delivery O2 Flow Rate FiO2 06/21/17 16:00 112 06/21/17 10:00 25 06/21/17 09:49 121/80 99 06/21/17 09:05 Nasal Cannula 3.0 06/21/17 04:00 98.4 06/19/17 02:05 27 Intake and Output 06/20/17 06/20/17 06/21/17 15:00 23:00 07:00 Intake Total 472.22 ml 523.28 ml 399.98 ml Output Total 305 ml 770 ml 250 ml Balance 167.22 ml -246.72 ml 149.98 ml Exam Constitutional: alert, obese Respiratory: diminished breath sounds Cardiovascular: nl pulses, other (s1s2. Mid chest surgical inscion- dry/intact , drains pulled by Dr Christensen) Gastrointestinal: non-tender, soft Musculoskeletal: swelling (LLE- harvested site- inscion - dry// intact/ no redness) Extremities: edema Results Result Diagram: 06/21/17 0635 06/21/17 0635 Results 24 hrs Laboratory Tests Test 06/20/17 20:34 06/21/17 01:03 06/21/17 05:22 06/21/17 06:35 Bedside Glucose 295 H 291 H Lab Scanned Report BLOOD TRANSFUSION White Blood Count 9.9 Red Blood Count 3.21 L Hemoglobin 9.6 L Hematocrit 29.1 L Mean Corpuscular Volume 90.7 Mean Corpuscular Hemoglobin 29.9 Mean Corpuscular Hemoglobin Concent 33.0 Red Cell Distribution Width 14.2 Platelet Count 138 L Mean Platelet Volume 12.4 H Neutrophils % 79.4 H Lymphocytes % 11.2 L Monocytes % 8.1 Eosinophils % 0.1 Basophils % 0.5 Nucleated Red Blood Cells % 0.0 Neutrophils # 7.8 H Lymphocytes # 1.1 Monocytes # 0.8 Eosinophils # 0.0 Basophils # 0.1 Nucleated Red Blood Cells # 0.0 Sodium Level 136 Potassium Level 4.1 Chloride Level 100 Carbon Dioxide Level 27 Anion Gap 13 Blood Urea Nitrogen 18 Creatinine 0.86 Glucose Level 272 #H Calcium Level 9.8 Test 06/21/17 08:26 06/21/17 12:24 06/21/17 17:14 Bedside Glucose 286 H 309 H 266 H Medications Medications Current Medications Acetaminophen (Tylenol Tab) 650 mg Q4H PRN PO NON-CARDIAC PAIN LEVEL (1-3) Last administered on 06/20/17t 04:24; Admin Dose 650 MG; Start 06/11/17 at 10: 30 Al Hydrox/Mg Hydrox/Simethicone (Mag-Al Plus) 30 ml Q4H PRN PO GASTROINTESTINAL UPSET; Start 06/11/17 at 10:30 Ondansetron HCl (Zofran Inj) 4 mg Q4H PRN IV NAUSEA AND/OR VOMITING; Start 06/11/17 at 10:30 Miscellaneous Information 1 ea NOTE XX ; Start 06/11/17 at 19:30 Glucose (Glutose) 15 gm Q15M PRN PO DECREASED GLUCOSE; Start 06/11/17 at 19:30 Glucose (Glutose) 22.5 gm Q15M PRN PO DECREASED GLUCOSE; Start 06/11/17 at 19: 30 Dextrose (D50w Syringe) 25 ml Q15M PRN IV DECREASED GLUCOSE; Start 06/11/17 at 19:30 Dextrose (D50w Syringe) 50 ml Q15M PRN IV DECREASED GLUCOSE; Start 06/11/17 at 19:30 Glucagon (Glucagen) 1 mg Q15M PRN IM DECREASED GLUCOSE; Start 06/11/17 at 19:30 Glucose (Glutose) 15 gm Q15M PRN BUCCAL DECREASED GLUCOSE; Start 06/11/17 at 19 :30 Hydralazine HCl (Apresoline) 10 mg Q6H PRN IV ELEVATED SYSTOLIC BP; Start 06/11 at 20:30 Aspirin (Halfprin) 81 mg DAILY PO Last administered on 06/21/17 08:36; Admin Dose 81 MG; Start 06/12/17 at 09:00 Atorvastatin Calcium (Lipitor) 40 mg QHS PO Last administered on 06/17/17 21: 29; Admin Dose 40 MG; Start 06/11/17 at 21:00; Status Future Hold Carvedilol (Coreg) 6.25 mg BID PO Last administered on 06/17/17 21:29; Admin Dose 6.25 MG; Start 06/11/17 at 21:00; Status Future Hold Diclofenac Sodium (Voltaren) 50 mg TID PO Last administered on 06/16/17 20:44 ; Admin Dose 50 MG; Start 06/11/17 at 21:00; Status Future Hold Docusate Sodium (Colace) 100 mg DAILY PRN PO CONSTIPATION Last administered on 06/20/17 08:00; Admin Dose 100 MG; Start 06/11/17 at 20:30 Doxazosin Mesylate (Cardura) 2 mg HS PO Last administered on 06/17/17 21:28; Admin Dose 2 MG; Start 06/11/17 at 21:00; Status Future Hold Folic Acid (Folic Acid) 1 mg DAILY PO Last administered on 06/17/17 08:36; Admin Dose 1 MG; Start 06/12/17 at 09:00; Status Future Hold Isosorbide Mononitrate (Imdur) 120 mg DAILY PO Last administered on 06/17/17 08:37; Admin Dose 120 MG; Start 06/12/17 at 09:00; Status Future Hold Linagliptin (Tradjenta) 5 mg DAILY PO Last administered on 06/17/17 08:35; Admin Dose 5 MG; Start 06/12/17 at 14:30; Status Future Hold Morphine Sulfate 2 mg 2 mg Q4H PRN IV pain Last administered on 06/21/17 00: 58; Admin Dose 2 MG; Start 06/14/17 at 12:00 Magnesium Sulfate/ Dextrose (Magnesium Sulfate 1 Gm/D5W) 100 ml @ 100 mls/hr PRN PRN IVPB PENDING LAB VALUE; Start 06/18/17 at 15:30 Dextrose (D50w Syringe) 25 ml Q15M PRN IV Till BS 80 mg/dL or above x2; Start 06/18/17 at 19:00 Dextrose (D50w Syringe) 50 ml Q15M PRN IV Till BS 80 mg/dL or above x2; Start 06/18/17 at 19:00 Hydromorphone HCl (Dilaudid) 0.5 mg Q1HWA PRN IV PAIN Last administered on 00:35; Admin Dose 0.5 MG; Start 06/18/17 at 20:00 Hydromorphone HCl (Dilaudid) 1 mg Q4H PRN IV PAIN LEVEL 6-10 Last administered on 06/21/17 13:11; Admin Dose 1 MG; Start 06/18/17 at 20:00 Diagnostic Test (Pha) (Accu-Chek) 1 ea 02 XX Last administered on 06/21/17 02 :02; Admin Dose 1 EA; Start 06/21/17 at 02:00 Diagnostic Test (Pha) (Accu-Chek) 1 ea 02 XX Last administered on 06/21/17 02 :03; Admin Dose 1 EA; Start 06/21/17 at 02:00 Acetaminophen/ Hydrocodone Bitart ([place] (5/325)) 1 tab Q4H PRN PO PAIN LEVEL 4 -6 Last administered on 06/21/17 08:55; Admin Dose 1 TAB; Start 06/20/17 at 11:30 Metoprolol Tartrate (Lopressor) 25 mg BID PO Last administered on 06/21/17 08 :36; Admin Dose 25 MG; Start 06/20/17 at 21:00 Metoprolol Tartrate (Lopressor) 5 mg Q4H PRN IV HR>110 Hold SBP<100; Start at 14:00 Famotidine (Pepcid) 20 mg BID PO Last administered on 06/21/17 08:36; Admin Dose 20 MG; Start 06/20/17 at 21:00 Amiodarone HCl (Cordarone) 200 mg Q8 PO Last administered on 06/21/17 15:51; Admin Dose 200 MG; Start 06/21/17 at 14:00 Insulin Glargine (Lantus) 20 unit DAILY@08 SC ; Start 06/22/17 at 08:00; Status JJ KAUFFMAN Jun 21, 2017 18:42
[2017-06-21 20:07] LABS: BASOPHIL # 0.1 10^3/ul (0.0-0.1); BASOPHILS % 0.4 % (0.0-2.0); EOSINOPHILS # 0.1 10^3/ul (0.0-0.5); EOSINOPHILS % 0.4 % (0.0-7.0); HEMATOCRIT 31.2 % (42.0-52.0); HEMOGLOBIN 10.3 g/dl (14.0-18.0); LYMPHOCYTES # 1.6 10^3/ul (0.8-2.9); LYMPHOCYTES % 14.5 % (15.0-51.0); MEAN CORPUSCULAR HEMOGLOBIN 29.8 pg (29.0-33.0); MEAN CORPUSCULAR VOLUME 90.2 fl (82.0-101.0); MEAN PLATELET VOLUME 12.1 fl (7.4-10.4); MONOCYTES % 8.8 % (0.0-11.0); NEUTROPHIL # 8.3 10^3/ul (1.6-7.5); NEUTROPHILS % 74.9 % (39.0-77.0); PLATELET COUNT 189 10^3/UL (140-415); RED BLOOD COUNT 3.46 10^6/ul (4.70-6.10); WHITE BLOOD COUNT 11.1 10^3/ul (4.8-10.8)
[2017-06-21 20:27] LABS: ALBUMIN 3.5 g/dl (3.3-4.9); BILIRUBIN,DIRECT 2.4 mg/dl (0.00-0.20); BILIRUBIN,INDIRECT 1.9 mg/dl (0-1.1); BILIRUBIN,TOTAL 4.3 mg/dl (0.2-1.3); TOTAL PROTEIN 6.5 g/dl (6.1-8.1)
[2017-06-22] VITALS (23 sets, daily range): BP systolic 108–149; BP diastolic 59–105; PULSE 73–97; RESP 16–29
[2017-06-22] MEDS: ACCU-CHEK XX SCH ×2 (02:00)
[2017-06-22] MEDS: ALBUTEROL/IPRATROPIUM (NEB) 3 ML AMP HHN SCH ×4 (02:13→19:54)
[2017-06-22] MEDS: AMIODARONE 200 MG TAB PO SCH ×3 (06:28→21:09)
[2017-06-22 06:54] LABS: HEMATOCRIT 32.8 % (42.0-52.0); HEMOGLOBIN 10.4 g/dl (14.0-18.0); MEAN CORPUSCULAR HEMOGLOBIN 29.5 pg (29.0-33.0); MEAN CORPUSCULAR HGB CONC 31.7 g/dl (32.0-37.0); MEAN CORPUSCULAR VOLUME 93.2 fl (82.0-101.0); MEAN PLATELET VOLUME 12.4 fl (7.4-10.4); POSITIVE DIFF @See below; RED BLOOD COUNT 3.52 10^6/ul (4.70-6.10)
[2017-06-22 07:05] LABS: PLATELET COUNT 127 10^3/UL (140-415)
[2017-06-22] MEDS ORDERED: INSULIN GLARGINE [LANtus] 3 ML PEN SC SCH (08:00)
[2017-06-22 08:14] LABS: CALCIUM 9.5 mg/dl (8.4-10.2); CREATININE 0.82 mg/dl (0.61-1.24); POTASSIUM 4.1 mmol/L (3.5-5.1)
[2017-06-22] MEDS: INSULIN ASPART [NOVOLOG] 3 ML PEN SC SCH ×7 (08:36→21:00)
[2017-06-22] MEDS: ASPIRIN (EC) 81 MG TAB PO SCH (08:57)
[2017-06-22] MEDS: FAMOTIDINE 20 MG TAB PO SCH ×2 (08:57→21:09)
[2017-06-22] MEDS: METOPROLOL 25 MG TAB PO SCH ×2 (08:58→21:09)
[2017-06-22 10:00] LABS: ANISOCYTOSIS 2+ (0-0); BASOPHILS % (M) 1 % (0-2); EOSINOPHILS % (M) 1 % (0-7); ERYTHROBLAST% (NRBC) (M) 1 % (0-0); GIANT THROMBO% (M) 1 % (0-0); MICROCYTOSIS 2+ (0-0); MONOCYTES % (M) 8 % (0-11); PLATELET ESTIMATE NORMAL; POIKILOCYTOSIS 3+ (0-0); POLYCHROMASIA 3+ (0-0); REACTIVE LYMPHOCYTES% (M) 1 % (0-0)
--- NOTE | 2017-06-22 10:20 | CONS ---
Date/Time of Note Date/Time of Note DATE: 06/22/17 TIME: 10:18 Assessment/Plan Assessment/Plan Chief Complaint/Hosp Course IMP: 1.cad-mutivessel obstructive by cath this admission. POD#4 s/p cabg x 3 2.Hypotension-borderline 3.HL 4.DM 5. anemia 6.Hypernatremia 7. PAF with RVR-Now back IN [facility]; -ICU monitoring -follow drain output -Follow volume status closely but will hold on lasix currently given marginal BP -continue asa -Incresae4 dose of BB to improve BP/HR control -Continue po amiodarone q8 for now -Dose lasix and follow volume status Problems: Consultation Date/Type/Reason Admit Date/Time Jun 15, 2017 at 12:05 Initial Consult Date 06/11/2017 Type of Consultation: cardiology Reason for Consultation cad/AF Referring Provider: SOFIYA ARORA MD Exam/Review of Systems Vital Signs Vitals Vital Signs Date Time Temp Pulse Resp B/P Pulse Ox O2 Delivery O2 Flow Rate FiO2 06/22/17 09:00 92 20 97 06/22/17 08:00 149/59 Room Air 06/22/17 07:04 2.0 06/22/17 07:00 100.0 06/19/17 02:05 27 Intake and Output 06/21/17 06/21/17 06/22/17 14:59 22:59 06:59 Intake Total 100 ml Output Total 120 ml 520 ml Balance -20 ml -520 ml Exam Review of Systems: CONSTITUTIONAL: No fevers, chills. PULMONARY: No sob CARDIOVASCULAR:mild chest pain at sternotomy site GASTROINTESTINAL: No nausea/vomiting. GENITOURINARY: No hematuria/dysuria. MUSCULOSKELETAL: No myagias/arthalgias. PSYCHIATRIC: The patient denies depression. NEUROLOGIC: No weakness Constitutional: alert Psych: no complaints Head: normocephalic ENMT: mucosa pink and moist Neck: jvd (9 cm water), supple Respiratory: diminished breath sounds (at bases/B) Cardiovascular: regular rate and rhythm Gastrointestinal: non-tender, soft Musculoskeletal: muscle tone (normal) Extremities: edema (L>R) Neurological: other (No focal deficits) Results Result Diagram: 06/22/17 0638 06/22/17 0638 Results 24 hrs Laboratory Tests Test 06/21/17 12:24 06/21/17 17:14 06/21/17 20:01 06/21/17 20:02 Bedside Glucose 309 H 266 H Total Bilirubin 4.3 H Direct Bilirubin 2.40 H Indirect Bilirubin 1.9 H Aspartate Amino Transf (AST/SGOT) 47 H Alanine Aminotransferase (ALT/SGPT) 41 Alkaline Phosphatase 71 Total Protein 6.5 Albumin 3.5 White Blood Count 11.1 H Red Blood Count 3.46 L Hemoglobin 10.3 L Hematocrit 31.2 L Mean Corpuscular Volume 90.2 Mean Corpuscular Hemoglobin 29.8 Mean Corpuscular Hemoglobin Concent 33.0 Red Cell Distribution Width 14.0 Platelet Count 189 # Mean Platelet Volume 12.1 H Neutrophils % 74.9 Lymphocytes % 14.5 L Monocytes % 8.8 Eosinophils % 0.4 Basophils % 0.4 Nucleated Red Blood Cells % 0.0 Neutrophils # 8.3 H Lymphocytes # 1.6 Monocytes # 1.0 H Eosinophils # 0.1 Basophils # 0.1 Nucleated Red Blood Cells # 0.0 Test 06/21/17 21:27 06/22/17 04:33 06/22/17 06:38 06/22/17 08:32 Bedside Glucose 212 222 H 210 White Blood Count 8.0 # Red Blood Count 3.52 L Hemoglobin 10.4 L Hematocrit 32.8 L Mean Corpuscular Volume 93.2 Mean Corpuscular Hemoglobin 29.5 Mean Corpuscular Hemoglobin Concent 31.7 L Red Cell Distribution Width 14.0 Platelet Count 127 #L Mean Platelet Volume 12.4 H Neutrophils % Segmented Neutrophils % (Manual) 70 Band Neutrophils % (Manual) 2 Lymphocytes % Lymphocytes % (Manual) 18 Reactive Lymphocytes % (Manual) 1 H Monocytes % Monocytes % (Manual) 8 Eosinophils % Eosinophils % (Manual) 1 Basophils % Basophils % (Manual) 1 Nucleated Red Blood Cells % 1 H Neutrophils # Neutrophils # (Manual) 5.6 Band Neutrophils # 0.1 Absolute Lymphocytes (Manual) 1.4 Lymphocytes # Reactive Lymphocytes # 0.0 Monocytes # Absolute Monocytes (Manual) 0.6 Eosinophils # Basophils # Basophils # (Manual) 0.0 Nucleated Red Blood Cells # Platelet Estimate NORMAL Giant Platelets 1 H Polychromasia 3+ Poikilocytosis 3+ Anisocytosis 2+ Microcytosis 2+ Sodium Level 138 Potassium Level 4.1 Chloride Level 103 Carbon Dioxide Level 22 Anion Gap 17 H Blood Urea Nitrogen 23 H Creatinine 0.82 Glucose Level 209 Calcium Level 9.5 Medications Medications Current Medications Acetaminophen (Tylenol Tab) 650 mg Q4H PRN PO NON-CARDIAC PAIN LEVEL (1-3) Last administered on 06/20/17 04:24; Admin Dose 650 MG; Start 06/11/17 at 10: 30 Al Hydrox/Mg Hydrox/Simethicone (Mag-Al Plus) 30 ml Q4H PRN PO GASTROINTESTINAL UPSET; Start 06/11/17 at 10:30 Ondansetron HCl (Zofran Inj) 4 mg Q4H PRN IV NAUSEA AND/OR VOMITING; Start 06/11/17 at 10:30 Miscellaneous Information 1 ea NOTE XX ; Start 06/11/17 at 19:30 Glucose (Glutose) 15 gm Q15M PRN PO DECREASED GLUCOSE; Start 06/11/17 at 19:30 Glucose (Glutose) 22.5 gm Q15M PRN PO DECREASED GLUCOSE; Start 06/11/17 at 19: 30 Dextrose (D50w Syringe) 25 ml Q15M PRN IV DECREASED GLUCOSE; Start 06/11/17 at 19:30 Dextrose (D50w Syringe) 50 ml Q15M PRN IV DECREASED GLUCOSE; Start 06/11/17 at 19:30 Glucagon (Glucagen) 1 mg Q15M PRN IM DECREASED GLUCOSE; Start 06/11/17 at 19:30 Glucose (Glutose) 15 gm Q15M PRN BUCCAL DECREASED GLUCOSE; Start 06/11/17 at 19 :30 Hydralazine HCl (Apresoline) 10 mg Q6H PRN IV ELEVATED SYSTOLIC BP; Start 06/11 at 20:30 Aspirin (Halfprin) 81 mg DAILY PO Last administered on 06/22/17 08:57; Admin Dose 81 MG; Start 06/12/17 at 09:00 Atorvastatin Calcium (Lipitor) 40 mg QHS PO Last administered on 06/17/17 21: 29; Admin Dose 40 MG; Start 06/11/17 at 21:00; Status Future Hold Carvedilol (Coreg) 6.25 mg BID PO Last administered on 06/17/17 21:29; Admin Dose 6.25 MG; Start 06/11/17 at 21:00; Status Future Hold Diclofenac Sodium (Voltaren) 50 mg TID PO Last administered on 06/16/17 20:44 ; Admin Dose 50 MG; Start 06/11/17 at 21:00; Status Future Hold Docusate Sodium (Colace) 100 mg DAILY PRN PO CONSTIPATION Last administered on 06/20/17 08:00; Admin Dose 100 MG; Start 06/11/17 at 20:30 Doxazosin Mesylate (Cardura) 2 mg HS PO Last administered on 06/17/17 21:28; Admin Dose 2 MG; Start 06/11/17 at 21:00; Status Future Hold Folic Acid (Folic Acid) 1 mg DAILY PO Last administered on 06/17/17 08:36; Admin Dose 1 MG; Start 06/12/17 at 09:00; Status Future Hold Isosorbide Mononitrate (Imdur) 120 mg DAILY PO Last administered on 06/17/17 08:37; Admin Dose 120 MG; Start 06/12/17 at 09:00; Status Future Hold Linagliptin (Tradjenta) 5 mg DAILY PO Last administered on 06/17/17 08:35; Admin Dose 5 MG; Start 06/12/17 at 14:30; Status Future Hold Morphine Sulfate 2 mg 2 mg Q4H PRN IV pain Last administered on 06/21/17 00: 58; Admin Dose 2 MG; Start 06/14/17 at 12:00 Magnesium Sulfate/ Dextrose (Magnesium Sulfate 1 Gm/D5W) 100 ml @ 100 mls/hr PRN PRN IVPB PENDING LAB VALUE; Start 06/18/17 at 15:30 Dextrose (D50w Syringe) 25 ml Q15M PRN IV Till BS 80 mg/dL or above x2; Start 06/18/17 at 19:00 Dextrose (D50w Syringe) 50 ml Q15M PRN IV Till BS 80 mg/dL or above x2; Start 06/18/17 at 19:00 Hydromorphone HCl (Dilaudid) 0.5 mg Q1HWA PRN IV PAIN Last administered on 00:35; Admin Dose 0.5 MG; Start 06/18/17 at 20:00 Hydromorphone HCl (Dilaudid) 1 mg Q4H PRN IV PAIN LEVEL 6-10 Last administered on 06/21/17 13:11; Admin Dose 1 MG; Start 06/18/17 at 20:00 Diagnostic Test (Pha) (Accu-Chek) 1 ea 02 XX Last administered on 06/22/17 02 :00; Admin Dose 1 EA; Start 06/21/17 at 02:00 Diagnostic Test (Pha) (Accu-Chek) 1 ea 02 XX Last administered on 06/22/17 02 :00; Admin Dose 1 EA; Start 06/21/17 at 02:00 Acetaminophen/ Hydrocodone Bitart ([place] (5/325)) 1 tab Q4H PRN PO PAIN LEVEL 4 -6 Last administered on 06/21/17 19:44; Admin Dose 1 TAB; Start 06/20/17 at 11:30 Metoprolol Tartrate (Lopressor) 25 mg BID PO Last administered on 06/22/17 08 :58; Admin Dose 25 MG; Start 06/20/17 at 21:00 Metoprolol Tartrate (Lopressor) 5 mg Q4H PRN IV HR>110 Hold SBP<100 Last administered on 06/21/17 21:49; Admin Dose 5 MG; Start 06/20/17 at 14:00 Famotidine (Pepcid) 20 mg BID PO Last administered on 06/22/17 08:57; Admin Dose 20 MG; Start 06/20/17 at 21:00 Amiodarone HCl (Cordarone) 200 mg Q8 PO Last administered on 06/22/17 06:28; Admin Dose 200 MG; Start 06/21/17 at 14:00 Insulin Glargine (Lantus) 20 unit DAILY@08 SC Last administered on 06/22/17 08:38; Admin Dose 20 UNIT; Start 06/22/17 at 08:00 BETY MEADOWS Jun 22, 2017 10:20
[2017-06-22] MEDS ORDERED: FUROSEMIDE 20 MG INJ IV ONE (10:30)
--- NOTE | 2017-06-22 11:04 | PN ---
Date/Time of Note Date/Time of Note DATE: 06/22/17 TIME: 11:04 Assessment/Plan Lines/Catheters IV Catheter Type (from Nrsg): Saline Lock Marlow in Place (from Nrsg): Yes Assessment/Plan Chief Complaint/Hosp Course IMPRESSION: Three-vessel coronary artery disease. SP coronary artery bypass grafting. on Tomorrow Stable post OP CT DCed DC planning Discussed with the referring physicians and the patient. Problems: Subjective 24 Hr Interval Summary Constitutional: improved Pain Control: mild Exam/Review of Systems Vital Signs Vitals Vital Signs Date Time Temp Pulse Resp B/P Pulse Ox O2 Delivery O2 Flow Rate FiO2 06/22/17 09:00 92 20 97 06/22/17 08:00 149/59 Room Air 06/22/17 07:04 2.0 06/22/17 07:00 100.0 06/19/17 02:05 27 Intake and Output 06/21/17 06/21/17 06/22/17 14:59 22:59 06:59 Intake Total 100 ml Output Total 120 ml 520 ml Balance -20 ml -520 ml Exam ENMT: mucosa pink and moist, nl external ears & nose, nl lips & teeth, nl nasal mucosa & septum Neck: non-tender, supple Respiratory: clear to auscultation, normal air movement Cardiovascular: nl pulses, regular rate and rhythm Gastrointestinal: nl liver, spleen, non-tender, soft Results Result Diagram: 06/22/17 0638 06/22/17 0638 SAJI RICH MD Jun 22, 2017 11:04
[2017-06-22] MEDS ORDERED: INSULIN GLARGINE [LANtus] 3 ML PEN SC ONE (12:30)
[2017-06-22] MEDS ORDERED: INSULIN ASPART [NOVOLOG] 3 ML PEN SC ONE (12:30)
--- NOTE | 2017-06-22 17:40 | PN ---
Date/Time of Note Date/Time of Note DATE: 06/22/17 TIME: 17:39 Assessment/Plan Lines/Catheters IV Catheter Type (from [facility]): Saline Lock Urinary Cath still in place: No Assessment/Plan Assessment/Plan - Multivessel obstructive coronary artery disease involving high grade stenosis of the circumflex, LAD and 100% occlusion of the patient's right coronary artery with collateral circulation recapitulating this vessel per cardiac cath by Dr. Riley on 06/11. - per Dr Christensen in cardiac surgery, S/p CABG with OLIVARES to LAD, SVG to R1, SVG to PDA. - Continue ICU care, thoracic surgery recommendations. - Anemia- patient looks pale and yellowish- will do stat CBC/ LFT- fu -Hypertension -Hyperlipidemia -Diabetes mellitus with hemoglobin A1c 6.9 - glycemic control -Bilateral carotid stenosis 50-69% Further recommendations based on clinical course. Total critical care time spent 45 mins. Plan of care discussed with Dr. Mariscal Exam/Review of Systems Vital Signs Vitals Vital Signs Date Time Temp Pulse Resp B/P Pulse Ox O2 Delivery O2 Flow Rate FiO2 06/22/17 16:00 92 23 108/76 95 Room Air 06/22/17 13:12 21 06/22/17 12:00 98.0 06/22/17 07:04 2.0 Intake and Output 06/21/17 06/21/17 06/22/17 15:00 23:00 07:00 Intake Total 100 ml 0 ml Output Total 240 ml 400 ml Balance -140 ml -400 ml Results Result Diagram: 06/22/17 0638 06/22/17 0638 Results 24 hrs Laboratory Tests Test 06/21/17 20:01 06/21/17 20:02 06/21/17 21:27 06/22/17 04:33 Total Bilirubin 4.3 H Direct Bilirubin 2.40 H Indirect Bilirubin 1.9 H Aspartate Amino Transf (AST/SGOT) 47 H Alanine Aminotransferase (ALT/SGPT) 41 Alkaline Phosphatase 71 Total Protein 6.5 Albumin 3.5 White Blood Count 11.1 H Red Blood Count 3.46 L Hemoglobin 10.3 L Hematocrit 31.2 L Mean Corpuscular Volume 90.2 Mean Corpuscular Hemoglobin 29.8 Mean Corpuscular Hemoglobin Concent 33.0 Red Cell Distribution Width 14.0 Platelet Count 189 # Mean Platelet Volume 12.1 H Neutrophils % 74.9 Lymphocytes % 14.5 L Monocytes % 8.8 Eosinophils % 0.4 Basophils % 0.4 Nucleated Red Blood Cells % 0.0 Neutrophils # 8.3 H Lymphocytes # 1.6 Monocytes # 1.0 H Eosinophils # 0.1 Basophils # 0.1 Nucleated Red Blood Cells # 0.0 Bedside Glucose 212 222 H Test 06/22/17 06:38 06/22/17 08:32 06/22/17 11:38 06/22/17 12:59 White Blood Count 8.0 # Red Blood Count 3.52 L Hemoglobin 10.4 L Hematocrit 32.8 L Mean Corpuscular Volume 93.2 Mean Corpuscular Hemoglobin 29.5 Mean Corpuscular Hemoglobin Concent 31.7 L Red Cell Distribution Width 14.0 Platelet Count 127 #L Mean Platelet Volume 12.4 H Neutrophils % Segmented Neutrophils % (Manual) 70 Band Neutrophils % (Manual) 2 Lymphocytes % Lymphocytes % (Manual) 18 Reactive Lymphocytes % (Manual) 1 H Monocytes % Monocytes % (Manual) 8 Eosinophils % Eosinophils % (Manual) 1 Basophils % Basophils % (Manual) 1 Nucleated Red Blood Cells % 1 H Neutrophils # Neutrophils # (Manual) 5.6 Band Neutrophils # 0.1 Absolute Lymphocytes (Manual) 1.4 Lymphocytes # Reactive Lymphocytes # 0.0 Monocytes # Absolute Monocytes (Manual) 0.6 Eosinophils # Basophils # Basophils # (Manual) 0.0 Nucleated Red Blood Cells # Platelet Estimate NORMAL Giant Platelets 1 H Polychromasia 3+ Poikilocytosis 3+ Anisocytosis 2+ Microcytosis 2+ Sodium Level 138 Potassium Level 4.1 Chloride Level 103 Carbon Dioxide Level 22 Anion Gap 17 H Blood Urea Nitrogen 23 H Creatinine 0.82 Glucose Level 209 Calcium Level 9.5 Bedside Glucose 210 333 H 275 H Test 06/22/17 17:30 Bedside Glucose 273 H Medications Medications Current Medications Acetaminophen (Tylenol Tab) 650 mg Q4H PRN PO NON-CARDIAC PAIN LEVEL (1-3) Last administered on 06/20/17t 04:24; Admin Dose 650 MG; Start 06/11/17 at 10: 30 Al Hydrox/Mg Hydrox/Simethicone (Mag-Al Plus) 30 ml Q4H PRN PO GASTROINTESTINAL UPSET; Start 06/11/17 at 10:30 Ondansetron HCl (Zofran Inj) 4 mg Q4H PRN IV NAUSEA AND/OR VOMITING; Start 06/11/17 at 10:30 Miscellaneous Information 1 ea NOTE XX ; Start 06/11/17 at 19:30 Glucose (Glutose) 15 gm Q15M PRN PO DECREASED GLUCOSE; Start 06/11/17 at 19:30 Glucose (Glutose) 22.5 gm Q15M PRN PO DECREASED GLUCOSE; Start 06/11/17 at 19: 30 Dextrose (D50w Syringe) 25 ml Q15M PRN IV DECREASED GLUCOSE; Start 06/11/17 at 19:30 Dextrose (D50w Syringe) 50 ml Q15M PRN IV DECREASED GLUCOSE; Start 06/11/17 at 19:30 Glucagon (Glucagen) 1 mg Q15M PRN IM DECREASED GLUCOSE; Start 06/11/17 at 19:30 Glucose (Glutose) 15 gm Q15M PRN BUCCAL DECREASED GLUCOSE; Start 06/11/17 at 19 :30 Hydralazine HCl (Apresoline) 10 mg Q6H PRN IV ELEVATED SYSTOLIC BP; Start 06/11 at 20:30 Aspirin (Halfprin) 81 mg DAILY PO Last administered on 06/22/17 08:57; Admin Dose 81 MG; Start 06/12/17 at 09:00 Atorvastatin Calcium (Lipitor) 40 mg QHS PO Last administered on 06/17/17 21: 29; Admin Dose 40 MG; Start 06/11/17 at 21:00; Status Future Hold Diclofenac Sodium (Voltaren) 50 mg TID PO Last administered on 06/16/17 20:44 ; Admin Dose 50 MG; Start 06/11/17 at 21:00; Status Future Hold Docusate Sodium (Colace) 100 mg DAILY PRN PO CONSTIPATION Last administered on 06/20/17 08:00; Admin Dose 100 MG; Start 06/11/17 at 20:30 Doxazosin Mesylate (Cardura) 2 mg HS PO Last administered on 06/17/17 21:28; Admin Dose 2 MG; Start 06/11/17 at 21:00; Status Future Hold Folic Acid (Folic Acid) 1 mg DAILY PO Last administered on 06/17/17 08:36; Admin Dose 1 MG; Start 06/12/17 at 09:00; Status Future Hold Isosorbide Mononitrate (Imdur) 120 mg DAILY PO Last administered on 06/17/17 08:37; Admin Dose 120 MG; Start 06/12/17 at 09:00; Status Future Hold Linagliptin (Tradjenta) 5 mg DAILY PO Last administered on 06/17/17 08:35; Admin Dose 5 MG; Start 06/12/17 at 14:30; Status Future Hold Morphine Sulfate 2 mg 2 mg Q4H PRN IV pain Last administered on 06/21/17 00: 58; Admin Dose 2 MG; Start 06/14/17 at 12:00 Magnesium Sulfate/ Dextrose (Magnesium Sulfate 1 Gm/D5W) 100 ml @ 100 mls/hr PRN PRN IVPB PENDING LAB VALUE; Start 06/18/17 at 15:30 Dextrose (D50w Syringe) 25 ml Q15M PRN IV Till BS 80 mg/dL or above x2; Start 06/18/17 at 19:00 Dextrose (D50w Syringe) 50 ml Q15M PRN IV Till BS 80 mg/dL or above x2; Start 06/18/17 at 19:00 Hydromorphone HCl (Dilaudid) 0.5 mg Q1HWA PRN IV PAIN Last administered on 00:35; Admin Dose 0.5 MG; Start 06/18/17 at 20:00 Hydromorphone HCl (Dilaudid) 1 mg Q4H PRN IV PAIN LEVEL 6-10 Last administered on 06/21/17 13:11; Admin Dose 1 MG; Start 06/18/17 at 20:00 Diagnostic Test (Pha) (Accu-Chek) 1 ea 02 XX Last administered on 06/22/17 02 :00; Admin Dose 1 EA; Start 06/21/17 at 02:00 Diagnostic Test (Pha) (Accu-Chek) 1 ea 02 XX Last administered on 06/22/17 02 :00; Admin Dose 1 EA; Start 06/21/17 at 02:00 Acetaminophen/ Hydrocodone Bitart ([place] (5/325)) 1 tab Q4H PRN PO PAIN LEVEL 4 -6 Last administered on 06/21/17 19:44; Admin Dose 1 TAB; Start 06/20/17 at 11:30 Metoprolol Tartrate (Lopressor) 5 mg Q4H PRN IV HR>110 Hold SBP<100 Last administered on 06/21/17 21:49; Admin Dose 5 MG; Start 06/20/17 at 14:00 Famotidine (Pepcid) 20 mg BID PO Last administered on 06/22/17 08:57; Admin Dose 20 MG; Start 06/20/17 at 21:00 Amiodarone HCl (Cordarone) 200 mg Q8 PO Last administered on 06/22/17 14:40; Admin Dose 200 MG; Start 06/21/17 at 14:00 Metoprolol Tartrate (Lopressor) 50 mg BID PO ; Start 06/22/17 at 21:00 Insulin Glargine (Lantus) 25 unit DAILY@08 SC ; Start 06/23/17 at 08:00 JJ MYERS Jun 22, 2017 17:40
[2017-06-23] VITALS (12 sets, daily range): BP systolic 109–141; BP diastolic 58–97; PULSE 71–90; RESP 18–20
[2017-06-23] MEDS: ACCU-CHEK XX SCH ×2 (02:00)
[2017-06-23] MEDS: ALBUTEROL/IPRATROPIUM (NEB) 3 ML AMP HHN SCH ×4 (02:52→20:16)
[2017-06-23] MEDS: AMIODARONE 200 MG TAB PO SCH ×3 (06:08→21:13)
[2017-06-23 07:27] LABS: BASOPHIL # 0.1 10^3/ul (0.0-0.1); BASOPHILS % 0.7 % (0.0-2.0); EOSINOPHILS # 0.2 10^3/ul (0.0-0.5); EOSINOPHILS % 1.9 % (0.0-7.0); HEMOGLOBIN 9.9 g/dl (14.0-18.0); LYMPHOCYTES # 1.8 10^3/ul (0.8-2.9); LYMPHOCYTES % 20.5 % (15.0-51.0); MEAN CORPUSCULAR HEMOGLOBIN 29.6 pg (29.0-33.0); MEAN CORPUSCULAR VOLUME 89.6 fl (82.0-101.0); MEAN PLATELET VOLUME 11.5 fl (7.4-10.4); MONOCYTE # 1.1 10^3/ul (0.3-0.9); MONOCYTES % 11.9 % (0.0-11.0); NEUTROPHIL # 5.6 10^3/ul (1.6-7.5); NEUTROPHILS % 63.5 % (39.0-77.0); PLATELET COUNT 231 10^3/UL (140-415); RED BLOOD COUNT 3.35 10^6/ul (4.70-6.10); RED CELL DISTRIBUTION WIDTH 14.3 % (11.5-14.5); WHITE BLOOD COUNT 8.8 10^3/ul (4.8-10.8)
--- NOTE | 2017-06-23 07:48 | PN ---
Date/Time of Note Date/Time of Note DATE: 06/23/17 TIME: 07:48 Assessment/Plan Lines/Catheters IV Catheter Type (from Nrsg): Saline Lock Marlow in Place (from Nrsg): No Assessment/Plan Chief Complaint/Hosp Course IMPRESSION: Three-vessel coronary artery disease. SP coronary artery bypass grafting. on Tomorrow Stable post OP CT DCed DC planning Discussed with the referring physicians and the patient. Problems: Subjective 24 Hr Interval Summary Constitutional: improved Pain Control: mild Exam/Review of Systems Vital Signs Vitals Vital Signs Date Time Temp Pulse Resp B/P Pulse Ox O2 Delivery O2 Flow Rate FiO2 06/23/17 07:26 98.0 76 20 139/74 98 06/23/17 05:00 Room Air 06/23/17 02:53 21 06/22/17 07:04 2.0 Intake and Output 06/22/17 06/22/17 06/23/17 15:00 23:00 07:00 Intake Total 1510 ml 520 ml 200 ml Output Total 1385 ml 465 ml Balance 125 ml 55 ml 200 ml Exam Neck: non-tender, supple Respiratory: clear to auscultation, normal air movement Cardiovascular: nl pulses, regular rate and rhythm Gastrointestinal: nl liver, spleen, non-tender, soft Results Result Diagram: 06/23/17 0650 06/22/17 0638 SAJI RICH MD Jun 23, 2017 07:48
[2017-06-23 08:08] LABS: ALBUMIN 2.8 g/dl (3.3-4.9); BILIRUBIN,DIRECT 0.3 mg/dl (0.00-0.20); BILIRUBIN,INDIRECT 1.8 mg/dl (0-1.1); BILIRUBIN,TOTAL 2.1 mg/dl (0.2-1.3); TOTAL PROTEIN 5.7 g/dl (6.1-8.1)
[2017-06-23 09:10] LABS: CALCIUM 9.4 mg/dl (8.4-10.2); CREATININE 0.92 mg/dl (0.61-1.24); POTASSIUM 3.3 mmol/L (3.5-5.1)
[2017-06-23] MEDS: METOPROLOL 25 MG TAB PO SCH ×2 (09:17→20:26)
[2017-06-23] MEDS: ASPIRIN (EC) 81 MG TAB PO SCH (09:17)
[2017-06-23] MEDS: FAMOTIDINE 20 MG TAB PO SCH ×2 (09:17→20:25)
[2017-06-23] MEDS: INSULIN GLARGINE [LANtus] 3 ML PEN SC SCH (09:40)
[2017-06-23] MEDS: INSULIN ASPART [NOVOLOG] 3 ML PEN SC SCH ×7 (09:40→20:21)
--- NOTE | 2017-06-23 10:07 | CONS ---
Date/Time of Note Date/Time of Note DATE: 06/23/17 TIME: 10:05 Assessment/Plan Assessment/Plan Additional Assessment/Plan 1.cad-mutivessel obstructive by cath this admission. s/p cabg x 3 last week - doing well - ambulating now, no CP - pain controlled. 2.Hypotension-borderline - stable on tele 3.HL 4.DM - on meds, keep euglycemic 5. anemia - h/h stable, no bleeding now 6.Hypernatremia 7. PAF with RVR-Now back IN SR - in sinus on tele now Consultation Date/Type/Reason Admit Date/Time Jun 15, 2017 at 12:05 Type of Consultation: cardiology Referring Provider: SOFIYA ARORA MD 24 HR Interval Summary Free Text/Dictation s/p cabg x 3 last week - doing well - ambulating now, no CP - pain controlled. ROS: No fever, no chills, no nausea, no vomiting, no diarrhea/constipation No recent weight changes No chest pain, no PND, no orthopnea - pain controlled No dizziness, blurred vision No thirst, no heat or cold intolerance Exam/Review of Systems Vital Signs Vitals Vital Signs Date Time Temp Pulse Resp B/P Pulse Ox O2 Delivery O2 Flow Rate FiO2 06/23/17 08:24 78 20 96 21 06/23/17 07:26 98.0 139/74 06/23/17 05:00 Room Air 06/22/17 07:04 2.0 Intake and Output 06/22/17 06/22/17 06/23/17 15:00 23:00 07:00 Intake Total 1510 ml 520 ml 200 ml Output Total 1385 ml 465 ml Balance 125 ml 55 ml 200 ml Exam General: WN/WD/NAD, AOx 3 HEENT: Unicetric/atraumatic/EOMI ( follows commands) NECK: JVD elevated, no thyromegaly Lymph: no lymphadenopathy HEART: regular with no S3, II/ systolic murmur at apex, scar, no RUB LUNGS: Coarse sounds ABD: soft, NT, ND, +BS : Intact Neuro: non focal SKIN: chronic changes EXT: trace edema Results Result Diagram: 06/23/17 0650 06/23/17 0650 Results 24 hrs Laboratory Tests Test 06/22/17 11:38 06/22/17 12:59 06/22/17 17:30 06/22/17 21:11 Bedside Glucose 333 H 275 H 273 H 161 Test 06/23/17 06:50 06/23/17 07:58 06/23/17 09:34 White Blood Count 8.8 Red Blood Count 3.35 L Hemoglobin 9.9 L Hematocrit 30.0 L Mean Corpuscular Volume 89.6 Mean Corpuscular Hemoglobin 29.6 Mean Corpuscular Hemoglobin Concent 33.0 Red Cell Distribution Width 14.3 Platelet Count 231 # Mean Platelet Volume 11.5 H Neutrophils % 63.5 Lymphocytes % 20.5 Monocytes % 11.9 H Eosinophils % 1.9 Basophils % 0.7 Nucleated Red Blood Cells % 0.0 Neutrophils # 5.6 Lymphocytes # 1.8 Monocytes # 1.1 H Eosinophils # 0.2 Basophils # 0.1 Nucleated Red Blood Cells # 0.0 Sodium Level 140 Potassium Level 3.3 L Chloride Level 102 Carbon Dioxide Level 30 Anion Gap 11 Blood Urea Nitrogen 23 H Creatinine 0.92 Glucose Level 183 Calcium Level 9.4 Total Bilirubin 2.1 #H Direct Bilirubin 0.30 #H Indirect Bilirubin 1.8 H Aspartate Amino Transf (AST/SGOT) 31 Alanine Aminotransferase (ALT/SGPT) 48 Alkaline Phosphatase 163 #H Total Protein 5.7 L Albumin 2.8 L Bedside Glucose 189 265 H Medications Medications Current Medications Acetaminophen (Tylenol Tab) 650 mg Q4H PRN PO NON-CARDIAC PAIN LEVEL (1-3) Last administered on 06/20/17t 04:24; Admin Dose 650 MG; Start 06/11/17 at 10: 30 Al Hydrox/Mg Hydrox/Simethicone (Mag-Al Plus) 30 ml Q4H PRN PO GASTROINTESTINAL UPSET; Start 06/11/17 at 10:30 Ondansetron HCl (Zofran Inj) 4 mg Q4H PRN IV NAUSEA AND/OR VOMITING; Start 06/11/17 at 10:30 Miscellaneous Information 1 ea NOTE XX ; Start 06/11/17 at 19:30 Glucose (Glutose) 15 gm Q15M PRN PO DECREASED GLUCOSE; Start 06/11/17 at 19:30 Glucose (Glutose) 22.5 gm Q15M PRN PO DECREASED GLUCOSE; Start 06/11/17 at 19: 30 Dextrose (D50w Syringe) 25 ml Q15M PRN IV DECREASED GLUCOSE; Start 06/11/17 at 19:30 Dextrose (D50w Syringe) 50 ml Q15M PRN IV DECREASED GLUCOSE; Start 06/11/17 at 19:30 Glucagon (Glucagen) 1 mg Q15M PRN IM DECREASED GLUCOSE; Start 06/11/17 at 19:30 Glucose (Glutose) 15 gm Q15M PRN BUCCAL DECREASED GLUCOSE; Start 06/11/17 at 19 :30 Hydralazine HCl (Apresoline) 10 mg Q6H PRN IV ELEVATED SYSTOLIC BP; Start 06/11 at 20:30 Aspirin (Halfprin) 81 mg DAILY PO Last administered on 06/23/17 09:17; Admin Dose 81 MG; Start 06/12/17 at 09:00 Atorvastatin Calcium (Lipitor) 40 mg QHS PO Last administered on 06/17/17 21: 29; Admin Dose 40 MG; Start 06/11/17 at 21:00; Status Future Hold Diclofenac Sodium (Voltaren) 50 mg TID PO Last administered on 06/16/17 20:44 ; Admin Dose 50 MG; Start 06/11/17 at 21:00; Status Future Hold Docusate Sodium (Colace) 100 mg DAILY PRN PO CONSTIPATION Last administered on 06/20/17 08:00; Admin Dose 100 MG; Start 06/11/17 at 20:30 Doxazosin Mesylate (Cardura) 2 mg HS PO Last administered on 06/17/17 21:28; Admin Dose 2 MG; Start 06/11/17 at 21:00; Status Future Hold Folic Acid (Folic Acid) 1 mg DAILY PO Last administered on 06/17/17 08:36; Admin Dose 1 MG; Start 06/12/17 at 09:00; Status Future Hold Isosorbide Mononitrate (Imdur) 120 mg DAILY PO Last administered on 06/17/17 08:37; Admin Dose 120 MG; Start 06/12/17 at 09:00; Status Future Hold Linagliptin (Tradjenta) 5 mg DAILY PO Last administered on 06/17/17 08:35; Admin Dose 5 MG; Start 06/12/17 at 14:30; Status Future Hold Morphine Sulfate 2 mg 2 mg Q4H PRN IV pain Last administered on 06/21/17 00: 58; Admin Dose 2 MG; Start 06/14/17 at 12:00 Magnesium Sulfate/ Dextrose (Magnesium Sulfate 1 Gm/D5W) 100 ml @ 100 mls/hr PRN PRN IVPB PENDING LAB VALUE; Start 06/18/17 at 15:30 Dextrose (D50w Syringe) 25 ml Q15M PRN IV Till BS 80 mg/dL or above x2; Start 06/18/17 at 19:00 Dextrose (D50w Syringe) 50 ml Q15M PRN IV Till BS 80 mg/dL or above x2; Start 06/18/17 at 19:00 Hydromorphone HCl (Dilaudid) 0.5 mg Q1HWA PRN IV PAIN Last administered on 00:35; Admin Dose 0.5 MG; Start 06/18/17 at 20:00 Hydromorphone HCl (Dilaudid) 1 mg Q4H PRN IV PAIN LEVEL 6-10 Last administered on 06/21/17 13:11; Admin Dose 1 MG; Start 06/18/17 at 20:00 Diagnostic Test (Pha) (Accu-Chek) 1 ea 02 XX Last administered on 06/22/17 02 :00; Admin Dose 1 EA; Start 06/21/17 at 02:00 Diagnostic Test (Pha) (Accu-Chek) 1 ea 02 XX Last administered on 06/22/17 02 :00; Admin Dose 1 EA; Start 06/21/17 at 02:00 Acetaminophen/ Hydrocodone Bitart ([place] (5/325)) 1 tab Q4H PRN PO PAIN LEVEL 4 -6 Last administered on 06/21/17 19:44; Admin Dose 1 TAB; Start 06/20/17 at 11:30 Metoprolol Tartrate (Lopressor) 5 mg Q4H PRN IV HR>110 Hold SBP<100 Last administered on 06/21/17 21:49; Admin Dose 5 MG; Start 06/20/17 at 14:00 Famotidine (Pepcid) 20 mg BID PO Last administered on 06/23/17 09:17; Admin Dose 20 MG; Start 06/20/17 at 21:00 Amiodarone HCl (Cordarone) 200 mg Q8 PO Last administered on 06/23/17 06:08; Admin Dose 200 MG; Start 06/21/17 at 14:00 Metoprolol Tartrate (Lopressor) 50 mg BID PO Last administered on 06/23/17 09 :17; Admin Dose 50 MG; Start 06/22/17 at 21:00 Insulin Glargine (Lantus) 25 unit DAILY@08 SC Last administered on 06/23/17 09:40; Admin Dose 25 UNIT; Start 06/23/17 at 08:00 YAZ DA SILVA MD Jun 23, 2017 10:07
--- NOTE | 2017-06-23 14:35 | RADRPT ---
Vent Rate: 101 bpm RR Interval: 0 msec MA Interval: 0 msec QRS Duration: 128 msec QT Interval: 362 msec QTC Interval: 469 msec P-R-T [place]: 0 - 82 - 36 degrees Atrial fibrillation with rapid ventricular response with premature ventricular or aberrantly conducted complexes Right bundle branch block Abnormal ECG Electronically Signed By: Nils Vásquez [id number]
--- NOTE | 2017-06-23 17:03 | PN ---
Date/Time of Note Date/Time of Note DATE: 06/23/17 TIME: 17:00 Assessment/Plan VTE Prophylaxis VTE Prophylaxis Intervention: SCD's Lines/Catheters IV [facility] Type (from [facility] Saline Lock Urinary Cath still in place: No Assessment/Plan Chief Complaint/Hosp Course Patient is awake alert, and is well controlled, continue getting out of bed, ambulation, IS. Elevated blood sugar continue Lantus and pre-meal NovoLog. Encourage adherence to 1800 ADA diet. 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 Riley on 06/11. Dr Christensen is following in cardiac surgery, S/p CABG with OLIVARES to LAD, SVG to R1, SVG to PDA. Continue cardiology and thoracic surgery recommendations. -Hypertension, continue metoprolol -Hyperlipidemia -Diabetes mellitus with hemoglobin A1c 6.9, continue Lantus and NovoLog -Bilateral carotid stenosis 50-69% Further recommendations based on clinical course. Plan of care discussed with Dr. Mariscal Problems: Exam/Review of Systems Vital Signs Vitals Vital Signs Date Time Temp Pulse Resp B/P Pulse Ox O2 Delivery O2 Flow Rate FiO2 06/23/17 16:12 97.5 76 20 141/67 94 06/23/17 13:32 21 06/23/17 11:30 2.0 06/23/17 05:00 Room Air Intake and Output 06/22/17 06/22/17 06/23/17 15:00 23:00 07:00 Intake Total 1510 ml 520 ml 200 ml Output Total 1385 ml 465 ml Balance 125 ml 55 ml 200 ml Exam Constitutional: alert, oriented Head: normocephalic Neck: supple Respiratory: normal air movement Cardiovascular: nl pulses, other (Status post CABG), regular rate and rhythm Gastrointestinal: non-tender, soft Extremities: normal pulses, other (Left lower extremity status post surgery) Neurological: nl mental status Results Result Diagram: 06/23/17 0650 06/23/17 0650 Results 24 hrs Laboratory Tests Test 06/22/17 17:30 06/22/17 21:11 06/23/17 06:50 06/23/17 07:58 Bedside Glucose 273 H 161 189 White Blood Count 8.8 Red Blood Count 3.35 L Hemoglobin 9.9 L Hematocrit 30.0 L Mean Corpuscular Volume 89.6 Mean Corpuscular Hemoglobin 29.6 Mean Corpuscular Hemoglobin Concent 33.0 Red Cell Distribution Width 14.3 Platelet Count 231 # Mean Platelet Volume 11.5 H Neutrophils % 63.5 Lymphocytes % 20.5 Monocytes % 11.9 H Eosinophils % 1.9 Basophils % 0.7 Nucleated Red Blood Cells % 0.0 Neutrophils # 5.6 Lymphocytes # 1.8 Monocytes # 1.1 H Eosinophils # 0.2 Basophils # 0.1 Nucleated Red Blood Cells # 0.0 Sodium Level 140 Potassium Level 3.3 L Chloride Level 102 Carbon Dioxide Level 30 Anion Gap 11 Blood Urea Nitrogen 23 H Creatinine 0.92 Glucose Level 183 Calcium Level 9.4 Total Bilirubin 2.1 #H Direct Bilirubin 0.30 #H Indirect Bilirubin 1.8 H Aspartate Amino Transf (AST/SGOT) 31 Alanine Aminotransferase (ALT/SGPT) 48 Alkaline Phosphatase 163 #H Total Protein 5.7 L Albumin 2.8 L Test 06/23/17 09:34 06/23/17 12:24 Bedside Glucose 265 H 285 H Medications Medications Current Medications Acetaminophen (Tylenol Tab) 650 mg Q4H PRN PO NON-CARDIAC PAIN LEVEL (1-3) Last administered on 06/20/17t 04:24; Admin Dose 650 MG; Start 06/11/17 at 10: 30 Al Hydrox/Mg Hydrox/Simethicone (Mag-Al Plus) 30 ml Q4H PRN PO GASTROINTESTINAL UPSET; Start 06/11/17 at 10:30 Ondansetron HCl (Zofran Inj) 4 mg Q4H PRN IV NAUSEA AND/OR VOMITING; Start 06/11/17 at 10:30 Miscellaneous Information 1 ea NOTE XX ; Start 06/11/17 at 19:30 Glucose (Glutose) 15 gm Q15M PRN PO DECREASED GLUCOSE; Start 06/11/17 at 19:30 Glucose (Glutose) 22.5 gm Q15M PRN PO DECREASED GLUCOSE; Start 06/11/17 at 19: 30 Dextrose (D50w Syringe) 25 ml Q15M PRN IV DECREASED GLUCOSE; Start 06/11/17 at 19:30 Dextrose (D50w Syringe) 50 ml Q15M PRN IV DECREASED GLUCOSE; Start 06/11/17 at 19:30 Glucagon (Glucagen) 1 mg Q15M PRN IM DECREASED GLUCOSE; Start 06/11/17 at 19:30 Glucose (Glutose) 15 gm Q15M PRN BUCCAL DECREASED GLUCOSE; Start 06/11/17 at 19 :30 Hydralazine HCl (Apresoline) 10 mg Q6H PRN IV ELEVATED SYSTOLIC BP; Start 06/11 at 20:30 Aspirin (Halfprin) 81 mg DAILY PO Last administered on 06/23/17 09:17; Admin Dose 81 MG; Start 06/12/17 at 09:00 Atorvastatin Calcium (Lipitor) 40 mg QHS PO Last administered on 06/17/17 21: 29; Admin Dose 40 MG; Start 06/11/17 at 21:00; Status Future Hold Diclofenac Sodium (Voltaren) 50 mg TID PO Last administered on 06/16/17 20:44 ; Admin Dose 50 MG; Start 06/11/17 at 21:00; Status Future Hold Docusate Sodium (Colace) 100 mg DAILY PRN PO CONSTIPATION Last administered on 06/20/17 08:00; Admin Dose 100 MG; Start 06/11/17 at 20:30 Doxazosin Mesylate (Cardura) 2 mg HS PO Last administered on 06/17/17 21:28; Admin Dose 2 MG; Start 06/11/17 at 21:00; Status Future Hold Folic Acid (Folic Acid) 1 mg DAILY PO Last administered on 06/17/17 08:36; Admin Dose 1 MG; Start 06/12/17 at 09:00; Status Future Hold Isosorbide Mononitrate (Imdur) 120 mg DAILY PO Last administered on 06/17/17 08:37; Admin Dose 120 MG; Start 06/12/17 at 09:00; Status Future Hold Linagliptin (Tradjenta) 5 mg DAILY PO Last administered on 06/17/17 08:35; Admin Dose 5 MG; Start 06/12/17 at 14:30; Status Future Hold Morphine Sulfate 2 mg 2 mg Q4H PRN IV pain Last administered on 06/21/17 00: 58; Admin Dose 2 MG; Start 06/14/17 at 12:00 Magnesium Sulfate/ Dextrose (Magnesium Sulfate 1 Gm/D5W) 100 ml @ 100 mls/hr PRN PRN IVPB PENDING LAB VALUE; Start 06/18/17 at 15:30 Dextrose (D50w Syringe) 25 ml Q15M PRN IV Till BS 80 mg/dL or above x2; Start 06/18/17 at 19:00 Dextrose (D50w Syringe) 50 ml Q15M PRN IV Till BS 80 mg/dL or above x2; Start 06/18/17 at 19:00 Hydromorphone HCl (Dilaudid) 0.5 mg Q1HWA PRN IV PAIN Last administered on 00:35; Admin Dose 0.5 MG; Start 06/18/17 at 20:00 Hydromorphone HCl (Dilaudid) 1 mg Q4H PRN IV PAIN LEVEL 6-10 Last administered on 06/21/17 13:11; Admin Dose 1 MG; Start 06/18/17 at 20:00 Diagnostic Test (Pha) (Accu-Chek) 1 ea 02 XX Last administered on 06/22/17 02 :00; Admin Dose 1 EA; Start 06/21/17 at 02:00 Diagnostic Test (Pha) (Accu-Chek) 1 ea 02 XX Last administered on 06/22/17 02 :00; Admin Dose 1 EA; Start 06/21/17 at 02:00 Acetaminophen/ Hydrocodone Bitart ([place] (5/325)) 1 tab Q4H PRN PO PAIN LEVEL 4 -6 Last administered on 06/21/17 19:44; Admin Dose 1 TAB; Start 06/20/17 at 11:30 Metoprolol Tartrate (Lopressor) 5 mg Q4H PRN IV HR>110 Hold SBP<100 Last administered on 06/21/17 21:49; Admin Dose 5 MG; Start 06/20/17 at 14:00 Famotidine (Pepcid) 20 mg BID PO Last administered on 06/23/17 09:17; Admin Dose 20 MG; Start 06/20/17 at 21:00 Amiodarone HCl (Cordarone) 200 mg Q8 PO Last administered on 06/23/17 14:15; Admin Dose 200 MG; Start 06/21/17 at 14:00 Metoprolol Tartrate (Lopressor) 50 mg BID PO Last administered on 06/23/17 09 :17; Admin Dose 50 MG; Start 06/22/17 at 21:00 Insulin Glargine (Lantus) 25 unit DAILY@08 SC Last administered on 06/23/17t 09:40; Admin Dose 25 UNIT; Start 06/23/17 at 08:00 GIOVANNI GARCIA Jun 23, 2017 17:03
[2017-06-23] MEDS ORDERED: POTASSIUM CHLORIDE 20 MEQ POWDER FOR ORAL SOLN PO ONE (17:30)
[2017-06-24] VITALS (12 sets, daily range): BP systolic 113–141; BP diastolic 57–66; PULSE 69–86; RESP 17–22
[2017-06-24] MEDS: ALBUTEROL/IPRATROPIUM (NEB) 3 ML AMP HHN SCH ×4 (01:31→20:39)
[2017-06-24] MEDS: ACCU-CHEK XX SCH (02:00)
[2017-06-24] MEDS: AMIODARONE 200 MG TAB PO SCH ×2 (06:45→21:57)
[2017-06-24] MEDS: INSULIN ASPART [NOVOLOG] 3 ML PEN SC SCH ×7 (07:55→22:01)
[2017-06-24] MEDS: METOPROLOL 25 MG TAB PO SCH ×2 (08:05→21:57)
[2017-06-24] MEDS: ASPIRIN (EC) 81 MG TAB PO SCH (08:05)
[2017-06-24] MEDS: FAMOTIDINE 20 MG TAB PO SCH ×2 (08:05→21:56)
[2017-06-24] MEDS: INSULIN GLARGINE [LANtus] 3 ML PEN SC SCH (08:20)
[2017-06-24 08:41] LABS: BASOPHIL # 0.1 10^3/ul (0.0-0.1); BASOPHILS % 0.8 % (0.0-2.0); EOSINOPHILS # 0.2 10^3/ul (0.0-0.5); HEMATOCRIT 30.6 % (42.0-52.0); LYMPHOCYTES # 2.3 10^3/ul (0.8-2.9); LYMPHOCYTES % 21.2 % (15.0-51.0); MEAN CORPUSCULAR HEMOGLOBIN 29.9 pg (29.0-33.0); MEAN CORPUSCULAR HGB CONC 32.7 g/dl (32.0-37.0); MEAN CORPUSCULAR VOLUME 91.3 fl (82.0-101.0); MEAN PLATELET VOLUME 11.5 fl (7.4-10.4); MONOCYTE # 1.1 10^3/ul (0.3-0.9); NEUTROPHIL # 6.9 10^3/ul (1.6-7.5); NEUTROPHILS % 64.2 % (39.0-77.0); PLATELET COUNT 280 10^3/UL (140-415); POSITIVE DIFF @See below; RED BLOOD COUNT 3.35 10^6/ul (4.70-6.10); RED CELL DISTRIBUTION WIDTH 14.6 % (11.5-14.5); WHITE BLOOD COUNT 10.8 10^3/ul (4.8-10.8)
[2017-06-24 09:20] LABS: CALCIUM 9.6 mg/dl (8.4-10.2); CREATININE 0.9 mg/dl (0.61-1.24)
[2017-06-24 09:55] LABS: ANISOCYTOSIS 1+ (0-0); EOSINOPHILS % (M) 2 % (0-7); GIANT THROMBO% (M) 1 % (0-0); MICROCYTOSIS 1+ (0-0); MONOCYTES % (M) 8 % (0-11); PLATELET ESTIMATE NORMAL; POIKILOCYTOSIS 1+ (0-0); POLYCHROMASIA 2+ (0-0); REACTIVE LYMPHOCYTES% (M) 2 % (0-0)
--- NOTE | 2017-06-24 13:46 | CONS ---
Date/Time of Note Date/Time of Note DATE: 06/24/17 TIME: 13:41 Assessment/Plan Assessment/Plan Chief Complaint/Hosp Course IMP: 1.cad-mutivessel obstructive by cath this admission. POD#6 s/p cabg x 3 2.Hypotension-now improved 3.HL 4.DM 5. anemia 6.Hypernatremia 7. PAF with RVR-Now back IN SR and tremains Recc; -Tele -continue asa -Increase dose of BB to improve BP/HR control -Continue po amiodarone now q12 for now and follow LFT's/bilis which are downtrending -Dose lasix and follow volume status Problems: Consultation Date/Type/Reason Admit Date/Time Jun 15, 2017 at 12:05 Initial Consult Date 06/11/2017 Type of Consultation: cardiology Reason for Consultation cad s/p cabg Referring Provider: SOFIYA ARORA MD Exam/Review of Systems Vital Signs Vitals Vital Signs Date Time Temp Pulse Resp B/P Pulse Ox O2 Delivery O2 Flow Rate FiO2 06/24/17 12:10 73 06/24/17 11:50 97.9 18 113/58 94 06/24/17 09:11 21 06/23/17 11:30 2.0 06/23/17 05:00 Room Air Intake and Output 06/23/17 06/23/17 06/24/17 15:00 23:00 07:00 Intake Total 800 ml 240 ml Output Total 600 ml 400 ml Balance 200 ml -160 ml Exam Review of Systems: CONSTITUTIONAL: No fevers, chills. PULMONARY: No sob CARDIOVASCULAR: No chest pain/palpitations GASTROINTESTINAL: No nausea/vomiting. GENITOURINARY: No hematuria/dysuria. MUSCULOSKELETAL: No myagias/arthalgias. PSYCHIATRIC: The patient denies depression. NEUROLOGIC: mild generalized weakness Constitutional: alert Psych: no complaints Head: normocephalic ENMT: mucosa pink and moist Neck: jvd, supple Respiratory: diminished breath sounds Cardiovascular: regular rate and rhythm Gastrointestinal: non-tender, soft Musculoskeletal: muscle tone Extremities: normal pulses Neurological: other (no focal deficits) Results Result Diagram: 06/24/17 0727 06/24/17 0727 Results 24 hrs Laboratory Tests Test 06/23/17 17:14 06/23/17 20:20 06/24/17 07:27 06/24/17 08:02 Bedside Glucose 204 169 138 White Blood Count 10.8 # Red Blood Count 3.35 L Hemoglobin 10.0 L Hematocrit 30.6 L Mean Corpuscular Volume 91.3 Mean Corpuscular Hemoglobin 29.9 Mean Corpuscular Hemoglobin Concent 32.7 Red Cell Distribution Width 14.6 H Platelet Count 280 # Mean Platelet Volume 11.5 H Neutrophils % 64.2 Segmented Neutrophils % (Manual) 71 Band Neutrophils % (Manual) 3 Lymphocytes % 21.2 Lymphocytes % (Manual) 14 L Reactive Lymphocytes % (Manual) 2 H Monocytes % 10.0 Monocytes % (Manual) 8 Eosinophils % 2.0 Eosinophils % (Manual) 2 Basophils % 0.8 Nucleated Red Blood Cells % 0.0 Neutrophils # 6.9 Neutrophils # (Manual) 7.7 H Band Neutrophils # 0.3 Absolute Lymphocytes (Manual) 1.5 Lymphocytes # 2.3 Reactive Lymphocytes # 0.2 H Monocytes # 1.1 H Absolute Monocytes (Manual) 0.8 Eosinophils # 0.2 Basophils # 0.1 Nucleated Red Blood Cells # 0.0 Platelet Estimate NORMAL Giant Platelets 1 H Polychromasia 2+ Poikilocytosis 1+ Anisocytosis 1+ Microcytosis 1+ Sodium Level 141 Potassium Level 4.0 Chloride Level 103 Carbon Dioxide Level 31 Anion Gap 11 Blood Urea Nitrogen 20 Creatinine 0.90 Glucose Level 130 # Calcium Level 9.6 Test 06/24/17 12:26 Bedside Glucose 182 Medications Medications Current Medications Acetaminophen (Tylenol Tab) 650 mg Q4H PRN PO NON-CARDIAC PAIN LEVEL (1-3) Last administered on 06/20/17t 04:24; Admin Dose 650 MG; Start 06/11/17 at 10: 30 Al Hydrox/Mg Hydrox/Simethicone (Mag-Al Plus) 30 ml Q4H PRN PO GASTROINTESTINAL UPSET; Start 06/11/17 at 10:30 Ondansetron HCl (Zofran Inj) 4 mg Q4H PRN IV NAUSEA AND/OR VOMITING; Start 06/11/17 at 10:30 Miscellaneous Information 1 ea NOTE XX ; Start 06/11/17 at 19:30 Glucose (Glutose) 15 gm Q15M PRN PO DECREASED GLUCOSE; Start 06/11/17 at 19:30 Glucose (Glutose) 22.5 gm Q15M PRN PO DECREASED GLUCOSE; Start 06/11/17 at 19: 30 Dextrose (D50w Syringe) 25 ml Q15M PRN IV DECREASED GLUCOSE; Start 06/11/17 at 19:30 Dextrose (D50w Syringe) 50 ml Q15M PRN IV DECREASED GLUCOSE; Start 06/11/17 at 19:30 Glucagon (Glucagen) 1 mg Q15M PRN IM DECREASED GLUCOSE; Start 06/11/17 at 19:30 Glucose (Glutose) 15 gm Q15M PRN BUCCAL DECREASED GLUCOSE; Start 06/11/17 at 19 :30 Hydralazine HCl (Apresoline) 10 mg Q6H PRN IV ELEVATED SYSTOLIC BP; Start 06/11 at 20:30 Aspirin (Halfprin) 81 mg DAILY PO Last administered on 06/24/17 08:05; Admin Dose 81 MG; Start 06/12/17 at 09:00 Atorvastatin Calcium (Lipitor) 40 mg QHS PO Last administered on 06/17/17 21: 29; Admin Dose 40 MG; Start 06/11/17 at 21:00; Status Future Hold Diclofenac Sodium (Voltaren) 50 mg TID PO Last administered on 06/16/17 20:44 ; Admin Dose 50 MG; Start 06/11/17 at 21:00; Status Future Hold Docusate Sodium (Colace) 100 mg DAILY PRN PO CONSTIPATION Last administered on 06/20/17 08:00; Admin Dose 100 MG; Start 06/11/17 at 20:30 Doxazosin Mesylate (Cardura) 2 mg HS PO Last administered on 06/17/17 21:28; Admin Dose 2 MG; Start 06/11/17 at 21:00; Status Future Hold Folic Acid (Folic Acid) 1 mg DAILY PO Last administered on 06/17/17 08:36; Admin Dose 1 MG; Start 06/12/17 at 09:00; Status Future Hold Isosorbide Mononitrate (Imdur) 120 mg DAILY PO Last administered on 06/17/17 08:37; Admin Dose 120 MG; Start 06/12/17 at 09:00; Status Future Hold Linagliptin (Tradjenta) 5 mg DAILY PO Last administered on 06/17/17 08:35; Admin Dose 5 MG; Start 06/12/17 at 14:30; Status Future Hold Morphine Sulfate 2 mg 2 mg Q4H PRN IV pain Last administered on 06/21/17 00: 58; Admin Dose 2 MG; Start 06/14/17 at 12:00 Magnesium Sulfate/ Dextrose (Magnesium Sulfate 1 Gm/D5W) 100 ml @ 100 mls/hr PRN PRN IVPB PENDING LAB VALUE; Start 06/18/17 at 15:30 Dextrose (D50w Syringe) 25 ml Q15M PRN IV Till BS 80 mg/dL or above x2; Start 06/18/17 at 19:00 Dextrose (D50w Syringe) 50 ml Q15M PRN IV Till BS 80 mg/dL or above x2; Start 06/18/17 at 19:00 Hydromorphone HCl (Dilaudid) 0.5 mg Q1HWA PRN IV PAIN Last administered on 00:35; Admin Dose 0.5 MG; Start 06/18/17 at 20:00 Hydromorphone HCl (Dilaudid) 1 mg Q4H PRN IV PAIN LEVEL 6-10 Last administered on 06/21/17 13:11; Admin Dose 1 MG; Start 06/18/17 at 20:00 Diagnostic Test (Pha) (Accu-Chek) 1 ea 02 XX Last administered on 06/22/17 02 :00; Admin Dose 1 EA; Start 06/21/17 at 02:00 Acetaminophen/ Hydrocodone Bitart ([place] (5/325)) 1 tab Q4H PRN PO PAIN LEVEL 4 -6 Last administered on 06/21/17 19:44; Admin Dose 1 TAB; Start 06/20/17 at 11:30 Metoprolol Tartrate (Lopressor) 5 mg Q4H PRN IV HR>110 Hold SBP<100 Last administered on 06/21/17 21:49; Admin Dose 5 MG; Start 06/20/17 at 14:00 Famotidine (Pepcid) 20 mg BID PO Last administered on 06/24/17 08:05; Admin Dose 20 MG; Start 06/20/17 at 21:00 Amiodarone HCl (Cordarone) 200 mg Q8 PO Last administered on 06/24/17 06:45; Admin Dose 200 MG; Start 06/21/17 at 14:00 Metoprolol Tartrate (Lopressor) 50 mg BID PO Last administered on 06/24/17 08 :05; Admin Dose 50 MG; Start 06/22/17 at 21:00 Insulin Glargine (Lantus) 25 unit DAILY@08 SC Last administered on 06/24/17 08:20; Admin Dose 25 UNIT; Start 06/23/17 at 08:00 BETY MEADOWS Jun 24, 2017 13:46
--- NOTE | 2017-06-24 14:26 | PN ---
Date/Time of Note Date/Time of Note DATE: 06/24/17 TIME: 14:25 Assessment/Plan Lines/Catheters IV Catheter Type (from Nrsg): Saline Lock Marlow in Place (from Nrsg): No Assessment/Plan Chief Complaint/Hosp Course IMPRESSION: Three-vessel coronary artery disease. SP coronary artery bypass grafting. on Tomorrow Stable post OP CT DCed DC planning Discussed with the referring physicians and the patient. Problems: Subjective 24 Hr Interval Summary Constitutional: improved Pain Control: mild Exam/Review of Systems Vital Signs Vitals Vital Signs Date Time Temp Pulse Resp B/P Pulse Ox O2 Delivery O2 Flow Rate FiO2 06/24/17 12:10 73 06/24/17 11:50 97.9 18 113/58 94 06/24/17 09:11 21 06/23/17 11:30 2.0 06/23/17 05:00 Room Air Intake and Output 06/23/17 06/23/17 06/24/17 15:00 23:00 07:00 Intake Total 800 ml 240 ml Output Total 600 ml 400 ml Balance 200 ml -160 ml Exam ENMT: mucosa pink and moist, nl external ears & nose, nl lips & teeth, nl nasal mucosa & septum Neck: non-tender, supple Respiratory: clear to auscultation, normal air movement Cardiovascular: nl pulses, regular rate and rhythm Results Result Diagram: 06/24/17 0727 06/24/17 0727 SAJI RICH MD Jun 24, 2017 14:26
--- NOTE | 2017-06-24 15:27 | RADRPT ---
PROCEDURE: US Lower extremity Venous. CLINICAL INDICATION: Bilateral lower extremity edema TECHNIQUE: Multiple sonographic images of the bilateral lower extremity deep venous system was obt ained utilizing grayscale, color-flow, compressive sonography and doppler imaging with augmentation. The images were reviewed on a PACS workstation. COMPARISON: None. FINDINGS: There is normal compressibility and flow within the bilateral common femoral, femoral , posterior ti bial and popliteal veins. The left peroneal vein is not compressible, consistent with DVT. The right peroneal vein is patent. RPTAT: AA IMPRESSION: Left peroneal vein DVT. A call report was made and the findings discussed with Dr. Riley's office staff [facility] at 06/24/20 17 3:25:34 PM. .Colin Paul MD, Date Time Electronically viewed and signed by .Colin Paul MD, on 06/24/2017 15:27 .S/
--- NOTE | 2017-06-24 16:21 | PN ---
Date/Time of Note Date/Time of Note DATE: 06/24/17 TIME: 16:18 Assessment/Plan VTE Prophylaxis VTE Prophylaxis Intervention: SCD's Lines/Catheters IV [facility]ter Type [facility]from [facility] [place] [employer] line still needed: Yes Urinary Cath still in place: No Assessment/Plan Chief Complaint/Hosp Course Patient with increased bilateral lower extremities edema, continue IV Lasix, monitor electrolytes. Patient denies any chest pain denies shortness of breath. Patient's condition and plan of care discussed with patient and patient 's son at the bedside. Patient will benefit from acute rehab upon discharge however patient stated he would rather go home. 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 Riley on 06/11. Dr Christensen is following in cardiac surgery, S/p CABG with OLIVARES to LAD, SVG to R1, SVG to PDA. Continue cardiology and thoracic surgery recommendations. -Hypertension -Hyperlipidemia -Diabetes mellitus with hemoglobin A1c 6.9, continue Lantus and NovoLog -Bilateral carotid stenosis 50-69% Further recommendations based on clinical course. Plan of care discussed with Dr. Mariscal Problems: Exam/Review of Systems Vital Signs Vitals Vital Signs Date Time Temp Pulse Resp B/P Pulse Ox O2 Delivery O2 Flow Rate FiO2 06/24/17 15:41 75 20 94 21 06/24/17 15:00 98.1 134/57 06/23/17 11:30 2.0 06/23/17 05:00 Room Air Intake and Output 06/23/17 06/23/17 06/24/17 14:59 22:59 06:59 Intake Total 800 ml 240 ml Output Total 600 ml 400 ml Balance 200 ml -160 ml Exam Constitutional: alert, oriented Head: normocephalic Neck: supple Respiratory: normal air movement Cardiovascular: nl pulses, other (Status post CABG), regular rate and rhythm Gastrointestinal: non-tender, soft Extremities: normal pulses, other (Left lower extremity status post surgery) Neurological: nl mental status Results Result Diagram: 06/24/17 0727 06/24/17 0727 Results 24 hrs Laboratory Tests Test 06/23/17 17:14 06/23/17 20:20 06/24/17 07:27 06/24/17 08:02 Bedside Glucose 204 169 138 White Blood Count 10.8 # Red Blood Count 3.35 L Hemoglobin 10.0 L Hematocrit 30.6 L Mean Corpuscular Volume 91.3 Mean Corpuscular Hemoglobin 29.9 Mean Corpuscular Hemoglobin Concent 32.7 Red Cell Distribution Width 14.6 H Platelet Count 280 # Mean Platelet Volume 11.5 H Neutrophils % 64.2 Segmented Neutrophils % (Manual) 71 Band Neutrophils % (Manual) 3 Lymphocytes % 21.2 Lymphocytes % (Manual) 14 L Reactive Lymphocytes % (Manual) 2 H Monocytes % 10.0 Monocytes % (Manual) 8 Eosinophils % 2.0 Eosinophils % (Manual) 2 Basophils % 0.8 Nucleated Red Blood Cells % 0.0 Neutrophils # 6.9 Neutrophils # (Manual) 7.7 H Band Neutrophils # 0.3 Absolute Lymphocytes (Manual) 1.5 Lymphocytes # 2.3 Reactive Lymphocytes # 0.2 H Monocytes # 1.1 H Absolute Monocytes (Manual) 0.8 Eosinophils # 0.2 Basophils # 0.1 Nucleated Red Blood Cells # 0.0 Platelet Estimate NORMAL Giant Platelets 1 H Polychromasia 2+ Poikilocytosis 1+ Anisocytosis 1+ Microcytosis 1+ Sodium Level 141 Potassium Level 4.0 Chloride Level 103 Carbon Dioxide Level 31 Anion Gap 11 Blood Urea Nitrogen 20 Creatinine 0.90 Glucose Level 130 # Calcium Level 9.6 Test 06/24/17 12:26 Bedside Glucose 182 Medications Medications Current Medications Acetaminophen (Tylenol Tab) 650 mg Q4H PRN PO NON-CARDIAC PAIN LEVEL (1-3) Last administered on 06/20/17t 04:24; Admin Dose 650 MG; Start 06/11/17 at 10: 30 Al Hydrox/Mg Hydrox/Simethicone (Mag-Al Plus) 30 ml Q4H PRN PO GASTROINTESTINAL UPSET; Start 06/11/17 at 10:30 Ondansetron HCl (Zofran Inj) 4 mg Q4H PRN IV NAUSEA AND/OR VOMITING; Start 06/11/17 at 10:30 Miscellaneous Information 1 ea NOTE XX ; Start 06/11/17 at 19:30 Glucose (Glutose) 15 gm Q15M PRN PO DECREASED GLUCOSE; Start 06/11/17 at 19:30 Glucose (Glutose) 22.5 gm Q15M PRN PO DECREASED GLUCOSE; Start 06/11/17 at 19: 30 Dextrose (D50w Syringe) 25 ml Q15M PRN IV DECREASED GLUCOSE; Start 06/11/17 at 19:30 Dextrose (D50w Syringe) 50 ml Q15M PRN IV DECREASED GLUCOSE; Start 06/11/17 at 19:30 Glucagon (Glucagen) 1 mg Q15M PRN IM DECREASED GLUCOSE; Start 06/11/17 at 19:30 Glucose (Glutose) 15 gm Q15M PRN BUCCAL DECREASED GLUCOSE; Start 06/11/17 at 19 :30 Hydralazine HCl (Apresoline) 10 mg Q6H PRN IV ELEVATED SYSTOLIC BP; Start 06/11 at 20:30 Aspirin (Halfprin) 81 mg DAILY PO Last administered on 06/24/17 08:05; Admin Dose 81 MG; Start 06/12/17 at 09:00 Atorvastatin Calcium (Lipitor) 40 mg QHS PO Last administered on 06/17/17 21: 29; Admin Dose 40 MG; Start 06/11/17 at 21:00; Status Future Hold Diclofenac Sodium (Voltaren) 50 mg TID PO Last administered on 06/16/17 20:44 ; Admin Dose 50 MG; Start 06/11/17 at 21:00; Status Future Hold Docusate Sodium (Colace) 100 mg DAILY PRN PO CONSTIPATION Last administered on 06/20/17 08:00; Admin Dose 100 MG; Start 06/11/17 at 20:30 Doxazosin Mesylate (Cardura) 2 mg HS PO Last administered on 06/17/17 21:28; Admin Dose 2 MG; Start 06/11/17 at 21:00; Status Future Hold Folic Acid (Folic Acid) 1 mg DAILY PO Last administered on 06/17/17 08:36; Admin Dose 1 MG; Start 06/12/17 at 09:00; Status Future Hold Isosorbide Mononitrate (Imdur) 120 mg DAILY PO Last administered on 06/17/17 08:37; Admin Dose 120 MG; Start 06/12/17 at 09:00; Status Future Hold Linagliptin (Tradjenta) 5 mg DAILY PO Last administered on 06/17/17 08:35; Admin Dose 5 MG; Start 06/12/17 at 14:30; Status Future Hold Morphine Sulfate 2 mg 2 mg Q4H PRN IV pain Last administered on 06/21/17 00: 58; Admin Dose 2 MG; Start 06/14/17 at 12:00 Magnesium Sulfate/ Dextrose (Magnesium Sulfate 1 Gm/D5W) 100 ml @ 100 mls/hr PRN PRN IVPB PENDING LAB VALUE; Start 06/18/17 at 15:30 Dextrose (D50w Syringe) 25 ml Q15M PRN IV Till BS 80 mg/dL or above x2; Start 06/18/17 at 19:00 Dextrose (D50w Syringe) 50 ml Q15M PRN IV Till BS 80 mg/dL or above x2; Start 06/18/17 at 19:00 Hydromorphone HCl (Dilaudid) 0.5 mg Q1HWA PRN IV PAIN Last administered on 00:35; Admin Dose 0.5 MG; Start 06/18/17 at 20:00 Hydromorphone HCl (Dilaudid) 1 mg Q4H PRN IV PAIN LEVEL 6-10 Last administered on 06/21/17 13:11; Admin Dose 1 MG; Start 06/18/17 at 20:00 Diagnostic Test (Pha) (Accu-Chek) 1 ea 02 XX Last administered on 06/22/17 02 :00; Admin Dose 1 EA; Start 06/21/17 at 02:00 Acetaminophen/ Hydrocodone Bitart ([place] (5/325)) 1 tab Q4H PRN PO PAIN LEVEL 4 -6 Last administered on 06/21/17 19:44; Admin Dose 1 TAB; Start 06/20/17 at 11:30 Metoprolol Tartrate (Lopressor) 5 mg Q4H PRN IV HR>110 Hold SBP<100 Last administered on 06/21/17 21:49; Admin Dose 5 MG; Start 06/20/17 at 14:00 Famotidine (Pepcid) 20 mg BID PO Last administered on 06/24/17 08:05; Admin Dose 20 MG; Start 06/20/17 at 21:00 Metoprolol Tartrate (Lopressor) 50 mg BID PO Last administered on 06/24/17 08 :05; Admin Dose 50 MG; Start 06/22/17 at 21:00 Insulin Glargine (Lantus) 25 unit DAILY@08 SC Last administered on 06/24/17t 08:20; Admin Dose 25 UNIT; Start 06/23/17 at 08:00 Amiodarone HCl (Cordarone) 200 mg Q12 PO ; Start 06/24/17 at 21:00 Furosemide (Lasix) 20 mg DAILY IV ; Start 06/25/17 at 09:00 GIOVANNI GARCIA Jun 24, 2017 16:21
[2017-06-25] VITALS (10 sets, daily range): BP systolic 91–132; BP diastolic 53–68; PULSE 69–116; RESP 16–18
[2017-06-25] MEDS: ALBUTEROL/IPRATROPIUM (NEB) 3 ML AMP HHN SCH ×4 (01:34→19:57)
[2017-06-25] MEDS: ACCU-CHEK XX SCH (02:00)
[2017-06-25] MEDS: ASPIRIN (EC) 81 MG TAB PO SCH (08:16)
[2017-06-25] MEDS: FAMOTIDINE 20 MG TAB PO SCH ×2 (08:16→20:53)
[2017-06-25] MEDS: AMIODARONE 200 MG TAB PO SCH ×2 (08:18→21:00)
[2017-06-25] MEDS: METOPROLOL 25 MG TAB PO SCH ×2 (08:18→21:00)
[2017-06-25] MEDS: FUROSEMIDE 20 MG INJ IV SCH ×2 (08:19→12:03)
[2017-06-25 08:22] LABS: BASOPHIL # 0.1 10^3/ul (0.0-0.1); BASOPHILS % 0.6 % (0.0-2.0); EOSINOPHILS # 0.2 10^3/ul (0.0-0.5); EOSINOPHILS % 1.3 % (0.0-7.0); HEMATOCRIT 31.1 % (42.0-52.0); HEMOGLOBIN 10.1 g/dl (14.0-18.0); LYMPHOCYTES # 2.7 10^3/ul (0.8-2.9); LYMPHOCYTES % 21.4 % (15.0-51.0); MEAN CORPUSCULAR HEMOGLOBIN 29.6 pg (29.0-33.0); MEAN CORPUSCULAR HGB CONC 32.5 g/dl (32.0-37.0); MEAN CORPUSCULAR VOLUME 91.2 fl (82.0-101.0); MEAN PLATELET VOLUME 11.2 fl (7.4-10.4); NEUTROPHIL # 8.3 10^3/ul (1.6-7.5); NEUTROPHILS % 66.1 % (39.0-77.0); PLATELET COUNT 331 10^3/UL (140-415); POSITIVE DIFF @See below; RED BLOOD COUNT 3.41 10^6/ul (4.70-6.10); RED CELL DISTRIBUTION WIDTH 14.8 % (11.5-14.5); WHITE BLOOD COUNT 12.6 10^3/ul (4.8-10.8)
[2017-06-25] MEDS: INSULIN ASPART [NOVOLOG] 3 ML PEN SC SCH ×7 (08:27→20:54)
[2017-06-25] MEDS: INSULIN GLARGINE [LANtus] 3 ML PEN SC SCH (08:31)
[2017-06-25 08:43] LABS: ALBUMIN 2.7 g/dl (3.3-4.9); ALBUMIN/GLOBULIN RATIO 0.9; BILIRUBIN,INDIRECT 1.2 mg/dl (0-1.1); BILIRUBIN,INDIRECT 1.4 mg/dl (0-1.1); BILIRUBIN,TOTAL 1.2 mg/dl (0.2-1.3); BILIRUBIN,TOTAL 1.4 mg/dl (0.2-1.3); CALCIUM 9.7 mg/dl (8.4-10.2); CREATININE 0.95 mg/dl (0.61-1.24); POTASSIUM 4.4 mmol/L (3.5-5.1); TOTAL PROTEIN 5.7 g/dl (6.1-8.1); TOTAL PROTEIN 6.1 g/dl (6.1-8.1)
[2017-06-25] MEDS ORDERED: DIGOXIN 500 MCG INJ IV ONE (09:30)
--- NOTE | 2017-06-25 12:00 | CONS ---
Date/Time of Note Date/Time of Note DATE: 06/25/17 TIME: 11:59 Assessment/Plan Assessment/Plan Additional Assessment/Plan 1.cad-mutivessel obstructive by cath this admission. s/p cabg x 3 last week - doing well - ambulating now, no CP - pain controlled. DOING WELL. 2.Hypotension-borderline - stable on tele 3.HL 4.DM - on meds, keep euglycemic 5. anemia - h/h stable, no bleeding now 6.Hypernatremia - now with fliud retention, will Rx now. 7. PAF with RVR-Now back IN SR - in sinus on tele now 8. CHF - acute on chorionic spot lasix now. Consultation Date/Type/Reason Admit Date/Time Jun 15, 2017 at 12:05 Type of Consultation: cardiology Referring Provider: SOFIYA ARORA MD 24 HR Interval Summary Free Text/Dictation Much better overall - in good fluid status - will monitor now. ROS: No fever, no chills, no nausea, no vomiting, no diarrhea/constipation No recent weight changes No chest pain, no PND, no orthopnea No dizziness, blurred vision No thirst, no heat or cold intolerance Exam/Review of Systems Vital Signs Vitals Vital Signs Date Time Temp Pulse Resp B/P Pulse Ox O2 Delivery O2 Flow Rate FiO2 06/25/17 11:37 97.7 70 18 103/57 97 06/25/17 08:34 21 06/23/17 11:30 2.0 06/23/17 05:00 Room Air Intake and Output 06/24/17 06/24/17 06/25/17 15:00 23:00 07:00 Intake Total 1600 ml 900 ml Output Total 1500 ml 850 ml Balance 100 ml 50 ml Exam General: WN/WD/NAD, AOx 3 HEENT: Unicetric/atraumatic/EOMI (follow commands) NECK: JVD elevated, no thyromegaly Lymph: no lymphadenopathy HEART: regular with no S3, II/ systolic murmur at apex, scar LUNGS: Coarse sounds ABD: soft, NT, ND, +BS : Intact Neuro: non focal SKIN: chronic changes EXT: increased edema Results Result Diagram: 06/25/17 0716 06/25/17 0716 Results 24 hrs Laboratory Tests Test 06/24/17 12:26 06/24/17 17:21 06/24/17 21:47 06/25/17 02:05 Bedside Glucose 182 170 223 H 178 Test 06/25/17 07:16 06/25/17 08:15 White Blood Count 12.6 H Red Blood Count 3.41 L Hemoglobin 10.1 L Hematocrit 31.1 L Mean Corpuscular Volume 91.2 Mean Corpuscular Hemoglobin 29.6 Mean Corpuscular Hemoglobin Concent 32.5 Red Cell Distribution Width 14.8 H Platelet Count 331 Mean Platelet Volume 11.2 H Neutrophils % 66.1 Lymphocytes % 21.4 Monocytes % 8.0 Eosinophils % 1.3 Basophils % 0.6 Nucleated Red Blood Cells % 0.0 Neutrophils # 8.3 H Lymphocytes # 2.7 Monocytes # 1.0 H Eosinophils # 0.2 Basophils # 0.1 Nucleated Red Blood Cells # 0.0 Sodium Level 137 Potassium Level 4.4 Chloride Level 101 Carbon Dioxide Level 28 Anion Gap 12 Blood Urea Nitrogen 21 H Creatinine 0.95 Glucose Level 183 Calcium Level 9.7 Total Bilirubin 1.4 H Direct Bilirubin 0.00 Indirect Bilirubin 1.4 H Aspartate Amino Transf (AST/SGOT) 41 Alanine Aminotransferase (ALT/SGPT) 68 Alkaline Phosphatase 220 H Total Protein 5.7 L Albumin 2.7 L Globulin 3.00 Albumin/Globulin Ratio 0.90 Bedside Glucose 206 Medications Medications Current Medications Acetaminophen (Tylenol Tab) 650 mg Q4H PRN PO NON-CARDIAC PAIN LEVEL (1-3) Last administered on 06/20/17t 04:24; Admin Dose 650 MG; Start 06/11/17 at 10: 30 Al Hydrox/Mg Hydrox/Simethicone (Mag-Al Plus) 30 ml Q4H PRN PO GASTROINTESTINAL UPSET; Start 06/11/17 at 10:30 Ondansetron HCl (Zofran Inj) 4 mg Q4H PRN IV NAUSEA AND/OR VOMITING; Start 06/11/17 at 10:30 Miscellaneous Information 1 ea NOTE XX ; Start 06/11/17 at 19:30 Glucose (Glutose) 15 gm Q15M PRN PO DECREASED GLUCOSE; Start 06/11/17 at 19:30 Glucose (Glutose) 22.5 gm Q15M PRN PO DECREASED GLUCOSE; Start 06/11/17 at 19: 30 Dextrose (D50w Syringe) 25 ml Q15M PRN IV DECREASED GLUCOSE; Start 06/11/17 at 19:30 Dextrose (D50w Syringe) 50 ml Q15M PRN IV DECREASED GLUCOSE; Start 06/11/17 at 19:30 Glucagon (Glucagen) 1 mg Q15M PRN IM DECREASED GLUCOSE; Start 06/11/17 at 19:30 Glucose (Glutose) 15 gm Q15M PRN BUCCAL DECREASED GLUCOSE; Start 06/11/17 at 19 :30 Hydralazine HCl (Apresoline) 10 mg Q6H PRN IV ELEVATED SYSTOLIC BP; Start 06/11 at 20:30 Aspirin (Halfprin) 81 mg DAILY PO Last administered on 06/25/17 08:16; Admin Dose 81 MG; Start 06/12/17 at 09:00 Atorvastatin Calcium (Lipitor) 40 mg QHS PO Last administered on 06/17/17 21: 29; Admin Dose 40 MG; Start 06/11/17 at 21:00; Status Future Hold Diclofenac Sodium (Voltaren) 50 mg TID PO Last administered on 06/16/17 20:44 ; Admin Dose 50 MG; Start 06/11/17 at 21:00; Status Future Hold Docusate Sodium (Colace) 100 mg DAILY PRN PO CONSTIPATION Last administered on 06/20/17 08:00; Admin Dose 100 MG; Start 06/11/17 at 20:30 Doxazosin Mesylate (Cardura) 2 mg HS PO Last administered on 06/17/17 21:28; Admin Dose 2 MG; Start 06/11/17 at 21:00; Status Future Hold Folic Acid (Folic Acid) 1 mg DAILY PO Last administered on 06/17/17 08:36; Admin Dose 1 MG; Start 06/12/17 at 09:00; Status Future Hold Isosorbide Mononitrate (Imdur) 120 mg DAILY PO Last administered on 06/17/17 08:37; Admin Dose 120 MG; Start 06/12/17 at 09:00; Status Future Hold Linagliptin (Tradjenta) 5 mg DAILY PO Last administered on 06/17/17 08:35; Admin Dose 5 MG; Start 06/12/17 at 14:30; Status Future Hold Morphine Sulfate 2 mg 2 mg Q4H PRN IV pain Last administered on 06/21/17 00: 58; Admin Dose 2 MG; Start 06/14/17 at 12:00 Magnesium Sulfate/ Dextrose (Magnesium Sulfate 1 Gm/D5W) 100 ml @ 100 mls/hr PRN PRN IVPB PENDING LAB VALUE; Start 06/18/17 at 15:30 Dextrose (D50w Syringe) 25 ml Q15M PRN IV Till BS 80 mg/dL or above x2; Start 06/18/17 at 19:00 Dextrose (D50w Syringe) 50 ml Q15M PRN IV Till BS 80 mg/dL or above x2; Start 06/18/17 at 19:00 Hydromorphone HCl (Dilaudid) 0.5 mg Q1HWA PRN IV PAIN Last administered on 00:35; Admin Dose 0.5 MG; Start 06/18/17 at 20:00 Hydromorphone HCl (Dilaudid) 1 mg Q4H PRN IV PAIN LEVEL 6-10 Last administered on 06/21/17 13:11; Admin Dose 1 MG; Start 06/18/17 at 20:00 Diagnostic Test (Pha) (Accu-Chek) 1 ea 02 XX Last administered on 06/22/17 02 :00; Admin Dose 1 EA; Start 06/21/17 at 02:00 Acetaminophen/ Hydrocodone Bitart ([place] (5/325)) 1 tab Q4H PRN PO PAIN LEVEL 4 -6 Last administered on 06/21/17 19:44; Admin Dose 1 TAB; Start 06/20/17 at 11:30 Metoprolol Tartrate (Lopressor) 5 mg Q4H PRN IV HR>110 Hold SBP<100 Last administered on 06/21/17 21:49; Admin Dose 5 MG; Start 06/20/17 at 14:00 Famotidine (Pepcid) 20 mg BID PO Last administered on 06/25/17 08:16; Admin Dose 20 MG; Start 06/20/17 at 21:00 Metoprolol Tartrate (Lopressor) 50 mg BID PO Last administered on 06/25/17 08 :18; Admin Dose 50 MG; Start 06/22/17 at 21:00 Insulin Glargine (Lantus) 25 unit DAILY@08 SC Last administered on 06/25/17 08:31; Admin Dose 25 UNIT; Start 06/23/17 at 08:00 Amiodarone HCl (Cordarone) 200 mg Q12 PO Last administered on 06/25/17 08:18 ; Admin Dose 200 MG; Start 06/24/17 at 21:00 Furosemide (Lasix) 20 mg DAILY IV Last administered on 06/25/17 08:19; Admin Dose 20 MG; Start 06/25/17 at 09:00 YAZ DA SILVA MD Jun 25, 2017 12:00
[2017-06-25] MEDS: DOCUSATE SODIUM 100 MG CAP PO SCH (20:53)
[2017-06-26] VITALS (12 sets, daily range): BP systolic 115–148; BP diastolic 58–90; PULSE 68–81; RESP 18–20
[2017-06-26] MEDS: ACCU-CHEK XX SCH (02:00)
[2017-06-26] MEDS: ALBUTEROL/IPRATROPIUM (NEB) 3 ML AMP HHN SCH ×4 (02:16→19:46)
[2017-06-26] MEDS: FUROSEMIDE 20 MG INJ IV SCH ×3 (05:39→11:59)
[2017-06-26] MEDS: INSULIN ASPART [NOVOLOG] 3 ML PEN SC SCH ×7 (07:53→21:15)
[2017-06-26] MEDS: INSULIN GLARGINE [LANtus] 3 ML PEN SC SCH (07:54)
[2017-06-26] MEDS: METOPROLOL 25 MG TAB PO SCH ×2 (08:35→21:08)
[2017-06-26] MEDS: FAMOTIDINE 20 MG TAB PO SCH ×2 (08:35→21:07)
[2017-06-26] MEDS: DOCUSATE SODIUM 100 MG CAP PO SCH ×2 (08:36→21:07)
[2017-06-26] MEDS: AMIODARONE 200 MG TAB PO SCH ×2 (08:36→21:07)
[2017-06-26] MEDS: ASPIRIN (EC) 81 MG TAB PO SCH (08:36)
[2017-06-26 08:57] LABS: BASOPHIL # 0.1 10^3/ul (0.0-0.1); BASOPHILS % 0.9 % (0.0-2.0); EOSINOPHILS # 0.2 10^3/ul (0.0-0.5); EOSINOPHILS % 1.6 % (0.0-7.0); HEMATOCRIT 30.8 % (42.0-52.0); HEMOGLOBIN 9.9 g/dl (14.0-18.0); LYMPHOCYTES # 2.3 10^3/ul (0.8-2.9); LYMPHOCYTES % 20.8 % (15.0-51.0); MEAN CORPUSCULAR HEMOGLOBIN 29.8 pg (29.0-33.0); MEAN CORPUSCULAR HGB CONC 32.1 g/dl (32.0-37.0); MEAN CORPUSCULAR VOLUME 92.8 fl (82.0-101.0); MEAN PLATELET VOLUME 11.3 fl (7.4-10.4); MONOCYTE # 0.9 10^3/ul (0.3-0.9); MONOCYTES % 8.3 % (0.0-11.0); NEUTROPHIL # 7.3 10^3/ul (1.6-7.5); NEUTROPHILS % 65.4 % (39.0-77.0); PLATELET COUNT 394 10^3/UL (140-415); RED BLOOD COUNT 3.32 10^6/ul (4.70-6.10); RED CELL DISTRIBUTION WIDTH 14.9 % (11.5-14.5); WHITE BLOOD COUNT 11.2 10^3/ul (4.8-10.8)
[2017-06-26 09:15] LABS: CALCIUM 9.5 mg/dl (8.4-10.2); CREATININE 1.09 mg/dl (0.61-1.24); POTASSIUM 4.3 mmol/L (3.5-5.1)
--- NOTE | 2017-06-26 14:53 | CONS ---
Date/Time of Note Date/Time of Note DATE: 06/26/17 TIME: 14:50 Assessment/Plan Assessment/Plan Additional Assessment/Plan 1.cad-mutivessel obstructive by cath this admission. s/p cabg x 3 last week - doing well - ambulating now, no CP - pain controlled. DOING WELL. 2.Hypotension-borderline - stable on tele 3.HL 4.DM - on meds, keep euglycemic 5. anemia - h/h stable, no bleeding now 6.Hypernatremia - now with fliud retention, will Rx now. 7. PAF with RVR-Now back IN SR - in sinus on tele now 8. CHF - acute on chorionic spot lasix now. - INCREASED SWELLING, will restrict fluids and Lasix 40 bid IV x 2 days now Consultation Date/Type/Reason Admit Date/Time Jun 15, 2017 at 12:05 Type of Consultation: cardiology Referring Provider: SOFIYA ARORA MD 24 HR Interval Summary Free Text/Dictation NO acute change - increased LE edema - will increase Lasix IV now. ROS: No fever, no chills, no nausea, no vomiting, no diarrhea/constipation No recent weight changes No chest pain, no PND, no orthopnea No dizziness, blurred vision No thirst, no heat or cold intolerance Exam/Review of Systems Vital Signs Vitals Vital Signs Date Time Temp Pulse Resp B/P Pulse Ox O2 Delivery O2 Flow Rate FiO2 06/26/17 14:08 21 06/26/17 12:14 78 06/26/17 11:19 97.6 18 133/74 96 06/23/17 11:30 2.0 06/23/17 05:00 Room Air Intake and Output 06/25/17 06/25/17 06/26/17 15:00 23:00 07:00 Intake Total 800 ml 850 ml Output Total 830 ml 900 ml Balance -30 ml -50 ml Exam General: WN/WD/NAD, AOx 3 HEENT: Unicetric/atraumatic/EOMI (follow commands) NECK: JVD elevated, no thyromegaly Lymph: no lymphadenopathy HEART: regular with no S3, II/ systolic murmur at apex LUNGS: Coarse sounds ABD: soft, NT, ND, +BS : Intact Neuro: non focal SKIN: chronic changes EXT: 2+ edema Results Result Diagram: 06/26/17 0656 06/26/17 0656 Results 24 hrs Laboratory Tests Test 06/25/17 17:18 06/25/17 20:37 06/26/17 06:56 06/26/17 07:47 Bedside Glucose 119 144 196 White Blood Count 11.2 H Red Blood Count 3.32 L Hemoglobin 9.9 L Hematocrit 30.8 L Mean Corpuscular Volume 92.8 Mean Corpuscular Hemoglobin 29.8 Mean Corpuscular Hemoglobin Concent 32.1 Red Cell Distribution Width 14.9 H Platelet Count 394 Mean Platelet Volume 11.3 H Neutrophils % 65.4 Lymphocytes % 20.8 Monocytes % 8.3 Eosinophils % 1.6 Basophils % 0.9 Nucleated Red Blood Cells % 0.0 Neutrophils # 7.3 Lymphocytes # 2.3 Monocytes # 0.9 Eosinophils # 0.2 Basophils # 0.1 Nucleated Red Blood Cells # 0.0 Sodium Level 136 Potassium Level 4.3 Chloride Level 97 Carbon Dioxide Level 28 Anion Gap 15 Blood Urea Nitrogen 24 H Creatinine 1.09 Glucose Level 203 Calcium Level 9.5 Test 06/26/17 11:54 Bedside Glucose 189 Medications Medications Current Medications Acetaminophen (Tylenol Tab) 650 mg Q4H PRN PO NON-CARDIAC PAIN LEVEL (1-3) Last administered on 06/20/17t 04:24; Admin Dose 650 MG; Start 06/11/17 at 10: 30 Al Hydrox/Mg Hydrox/Simethicone (Mag-Al Plus) 30 ml Q4H PRN PO GASTROINTESTINAL UPSET; Start 06/11/17 at 10:30 Ondansetron HCl (Zofran Inj) 4 mg Q4H PRN IV NAUSEA AND/OR VOMITING; Start 06/11/17 at 10:30 Miscellaneous Information 1 ea NOTE XX ; Start 06/11/17 at 19:30 Glucose (Glutose) 15 gm Q15M PRN PO DECREASED GLUCOSE; Start 06/11/17 at 19:30 Glucose (Glutose) 22.5 gm Q15M PRN PO DECREASED GLUCOSE; Start 06/11/17 at 19: 30 Dextrose (D50w Syringe) 25 ml Q15M PRN IV DECREASED GLUCOSE; Start 06/11/17 at 19:30 Dextrose (D50w Syringe) 50 ml Q15M PRN IV DECREASED GLUCOSE; Start 06/11/17 at 19:30 Glucagon (Glucagen) 1 mg Q15M PRN IM DECREASED GLUCOSE; Start 06/11/17 at 19:30 Glucose (Glutose) 15 gm Q15M PRN BUCCAL DECREASED GLUCOSE; Start 06/11/17 at 19 :30 Hydralazine HCl (Apresoline) 10 mg Q6H PRN IV ELEVATED SYSTOLIC BP; Start 06/11 at 20:30 Aspirin (Halfprin) 81 mg DAILY PO Last administered on 06/26/17 08:36; Admin Dose 81 MG; Start 06/12/17 at 09:00 Atorvastatin Calcium (Lipitor) 40 mg QHS PO Last administered on 06/17/17 21: 29; Admin Dose 40 MG; Start 06/11/17 at 21:00; Status Future Hold Diclofenac Sodium (Voltaren) 50 mg TID PO Last administered on 06/16/17 20:44 ; Admin Dose 50 MG; Start 06/11/17 at 21:00; Status Future Hold Doxazosin Mesylate (Cardura) 2 mg HS PO Last administered on 06/17/17 21:28; Admin Dose 2 MG; Start 06/11/17 at 21:00; Status Future Hold Folic Acid (Folic Acid) 1 mg DAILY PO Last administered on 06/17/17 08:36; Admin Dose 1 MG; Start 06/12/17 at 09:00; Status Future Hold Isosorbide Mononitrate (Imdur) 120 mg DAILY PO Last administered on 06/17/17 08:37; Admin Dose 120 MG; Start 06/12/17 at 09:00; Status Future Hold Linagliptin (Tradjenta) 5 mg DAILY PO Last administered on 06/17/17 08:35; Admin Dose 5 MG; Start 06/12/17 at 14:30; Status Future Hold Morphine Sulfate 2 mg 2 mg Q4H PRN IV pain Last administered on 06/21/17 00: 58; Admin Dose 2 MG; Start 06/14/17 at 12:00 Magnesium Sulfate/ Dextrose (Magnesium Sulfate 1 Gm/D5W) 100 ml @ 100 mls/hr PRN PRN IVPB PENDING LAB VALUE; Start 06/18/17 at 15:30 Dextrose (D50w Syringe) 25 ml Q15M PRN IV Till BS 80 mg/dL or above x2; Start 06/18/17 at 19:00 Dextrose (D50w Syringe) 50 ml Q15M PRN IV Till BS 80 mg/dL or above x2; Start 06/18/17 at 19:00 Hydromorphone HCl (Dilaudid) 0.5 mg Q1HWA PRN IV PAIN Last administered on 00:35; Admin Dose 0.5 MG; Start 06/18/17 at 20:00 Hydromorphone HCl (Dilaudid) 1 mg Q4H PRN IV PAIN LEVEL 6-10 Last administered on 06/21/17 13:11; Admin Dose 1 MG; Start 06/18/17 at 20:00 Diagnostic Test (Pha) (Accu-Chek) 1 ea 02 XX Last administered on 06/22/17 02 :00; Admin Dose 1 EA; Start 06/21/17 at 02:00 Acetaminophen/ Hydrocodone Bitart ([place] (5/325)) 1 tab Q4H PRN PO PAIN LEVEL 4 -6 Last administered on 06/21/17 19:44; Admin Dose 1 TAB; Start 06/20/17 at 11:30 Metoprolol Tartrate (Lopressor) 5 mg Q4H PRN IV HR>110 Hold SBP<100 Last administered on 06/21/17 21:49; Admin Dose 5 MG; Start 06/20/17 at 14:00 Famotidine (Pepcid) 20 mg BID PO Last administered on 06/26/17 08:35; Admin Dose 20 MG; Start 06/20/17 at 21:00 Metoprolol Tartrate (Lopressor) 50 mg BID PO Last administered on 06/26/17 08 :35; Admin Dose 50 MG; Start 06/22/17 at 21:00 Insulin Glargine (Lantus) 25 unit DAILY@08 SC Last administered on 06/26/17 07:54; Admin Dose 25 UNIT; Start 06/23/17 at 08:00 Amiodarone HCl (Cordarone) 200 mg Q12 PO Last administered on 06/26/17 08:36 ; Admin Dose 200 MG; Start 06/24/17 at 21:00 Furosemide (Lasix) 20 mg BID@06,12 IV Last administered on 06/26/17 05:39; Admin Dose 20 MG; Start 06/25/17 at 12:03 Docusate Sodium (Colace) 100 mg BID PO Last administered on 06/26/17t 08:36; Admin Dose 100 MG; Start 06/25/17 at 21:00 YAZ DA SILVA MD Jun 26, 2017 14:53
--- NOTE | 2017-06-26 15:40 | PN ---
Date/Time of Note Date/Time of Note DATE: 06/26/17 TIME: 15:39 Assessment/Plan VTE Prophylaxis VTE Prophylaxis Intervention: SCD's Lines/Catheters [facility] Urinary Cath still in place: No Assessment/Plan Chief Complaint/Hosp Course Patient with worsening of bilateral lower extremities edema, patient is encouraged to elevate extremities however stated it is hard due to chronic back pain. Discussed with cardiology will increase Lasix to 40 IV twice daily for 2 days restrict fluids to 1.5 L per day. Plan of care discussed with patient and patient's son at the bedside. 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 Riley on 06/11. Dr Christensen is following in cardiac surgery, S/p CABG with OLIVARES to LAD, SVG to R1, SVG to PDA. Continue cardiology and thoracic surgery recommendations. Continue aspirin. -Hypertension, continue metoprolol. -Hyperlipidemia -Diabetes mellitus with hemoglobin A1c 6.9, continue Lantus and pre-meal NovoLog. -Bilateral carotid stenosis 50-69% Further recommendations based on clinical course. Plan of care discussed with Dr. Mariscal Problems: Exam/Review of Systems Vital Signs Vitals Vital Signs Date Time Temp Pulse Resp B/P Pulse Ox O2 Delivery O2 Flow Rate FiO2 06/26/17 14:08 21 06/26/17 12:14 78 06/26/17 11:19 97.6 18 133/74 96 06/23/17 11:30 2.0 06/23/17 05:00 Room Air Intake and Output 06/25/17 06/25/17 06/26/17 15:00 23:00 07:00 Intake Total 800 ml 850 ml Output Total 830 ml 900 ml Balance -30 ml -50 ml Exam Constitutional: alert, oriented Head: normocephalic Neck: supple Respiratory: normal air movement Cardiovascular: nl pulses, other (Status post CABG), regular rate and rhythm Gastrointestinal: non-tender, soft Extremities: normal pulses, other (Left lower extremity status post surgery) edema Neurological: nl mental status Results Result Diagram: 06/26/17 0656 06/26/17 0656 Results 24 hrs Laboratory Tests Test 06/25/17 17:18 11/23/17 20:37 06/26/17 06:56 06/26/17 07:47 Bedside Glucose 119 144 196 White Blood Count 11.2 H Red Blood Count 3.32 L Hemoglobin 9.9 L Hematocrit 30.8 L Mean Corpuscular Volume 92.8 Mean Corpuscular Hemoglobin 29.8 Mean Corpuscular Hemoglobin Concent 32.1 Red Cell Distribution Width 14.9 H Platelet Count 394 Mean Platelet Volume 11.3 H Neutrophils % 65.4 Lymphocytes % 20.8 Monocytes % 8.3 Eosinophils % 1.6 Basophils % 0.9 Nucleated Red Blood Cells % 0.0 Neutrophils # 7.3 Lymphocytes # 2.3 Monocytes # 0.9 Eosinophils # 0.2 Basophils # 0.1 Nucleated Red Blood Cells # 0.0 Sodium Level 136 Potassium Level 4.3 Chloride Level 97 Carbon Dioxide Level 28 Anion Gap 15 Blood Urea Nitrogen 24 H Creatinine 1.09 Glucose Level 203 Calcium Level 9.5 Test 06/26/17 11:54 Bedside Glucose 189 Medications Medications Current Medications Acetaminophen (Tylenol Tab) 650 mg Q4H PRN PO NON-CARDIAC PAIN LEVEL (1-3) Last administered on 06/20/17t 04:24; Admin Dose 650 MG; Start 06/11/17 at 10: 30 Al Hydrox/Mg Hydrox/Simethicone (Mag-Al Plus) 30 ml Q4H PRN PO GASTROINTESTINAL UPSET; Start 06/11/17 at 10:30 Ondansetron HCl (Zofran Inj) 4 mg Q4H PRN IV NAUSEA AND/OR VOMITING; Start 06/11/17 at 10:30 Miscellaneous Information 1 ea NOTE XX ; Start 06/11/17 at 19:30 Glucose (Glutose) 15 gm Q15M PRN PO DECREASED GLUCOSE; Start 06/11/17 at 19:30 Glucose (Glutose) 22.5 gm Q15M PRN PO DECREASED GLUCOSE; Start 06/11/17 at 19: 30 Dextrose (D50w Syringe) 25 ml Q15M PRN IV DECREASED GLUCOSE; Start 06/11/17 at 19:30 Dextrose (D50w Syringe) 50 ml Q15M PRN IV DECREASED GLUCOSE; Start 06/11/17 at 19:30 Glucagon (Glucagen) 1 mg Q15M PRN IM DECREASED GLUCOSE; Start 06/11/17 at 19:30 Glucose (Glutose) 15 gm Q15M PRN BUCCAL DECREASED GLUCOSE; Start 06/11/17 at 19 :30 Hydralazine HCl (Apresoline) 10 mg Q6H PRN IV ELEVATED SYSTOLIC BP; Start 06/11 at 20:30 Aspirin (Halfprin) 81 mg DAILY PO Last administered on 06/26/17 08:36; Admin Dose 81 MG; Start 06/12/17 at 09:00 Atorvastatin Calcium (Lipitor) 40 mg QHS PO Last administered on 06/17/17 21: 29; Admin Dose 40 MG; Start 06/11/17 at 21:00; Status Future Hold Diclofenac Sodium (Voltaren) 50 mg TID PO Last administered on 06/16/17 20:44 ; Admin Dose 50 MG; Start 06/11/17 at 21:00; Status Future Hold Doxazosin Mesylate (Cardura) 2 mg HS PO Last administered on 06/17/17 21:28; Admin Dose 2 MG; Start 06/11/17 at 21:00; Status Future Hold Folic Acid (Folic Acid) 1 mg DAILY PO Last administered on 06/17/17 08:36; Admin Dose 1 MG; Start 06/12/17 at 09:00; Status Future Hold Isosorbide Mononitrate (Imdur) 120 mg DAILY PO Last administered on 06/17/17 08:37; Admin Dose 120 MG; Start 06/12/17 at 09:00; Status Future Hold Linagliptin (Tradjenta) 5 mg DAILY PO Last administered on 06/17/17 08:35; Admin Dose 5 MG; Start 06/12/17 at 14:30; Status Future Hold Morphine Sulfate 2 mg 2 mg Q4H PRN IV pain Last administered on 06/21/17 00: 58; Admin Dose 2 MG; Start 06/14/17 at 12:00 Magnesium Sulfate/ Dextrose (Magnesium Sulfate 1 Gm/D5W) 100 ml @ 100 mls/hr PRN PRN IVPB PENDING LAB VALUE; Start 06/18/17 at 15:30 Dextrose (D50w Syringe) 25 ml Q15M PRN IV Till BS 80 mg/dL or above x2; Start 06/18/17 at 19:00 Dextrose (D50w Syringe) 50 ml Q15M PRN IV Till BS 80 mg/dL or above x2; Start 06/18/17 at 19:00 Hydromorphone HCl (Dilaudid) 0.5 mg Q1HWA PRN IV PAIN Last administered on 00:35; Admin Dose 0.5 MG; Start 06/18/17 at 20:00 Hydromorphone HCl (Dilaudid) 1 mg Q4H PRN IV PAIN LEVEL 6-10 Last administered on 06/21/17 13:11; Admin Dose 1 MG; Start 06/18/17 at 20:00 Diagnostic Test (Pha) (Accu-Chek) 1 ea 02 XX Last administered on 06/22/17 02 :00; Admin Dose 1 EA; Start 06/21/17 at 02:00 Acetaminophen/ Hydrocodone Bitart ([employer] (5/325)) 1 tab Q4H PRN PO PAIN LEVEL 4 -6 Last administered on 06/21/17 19:44; Admin Dose 1 TAB; Start 06/20/17 at 11:30 Metoprolol Tartrate (Lopressor) 5 mg Q4H PRN IV HR>110 Hold SBP<100 Last administered on 06/21/17 21:49; Admin Dose 5 MG; Start 06/20/17 at 14:00 Famotidine (Pepcid) 20 mg BID PO Last administered on 06/26/17 08:35; Admin Dose 20 MG; Start 06/20/17 at 21:00 Metoprolol Tartrate (Lopressor) 50 mg BID PO Last administered on 06/26/17 08 :35; Admin Dose 50 MG; Start 06/22/17 at 21:00 Insulin Glargine (Lantus) 25 unit DAILY@08 SC Last administered on 06/26/17 07:54; Admin Dose 25 UNIT; Start 06/23/17 at 08:00 Amiodarone HCl (Cordarone) 200 mg Q12 PO Last administered on 06/26/17 08:36 ; Admin Dose 200 MG; Start 06/24/17 at 21:00 Furosemide (Lasix) 20 mg BID@06,12 IV Last administered on 06/26/17 05:39; Admin Dose 20 MG; Start 06/25/17 at 12:03 Docusate Sodium (Colace) 100 mg BID PO Last administered on 06/26/17 08:36; Admin Dose 100 MG; Start 06/25/17 at 21:00 GIOVANNI GARCIA Jun 26, 2017 15:40
[2017-06-26] MEDS: FUROSEMIDE 40 MG INJ IV SCH (17:34)
[2017-06-27] VITALS (13 sets, daily range): BP systolic 95–143; BP diastolic 18–76; PULSE 64–81; RESP 17–20
[2017-06-27] MEDS: ACCU-CHEK XX SCH (01:46)
[2017-06-27] MEDS: ALBUTEROL/IPRATROPIUM (NEB) 3 ML AMP HHN SCH ×4 (02:00→19:45)
[2017-06-27] MEDS: FUROSEMIDE 40 MG INJ IV SCH ×2 (06:33→17:11)
[2017-06-27 07:32] LABS: BASOPHIL # 0.1 10^3/ul (0.0-0.1); BASOPHILS % 0.9 % (0.0-2.0); EOSINOPHILS # 0.2 10^3/ul (0.0-0.5); EOSINOPHILS % 2.3 % (0.0-7.0); HEMATOCRIT 30.2 % (42.0-52.0); HEMOGLOBIN 9.6 g/dl (14.0-18.0); LYMPHOCYTES # 1.8 10^3/ul (0.8-2.9); LYMPHOCYTES % 17.4 % (15.0-51.0); MEAN CORPUSCULAR HEMOGLOBIN 29.6 pg (29.0-33.0); MEAN CORPUSCULAR HGB CONC 31.8 g/dl (32.0-37.0); MEAN CORPUSCULAR VOLUME 93.2 fl (82.0-101.0); MEAN PLATELET VOLUME 11.1 fl (7.4-10.4); MONOCYTE # 0.8 10^3/ul (0.3-0.9); MONOCYTES % 8.1 % (0.0-11.0); NEUTROPHILS % 68.9 % (39.0-77.0); PLATELET COUNT 408 10^3/UL (140-415); RED BLOOD COUNT 3.24 10^6/ul (4.70-6.10); RED CELL DISTRIBUTION WIDTH 14.6 % (11.5-14.5); WHITE BLOOD COUNT 10.1 10^3/ul (4.8-10.8)
[2017-06-27 07:52] LABS: CALCIUM 9.3 mg/dl (8.4-10.2); CREATININE 1.11 mg/dl (0.61-1.24); POTASSIUM 4.6 mmol/L (3.5-5.1)
[2017-06-27] MEDS: AMIODARONE 200 MG TAB PO SCH ×2 (09:41→20:32)
[2017-06-27] MEDS: ASPIRIN (EC) 81 MG TAB PO SCH (09:41)
[2017-06-27] MEDS: DOCUSATE SODIUM 100 MG CAP PO SCH ×2 (09:41→20:33)
[2017-06-27] MEDS: METOPROLOL 25 MG TAB PO SCH ×2 (09:41→20:33)
[2017-06-27] MEDS: FAMOTIDINE 20 MG TAB PO SCH ×2 (09:41→20:31)
[2017-06-27] MEDS: INSULIN GLARGINE [LANtus] 3 ML PEN SC SCH (09:45)
[2017-06-27] MEDS: INSULIN ASPART [NOVOLOG] 3 ML PEN SC SCH ×7 (09:46→20:39)
--- NOTE | 2017-06-27 10:31 | CONS ---
Date/Time of Note Date/Time of Note DATE: 06/27/17 TIME: 10:29 Assessment/Plan Assessment/Plan Additional Assessment/Plan 1.cad-mutivessel obstructive by cath this admission. s/p cabg x 3 last week - doing well - ambulating now, no CP - pain controlled. DOING WELL. 2.Hypotension-borderline - stable on tele 3.HL 4.DM - on meds, keep euglycemic 5. anemia - h/h stable, no bleeding now 6.Hypernatremia - now with fliud retention, will Rx now. 7. PAF with RVR-Now back IN SR - in sinus on tele now 8. CHF - acute on chorionic spot lasix now. - much better now with lasix - pt ambulating - feels stronger Lasix 40 bid IV x 2 days then po Consultation Date/Type/Reason Admit Date/Time Jun 15, 2017 at 12:05 Type of Consultation: cardiology Referring Provider: SOFIYA ARORA MD 24 HR Interval Summary Free Text/Dictation NO acute events - responded to lasix - much better now ROS: No fever, no chills, no nausea, no vomiting, no diarrhea/constipation No recent weight changes No chest pain, no PND, no orthopnea No dizziness, blurred vision No thirst, no heat or cold intolerance Exam/Review of Systems Vital Signs Vitals Vital Signs Date Time Temp Pulse Resp B/P Pulse Ox O2 Delivery O2 Flow Rate FiO2 06/27/17 08:29 98.2 72 18 130/59 92 06/27/17 07:54 21 06/27/17 04:00 Room Air 06/23/17 11:30 2.0 Intake and Output 06/26/17 06/26/17 06/27/17 15:00 23:00 07:00 Intake Total 680 ml Output Total 1700 ml Balance -1020 ml Exam General: WN/WD/NAD, AOx 3 HEENT: Unicetric/atraumatic/EOMI (follows commands) NECK: JVD elevated, no thyromegaly Lymph: no lymphadenopathy HEART: regular with no S3, II/ systolic murmur at apex LUNGS: Coarse sounds ABD: soft, NT, ND, +BS : Intact Neuro: non focal SKIN: chronic changes EXT: trace edema Results Result Diagram: 06/27/17 0638 06/27/17 0638 Results 24 hrs Laboratory Tests Test 06/26/17 11:54 06/26/17 17:31 06/26/17 21:04 06/27/17 01:40 Bedside Glucose 189 123 183 208 Test 06/27/17 06:38 06/27/17 09:31 White Blood Count 10.1 Red Blood Count 3.24 L Hemoglobin 9.6 L Hematocrit 30.2 L Mean Corpuscular Volume 93.2 Mean Corpuscular Hemoglobin 29.6 Mean Corpuscular Hemoglobin Concent 31.8 L Red Cell Distribution Width 14.6 H Platelet Count 408 Mean Platelet Volume 11.1 H Neutrophils % 68.9 Lymphocytes % 17.4 Monocytes % 8.1 Eosinophils % 2.3 Basophils % 0.9 Nucleated Red Blood Cells % 0.0 Neutrophils # 7.0 Lymphocytes # 1.8 Monocytes # 0.8 Eosinophils # 0.2 Basophils # 0.1 Nucleated Red Blood Cells # 0.0 Sodium Level 135 Potassium Level 4.6 Chloride Level 99 Carbon Dioxide Level 28 Anion Gap 13 Blood Urea Nitrogen 23 H Creatinine 1.11 Glucose Level 273 H Calcium Level 9.3 Bedside Glucose 317 H Medications Medications Current Medications Acetaminophen (Tylenol Tab) 650 mg Q4H PRN PO NON-CARDIAC PAIN LEVEL (1-3) Last administered on 06/20/17t 04:24; Admin Dose 650 MG; Start 06/11/17 at 10: 30 Al Hydrox/Mg Hydrox/Simethicone (Mag-Al Plus) 30 ml Q4H PRN PO GASTROINTESTINAL UPSET; Start 06/11/17 at 10:30 Ondansetron HCl (Zofran Inj) 4 mg Q4H PRN IV NAUSEA AND/OR VOMITING; Start 06/11/17 at 10:30 Miscellaneous Information 1 ea NOTE XX ; Start 06/11/17 at 19:30 Glucose (Glutose) 15 gm Q15M PRN PO DECREASED GLUCOSE; Start 06/11/17 at 19:30 Glucose (Glutose) 22.5 gm Q15M PRN PO DECREASED GLUCOSE; Start 06/11/17 at 19: 30 Dextrose (D50w Syringe) 25 ml Q15M PRN IV DECREASED GLUCOSE; Start 06/11/17 at 19:30 Dextrose (D50w Syringe) 50 ml Q15M PRN IV DECREASED GLUCOSE; Start 06/11/17 at 19:30 Glucagon (Glucagen) 1 mg Q15M PRN IM DECREASED GLUCOSE; Start 06/11/17 at 19:30 Glucose (Glutose) 15 gm Q15M PRN BUCCAL DECREASED GLUCOSE; Start 06/11/17 at 19 :30 Hydralazine HCl (Apresoline) 10 mg Q6H PRN IV ELEVATED SYSTOLIC BP; Start 06/11 at 20:30 Aspirin (Halfprin) 81 mg DAILY PO Last administered on 06/27/17 09:41; Admin Dose 81 MG; Start 06/12/17 at 09:00 Atorvastatin Calcium (Lipitor) 40 mg QHS PO Last administered on 06/17/17 21: 29; Admin Dose 40 MG; Start 06/11/17 at 21:00; Status Future Hold Diclofenac Sodium (Voltaren) 50 mg TID PO Last administered on 06/16/17 20:44 ; Admin Dose 50 MG; Start 06/11/17 at 21:00; Status Future Hold Doxazosin Mesylate (Cardura) 2 mg HS PO Last administered on 06/17/17 21:28; Admin Dose 2 MG; Start 06/11/17 at 21:00; Status Future Hold Folic Acid (Folic Acid) 1 mg DAILY PO Last administered on 06/17/17 08:36; Admin Dose 1 MG; Start 06/12/17 at 09:00; Status Future Hold Isosorbide Mononitrate (Imdur) 120 mg DAILY PO Last administered on 06/17/17 08:37; Admin Dose 120 MG; Start 06/12/17 at 09:00; Status Future Hold Linagliptin (Tradjenta) 5 mg DAILY PO Last administered on 06/17/17 08:35; Admin Dose 5 MG; Start 06/12/17 at 14:30; Status Future Hold Morphine Sulfate 2 mg 2 mg Q4H PRN IV pain Last administered on 06/21/17 00: 58; Admin Dose 2 MG; Start 06/14/17 at 12:00 Magnesium Sulfate/ Dextrose (Magnesium Sulfate 1 Gm/D5W) 100 ml @ 100 mls/hr PRN PRN IVPB PENDING LAB VALUE; Start 06/18/17 at 15:30 Dextrose (D50w Syringe) 25 ml Q15M PRN IV Till BS 80 mg/dL or above x2; Start 06/18/17 at 19:00 Dextrose (D50w Syringe) 50 ml Q15M PRN IV Till BS 80 mg/dL or above x2; Start 06/18/17 at 19:00 Hydromorphone HCl (Dilaudid) 0.5 mg Q1HWA PRN IV PAIN Last administered on 00:35; Admin Dose 0.5 MG; Start 06/18/17 at 20:00 Hydromorphone HCl (Dilaudid) 1 mg Q4H PRN IV PAIN LEVEL 6-10 Last administered on 06/21/17 13:11; Admin Dose 1 MG; Start 06/18/17 at 20:00 Diagnostic Test (Pha) (Accu-Chek) 1 ea 02 XX Last administered on 06/22/17 02 :00; Admin Dose 1 EA; Start 06/21/17 at 02:00 Acetaminophen/ Hydrocodone Bitart ([place] (5/325)) 1 tab Q4H PRN PO PAIN LEVEL 4 -6 Last administered on 06/21/17 19:44; Admin Dose 1 TAB; Start 06/20/17 at 11:30 Metoprolol Tartrate (Lopressor) 5 mg Q4H PRN IV HR>110 Hold SBP<100 Last administered on 06/21/17 21:49; Admin Dose 5 MG; Start 06/20/17 at 14:00 Famotidine (Pepcid) 20 mg BID PO Last administered on 06/27/17 09:41; Admin Dose 20 MG; Start 06/20/17 at 21:00 Metoprolol Tartrate (Lopressor) 50 mg BID PO Last administered on 06/27/17 09 :41; Admin Dose 50 MG; Start 06/22/17 at 21:00 Amiodarone HCl (Cordarone) 200 mg Q12 PO Last administered on 06/27/17 09:41 ; Admin Dose 200 MG; Start 06/24/17 at 21:00 Docusate Sodium (Colace) 100 mg BID PO Last administered on 06/27/17 09:41; Admin Dose 100 MG; Start 06/25/17 at 21:00 Insulin Glargine (Lantus) 28 unit DAILY@08 SC Last administered on 06/27/17 09:45; Admin Dose 28 UNIT; Start 06/27/17 at 08:00 YAZ DA SILVA MD Jun 27, 2017 10:31
--- NOTE | 2017-06-27 11:23 | PN ---
Date/Time of Note Date/Time of Note DATE: 06/27/17 TIME: 11:22 Assessment/Plan VTE Prophylaxis VTE Prophylaxis Intervention: other Lines/Catheters IV Catheter Type (from [facility]): Saline Lock Urinary Cath still in place: No Assessment/Plan Chief Complaint/Hosp Course - Multivessel obstructive coronary artery disease involving high grade stenosis of the circumflex, LAD and 100% occlusion of the patient's right coronary artery with collateral circulation recapitulating this vessel per cardiac cath by Dr. Riley on 06/11. Dr Christensen is following in cardiac surgery, S/p CABG with OLIVARES to LAD, SVG to R1, SVG to PDA. Continue cardiology and thoracic surgery recommendations. Continue aspirin. -Hypertension, continue metoprolol. -Hyperlipidemia -Diabetes mellitus with hemoglobin A1c 6.9, continue Lantus and pre-meal NovoLog. -Bilateral carotid stenosis 50-69% Problems: Subjective 24 Hr Interval Summary Free Text/Dictation Patient denies any pain or shortness of breath, lower extremity swelling is improved as well Exam/Review of Systems Vital Signs Vitals Vital Signs Date Time Temp Pulse Resp B/P Pulse Ox O2 Delivery O2 Flow Rate FiO2 06/27/17 08:29 98.2 72 18 130/59 92 06/27/17 07:54 21 06/27/17 04:00 Room Air 06/23/17 11:30 2.0 Intake and Output 06/26/17 06/26/17 06/27/17 14:59 22:59 06:59 Intake Total 680 ml Output Total 1700 ml Balance -1020 ml Exam Constitutional: well developed Head: atraumatic, normocephalic Neck: supple Respiratory: clear to auscultation Cardiovascular: regular rate and rhythm Gastrointestinal: non-tender, soft Extremities: normal pulses Results Result Diagram: 06/27/17 0638 06/27/17 0638 Results 24 hrs Laboratory Tests Test 06/26/17 11:54 06/26/17 17:31 06/26/17 21:04 06/27/17 01:40 Bedside Glucose 189 123 183 208 Test 06/27/17 06:38 06/27/17 09:31 White Blood Count 10.1 Red Blood Count 3.24 L Hemoglobin 9.6 L Hematocrit 30.2 L Mean Corpuscular Volume 93.2 Mean Corpuscular Hemoglobin 29.6 Mean Corpuscular Hemoglobin Concent 31.8 L Red Cell Distribution Width 14.6 H Platelet Count 408 Mean Platelet Volume 11.1 H Neutrophils % 68.9 Lymphocytes % 17.4 Monocytes % 8.1 Eosinophils % 2.3 Basophils % 0.9 Nucleated Red Blood Cells % 0.0 Neutrophils # 7.0 Lymphocytes # 1.8 Monocytes # 0.8 Eosinophils # 0.2 Basophils # 0.1 Nucleated Red Blood Cells # 0.0 Sodium Level 135 Potassium Level 4.6 Chloride Level 99 Carbon Dioxide Level 28 Anion Gap 13 Blood Urea Nitrogen 23 H Creatinine 1.11 Glucose Level 273 H Calcium Level 9.3 Bedside Glucose 317 H Medications Medications Current Medications Acetaminophen (Tylenol Tab) 650 mg Q4H PRN PO NON-CARDIAC PAIN LEVEL (1-3) Last administered on 06/20/17 04:24; Admin Dose 650 MG; Start 06/11/17 at 10: 30 Al Hydrox/Mg Hydrox/Simethicone (Mag-Al Plus) 30 ml Q4H PRN PO GASTROINTESTINAL UPSET; Start 06/11/17 at 10:30 Ondansetron HCl (Zofran Inj) 4 mg Q4H PRN IV NAUSEA AND/OR VOMITING; Start 06/11/17 at 10:30 Miscellaneous Information 1 ea NOTE XX ; Start 06/11/17 at 19:30 Glucose (Glutose) 15 gm Q15M PRN PO DECREASED GLUCOSE; Start 06/11/17 at 19:30 Glucose (Glutose) 22.5 gm Q15M PRN PO DECREASED GLUCOSE; Start 06/11/17 at 19: 30 Dextrose (D50w Syringe) 25 ml Q15M PRN IV DECREASED GLUCOSE; Start 06/11/17 at 19:30 Dextrose (D50w Syringe) 50 ml Q15M PRN IV DECREASED GLUCOSE; Start 06/11/17 at 19:30 Glucagon (Glucagen) 1 mg Q15M PRN IM DECREASED GLUCOSE; Start 06/11/17 at 19:30 Glucose (Glutose) 15 gm Q15M PRN BUCCAL DECREASED GLUCOSE; Start 06/11/17 at 19 :30 Hydralazine HCl (Apresoline) 10 mg Q6H PRN IV ELEVATED SYSTOLIC BP; Start 06/11 at 20:30 Aspirin (Halfprin) 81 mg DAILY PO Last administered on 06/27/17 09:41; Admin Dose 81 MG; Start 06/12/17 at 09:00 Atorvastatin Calcium (Lipitor) 40 mg QHS PO Last administered on 06/17/17 21: 29; Admin Dose 40 MG; Start 06/11/17 at 21:00; Status Future Hold Diclofenac Sodium (Voltaren) 50 mg TID PO Last administered on 06/16/17 20:44 ; Admin Dose 50 MG; Start 06/11/17 at 21:00; Status Future Hold Doxazosin Mesylate (Cardura) 2 mg HS PO Last administered on 06/17/17 21:28; Admin Dose 2 MG; Start 06/11/17 at 21:00; Status Future Hold Folic Acid (Folic Acid) 1 mg DAILY PO Last administered on 06/17/17 08:36; Admin Dose 1 MG; Start 06/12/17 at 09:00; Status Future Hold Isosorbide Mononitrate (Imdur) 120 mg DAILY PO Last administered on 06/17/17 08:37; Admin Dose 120 MG; Start 06/12/17 at 09:00; Status Future Hold Linagliptin (Tradjenta) 5 mg DAILY PO Last administered on 06/17/17 08:35; Admin Dose 5 MG; Start 06/12/17 at 14:30; Status Future Hold Morphine Sulfate 2 mg 2 mg Q4H PRN IV pain Last administered on 06/21/17 00: 58; Admin Dose 2 MG; Start 06/14/17 at 12:00 Magnesium Sulfate/ Dextrose (Magnesium Sulfate 1 Gm/D5W) 100 ml @ 100 mls/hr PRN PRN IVPB PENDING LAB VALUE; Start 06/18/17 at 15:30 Dextrose (D50w Syringe) 25 ml Q15M PRN IV Till BS 80 mg/dL or above x2; Start 06/18/17 at 19:00 Dextrose (D50w Syringe) 50 ml Q15M PRN IV Till BS 80 mg/dL or above x2; Start 06/18/17 at 19:00 Hydromorphone HCl (Dilaudid) 0.5 mg Q1HWA PRN IV PAIN Last administered on 00:35; Admin Dose 0.5 MG; Start 06/18/17 at 20:00 Hydromorphone HCl (Dilaudid) 1 mg Q4H PRN IV PAIN LEVEL 6-10 Last administered on 06/21/17 13:11; Admin Dose 1 MG; Start 06/18/17 at 20:00 Diagnostic Test (Pha) (Accu-Chek) 1 ea 02 XX Last administered on 06/22/17 02 :00; Admin Dose 1 EA; Start 06/21/17 at 02:00 Acetaminophen/ Hydrocodone Bitart ([place] (5/325)) 1 tab Q4H PRN PO PAIN LEVEL 4 -6 Last administered on 06/21/17 19:44; Admin Dose 1 TAB; Start 06/20/17 at 11:30 Metoprolol Tartrate (Lopressor) 5 mg Q4H PRN IV HR>110 Hold SBP<100 Last administered on 06/21/17 21:49; Admin Dose 5 MG; Start 06/20/17 at 14:00 Famotidine (Pepcid) 20 mg BID PO Last administered on 06/27/17 09:41; Admin Dose 20 MG; Start 06/20/17 at 21:00 Metoprolol Tartrate (Lopressor) 50 mg BID PO Last administered on 06/27/17 09 :41; Admin Dose 50 MG; Start 06/22/17 at 21:00 Amiodarone HCl (Cordarone) 200 mg Q12 PO Last administered on 06/27/17 09:41 ; Admin Dose 200 MG; Start 06/24/17 at 21:00 Docusate Sodium (Colace) 100 mg BID PO Last administered on 06/27/17 09:41; Admin Dose 100 MG; Start 06/25/17 at 21:00 Insulin Glargine (Lantus) 28 unit DAILY@08 SC Last administered on 06/27/17 09:45; Admin Dose 28 UNIT; Start 06/27/17 at 08:00 LESLEY SPAULDING Jun 27, 2017 11:23
[2017-06-28] VITALS (12 sets, daily range): BP systolic 96–135; BP diastolic 51–63; PULSE 63–100; RESP 18–20
[2017-06-28] MEDS: ACCU-CHEK XX SCH (02:00)
[2017-06-28] MEDS: ALBUTEROL/IPRATROPIUM (NEB) 3 ML AMP HHN SCH ×4 (02:30→19:51)
[2017-06-28] MEDS: FUROSEMIDE 40 MG INJ IV SCH (05:58)
[2017-06-28] MEDS: INSULIN GLARGINE [LANtus] 3 ML PEN SC SCH (08:40)
[2017-06-28] MEDS: INSULIN ASPART [NOVOLOG] 3 ML PEN SC SCH ×7 (08:40→20:11)
--- NOTE | 2017-06-28 10:32 | CONS ---
Date/Time of Note Date/Time of Note DATE: 06/28/17 TIME: 10:30 Assessment/Plan Assessment/Plan Additional Assessment/Plan 1.cad-mutivessel obstructive by cath this admission. s/p cabg x 3 last week - doing well - ambulating now, no CP - pain controlled. DOING WELL. Ambulating with no CP. 2.Hypotension-borderline - stable on tele - improved. 3.HL 4.DM - on meds, keep euglycemic 5. anemia - h/h stable, no bleeding now 6.Hypernatremia - now with fliud retention, will Rx now. 7. PAF with RVR-Now back IN SR - in sinus on tele now 8. CHF - acute on chorionic spot lasix now. - much better now with lasix - pt ambulating - feels stronger Lasix 40 bid IV x 2 days then po - better now - will change to PO tomorrow Consultation Date/Type/Reason Admit Date/Time Jun 15, 2017 at 12:05 Type of Consultation: cardiology Referring Provider: SOFIYA ARORA MD 24 HR Interval Summary Free Text/Dictation pt ambulating - feels better with LE edema resolving - will change to PO lasix tomorrow ROS: No fever, no chills, no nausea, no vomiting, no diarrhea/constipation No recent weight changes No chest pain, no PND, no orthopnea No dizziness, blurred vision No thirst, no heat or cold intolerance Exam/Review of Systems Vital Signs Vitals Vital Signs Date Time Temp Pulse Resp B/P Pulse Ox O2 Delivery O2 Flow Rate FiO2 06/28/17 08:09 74 06/28/17 07:44 18 94 21 06/28/17 07:08 98.4 114/63 06/27/17 04:00 Room Air Intake and Output 06/27/17 06/27/17 06/28/17 15:00 23:00 07:00 Intake Total 1100 ml 500 ml Output Total 1600 ml 875 ml Balance -500 ml -375 ml Exam General: WN/WD/NAD, AOx 3 HEENT: Unicetric/atraumatic/EOMI (follows commands) NECK: JVD elevated, no thyromegaly Lymph: no lymphadenopathy HEART: regular with no S3, II/ systolic murmur at apex LUNGS: Coarse sounds ABD: soft, NT, ND, +BS : Intact Neuro: non focal SKIN: chronic changes EXT: 1+ edema Results Result Diagram: 06/27/17 0638 06/27/17 0638 Results 24 hrs Laboratory Tests Test 06/27/17 12:09 06/27/17 16:38 06/27/17 20:36 06/28/17 08:21 Bedside Glucose 261 H 98 97 215 Medications Medications Current Medications Acetaminophen (Tylenol Tab) 650 mg Q4H PRN PO NON-CARDIAC PAIN LEVEL (1-3) Last administered on 06/20/17 04:24; Admin Dose 650 MG; Start 06/11/17 at 10: 30 Al Hydrox/Mg Hydrox/Simethicone (Mag-Al Plus) 30 ml Q4H PRN PO GASTROINTESTINAL UPSET; Start 06/11/17 at 10:30 Ondansetron HCl (Zofran Inj) 4 mg Q4H PRN IV NAUSEA AND/OR VOMITING; Start 06/11/17 at 10:30 Miscellaneous Information 1 ea NOTE XX ; Start 06/11/17 at 19:30 Glucose (Glutose) 15 gm Q15M PRN PO DECREASED GLUCOSE; Start 06/11/17 at 19:30 Glucose (Glutose) 22.5 gm Q15M PRN PO DECREASED GLUCOSE; Start 06/11/17 at 19: 30 Dextrose (D50w Syringe) 25 ml Q15M PRN IV DECREASED GLUCOSE; Start 06/11/17 at 19:30 Dextrose (D50w Syringe) 50 ml Q15M PRN IV DECREASED GLUCOSE; Start 06/11/17 at 19:30 Glucagon (Glucagen) 1 mg Q15M PRN IM DECREASED GLUCOSE; Start 06/11/17 at 19:30 Glucose (Glutose) 15 gm Q15M PRN BUCCAL DECREASED GLUCOSE; Start 06/11/17 at 19 :30 Hydralazine HCl (Apresoline) 10 mg Q6H PRN IV ELEVATED SYSTOLIC BP; Start 06/11 at 20:30 Aspirin (Halfprin) 81 mg DAILY PO Last administered on 06/27/17 09:41; Admin Dose 81 MG; Start 06/12/17 at 09:00 Atorvastatin Calcium (Lipitor) 40 mg QHS PO Last administered on 06/17/17 21: 29; Admin Dose 40 MG; Start 06/11/17 at 21:00; Status Future Hold Diclofenac Sodium (Voltaren) 50 mg TID PO Last administered on 06/16/17 20:44 ; Admin Dose 50 MG; Start 06/11/17 at 21:00; Status Future Hold Doxazosin Mesylate (Cardura) 2 mg HS PO Last administered on 06/17/17 21:28; Admin Dose 2 MG; Start 06/11/17 at 21:00; Status Future Hold Folic Acid (Folic Acid) 1 mg DAILY PO Last administered on 06/17/17 08:36; Admin Dose 1 MG; Start 06/12/17 at 09:00; Status Future Hold Isosorbide Mononitrate (Imdur) 120 mg DAILY PO Last administered on 06/17/17 08:37; Admin Dose 120 MG; Start 06/12/17 at 09:00; Status Future Hold Linagliptin (Tradjenta) 5 mg DAILY PO Last administered on 06/17/17 08:35; Admin Dose 5 MG; Start 06/12/17 at 14:30; Status Future Hold Morphine Sulfate 2 mg 2 mg Q4H PRN IV pain Last administered on 06/21/17 00: 58; Admin Dose 2 MG; Start 06/14/17 at 12:00 Magnesium Sulfate/ Dextrose (Magnesium Sulfate 1 Gm/D5W) 100 ml @ 100 mls/hr PRN PRN IVPB PENDING LAB VALUE; Start 06/18/17 at 15:30 Dextrose (D50w Syringe) 25 ml Q15M PRN IV Till BS 80 mg/dL or above x2; Start 06/18/17 at 19:00 Dextrose (D50w Syringe) 50 ml Q15M PRN IV Till BS 80 mg/dL or above x2; Start 06/18/17 at 19:00 Hydromorphone HCl (Dilaudid) 0.5 mg Q1HWA PRN IV PAIN Last administered on 00:35; Admin Dose 0.5 MG; Start 06/18/17 at 20:00 Hydromorphone HCl (Dilaudid) 1 mg Q4H PRN IV PAIN LEVEL 6-10 Last administered on 06/21/17 13:11; Admin Dose 1 MG; Start 06/18/17 at 20:00 Diagnostic Test (Pha) (Accu-Chek) 1 ea 02 XX Last administered on 06/22/17 02 :00; Admin Dose 1 EA; Start 06/21/17 at 02:00 Acetaminophen/ Hydrocodone Bitart ([place] (5/325)) 1 tab Q4H PRN PO PAIN LEVEL 4 -6 Last administered on 06/21/17 19:44; Admin Dose 1 TAB; Start 06/20/17 at 11:30 Metoprolol Tartrate (Lopressor) 5 mg Q4H PRN IV HR>110 Hold SBP<100 Last administered on 06/21/17 21:49; Admin Dose 5 MG; Start 06/20/17 at 14:00 Famotidine (Pepcid) 20 mg BID PO Last administered on 06/27/17 20:31; Admin Dose 20 MG; Start 06/20/17 at 21:00 Metoprolol Tartrate (Lopressor) 50 mg BID PO Last administered on 06/27/17 09 :41; Admin Dose 50 MG; Start 06/22/17 at 21:00 Amiodarone HCl (Cordarone) 200 mg Q12 PO Last administered on 06/27/17 20:32 ; Admin Dose 200 MG; Start 06/24/17 at 21:00 Docusate Sodium (Colace) 100 mg BID PO Last administered on 06/27/17 20:33; Admin Dose 100 MG; Start 06/25/17 at 21:00 Insulin Glargine (Lantus) 28 unit DAILY@08 SC Last administered on 06/28/17 08:40; Admin Dose 28 UNIT; Start 06/27/17 at 08:00 YAZ DA SILVA MD Jun 28, 2017 10:32
[2017-06-28 10:46] LABS: CALCIUM 10.2 mg/dl (8.4-10.2); CREATININE 1.23 mg/dl (0.61-1.24); POTASSIUM 3.9 mmol/L (3.5-5.1)
--- NOTE | 2017-06-28 11:13 | PN ---
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 Riley on 06/11. Dr Christensen is following in cardiac surgery, S/p CABG with OLIVARES to LAD, SVG to R1, SVG to PDA. Continue cardiology and thoracic surgery recommendations. Continue aspirin. -Hypertension, continue metoprolol. -Hyperlipidemia -Diabetes mellitus with hemoglobin A1c 6.9, continue Lantus and pre-meal NovoLog. -Bilateral carotid stenosis 50-69% Problems: Subjective 24 Hr Interval Summary Free Text/Dictation Patient has no complaints Exam/Review of Systems Vital Signs Vitals Vital Signs Date Time Temp Pulse Resp B/P Pulse Ox O2 Delivery O2 Flow Rate FiO2 06/28/17 08:09 74 06/28/17 07:44 18 94 21 06/28/17 07:08 98.4 114/63 06/27/17 04:00 Room Air Intake and Output 06/27/17 06/27/17 06/28/17 14:59 22:59 06:59 Intake Total 1100 ml 500 ml Output Total 1600 ml 875 ml Balance -500 ml -375 ml Exam Constitutional: well developed Head: atraumatic, normocephalic Neck: supple Respiratory: clear to auscultation Cardiovascular: regular rate and rhythm Gastrointestinal: non-tender, soft Extremities: normal pulses Results Result Diagram: 06/27/17 0638 06/28/17 1010 Results 24 hrs Laboratory Tests Test 06/27/17 12:09 06/27/17 16:38 06/27/17 20:36 06/28/17 08:21 Bedside Glucose 261 H 98 97 215 Test 06/28/17 10:10 Sodium Level 136 Potassium Level 3.9 Chloride Level 94 L Carbon Dioxide Level 29 Anion Gap 17 H Blood Urea Nitrogen 28 H Creatinine 1.23 Glucose Level 214 Calcium Level 10.2 Medications Medications Current Medications Acetaminophen (Tylenol Tab) 650 mg Q4H PRN PO NON-CARDIAC PAIN LEVEL (1-3) Last administered on 06/20/17 04:24; Admin Dose 650 MG; Start 06/11/17 at 10: 30 Al Hydrox/Mg Hydrox/Simethicone (Mag-Al Plus) 30 ml Q4H PRN PO GASTROINTESTINAL UPSET; Start 06/11/17 at 10:30 Ondansetron HCl (Zofran Inj) 4 mg Q4H PRN IV NAUSEA AND/OR VOMITING; Start 06/11/17 at 10:30 Miscellaneous Information 1 ea NOTE XX ; Start 06/11/17 at 19:30 Glucose (Glutose) 15 gm Q15M PRN PO DECREASED GLUCOSE; Start 06/11/17 at 19:30 Glucose (Glutose) 22.5 gm Q15M PRN PO DECREASED GLUCOSE; Start 06/11/17 at 19: 30 Dextrose (D50w Syringe) 25 ml Q15M PRN IV DECREASED GLUCOSE; Start 06/11/17 at 19:30 Dextrose (D50w Syringe) 50 ml Q15M PRN IV DECREASED GLUCOSE; Start 06/11/17 at 19:30 Glucagon (Glucagen) 1 mg Q15M PRN IM DECREASED GLUCOSE; Start 06/11/17 at 19:30 Glucose (Glutose) 15 gm Q15M PRN BUCCAL DECREASED GLUCOSE; Start 06/11/17 at 19 :30 Hydralazine HCl (Apresoline) 10 mg Q6H PRN IV ELEVATED SYSTOLIC BP; Start 06/11 at 20:30 Aspirin (Halfprin) 81 mg DAILY PO Last administered on 06/27/17 09:41; Admin Dose 81 MG; Start 06/12/17 at 09:00 Atorvastatin Calcium (Lipitor) 40 mg QHS PO Last administered on 06/17/17 21: 29; Admin Dose 40 MG; Start 06/11/17 at 21:00; Status Future Hold Diclofenac Sodium (Voltaren) 50 mg TID PO Last administered on 06/16/17 20:44 ; Admin Dose 50 MG; Start 06/11/17 at 21:00; Status Future Hold Doxazosin Mesylate (Cardura) 2 mg HS PO Last administered on 06/17/17 21:28; Admin Dose 2 MG; Start 06/11/17 at 21:00; Status Future Hold Folic Acid (Folic Acid) 1 mg DAILY PO Last administered on 06/17/17 08:36; Admin Dose 1 MG; Start 06/12/17 at 09:00; Status Future Hold Isosorbide Mononitrate (Imdur) 120 mg DAILY PO Last administered on 06/17/17 08:37; Admin Dose 120 MG; Start 06/12/17 at 09:00; Status Future Hold Linagliptin (Tradjenta) 5 mg DAILY PO Last administered on 06/17/17 08:35; Admin Dose 5 MG; Start 06/12/17 at 14:30; Status Future Hold Morphine Sulfate 2 mg 2 mg Q4H PRN IV pain Last administered on 06/21/17 00: 58; Admin Dose 2 MG; Start 06/14/17 at 12:00 Magnesium Sulfate/ Dextrose (Magnesium Sulfate 1 Gm/D5W) 100 ml @ 100 mls/hr PRN PRN IVPB PENDING LAB VALUE; Start 06/18/17 at 15:30 Dextrose (D50w Syringe) 25 ml Q15M PRN IV Till BS 80 mg/dL or above x2; Start 06/18/17 at 19:00 Dextrose (D50w Syringe) 50 ml Q15M PRN IV Till BS 80 mg/dL or above x2; Start 06/18/17 at 19:00 Hydromorphone HCl (Dilaudid) 0.5 mg Q1HWA PRN IV PAIN Last administered on 00:35; Admin Dose 0.5 MG; Start 06/18/17 at 20:00 Hydromorphone HCl (Dilaudid) 1 mg Q4H PRN IV PAIN LEVEL 6-10 Last administered on 06/21/17 13:11; Admin Dose 1 MG; Start 06/18/17 at 20:00 Diagnostic Test (Pha) (Accu-Chek) 1 ea 02 XX Last administered on 06/22/17 02 :00; Admin Dose 1 EA; Start 06/21/17 at 02:00 Acetaminophen/ Hydrocodone Bitart ([place] (5/325)) 1 tab Q4H PRN PO PAIN LEVEL 4 -6 Last administered on 06/21/17 19:44; Admin Dose 1 TAB; Start 06/20/17 at 11:30 Metoprolol Tartrate (Lopressor) 5 mg Q4H PRN IV HR>110 Hold SBP<100 Last administered on 06/21/17 21:49; Admin Dose 5 MG; Start 06/20/17 at 14:00 Famotidine (Pepcid) 20 mg BID PO Last administered on 06/27/17 20:31; Admin Dose 20 MG; Start 06/20/17 at 21:00 Metoprolol Tartrate (Lopressor) 50 mg BID PO Last administered on 06/27/17 09 :41; Admin Dose 50 MG; Start 06/22/17 at 21:00 Amiodarone HCl (Cordarone) 200 mg Q12 PO Last administered on 06/27/17 20:32 ; Admin Dose 200 MG; Start 06/24/17 at 21:00 Docusate Sodium (Colace) 100 mg BID PO Last administered on 06/27/17 20:33; Admin Dose 100 MG; Start 06/25/17 at 21:00 Insulin Glargine (Lantus) 28 unit DAILY@08 SC Last administered on 06/28/17 08:40; Admin Dose 28 UNIT; Start 06/27/17 at 08:00 LESLEY SPAULDING Jun 28, 2017 11:13
[2017-06-28] MEDS: DOCUSATE SODIUM 100 MG CAP PO SCH ×2 (13:00→20:03)
[2017-06-28] MEDS: ASPIRIN (EC) 81 MG TAB PO SCH (13:01)
[2017-06-28] MEDS: FAMOTIDINE 20 MG TAB PO SCH ×2 (13:01→20:05)
[2017-06-28] MEDS: AMIODARONE 200 MG TAB PO SCH ×2 (13:01→20:03)
[2017-06-28] MEDS: METOPROLOL 25 MG TAB PO SCH ×2 (13:17→20:04)
[2017-06-29] VITALS (12 sets, daily range): BP systolic 94–114; BP diastolic 55–64; PULSE 71–171; RESP 18–21
[2017-06-29] MEDS: ALBUTEROL/IPRATROPIUM (NEB) 3 ML AMP HHN SCH ×4 (01:36→19:49)
[2017-06-29] MEDS: ACCU-CHEK XX SCH (02:00)
[2017-06-29 07:57] LABS: CALCIUM 9.9 mg/dl (8.4-10.2); CREATININE 1.17 mg/dl (0.61-1.24); POTASSIUM 4.1 mmol/L (3.5-5.1)
[2017-06-29] MEDS: METOPROLOL 25 MG TAB PO SCH (09:00)
[2017-06-29] MEDS: INSULIN ASPART [NOVOLOG] 3 ML PEN SC SCH ×7 (09:02→21:00)
[2017-06-29] MEDS: INSULIN GLARGINE [LANtus] 3 ML PEN SC SCH (09:03)
[2017-06-29] MEDS: DOCUSATE SODIUM 100 MG CAP PO SCH ×2 (09:06→21:52)
[2017-06-29] MEDS: AMIODARONE 200 MG TAB PO SCH ×2 (09:06→21:52)
[2017-06-29] MEDS: ASPIRIN (EC) 81 MG TAB PO SCH (09:06)
[2017-06-29] MEDS: FAMOTIDINE 20 MG TAB PO SCH ×2 (09:06→21:52)
[2017-06-29] MEDS ORDERED: DIGOXIN 500 MCG INJ IV ONE ×2 (10:30→14:00)
[2017-06-29] MEDS: HYDROCODONE/APAP (5/325) TAB PO PRN (11:41)
--- NOTE | 2017-06-29 13:55 | CONS ---
Date/Time of Note Date/Time of Note DATE: 06/29/17 TIME: 13:51 Assessment/Plan Assessment/Plan Chief Complaint/Hosp Course IMP: 1.cad-mutivessel obstructive by cath this admission. Post-op s/p cabg x 3 2.Hypotension-now improved 3.HL 4.DM 5. anemia 6.Hypernatremia-improved 7. PAF with RVR-having recurrence Recc; -Tele -continue asa -Continue BB to improve BP/HR control but will decrease dose to allow patient to better tolerate -Continue po amiodarone but q8 for now and follow LFT's/bilis which are downtrending -start gentle lasix and follow volume status closely -Will give additional IVP digoxin dose and then start standing PO tomorrow Problems: Consultation Date/Type/Reason Admit Date/Time Jun 15, 2017 at 12:05 Initial Consult Date 06/11/2017 Type of Consultation: cardiology Reason for Consultation PAF Referring Provider: SOFIYA ARORA MD Exam/Review of Systems Vital Signs Vitals Vital Signs Date Time Temp Pulse Resp B/P Pulse Ox O2 Delivery O2 Flow Rate FiO2 06/29/17 13:11 79 18 95 21 06/29/17 12:01 96.5 108/59 06/27/17 04:00 Room Air Intake and Output 06/28/17 06/28/17 06/29/17 15:00 23:00 07:00 Intake Total 850 ml 600 ml Output Total 1900 ml 950 ml Balance -1050 ml -350 ml Exam Review of Systems: CONSTITUTIONAL: No fevers, chills. PULMONARY: No sob CARDIOVASCULAR: No chest pain/palpitations GASTROINTESTINAL: No nausea/vomiting. GENITOURINARY: No hematuria/dysuria. MUSCULOSKELETAL: No myagias/arthalgias. PSYCHIATRIC: The patient denies depression. NEUROLOGIC: No weakness Constitutional: alert, oriented Psych: no complaints Head: normocephalic ENMT: mucosa pink and moist Neck: jvd, supple Respiratory: diminished breath sounds Cardiovascular: irregular rhythm Gastrointestinal: non-tender, soft Extremities: edema (none) Neurological: other (No focal deficits) Results Result Diagram: 06/27/17 0638 06/29/17 0657 Results 24 hrs Laboratory Tests Test 06/28/17 18:06 06/28/17 20:08 06/29/17 06:57 06/29/17 08:58 Bedside Glucose 157 178 239 H Sodium Level 135 Potassium Level 4.1 Chloride Level 97 Carbon Dioxide Level 29 Anion Gap 13 Blood Urea Nitrogen 31 H Creatinine 1.17 Glucose Level 234 H Calcium Level 9.9 Test 06/29/17 12:48 Bedside Glucose 266 H Medications Medications Current Medications Acetaminophen (Tylenol Tab) 650 mg Q4H PRN PO NON-CARDIAC PAIN LEVEL (1-3) Last administered on 06/20/17 04:24; Admin Dose 650 MG; Start 06/11/17 at 10: 30 Al Hydrox/Mg Hydrox/Simethicone (Mag-Al Plus) 30 ml Q4H PRN PO GASTROINTESTINAL UPSET; Start 06/11/17 at 10:30 Ondansetron HCl (Zofran Inj) 4 mg Q4H PRN IV NAUSEA AND/OR VOMITING; Start 06/11/17 at 10:30 Miscellaneous Information 1 ea NOTE XX ; Start 06/11/17 at 19:30 Glucose (Glutose) 15 gm Q15M PRN PO DECREASED GLUCOSE; Start 06/11/17 at 19:30 Glucose (Glutose) 22.5 gm Q15M PRN PO DECREASED GLUCOSE; Start 06/11/17 at 19: 30 Dextrose (D50w Syringe) 25 ml Q15M PRN IV DECREASED GLUCOSE; Start 06/11/17 at 19:30 Dextrose (D50w Syringe) 50 ml Q15M PRN IV DECREASED GLUCOSE; Start 06/11/17 at 19:30 Glucagon (Glucagen) 1 mg Q15M PRN IM DECREASED GLUCOSE; Start 06/11/17 at 19:30 Glucose (Glutose) 15 gm Q15M PRN BUCCAL DECREASED GLUCOSE; Start 06/11/17 at 19 :30 Hydralazine HCl (Apresoline) 10 mg Q6H PRN IV ELEVATED SYSTOLIC BP; Start 06/11 at 20:30 Aspirin (Halfprin) 81 mg DAILY PO Last administered on 06/29/17 09:06; Admin Dose 81 MG; Start 06/12/17 at 09:00 Atorvastatin Calcium (Lipitor) 40 mg QHS PO Last administered on 06/17/17 21: 29; Admin Dose 40 MG; Start 06/11/17 at 21:00; Status Future Hold Diclofenac Sodium (Voltaren) 50 mg TID PO Last administered on 06/16/17 20:44 ; Admin Dose 50 MG; Start 06/11/17 at 21:00; Status Future Hold Doxazosin Mesylate (Cardura) 2 mg HS PO Last administered on 06/17/17 21:28; Admin Dose 2 MG; Start 06/11/17 at 21:00; Status Future Hold Folic Acid (Folic Acid) 1 mg DAILY PO Last administered on 06/17/17 08:36; Admin Dose 1 MG; Start 06/12/17 at 09:00; Status Future Hold Isosorbide Mononitrate (Imdur) 120 mg DAILY PO Last administered on 06/17/17 08:37; Admin Dose 120 MG; Start 06/12/17 at 09:00; Status Future Hold Linagliptin (Tradjenta) 5 mg DAILY PO Last administered on 06/17/17 08:35; Admin Dose 5 MG; Start 06/12/17 at 14:30; Status Future Hold Morphine Sulfate 2 mg 2 mg Q4H PRN IV pain Last administered on 06/21/17 00: 58; Admin Dose 2 MG; Start 06/14/17 at 12:00 Magnesium Sulfate/ Dextrose (Magnesium Sulfate 1 Gm/D5W) 100 ml @ 100 mls/hr PRN PRN IVPB PENDING LAB VALUE; Start 06/18/17 at 15:30 Dextrose (D50w Syringe) 25 ml Q15M PRN IV Till BS 80 mg/dL or above x2; Start 06/18/17 at 19:00 Dextrose (D50w Syringe) 50 ml Q15M PRN IV Till BS 80 mg/dL or above x2; Start 06/18/17 at 19:00 Hydromorphone HCl (Dilaudid) 0.5 mg Q1HWA PRN IV PAIN Last administered on 00:35; Admin Dose 0.5 MG; Start 06/18/17 at 20:00 Hydromorphone HCl (Dilaudid) 1 mg Q4H PRN IV PAIN LEVEL 6-10 Last administered on 06/21/17 13:11; Admin Dose 1 MG; Start 06/18/17 at 20:00 Diagnostic Test (Pha) (Accu-Chek) 1 ea 02 XX Last administered on 06/22/17 02 :00; Admin Dose 1 EA; Start 06/21/17 at 02:00 Acetaminophen/ Hydrocodone Bitart ([place] (5/325)) 1 tab Q4H PRN PO PAIN LEVEL 4 -6 Last administered on 06/29/17 11:41; Admin Dose 1 TAB; Start 06/20/17 at 11:30 Metoprolol Tartrate (Lopressor) 5 mg Q4H PRN IV HR>110 Hold SBP<100 Last administered on 06/21/17 21:49; Admin Dose 5 MG; Start 06/20/17 at 14:00 Famotidine (Pepcid) 20 mg BID PO Last administered on 06/29/17 09:06; Admin Dose 20 MG; Start 06/20/17 at 21:00 Metoprolol Tartrate (Lopressor) 50 mg BID PO Last administered on 06/28/17 13 :17; Admin Dose 50 MG; Start 06/22/17 at 21:00 Amiodarone HCl (Cordarone) 200 mg Q12 PO Last administered on 06/29/17 09:06 ; Admin Dose 200 MG; Start 06/24/17 at 21:00 Docusate Sodium (Colace) 100 mg BID PO Last administered on 06/29/17 09:06; Admin Dose 100 MG; Start 06/25/17 at 21:00 Insulin Glargine (Lantus) 28 unit DAILY@08 SC Last administered on 06/29/17 09:03; Admin Dose 28 UNIT; Start 06/27/17 at 08:00 BETY MEADOWS 27, 2017 13:55
--- NOTE | 2017-06-29 15:22 | PN ---
Date/Time of Note Date/Time of Note DATE: 06/29/17 TIME: 15:20 Assessment/Plan VTE Prophylaxis VTE Prophylaxis Intervention: SCD's Lines/Catheters [facility]from [facility] Urinary Cath still in place: No Assessment/Plan Chief Complaint/Hosp Course Patient had an episode of atrial fibrillation relation with rapid ventricular response with heart rate going to 170, that is post IV dose of digoxin, patient is currently atrial fibrillation with controlled rate. Patient is able to ambulate in the hallway with physical therapy. Patient looks pale, will check hemoglobin. Blood sugars above 200 will adjust Lantus and NovoLog. 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 Riley on 06/11. Dr Christensen is following in cardiac surgery, S/p CABG with OLIVARES to LAD, SVG to R1, SVG to PDA. Continue cardiology and thoracic surgery recommendations. -Paroxysmal atrial fibrillation with rapid ventricular response, continue aspirin, metoprolol, digoxin. -Hypertension, continue metoprolol -Hyperlipidemia -Diabetes mellitus with hemoglobin A1c 6.9, continue Lantus and NovoLog -Bilateral carotid stenosis 50-69% Further recommendations based on clinical course. Plan of care discussed with Dr. Mariscal Problems: Exam/Review of Systems Vital Signs Vitals Vital Signs Date Time Temp Pulse Resp B/P Pulse Ox O2 Delivery O2 Flow Rate FiO2 06/29/17 13:11 79 18 95 21 06/29/17 12:01 96.5 108/59 06/27/17 04:00 Room Air Intake and Output 06/28/17 06/28/17 06/29/17 15:00 23:00 07:00 Intake Total 850 ml 600 ml Output Total 1900 ml 950 ml Balance -1050 ml -350 ml Exam Constitutional: alert, oriented Respiratory: normal air movement Cardiovascular: nl pulses, other (Status post CABG), regular rate and rhythm Gastrointestinal: non-tender, soft Extremities: normal pulses, other (Left lower extremity status post surgery) edema Neurological: nl mental status Results Result Diagram: 06/27/17 0638 06/29/17 0657 Results 24 hrs Laboratory Tests Test 06/28/17 18:06 06/28/17 20:08 06/29/17 06:57 06/29/17 08:58 Bedside Glucose 157 178 239 H Sodium Level 135 Potassium Level 4.1 Chloride Level 97 Carbon Dioxide Level 29 Anion Gap 13 Blood Urea Nitrogen 31 H Creatinine 1.17 Glucose Level 234 H Calcium Level 9.9 Test 06/29/17 12:48 Bedside Glucose 266 H Medications Medications Current Medications Acetaminophen (Tylenol Tab) 650 mg Q4H PRN PO NON-CARDIAC PAIN LEVEL (1-3) Last administered on 06/20/17 04:24; Admin Dose 650 MG; Start 06/11/17 at 10: 30 Al Hydrox/Mg Hydrox/Simethicone (Mag-Al Plus) 30 ml Q4H PRN PO GASTROINTESTINAL UPSET; Start 06/11/17 at 10:30 Ondansetron HCl (Zofran Inj) 4 mg Q4H PRN IV NAUSEA AND/OR VOMITING; Start 06/11/17 at 10:30 Miscellaneous Information 1 ea NOTE XX ; Start 06/11/17 at 19:30 Glucose (Glutose) 15 gm Q15M PRN PO DECREASED GLUCOSE; Start 06/11/17 at 19:30 Glucose (Glutose) 22.5 gm Q15M PRN PO DECREASED GLUCOSE; Start 06/11/17 at 19: 30 Dextrose (D50w Syringe) 25 ml Q15M PRN IV DECREASED GLUCOSE; Start 06/11/17 at 19:30 Dextrose (D50w Syringe) 50 ml Q15M PRN IV DECREASED GLUCOSE; Start 06/11/17 at 19:30 Glucagon (Glucagen) 1 mg Q15M PRN IM DECREASED GLUCOSE; Start 06/11/17 at 19:30 Glucose (Glutose) 15 gm Q15M PRN BUCCAL DECREASED GLUCOSE; Start 06/11/17 at 19 :30 Hydralazine HCl (Apresoline) 10 mg Q6H PRN IV ELEVATED SYSTOLIC BP; Start 06/11 at 20:30 Aspirin (Halfprin) 81 mg DAILY PO Last administered on 06/29/17 09:06; Admin Dose 81 MG; Start 06/12/17 at 09:00 Atorvastatin Calcium (Lipitor) 40 mg QHS PO Last administered on 06/17/17 21: 29; Admin Dose 40 MG; Start 06/11/17 at 21:00; Status Future Hold Diclofenac Sodium (Voltaren) 50 mg TID PO Last administered on 06/16/17 20:44 ; Admin Dose 50 MG; Start 06/11/17 at 21:00; Status Future Hold Doxazosin Mesylate (Cardura) 2 mg HS PO Last administered on 06/17/17 21:28; Admin Dose 2 MG; Start 06/11/17 at 21:00; Status Future Hold Folic Acid (Folic Acid) 1 mg DAILY PO Last administered on 06/17/17 08:36; Admin Dose 1 MG; Start 06/12/17 at 09:00; Status Future Hold Isosorbide Mononitrate (Imdur) 120 mg DAILY PO Last administered on 06/17/17 08:37; Admin Dose 120 MG; Start 06/12/17 at 09:00; Status Future Hold Linagliptin (Tradjenta) 5 mg DAILY PO Last administered on 06/17/17 08:35; Admin Dose 5 MG; Start 06/12/17 at 14:30; Status Future Hold Morphine Sulfate 2 mg 2 mg Q4H PRN IV pain Last administered on 06/21/17 00: 58; Admin Dose 2 MG; Start 06/14/17 at 12:00 Magnesium Sulfate/ Dextrose (Magnesium Sulfate 1 Gm/D5W) 100 ml @ 100 mls/hr PRN PRN IVPB PENDING LAB VALUE; Start 06/18/17 at 15:30 Dextrose (D50w Syringe) 25 ml Q15M PRN IV Till BS 80 mg/dL or above x2; Start 06/18/17 at 19:00 Dextrose (D50w Syringe) 50 ml Q15M PRN IV Till BS 80 mg/dL or above x2; Start 06/18/17 at 19:00 Hydromorphone HCl (Dilaudid) 0.5 mg Q1HWA PRN IV PAIN Last administered on 00:35; Admin Dose 0.5 MG; Start 06/18/17 at 20:00 Hydromorphone HCl (Dilaudid) 1 mg Q4H PRN IV PAIN LEVEL 6-10 Last administered on 06/21/17 13:11; Admin Dose 1 MG; Start 06/18/17 at 20:00 Diagnostic Test (Pha) (Accu-Chek) 1 ea 02 XX Last administered on 06/22/17 02 :00; Admin Dose 1 EA; Start 06/21/17 at 02:00 Acetaminophen/ Hydrocodone Bitart ([place] (5/325)) 1 tab Q4H PRN PO PAIN LEVEL 4 -6 Last administered on 06/29/17 11:41; Admin Dose 1 TAB; Start 06/20/17 at 11:30 Metoprolol Tartrate (Lopressor) 5 mg Q4H PRN IV HR>110 Hold SBP<100 Last administered on 06/21/17 21:49; Admin Dose 5 MG; Start 06/20/17 at 14:00 Famotidine (Pepcid) 20 mg BID PO Last administered on 06/29/17 09:06; Admin Dose 20 MG; Start 06/20/17 at 21:00 Amiodarone HCl (Cordarone) 200 mg Q12 PO Last administered on 06/29/17 09:06 ; Admin Dose 200 MG; Start 06/24/17 at 21:00 Docusate Sodium (Colace) 100 mg BID PO Last administered on 06/29/17 09:06; Admin Dose 100 MG; Start 06/25/17 at 21:00 Insulin Glargine (Lantus) 28 unit DAILY@08 SC Last administered on 06/29/17 09:03; Admin Dose 28 UNIT; Start 06/27/17 at 08:00 Atenolol (Tenormin) 25 mg BID PO ; Start 06/29/17 at 21:00 Digoxin (Digoxin) 0.125 mg DAILY@13 PO ; Start 06/30/17 at 13:00 Apixaban (Eliquis) 5 mg BID PO ; Start 06/29/17 at 21:00 GIOVANNI GARCIA Jun 29, 2017 15:22
[2017-06-29] MEDS: ATENOLOL 25 MG TAB PO SCH (21:52)
[2017-06-29] MEDS: APIXABAN 5 MG TABLET PO SCH (21:52)
[2017-06-30] VITALS (12 sets, daily range): BP systolic 94–128; BP diastolic 51–60; PULSE 54–67; RESP 16–20
[2017-06-30] MEDS: ACCU-CHEK XX SCH (02:00)
[2017-06-30] MEDS: ALBUTEROL/IPRATROPIUM (NEB) 3 ML AMP HHN SCH ×3 (07:39→19:44)
[2017-06-30] MEDS ORDERED: INSULIN GLARGINE [LANtus] 3 ML PEN SC SCH (08:00)
[2017-06-30] MEDS: INSULIN ASPART [NOVOLOG] 3 ML PEN SC SCH ×7 (08:34→21:00)
[2017-06-30] MEDS: DOCUSATE SODIUM 100 MG CAP PO SCH ×2 (08:40→21:37)
[2017-06-30] MEDS: APIXABAN 5 MG TABLET PO SCH ×2 (08:41→21:37)
[2017-06-30] MEDS: FAMOTIDINE 20 MG TAB PO SCH ×2 (08:41→21:37)
[2017-06-30] MEDS: ASPIRIN (EC) 81 MG TAB PO SCH (08:41)
[2017-06-30] MEDS: AMIODARONE 200 MG TAB PO SCH ×2 (08:41→21:37)
[2017-06-30] MEDS: ATENOLOL 25 MG TAB PO SCH ×2 (08:42→21:00)
[2017-06-30 08:55] LABS: BASOPHIL # 0.1 10^3/ul (0.0-0.1); BASOPHILS % 0.9 % (0.0-2.0); EOSINOPHILS # 0.3 10^3/ul (0.0-0.5); EOSINOPHILS % 2.6 % (0.0-7.0); HEMATOCRIT 31.8 % (42.0-52.0); HEMOGLOBIN 10.3 g/dl (14.0-18.0); LYMPHOCYTES % 17.3 % (15.0-51.0); MEAN CORPUSCULAR HEMOGLOBIN 30.1 pg (29.0-33.0); MEAN CORPUSCULAR HGB CONC 32.4 g/dl (32.0-37.0); MONOCYTE # 0.8 10^3/ul (0.3-0.9); MONOCYTES % 6.4 % (0.0-11.0); NEUTROPHIL # 8.3 10^3/ul (1.6-7.5); NEUTROPHILS % 71.5 % (39.0-77.0); PLATELET COUNT 588 10^3/UL (140-415); RED BLOOD COUNT 3.42 10^6/ul (4.70-6.10); RED CELL DISTRIBUTION WIDTH 14.6 % (11.5-14.5); WHITE BLOOD COUNT 11.6 10^3/ul (4.8-10.8)
[2017-06-30 09:18] LABS: CALCIUM 10.3 mg/dl (8.4-10.2); CREATININE 1.25 mg/dl (0.61-1.24); POTASSIUM 4.5 mmol/L (3.5-5.1)
--- NOTE | 2017-06-30 10:28 | CONS ---
Date/Time of Note Date/Time of Note DATE: 06/30/17 TIME: 10:27 Assessment/Plan Assessment/Plan Additional Assessment/Plan 1.cad-mutivessel obstructive by cath this admission. s/p cabg x 3 last week - doing well - ambulating now, no CP - pain controlled. DOING WELL. Ambulating with no CP. 2.Hypotension-borderline - stable on tele - improved. 3.HL 4.DM - on meds, keep euglycemic 5. anemia - h/h stable, no bleeding now 6.Hypernatremia - now with fliud retention, will Rx now. 7. PAF with RVR-Now back IN SR - in sinus on tele now - HAD FEW RECURRENCES, amio loaded now 8. CHF - acute on chorionic spot lasix now. - much better now with lasix - pt ambulating - feels stronger Lasix 40 bid IV x 2 days then po - better now Consultation Date/Type/Reason Admit Date/Time Jun 15, 2017 at 12:05 Type of Consultation: cardiology Referring Provider: SOFIYA ARORA MD 24 HR Interval Summary Free Text/Dictation HAD FEW RECURRENCES, amio loaded now ROS: No fever, no chills, no nausea, no vomiting, no diarrhea/constipation No recent weight changes No chest pain, no PND, no orthopnea No dizziness, blurred vision No thirst, no heat or cold intolerance Exam/Review of Systems Vital Signs Vitals Vital Signs Date Time Temp Pulse Resp B/P Pulse Ox O2 Delivery O2 Flow Rate FiO2 06/30/17 08:00 57 06/30/17 07:48 18 94 21 06/30/17 07:21 98.0 106/53 06/27/17 04:00 Room Air Intake and Output 06/29/17 06/29/17 06/30/17 15:00 23:00 07:00 Intake Total 880 ml 250 ml Output Total 800 ml Balance 880 ml -550 ml Exam General: WN/WD/NAD, AOx 3 HEENT: Unicetric/atraumatic/EOMI (follows commands) NECK: JVD elevated, no thyromegaly Lymph: no lymphadenopathy HEART: regular with no S3, II/ systolic murmur at apex LUNGS: Coarse sounds ABD: soft, NT, ND, +BS : Intact Neuro: non focal SKIN: chronic changes EXT: trace edema Results Result Diagram: 06/30/17 0756 06/30/17 0756 Results 24 hrs Laboratory Tests Test 06/29/17 12:48 06/29/17 17:41 06/29/17 21:56 06/30/17 07:56 Bedside Glucose 266 H 180 122 White Blood Count 11.6 H Red Blood Count 3.42 L Hemoglobin 10.3 L Hematocrit 31.8 L Mean Corpuscular Volume 93.0 Mean Corpuscular Hemoglobin 30.1 Mean Corpuscular Hemoglobin Concent 32.4 Red Cell Distribution Width 14.6 H Platelet Count 588 #H Mean Platelet Volume 11.0 H Neutrophils % 71.5 Lymphocytes % 17.3 Monocytes % 6.4 Eosinophils % 2.6 Basophils % 0.9 Nucleated Red Blood Cells % 0.0 Neutrophils # 8.3 H Lymphocytes # 2.0 Monocytes # 0.8 Eosinophils # 0.3 Basophils # 0.1 Nucleated Red Blood Cells # 0.0 Sodium Level 135 Potassium Level 4.5 Chloride Level 97 Carbon Dioxide Level 30 Anion Gap 13 Blood Urea Nitrogen 33 H Creatinine 1.25 H Glucose Level 207 Calcium Level 10.3 H Test 06/30/17 08:26 Bedside Glucose 206 Medications Medications Current Medications Acetaminophen (Tylenol Tab) 650 mg Q4H PRN PO NON-CARDIAC PAIN LEVEL (1-3) Last administered on 06/20/17t 04:24; Admin Dose 650 MG; Start 06/11/17 at 10: 30 Al Hydrox/Mg Hydrox/Simethicone (Mag-Al Plus) 30 ml Q4H PRN PO GASTROINTESTINAL UPSET; Start 06/11/17 at 10:30 Ondansetron HCl (Zofran Inj) 4 mg Q4H PRN IV NAUSEA AND/OR VOMITING; Start 06/11/17 at 10:30 Miscellaneous Information 1 ea NOTE XX ; Start 06/11/17 at 19:30 Glucose (Glutose) 15 gm Q15M PRN PO DECREASED GLUCOSE; Start 06/11/17 at 19:30 Glucose (Glutose) 22.5 gm Q15M PRN PO DECREASED GLUCOSE; Start 06/11/17 at 19: 30 Dextrose (D50w Syringe) 25 ml Q15M PRN IV DECREASED GLUCOSE; Start 06/11/17 at 19:30 Dextrose (D50w Syringe) 50 ml Q15M PRN IV DECREASED GLUCOSE; Start 06/11/17 at 19:30 Glucagon (Glucagen) 1 mg Q15M PRN IM DECREASED GLUCOSE; Start 06/11/17 at 19:30 Glucose (Glutose) 15 gm Q15M PRN BUCCAL DECREASED GLUCOSE; Start 06/11/17 at 19 :30 Hydralazine HCl (Apresoline) 10 mg Q6H PRN IV ELEVATED SYSTOLIC BP; Start 06/11 at 20:30 Aspirin (Halfprin) 81 mg DAILY PO Last administered on 06/30/17 08:41; Admin Dose 81 MG; Start 06/12/17 at 09:00 Atorvastatin Calcium (Lipitor) 40 mg QHS PO Last administered on 06/17/17 21: 29; Admin Dose 40 MG; Start 06/11/17 at 21:00; Status Future Hold Diclofenac Sodium (Voltaren) 50 mg TID PO Last administered on 06/16/17 20:44 ; Admin Dose 50 MG; Start 06/11/17 at 21:00; Status Future Hold Doxazosin Mesylate (Cardura) 2 mg HS PO Last administered on 06/17/17 21:28; Admin Dose 2 MG; Start 06/11/17 at 21:00; Status Future Hold Folic Acid (Folic Acid) 1 mg DAILY PO Last administered on 06/17/17 08:36; Admin Dose 1 MG; Start 06/12/17 at 09:00; Status Future Hold Isosorbide Mononitrate (Imdur) 120 mg DAILY PO Last administered on 06/17/17 08:37; Admin Dose 120 MG; Start 06/12/17 at 09:00; Status Future Hold Linagliptin (Tradjenta) 5 mg DAILY PO Last administered on 06/17/17 08:35; Admin Dose 5 MG; Start 06/12/17 at 14:30; Status Future Hold Morphine Sulfate 2 mg 2 mg Q4H PRN IV pain Last administered on 06/21/17 00: 58; Admin Dose 2 MG; Start 06/14/17 at 12:00 Magnesium Sulfate/ Dextrose (Magnesium Sulfate 1 Gm/D5W) 100 ml @ 100 mls/hr PRN PRN IVPB PENDING LAB VALUE; Start 06/18/17 at 15:30 Dextrose (D50w Syringe) 25 ml Q15M PRN IV Till BS 80 mg/dL or above x2; Start 06/18/17 at 19:00 Dextrose (D50w Syringe) 50 ml Q15M PRN IV Till BS 80 mg/dL or above x2; Start 06/18/17 at 19:00 Hydromorphone HCl (Dilaudid) 0.5 mg Q1HWA PRN IV PAIN Last administered on 00:35; Admin Dose 0.5 MG; Start 06/18/17 at 20:00 Hydromorphone HCl (Dilaudid) 1 mg Q4H PRN IV PAIN LEVEL 6-10 Last administered on 06/21/17 13:11; Admin Dose 1 MG; Start 06/18/17 at 20:00 Diagnostic Test (Pha) (Accu-Chek) 1 ea 02 XX Last administered on 06/22/17 02 :00; Admin Dose 1 EA; Start 06/21/17 at 02:00 Acetaminophen/ Hydrocodone Bitart ([place] (5/325)) 1 tab Q4H PRN PO PAIN LEVEL 4 -6 Last administered on 06/29/17 11:41; Admin Dose 1 TAB; Start 06/20/17 at 11:30 Metoprolol Tartrate (Lopressor) 5 mg Q4H PRN IV HR>110 Hold SBP<100 Last administered on 06/21/17 21:49; Admin Dose 5 MG; Start 06/20/17 at 14:00 Famotidine (Pepcid) 20 mg BID PO Last administered on 06/30/17 08:41; Admin Dose 20 MG; Start 06/20/17 at 21:00 Amiodarone HCl (Cordarone) 200 mg Q12 PO Last administered on 06/30/17 08:41 ; Admin Dose 200 MG; Start 06/24/17 at 21:00 Docusate Sodium (Colace) 100 mg BID PO Last administered on 06/30/17 08:40; Admin Dose 100 MG; Start 06/25/17 at 21:00 Atenolol (Tenormin) 25 mg BID PO Last administered on 06/30/17 08:42; Admin Dose 25 MG; Start 06/29/17 at 21:00 Digoxin (Digoxin) 0.125 mg DAILY@13 PO ; Start 06/30/17 at 13:00 Apixaban (Eliquis) 5 mg BID PO Last administered on 06/30/17 08:41; Admin Dose 5 MG; Start 06/29/17 at 21:00 Insulin Glargine (Lantus) 32 unit DAILY@08 SC Last administered on 06/30/17 08:33; Admin Dose 32 UNIT; Start 06/30/17 at 08:00 YAZ DA SILVA MD Jun 30, 2017 10:28
[2017-06-30] MEDS: DIGOXIN 0.125 MG TAB PO SCH (12:19)
--- NOTE | 2017-06-30 18:38 | PN ---
Date/Time of Note Date/Time of Note DATE: 06/30/17 TIME: 18:36 Assessment/Plan VTE Prophylaxis VTE Prophylaxis Intervention: SCD's Lines/Catheters IV [facility]from [facility] Urinary Cath still in place: No Assessment/Plan Chief Complaint/Hosp Course Blood sugar is better controlled however still had episodes of blood sugar above 200. Patient is remains in sinus rhythm and sinus bradycardia no episodes of atrial fibrillation was rapid ventricular response today. 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 Riley on 06/11. Dr Christensen is following in cardiac surgery, S/p CABG with OLIVARES to LAD, SVG to R1, SVG to PDA. Continue cardiology and thoracic surgery recommendations. -Paroxysmal atrial fibrillation with rapid ventricular response, continue aspirin, metoprolol, digoxin. -Hypertension, continue metoprolol -Hyperlipidemia -Diabetes mellitus with hemoglobin A1c 6.9, continue Lantus and NovoLog -Bilateral carotid stenosis 50-69% Further recommendations based on clinical course. Plan of care discussed with Dr. Mariscal Problems: Exam/Review of Systems Vital Signs Vitals Vital Signs Date Time Temp Pulse Resp B/P Pulse Ox O2 Delivery O2 Flow Rate FiO2 06/30/17 16:00 54 06/30/17 15:05 97.8 20 128/60 96 06/30/17 13:08 21 06/27/17 04:00 Room Air Intake and Output 06/29/17 06/29/17 06/30/17 15:00 23:00 07:00 Intake Total 880 ml 250 ml Output Total 800 ml Balance 880 ml -550 ml Exam Constitutional: alert, oriented Respiratory: normal air movement Cardiovascular: nl pulses, other (Status post CABG), regular rate and rhythm Gastrointestinal: non-tender, soft Extremities: normal pulses, other (Left lower extremity status post surgery) edema Neurological: nl mental status Results Result Diagram: 06/30/17 0756 06/30/17 0756 Results 24 hrs Laboratory Tests Test 06/29/17 21:56 06/30/17 07:56 06/30/17 08:26 06/30/17 12:21 Bedside Glucose 122 206 274 H White Blood Count 11.6 H Red Blood Count 3.42 L Hemoglobin 10.3 L Hematocrit 31.8 L Mean Corpuscular Volume 93.0 Mean Corpuscular Hemoglobin 30.1 Mean Corpuscular Hemoglobin Concent 32.4 Red Cell Distribution Width 14.6 H Platelet Count 588 #H Mean Platelet Volume 11.0 H Neutrophils % 71.5 Lymphocytes % 17.3 Monocytes % 6.4 Eosinophils % 2.6 Basophils % 0.9 Nucleated Red Blood Cells % 0.0 Neutrophils # 8.3 H Lymphocytes # 2.0 Monocytes # 0.8 Eosinophils # 0.3 Basophils # 0.1 Nucleated Red Blood Cells # 0.0 Sodium Level 135 Potassium Level 4.5 Chloride Level 97 Carbon Dioxide Level 30 Anion Gap 13 Blood Urea Nitrogen 33 H Creatinine 1.25 H Glucose Level 207 Calcium Level 10.3 H Test 06/30/17 17:34 Bedside Glucose 145 Medications Medications Current Medications Acetaminophen (Tylenol Tab) 650 mg Q4H PRN PO NON-CARDIAC PAIN LEVEL (1-3) Last administered on 06/20/17t 04:24; Admin Dose 650 MG; Start 06/11/17 at 10: 30 Al Hydrox/Mg Hydrox/Simethicone (Mag-Al Plus) 30 ml Q4H PRN PO GASTROINTESTINAL UPSET; Start 06/11/17 at 10:30 Ondansetron HCl (Zofran Inj) 4 mg Q4H PRN IV NAUSEA AND/OR VOMITING; Start 06/11/17 at 10:30 Miscellaneous Information 1 ea NOTE XX ; Start 06/11/17 at 19:30 Glucose (Glutose) 15 gm Q15M PRN PO DECREASED GLUCOSE; Start 06/11/17 at 19:30 Glucose (Glutose) 22.5 gm Q15M PRN PO DECREASED GLUCOSE; Start 06/11/17 at 19: 30 Dextrose (D50w Syringe) 25 ml Q15M PRN IV DECREASED GLUCOSE; Start 06/11/17 at 19:30 Dextrose (D50w Syringe) 50 ml Q15M PRN IV DECREASED GLUCOSE; Start 06/11/17 at 19:30 Glucagon (Glucagen) 1 mg Q15M PRN IM DECREASED GLUCOSE; Start 06/11/17 at 19:30 Glucose (Glutose) 15 gm Q15M PRN BUCCAL DECREASED GLUCOSE; Start 06/11/17 at 19 :30 Hydralazine HCl (Apresoline) 10 mg Q6H PRN IV ELEVATED SYSTOLIC BP; Start 06/11 at 20:30 Aspirin (Halfprin) 81 mg DAILY PO Last administered on 06/30/17 08:41; Admin Dose 81 MG; Start 06/12/17 at 09:00 Atorvastatin Calcium (Lipitor) 40 mg QHS PO Last administered on 06/17/17 21: 29; Admin Dose 40 MG; Start 06/11/17 at 21:00; Status Future Hold Diclofenac Sodium (Voltaren) 50 mg TID PO Last administered on 06/16/17 20:44 ; Admin Dose 50 MG; Start 06/11/17 at 21:00; Status Future Hold Doxazosin Mesylate (Cardura) 2 mg HS PO Last administered on 06/17/17 21:28; Admin Dose 2 MG; Start 06/11/17 at 21:00; Status Future Hold Folic Acid (Folic Acid) 1 mg DAILY PO Last administered on 06/17/17 08:36; Admin Dose 1 MG; Start 06/12/17 at 09:00; Status Future Hold Isosorbide Mononitrate (Imdur) 120 mg DAILY PO Last administered on 06/17/17 08:37; Admin Dose 120 MG; Start 06/12/17 at 09:00; Status Future Hold Linagliptin (Tradjenta) 5 mg DAILY PO Last administered on 06/17/17 08:35; Admin Dose 5 MG; Start 06/12/17 at 14:30; Status Future Hold Morphine Sulfate 2 mg 2 mg Q4H PRN IV pain Last administered on 06/21/17 00: 58; Admin Dose 2 MG; Start 06/14/17 at 12:00 Magnesium Sulfate/ Dextrose (Magnesium Sulfate 1 Gm/D5W) 100 ml @ 100 mls/hr PRN PRN IVPB PENDING LAB VALUE; Start 06/18/17 at 15:30 Dextrose (D50w Syringe) 25 ml Q15M PRN IV Till BS 80 mg/dL or above x2; Start 06/18/17 at 19:00 Dextrose (D50w Syringe) 50 ml Q15M PRN IV Till BS 80 mg/dL or above x2; Start 06/18/17 at 19:00 Hydromorphone HCl (Dilaudid) 0.5 mg Q1HWA PRN IV PAIN Last administered on 00:35; Admin Dose 0.5 MG; Start 06/18/17 at 20:00 Hydromorphone HCl (Dilaudid) 1 mg Q4H PRN IV PAIN LEVEL 6-10 Last administered on 06/21/17 13:11; Admin Dose 1 MG; Start 06/18/17 at 20:00 Diagnostic Test (Pha) (Accu-Chek) 1 ea 02 XX Last administered on 06/22/17 02 :00; Admin Dose 1 EA; Start 06/21/17 at 02:00 Acetaminophen/ Hydrocodone Bitart ([place] (5/325)) 1 tab Q4H PRN PO PAIN LEVEL 4 -6 Last administered on 06/29/17 11:41; Admin Dose 1 TAB; Start 06/20/17 at 11:30 Metoprolol Tartrate (Lopressor) 5 mg Q4H PRN IV HR>110 Hold SBP<100 Last administered on 06/21/17 21:49; Admin Dose 5 MG; Start 06/20/17 at 14:00 Famotidine (Pepcid) 20 mg BID PO Last administered on 06/30/17 08:41; Admin Dose 20 MG; Start 06/20/17 at 21:00 Amiodarone HCl (Cordarone) 200 mg Q12 PO Last administered on 06/30/17 08:41 ; Admin Dose 200 MG; Start 06/24/17 at 21:00 Docusate Sodium (Colace) 100 mg BID PO Last administered on 06/30/17 08:40; Admin Dose 100 MG; Start 06/25/17 at 21:00 Atenolol (Tenormin) 25 mg BID PO Last administered on 06/30/17 08:42; Admin Dose 25 MG; Start 06/29/17 at 21:00 Digoxin (Digoxin) 0.125 mg DAILY@13 PO ; Start 06/30/17 at 13:00 Apixaban (Eliquis) 5 mg BID PO Last administered on 06/30/17 08:41; Admin Dose 5 MG; Start 06/29/17 at 21:00 Insulin Glargine (Lantus) 32 unit DAILY@08 SC Last administered on 11/28/17at 08:33; Admin Dose 32 UNIT; Start 06/30/17 at 08:00 GIOVANNI GARCIA Jun 30, 2017 18:38
[2017-07-01] VITALS (10 sets, daily range): BP systolic 111–132; BP diastolic 53–60; PULSE 50–66; RESP 16–18
[2017-07-01] MEDS: ACCU-CHEK XX SCH (02:00)
[2017-07-01] MEDS: ALBUTEROL/IPRATROPIUM (NEB) 3 ML AMP HHN SCH ×3 (02:12→13:22)
[2017-07-01] MEDS ORDERED: INSULIN GLARGINE [LANtus] 3 ML PEN SC SCH (08:00)
[2017-07-01] MEDS: DOCUSATE SODIUM 100 MG CAP PO SCH (08:29)
[2017-07-01] MEDS: ATENOLOL 25 MG TAB PO SCH ×2 (08:30→18:14)
[2017-07-01] MEDS: APIXABAN 5 MG TABLET PO SCH ×2 (08:30→18:14)
[2017-07-01] MEDS: ASPIRIN (EC) 81 MG TAB PO SCH (08:30)
[2017-07-01] MEDS: FAMOTIDINE 20 MG TAB PO SCH (08:30)
[2017-07-01] MEDS: AMIODARONE 200 MG TAB PO SCH ×2 (08:30→18:13)
[2017-07-01] MEDS: INSULIN ASPART [NOVOLOG] 3 ML PEN SC SCH ×6 (08:40→17:22)
[2017-07-01 09:05] LABS: BASOPHIL # 0.1 10^3/ul (0.0-0.1); BASOPHILS % 0.7 % (0.0-2.0); EOSINOPHILS # 0.2 10^3/ul (0.0-0.5); EOSINOPHILS % 2.2 % (0.0-7.0); HEMATOCRIT 30.5 % (42.0-52.0); HEMOGLOBIN 9.7 g/dl (14.0-18.0); LYMPHOCYTES # 1.5 10^3/ul (0.8-2.9); LYMPHOCYTES % 15.2 % (15.0-51.0); MEAN CORPUSCULAR HEMOGLOBIN 29.4 pg (29.0-33.0); MEAN CORPUSCULAR HGB CONC 31.8 g/dl (32.0-37.0); MEAN CORPUSCULAR VOLUME 92.4 fl (82.0-101.0); MEAN PLATELET VOLUME 11.1 fl (7.4-10.4); MONOCYTE # 0.7 10^3/ul (0.3-0.9); MONOCYTES % 7.3 % (0.0-11.0); NEUTROPHIL # 7.2 10^3/ul (1.6-7.5); NEUTROPHILS % 73.4 % (39.0-77.0); PLATELET COUNT 514 10^3/UL (140-415); RED CELL DISTRIBUTION WIDTH 14.6 % (11.5-14.5); WHITE BLOOD COUNT 9.8 10^3/ul (4.8-10.8)
[2017-07-01 09:09] LABS: CALCIUM 10.1 mg/dl (8.4-10.2); CREATININE 1.17 mg/dl (0.61-1.24); POTASSIUM 4.5 mmol/L (3.5-5.1)
[2017-07-01] MEDS: DIGOXIN 0.125 MG TAB PO SCH (12:29)
--- NOTE | 2017-07-01 13:20 | CONS ---
Date/Time of Note Date/Time of Note DATE: 07/01/17 TIME: 13:15 Assessment/Plan Assessment/Plan Chief Complaint/Hosp Course IMP: 1.cad-mutivessel obstructive by cath this admission. Post-op s/p cabg x 3 2.Hypotension-now improved 3.HL 4.DM 5. anemia 6.Hypernatremia-improved 7. PAF-now back in [facility]; -Tele -continue asa -Continue atenolol at d/c as tolerated -Continue po amiodarone bid with taper to daily after 1 week -Start lasix to PO and continue diuresis at d/c -Continue po digoxin -Contineu eliquis -outpoatient f/u 2-3 weeks Problems: Consultation Date/Type/Reason Admit Date/Time Jun 15, 2017 at 12:05 Initial Consult Date 06/11/2017 Type of Consultation: cardiology Reason for Consultation cad s/p cabg Referring Provider: SOFIYA ARORA MD Exam/Review of Systems Vital Signs Vitals Vital Signs Date Time Temp Pulse Resp B/P Pulse Ox O2 Delivery O2 Flow Rate FiO2 07/01/17 12:11 61 07/01/17 11:09 99.0 18 132/53 93 07/01/17 08:12 21 Intake and Output 06/30/17 06/30/17 07/01/17 15:00 23:00 07:00 Intake Total 960 ml 300 ml Output Total 650 ml Balance 960 ml -350 ml Exam Review of Systems: CONSTITUTIONAL: No fevers, chills. PULMONARY: No sob CARDIOVASCULAR: No chest pain/palpitations GASTROINTESTINAL: No nausea/vomiting. GENITOURINARY: No hematuria/dysuria. MUSCULOSKELETAL: No myagias/arthalgias. PSYCHIATRIC: The patient denies depression. NEUROLOGIC: No weakness Constitutional: oriented Psych: no complaints Head: normocephalic ENMT: mucosa pink and moist Neck: jvd (8 cm water), supple Respiratory: clear to auscultation, diminished breath sounds Cardiovascular: regular rate and rhythm Gastrointestinal: non-tender, soft Musculoskeletal: muscle tone (normal) Extremities: pitting pedal edema (bilateral LE) Neurological: other (No focal deficits) Results Result Diagram: 07/01/17 0802 07/01/17 0802 Results 24 hrs Laboratory Tests Test 06/30/17 17:34 06/30/17 21:41 07/01/17 08:02 07/01/17 08:28 Bedside Glucose 145 160 229 H White Blood Count 9.8 Red Blood Count 3.30 L Hemoglobin 9.7 L Hematocrit 30.5 L Mean Corpuscular Volume 92.4 Mean Corpuscular Hemoglobin 29.4 Mean Corpuscular Hemoglobin Concent 31.8 L Red Cell Distribution Width 14.6 H Platelet Count 514 H Mean Platelet Volume 11.1 H Neutrophils % 73.4 Lymphocytes % 15.2 Monocytes % 7.3 Eosinophils % 2.2 Basophils % 0.7 Nucleated Red Blood Cells % 0.0 Neutrophils # 7.2 Lymphocytes # 1.5 Monocytes # 0.7 Eosinophils # 0.2 Basophils # 0.1 Nucleated Red Blood Cells # 0.0 Sodium Level 137 Potassium Level 4.5 Chloride Level 99 Carbon Dioxide Level 30 Anion Gap 13 Blood Urea Nitrogen 29 H Creatinine 1.17 Glucose Level 212 Calcium Level 10.1 Test 07/01/17 12:31 Bedside Glucose 220 Medications Medications Current Medications Acetaminophen (Tylenol Tab) 650 mg Q4H PRN PO NON-CARDIAC PAIN LEVEL (1-3) Last administered on 06/20/17t 04:24; Admin Dose 650 MG; Start 06/11/17 at 10: 30 Al Hydrox/Mg Hydrox/Simethicone (Mag-Al Plus) 30 ml Q4H PRN PO GASTROINTESTINAL UPSET; Start 06/11/17 at 10:30 Ondansetron HCl (Zofran Inj) 4 mg Q4H PRN IV NAUSEA AND/OR VOMITING; Start 06/11/17 at 10:30 Miscellaneous Information 1 ea NOTE XX ; Start 06/11/17 at 19:30 Glucose (Glutose) 15 gm Q15M PRN PO DECREASED GLUCOSE; Start 06/11/17 at 19:30 Glucose (Glutose) 22.5 gm Q15M PRN PO DECREASED GLUCOSE; Start 06/11/17 at 19: 30 Dextrose (D50w Syringe) 25 ml Q15M PRN IV DECREASED GLUCOSE; Start 06/11/17 at 19:30 Dextrose (D50w Syringe) 50 ml Q15M PRN IV DECREASED GLUCOSE; Start 06/11/17 at 19:30 Glucagon (Glucagen) 1 mg Q15M PRN IM DECREASED GLUCOSE; Start 06/11/17 at 19:30 Glucose (Glutose) 15 gm Q15M PRN BUCCAL DECREASED GLUCOSE; Start 06/11/17 at 19 :30 Hydralazine HCl (Apresoline) 10 mg Q6H PRN IV ELEVATED SYSTOLIC BP; Start 06/11 at 20:30 Aspirin (Halfprin) 81 mg DAILY PO Last administered on 07/01/17 08:30; Admin Dose 81 MG; Start 06/12/17 at 09:00 Atorvastatin Calcium (Lipitor) 40 mg QHS PO Last administered on 06/17/17 21: 29; Admin Dose 40 MG; Start 06/11/17 at 21:00; Status Future Hold Diclofenac Sodium (Voltaren) 50 mg TID PO Last administered on 06/16/17 20:44 ; Admin Dose 50 MG; Start 06/11/17 at 21:00; Status Future Hold Doxazosin Mesylate (Cardura) 2 mg HS PO Last administered on 06/17/17 21:28; Admin Dose 2 MG; Start 06/11/17 at 21:00; Status Future Hold Folic Acid (Folic Acid) 1 mg DAILY PO Last administered on 06/17/17 08:36; Admin Dose 1 MG; Start 06/12/17 at 09:00; Status Future Hold Isosorbide Mononitrate (Imdur) 120 mg DAILY PO Last administered on 06/17/17 08:37; Admin Dose 120 MG; Start 06/12/17 at 09:00; Status Future Hold Linagliptin (Tradjenta) 5 mg DAILY PO Last administered on 06/17/17 08:35; Admin Dose 5 MG; Start 06/12/17 at 14:30; Status Future Hold Morphine Sulfate 2 mg 2 mg Q4H PRN IV pain Last administered on 06/21/17 00: 58; Admin Dose 2 MG; Start 06/14/17 at 12:00 Magnesium Sulfate/ Dextrose (Magnesium Sulfate 1 Gm/D5W) 100 ml @ 100 mls/hr PRN PRN IVPB PENDING LAB VALUE; Start 06/18/17 at 15:30 Dextrose (D50w Syringe) 25 ml Q15M PRN IV Till BS 80 mg/dL or above x2; Start 06/18/17 at 19:00 Dextrose (D50w Syringe) 50 ml Q15M PRN IV Till BS 80 mg/dL or above x2; Start 06/18/17 at 19:00 Hydromorphone HCl (Dilaudid) 0.5 mg Q1HWA PRN IV PAIN Last administered on 00:35; Admin Dose 0.5 MG; Start 06/18/17 at 20:00 Hydromorphone HCl (Dilaudid) 1 mg Q4H PRN IV PAIN LEVEL 6-10 Last administered on 06/21/17 13:11; Admin Dose 1 MG; Start 06/18/17 at 20:00 Diagnostic Test (Pha) (Accu-Chek) 1 ea 02 XX Last administered on 06/22/17 02 :00; Admin Dose 1 EA; Start 06/21/17 at 02:00 Acetaminophen/ Hydrocodone Bitart ([place] (5/325)) 1 tab Q4H PRN PO PAIN LEVEL 4 -6 Last administered on 06/29/17 11:41; Admin Dose 1 TAB; Start 06/20/17 at 11:30 Metoprolol Tartrate (Lopressor) 5 mg Q4H PRN IV HR>110 Hold SBP<100 Last administered on 06/21/17 21:49; Admin Dose 5 MG; Start 06/20/17 at 14:00 Famotidine (Pepcid) 20 mg BID PO Last administered on 07/01/17 08:30; Admin Dose 20 MG; Start 06/20/17 at 21:00 Amiodarone HCl (Cordarone) 200 mg Q12 PO Last administered on 07/01/17 08:30 ; Admin Dose 200 MG; Start 06/24/17 at 21:00 Docusate Sodium (Colace) 100 mg BID PO Last administered on 07/01/17 08:29; Admin Dose 100 MG; Start 06/25/17 at 21:00 Atenolol (Tenormin) 25 mg BID PO Last administered on 06/30/17 08:42; Admin Dose 25 MG; Start 06/29/17 at 21:00 Digoxin (Digoxin) 0.125 mg DAILY@13 PO Last administered on 07/01/17 12:29; Admin Dose 0.125 MG; Start 06/30/17 at 13:00 Apixaban (Eliquis) 5 mg BID PO Last administered on 11/29/17at 08:30; Admin Dose 5 MG; Start 06/29/17 at 21:00 Insulin Glargine (Lantus) 36 unit DAILY@08 SC Last administered on 07/01/17t 08:41; Admin Dose 36 UNIT; Start 07/01/17 at 08:00 BETY MEADOWS Jul 01, 2017 13:20
[2017-07-01] MEDS ORDERED: LANT3I SC (16:51)
[2017-07-01] MEDS ORDERED: AMIO200T2 PO ×2 (16:51→16:54)
[2017-07-01] MEDS ORDERED: NOVO3I SC (16:51)
[2017-07-01] MEDS ORDERED: APIX5TAB PO (16:51)
[2017-07-01] MEDS ORDERED: LAS20 PO (16:51)
[2017-07-01] MEDS ORDERED: DIGO125T PO (16:51)
[2017-07-01] MEDS ORDERED: HYDR-3498 PO (16:51)
[2017-07-01] MEDS ORDERED: ATEN-51 PO (16:51)
[2017-07-01] MEDS ORDERED: FUROSEMIDE 20 MG TAB PO SCH (18:00)
--- NOTE | 2017-07-01 18:28 | DS ---
Date/Time of Note Date/Time of Note DATE: 07/01/17 TIME: 18:25 Discharge Summary Admission/Discharge Info Admit Date/Time Jun 15, 2017 at 12:05 Discharge Date/Time Patient Condition: Stable Hx of Present Illness Mr. Alicea is a 76-year-old male with history of hypertension, dyslipidemia, diabetes mellitus, ongoing tobacco usage, who presented with complaints of substernal chest pain. The patient subsequently had a cardiac stress test revealing positive ischemia and was referred for left heart catheterization. Patient now presents for left heart catheterization to assess for the possibility of significant obstructive coronary artery disease lending to symptoms of chest pain and positive stress test findings. Hospital Course - Multivessel obstructive coronary artery disease involving high grade stenosis of the circumflex, LAD and 100% occlusion of the patient's right coronary artery with collateral circulation recapitulating this vessel per cardiac cath by Dr. Riley on 06/11. Dr Christensen is following in cardiac surgery, S/p CABG with OLIVARES to LAD, SVG to R1, SVG to PDA. Continue cardiology and thoracic surgery recommendations. -Paroxysmal atrial fibrillation with rapid ventricular response, continue aspirin, atenolol, digoxin. -Hypertension, continue metoprolol -Hyperlipidemia -Diabetes mellitus with hemoglobin A1c 6.9, continue Lantus and NovoLog -Bilateral carotid stenosis 50-69% Home Meds Active Scripts Amiodarone Hcl* (Amiodarone Hcl*) 200 Mg Tablet, 200 MG PO DAILY, #30 TAB Prov:GIOVANNI GARCIA 07/01/17 Insulin Glargine* (Lantus*) 100 Unit/Ml Soln, 36 UNIT SC DAILY@08 for 30 Days Prov:GIOVANNI GARCIA 07/01/17 Insulin Aspart* (Novolog Insulin Pen*) 100 Unit/Ml Soln, 10 UNIT SC WITH MEALS for 30 Days Prov:GIOVANNI GARCIA 07/01/17 Hydrocodone Bit-Acetaminophen (Hydrocodone Bit-APAP) 5-325MG Tablet, 1 TAB PO Q4H Y for PAIN LEVEL 4-6, #30 TAB Prov:GIOVANNI GARCIA 07/01/17 Furosemide (Lasix) 20 Mg Tab, 20 MG PO BID DIURETICS for 30 Days, TAB Prov:GIOVANNI GARCIA 07/01/17 Digoxin* (Digitek*) 125 Mcg Tablet, 0.125 MG PO DAILY@13 for 30 Days, TAB Prov:GIOVANNI GARCIA 07/01/17 Atenolol* (Atenolol*) 25 Mg Tablet, 25 MG PO BID for 30 Days, TAB Prov:GIOVANNI GARCIA 07/01/17 Apixaban* (Eliquis*) 5 Mg Tablet, 5 MG PO BID for 30 Days, TAB Prov:GIOVANNI GARCIA 07/01/17 Amiodarone Hcl* (Amiodarone Hcl*) 200 Mg Tablet, 200 MG PO BID for 7 Days, TAB Prov:GIOVANNI GARCIA 07/01/17 Reported Medications Docusate Sodium* (Doc-Q-Lace*) 100 Mg Capsule, 100 MG PO DAILY Y for CONSTIPATION, CAP 06/11/17 Aspirin (Low Dose Aspirin) 81 Mg Tablet.dr, 81 MG PO DAILY, #30 TAB 06/11/17 Folic Acid* (Folic Acid*) 1 Mg Tablet, 1 MG PO DAILY, TAB 06/11/17 Atorvastatin* (Atorvastatin*) 40 Mg Tablet, 40 MG PO QHS, #30 TAB 06/11/17 Saxagliptin Hcl/Metformin Hcl (KOMBIGLYZE XR 5-1,000 MG TAB) 1 Each Tbmp.24hr, 1 EACH PO DAILY, TAB 06/11/17 Discontinued Reported Medications Carvedilol* (Carvedilol*) 6.25 Mg Tablet, 6.25 MG PO BID, #60 TAB 06/11/17 Glimepiride* (Glimepiride*) 4 Mg Tablet, 4 MG PO WITH BREAKFAST DINNE, TAB 06/11/17 Doxazosin Mesylate* (Doxazosin Mesylate*) 2 Mg Tablet, 2 MG PO HS, TAB 06/11/17 Isosorbide Mononitrate* (Isosorbide Mononitrate*) 120 Mg Tab.sr.24h, 120 MG PO DAILY, TAB.SA 06/11/17 Diclofenac Sodium* (Diclofenac Sodium*) 50 Mg Tablet.dr, 50 MG PO TID, #90 TAB 06/11/17 Follow-up Plan f/up with Dr Riley in 2-3 weeks. Primary Care Provider Not On Staff Doctor Time spent on discharge: > 30 minutes Pending Labs Laboratory Tests Test 06/30/17 21:41 07/01/17 08:02 07/01/17 08:28 07/01/17 12:31 Bedside Glucose 160mg/dL (70-220) 229mg/dL (70-220) 220mg/dL (70-220) White Blood Count 9.810^3/ul (4.8-10.8) Red Blood Count 3.3010^6/ul (4.70-6.10) Hemoglobin 9.7g/dl (14.0-18.0) Hematocrit 30.5% (42.0-52.0) Mean Corpuscular Volume 92.4fl (82.0-101.0) Mean Corpuscular Hemoglobin 29.4pg (29.0-33.0) Mean Corpuscular Hemoglobin Concent 31.8g/dl (32.0-37.0) Red Cell Distribution Width 14.6% (11.5-14.5) Platelet Count 66225^3/UL (140-415) Mean Platelet Volume 11.1fl (7.4-10.4) Neutrophils % 73.4% (39.0-77.0) Lymphocytes % 15.2% (15.0-51.0) Monocytes % 7.3% (0.0-11.0) Eosinophils % 2.2% (0.0-7.0) Basophils % 0.7% (0.0-2.0) Nucleated Red Blood Cells % 0.0/100WBC (0.0-0.0) Neutrophils # 7.210^3/ul (1.6-7.5) Lymphocytes # 1.510^3/ul (0.8-2.9) Monocytes # 0.710^3/ul (0.3-0.9) Eosinophils # 0.210^3/ul (0.0-0.5) Basophils # 0.110^3/ul (0.0-0.1) Nucleated Red Blood Cells # 0.010^3/ul (0.0-0.0) Sodium Level 137mmol/L (135-144) Potassium Level 4.5mmol/L (3.5-5.1) Chloride Level 99mmol/L (97-110) Carbon Dioxide Level 30mmol/L (21-31) Anion Gap 13 (8-16) Blood Urea Nitrogen 29mg/dl (7-20) Creatinine 1.17mg/dl (0.61-1.24) Glucose Level 212mg/dl (70-220) Calcium Level 10.1mg/dl (8.4-10.2) Test 07/01/17 17:19 Bedside Glucose 146mg/dL (70-220) GIOVANNI GARCIA Jul 01, 2017 18:28
== END 2017-07-01 18:35 | disposition home health service (06) | DRG 234 ==
LOC: SDS 07:03 → INTOOBSV 10:14 → SDS 10:14 → REC 10:14 → MS4 10:14 → OBSVTOIN 10:14 → ICU 06-18 10:15 → TEL 06-22 23:00
PROVIDERS: ADMIT Internal Medicine; ATTEND Internal Medicine
PROC: 4A023N7 Measurement of Cardiac Sampling and Pressure, Left Heart, Percutaneous Approach (ICD-10-PCS; 2017-06-11)
PROC: B211YZZ Fluoroscopy of Multiple Coronary Arteries using Other Contrast (ICD-10-PCS; 2017-06-11)
PROC: B215YZZ Fluoroscopy of Left Heart using Other Contrast (ICD-10-PCS; 2017-06-11)
PROC: 021109W Bypass Coronary Artery, Two Arteries from Aorta with Autologous Venous Tissue, Open Approach (ICD-10-PCS; 2017-06-18)
PROC: 06BQ4ZZ Excision of Left Saphenous Vein, Percutaneous Endoscopic Approach (ICD-10-PCS; 2017-06-18)
PROC: 5A1221Z Performance of Cardiac Output, Continuous (ICD-10-PCS; 2017-06-18)
PROC: 02100Z9 Bypass Coronary Artery, One Artery from Left Internal Mammary, Open Approach (ICD-10-PCS; principal; 2017-06-18 07:30)
DX: I25.10 Atherosclerotic heart disease of native coronary artery without angina pectoris (principal); E87.0 Hyperosmolality and hypernatremia; I25.82 Chronic total occlusion of coronary artery; I11.0 Hypertensive heart disease with heart failure; I50.9 Heart failure, unspecified; E11.9 Type 2 diabetes mellitus without complications; D64.9 Anemia, unspecified; I48.0 Paroxysmal atrial fibrillation; I65.23 Occlusion and stenosis of bilateral carotid arteries; I25.2 Old myocardial infarction; E78.00 Pure hypercholesterolemia, unspecified; I34.0 Nonrheumatic mitral (valve) insufficiency; E66.9 Obesity, unspecified; Z68.33 Body mass index [BMI] 33.0-33.9, adult; Z72.0 Tobacco use; I95.81 Postprocedural hypotension
CPT/HCPCS: 36430; 36592; 36600; 71010; 80048; 80053; 80061; 80076; 82803; 82962; 83036; 83735; 84100; 84443; 84484; 85025; 85049; 85610; 85670; 85730; 86850; 86900; 86901; 86920; 86945; 87081; 93005; 93312; 93325; 93458; 93880; 93970; 94002; 94640; 94664; 94770; 97110; 97116; 97162; 97530; G0378; J1940; C1887; C9113; J0171; J0282; J0690; J1170; J1265; J1644; J1815; J2001; J2250; J2270; J2370; J2440; J2720; J3010; J3370; J3475; J3480; J7040; J7060; J7070; P9016; P9035; P9045; P9047; P9059; Q9967